=== PATIENT | female | born 1945 | race Caucasian/White ===

== ENCOUNTER 2022-07-06 08:57 | Outpatient (CLI) | payer OTHER, SELFPAY | END 2022-07-06 08:58 | disposition home or self-care (01) | PROVIDERS: Visit Provider Surgery | DX: R10.2 Pelvic and perineal pain (principal); B37.31 Acute candidiasis of vulva and vagina; C51.9 Malignant neoplasm of vulva, unspecified | CPT/HCPCS: 99204 ==

== ENCOUNTER 2022-07-13 09:21 | Outpatient (CLI) | payer OTHER, SELFPAY | END 2022-07-13 09:22 | disposition home or self-care (01) | LOC: WOUND 09:22 | PROVIDERS: Visit Provider Surgery | DX: R10.2 Pelvic and perineal pain (principal); C51.9 Malignant neoplasm of vulva, unspecified; B37.31 Acute candidiasis of vulva and vagina | CPT/HCPCS: 99213 ==

== ENCOUNTER 2022-07-20 09:01 | Outpatient (CLI) | payer OTHER, SELFPAY | END 2022-07-20 09:02 | disposition home or self-care (01) | LOC: WOUND 09:01 | PROVIDERS: Visit Provider Surgery | DX: R10.2 Pelvic and perineal pain (principal); B37.31 Acute candidiasis of vulva and vagina; C51.9 Malignant neoplasm of vulva, unspecified | CPT/HCPCS: 99213 ==

== ENCOUNTER 2022-07-27 08:55 | Outpatient (CLI) | payer OTHER, SELFPAY | END 2022-07-27 08:56 | disposition home or self-care (01) | LOC: WOUND 08:55 | PROVIDERS: Visit Provider Surgery | DX: C51.9 Malignant neoplasm of vulva, unspecified (principal); B37.32 Chronic candidiasis of vulva and vagina; R10.2 Pelvic and perineal pain; Z92.3 Personal history of irradiation | CPT/HCPCS: 99213 ==

== ENCOUNTER 2022-08-03 08:57 | Outpatient (CLI) | payer OTHER, SELFPAY | END 2022-08-03 08:58 | disposition home or self-care (01) | LOC: WOUND 08:57 | PROVIDERS: Visit Provider Surgery | DX: C51.9 Malignant neoplasm of vulva, unspecified (principal); R10.2 Pelvic and perineal pain; B37.32 Chronic candidiasis of vulva and vagina | CPT/HCPCS: 99213 ==

== ENCOUNTER 2022-08-10 09:10 | Outpatient (CLI) | payer OTHER, SELFPAY | END 2022-08-10 09:11 | disposition home or self-care (01) | LOC: WOUND 09:10 | PROVIDERS: Visit Provider Physician Assistant Surgical | DX: C51.9 Malignant neoplasm of vulva, unspecified (principal); R10.2 Pelvic and perineal pain; B37.31 Acute candidiasis of vulva and vagina; Z92.3 Personal history of irradiation | CPT/HCPCS: 99212 ==

== ENCOUNTER 2022-08-17 09:02 | Outpatient (CLI) | payer OTHER, SELFPAY | END 2022-08-17 09:03 | disposition home or self-care (01) | LOC: WOUND 09:02 | PROVIDERS: Visit Provider Surgery | DX: L59.8 Other specified disorders of the skin and subcutaneous tissue related to radiation (principal); R10.2 Pelvic and perineal pain | CPT/HCPCS: 99213 ==

== ENCOUNTER 2022-08-24 09:21 | Outpatient (CLI) | payer OTHER, SELFPAY | END 2022-08-24 09:22 | disposition home or self-care (01) | LOC: WOUND 09:22 | PROVIDERS: Visit Provider Surgery | DX: L59.8 Other specified disorders of the skin and subcutaneous tissue related to radiation (principal); B37.32 Chronic candidiasis of vulva and vagina; R10.2 Pelvic and perineal pain | CPT/HCPCS: 99213 ==

== ENCOUNTER 2022-08-24 10:14 | Outpatient (CLI) | payer OTHER, SELFPAY ==
--- NOTE | 2022-08-24 10:15 | CRLHL7_ITS ---
For Patients: As a result of the Century Cures Act, medical imaging exams and procedure reports are released immediately into your electronic medical record. You may view this report before your referring provider. If you have questions, please contact your health care provider. INDICATION: Vulvar cancer. TECHNIQUE: Multiplanar imaging of the pelvis was performed without and with 15 cc of Dotarem contrast material IV. COMPARISON: None FINDINGS: On images 51-63 of series 17, the post-contrast axial T1-weighted VIBE images, an irregularly marginated roughly 2.5 x 2 x 2 cm masslike abnormality is demonstrated deep to the mucosa of the posterior vagina, displacing the canal leftward. The lymphadenopathy is apparent. An intramural 3 cm right uterine fundal fibroid is noted. Nabothian cysts are noted in the cervix. The endometrial stripe is thickened to 7 mm. The junctional zone thickness is within normal limits at 4 mm. Structures consistent with normal postmenopausal ovaries are noted. No free fluid is demonstrated. Sigmoid diverticulosis is noted. IMPRESSION: 1. Irregularly marginated roughly 2.5 x 2 x 2 cm masslike abnormality deep to mucosa in the in the posterior superior vagina. 2. 3 cm intramural right uterine fundal fibroid. Dictated by Rajinder Bar MD @ 08/25/2022 2:26:35 PM (Electronically Signed)
== END 2022-08-24 10:15 | disposition home or self-care (01) ==
LOC: MRI 10:14
PROVIDERS: Visit Provider Obstetrics & Gynecology Gynecology
DX: C51.9 Malignant neoplasm of vulva, unspecified (principal); D25.1 Intramural leiomyoma of uterus
CPT/HCPCS: 72197; 99213; A9575

== ENCOUNTER 2022-08-31 08:51 | Outpatient (CLI) | payer OTHER, SELFPAY | END 2022-08-31 08:52 | disposition home or self-care (01) | LOC: WOUND 08:51 | PROVIDERS: Visit Provider Surgery | DX: L59.8 Other specified disorders of the skin and subcutaneous tissue related to radiation (principal); B37.32 Chronic candidiasis of vulva and vagina; R10.2 Pelvic and perineal pain | CPT/HCPCS: 80076; 99213 ==

== ENCOUNTER 2022-09-21 09:06 | Outpatient (CLI) | payer OTHER, SELFPAY ==
[2022-09-21 10:15] LABS: Hemoglobin A1C* 7.83 % (0-5.6)
== END 2022-09-21 09:07 | disposition home or self-care (01) ==
LOC: WOUND 09:06
PROVIDERS: Visit Provider Surgery
DX: L59.8 Other specified disorders of the skin and subcutaneous tissue related to radiation (principal); R10.2 Pelvic and perineal pain; B37.32 Chronic candidiasis of vulva and vagina; E11.9 Type 2 diabetes mellitus without complications
CPT/HCPCS: 36415; 83036; 99213

== ENCOUNTER 2022-09-28 09:04 | Outpatient (CLI) | payer OTHER, SELFPAY | END 2022-09-28 09:05 | disposition home or self-care (01) | LOC: WOUND 09:04 | PROVIDERS: Visit Provider Surgery | DX: L59.8 Other specified disorders of the skin and subcutaneous tissue related to radiation (principal); R10.2 Pelvic and perineal pain; B37.32 Chronic candidiasis of vulva and vagina; E11.9 Type 2 diabetes mellitus without complications | CPT/HCPCS: 99213 ==

== ENCOUNTER 2022-10-05 09:09 | Outpatient (CLI) | payer OTHER, SELFPAY | END 2022-10-05 09:10 | disposition home or self-care (01) | LOC: WOUND 09:09 | PROVIDERS: Visit Provider Physician Assistant Surgical | DX: L59.8 Other specified disorders of the skin and subcutaneous tissue related to radiation (principal); R10.2 Pelvic and perineal pain; B37.32 Chronic candidiasis of vulva and vagina | CPT/HCPCS: 99213 ==

== ENCOUNTER 2022-10-12 09:04 | Outpatient (CLI) | payer OTHER, SELFPAY ==
[2022-10-12 10:07] LABS: Alkaline Phosphatase* 137 U/L (40-150); Aspartate Amino Transferase* 18 U/L (12-35); Bilirubin Direct* 0.2 mg/dL (0.0-0.5); Bilirubin Total* 0.3 mg/dL (0.1-1.5); Total Protein* 7.8 g/dL (6.0-8.3)
[2022-10-12 10:08] LABS: Alanine Aminotransferase* 16 U/L (4-35)
== END 2022-10-12 09:05 | disposition home or self-care (01) ==
LOC: WOUND 09:04
PROVIDERS: Visit Provider Surgery
DX: L59.8 Other specified disorders of the skin and subcutaneous tissue related to radiation (principal); B37.32 Chronic candidiasis of vulva and vagina; R10.2 Pelvic and perineal pain; Z79.899 Other long term (current) drug therapy
CPT/HCPCS: 36415; 80076; 99213

== ENCOUNTER 2022-10-19 09:00 | Outpatient (CLI) | payer OTHER, SELFPAY | END 2022-10-19 09:01 | disposition home or self-care (01) | LOC: WOUND 09:00 | PROVIDERS: Visit Provider Surgery | DX: L59.8 Other specified disorders of the skin and subcutaneous tissue related to radiation (principal); B37.32 Chronic candidiasis of vulva and vagina; R10.2 Pelvic and perineal pain | CPT/HCPCS: 97597; 97598 ==

== ENCOUNTER 2022-10-26 09:05 | Outpatient (CLI) | payer OTHER, SELFPAY | END 2022-10-26 09:06 | disposition home or self-care (01) | LOC: WOUND 09:05 | PROVIDERS: Visit Provider Surgery | DX: L59.8 Other specified disorders of the skin and subcutaneous tissue related to radiation (principal); B37.32 Chronic candidiasis of vulva and vagina; R10.2 Pelvic and perineal pain | CPT/HCPCS: 97597; 97598; 99212 ==

== ENCOUNTER 2022-12-07 09:02 | Outpatient (CLI) | payer OTHER, SELFPAY | END 2022-12-07 09:03 | disposition home or self-care (01) | LOC: WOUND 09:02 | PROVIDERS: Visit Provider Surgery | DX: L59.8 Other specified disorders of the skin and subcutaneous tissue related to radiation (principal); B37.32 Chronic candidiasis of vulva and vagina; R10.2 Pelvic and perineal pain | CPT/HCPCS: 99213 ==

== ENCOUNTER 2022-12-21 09:35 | Outpatient (CLI) | payer OTHER, SELFPAY | END 2022-12-21 09:36 | disposition home or self-care (01) | LOC: WOUND 09:35 | PROVIDERS: Visit Provider Surgery | DX: L59.8 Other specified disorders of the skin and subcutaneous tissue related to radiation (principal); B37.32 Chronic candidiasis of vulva and vagina; R10.2 Pelvic and perineal pain | CPT/HCPCS: 87070; 87186; 99212 ==

== ENCOUNTER 2023-01-18 09:34 | Outpatient (CLI) | payer OTHER, SELFPAY | END 2023-01-18 09:35 | disposition home or self-care (01) | LOC: WOUND 09:34 | PROVIDERS: Visit Provider Physician Assistant Surgical | DX: R10.2 Pelvic and perineal pain (principal); L59.8 Other specified disorders of the skin and subcutaneous tissue related to radiation; B37.32 Chronic candidiasis of vulva and vagina | CPT/HCPCS: 99213 ==

== ENCOUNTER 2023-01-25 09:38 | Outpatient (CLI) | payer OTHER, SELFPAY ==
--- NOTE | 2023-01-25 10:20 | CRLHL7_ITS ---
For Patients: As a result of the Cures Act, medical imaging exams and procedure reports are released immediately into your electronic medical record. You may view this report before your referring provider. If you have questions, please contact your health care provider. INDICATION: Hyperbaric oxygen workup TECHNIQUE: Chest 2 views COMPARISON: None FINDINGS: Right-sided central venous catheter is present. No infiltrate is present. There is no fracture. The cardiac silhouette is mildly prominent. Rightward curvature of the thoracic spine. No pleural effusion or pneumothorax. IMPRESSION: Clear lungs. Dictated by Griffin Joe MD @ 01/25/2023 12:07:51 PM (Electronically Signed)
== END 2023-01-25 09:39 | disposition home or self-care (01) ==
LOC: WOUND 09:38
PROVIDERS: Visit Provider Surgery
DX: L59.8 Other specified disorders of the skin and subcutaneous tissue related to radiation (principal); B37.32 Chronic candidiasis of vulva and vagina; R10.2 Pelvic and perineal pain
CPT/HCPCS: 71046; 97597; 99212

== ENCOUNTER 2023-01-25 11:37 | Outpatient (CLI) | payer OTHER, SELFPAY | END 2023-01-25 11:38 | disposition home or self-care (01) | PROVIDERS: Visit Provider Surgery | DX: Z13.6 Encounter for screening for cardiovascular disorders (principal) | CPT/HCPCS: 71046 ==

== ENCOUNTER 2023-01-30 08:42 | Outpatient (RCR) | payer OTHER, SELFPAY | END 2023-01-30 23:59 | disposition home or self-care (01) | LOC: WOUND 08:42 | PROVIDERS: Visit Provider Nurse Practitioner Family | DX: L59.8 Other specified disorders of the skin and subcutaneous tissue related to radiation (principal); B37.32 Chronic candidiasis of vulva and vagina; R10.2 Pelvic and perineal pain; E11.9 Type 2 diabetes mellitus without complications | CPT/HCPCS: 82962; G0277 ==

== ENCOUNTER 2023-02-01 08:01 | Outpatient (CLI) | payer OTHER, SELFPAY | END 2023-02-01 08:02 | disposition home or self-care (01) | LOC: WOUND 08:01 | PROVIDERS: Visit Provider Surgery | DX: L59.8 Other specified disorders of the skin and subcutaneous tissue related to radiation (principal); B37.32 Chronic candidiasis of vulva and vagina; R10.2 Pelvic and perineal pain | CPT/HCPCS: 82962; 99213; G0277 ==

== ENCOUNTER 2023-02-08 08:03 | Outpatient (CLI) | payer OTHER, SELFPAY ==
[2023-02-08 12:13] LABS: Alanine Aminotransferase* 16 U/L (4-35); Alkaline Phosphatase* 129 U/L (40-150); Aspartate Amino Transferase* 20 U/L (12-35); Bilirubin Total* 0.3 mg/dL (0.1-1.5); Total Protein* 7.7 g/dL (6.0-8.3)
== END 2023-02-08 08:04 | disposition home or self-care (01) ==
LOC: WOUND 08:04
PROVIDERS: Visit Provider Surgery
DX: L59.8 Other specified disorders of the skin and subcutaneous tissue related to radiation (principal); E08.628 Diabetes mellitus due to underlying condition with other skin complications; B37.32 Chronic candidiasis of vulva and vagina; R10.2 Pelvic and perineal pain; Z79.84 Long term (current) use of oral hypoglycemic drugs
CPT/HCPCS: 36415; 80076; 82962; 97597; G0277

== ENCOUNTER 2023-02-15 08:06 | Outpatient (CLI) | payer OTHER, SELFPAY | END 2023-02-15 08:07 | disposition home or self-care (01) | LOC: WOUND 08:06 | PROVIDERS: Visit Provider Surgery | DX: L59.8 Other specified disorders of the skin and subcutaneous tissue related to radiation (principal); E08.628 Diabetes mellitus due to underlying condition with other skin complications; B37.32 Chronic candidiasis of vulva and vagina; R10.2 Pelvic and perineal pain; Z79.84 Long term (current) use of oral hypoglycemic drugs; Z53.8 Procedure and treatment not carried out for other reasons | CPT/HCPCS: 82962; 97597; 97598; 99212 ==

== ENCOUNTER 2023-02-22 08:02 | Outpatient (CLI) | payer OTHER, SELFPAY | END 2023-02-22 08:03 | disposition home or self-care (01) | LOC: WOUND 08:02 | PROVIDERS: Visit Provider Surgery | DX: L59.8 Other specified disorders of the skin and subcutaneous tissue related to radiation (principal); B37.32 Chronic candidiasis of vulva and vagina; E08.628 Diabetes mellitus due to underlying condition with other skin complications; R10.2 Pelvic and perineal pain; Z79.84 Long term (current) use of oral hypoglycemic drugs | CPT/HCPCS: 82962; 97597; 97598; G0277 ==

== ENCOUNTER 2023-03-01 08:05 | Outpatient (CLI) | payer OTHER, SELFPAY | END 2023-03-01 08:06 | disposition home or self-care (01) | PROVIDERS: Visit Provider Surgery | DX: L59.8 Other specified disorders of the skin and subcutaneous tissue related to radiation (principal); E08.628 Diabetes mellitus due to underlying condition with other skin complications; B37.32 Chronic candidiasis of vulva and vagina; R10.2 Pelvic and perineal pain; N39.498 Other specified urinary incontinence; Z79.84 Long term (current) use of oral hypoglycemic drugs | CPT/HCPCS: 82962; 97597; 97598; 99212; G0277 ==

== ENCOUNTER 2023-03-02 09:00 | Outpatient (RCR) | payer OTHER, SELFPAY | END 2023-03-02 23:59 | disposition home or self-care (01) | LOC: WOUND 09:00 | PROVIDERS: Visit Provider Nurse Practitioner Family | DX: L59.8 Other specified disorders of the skin and subcutaneous tissue related to radiation (principal); B37.32 Chronic candidiasis of vulva and vagina; R10.2 Pelvic and perineal pain; E08.628 Diabetes mellitus due to underlying condition with other skin complications; Z79.84 Long term (current) use of oral hypoglycemic drugs | CPT/HCPCS: 36415; 71046; 74177; 80048; 80076; 81001; 81003; 81015; 82330; 82803; 82962; 82977; 83036; 83605; 83690; 83735; 84145; 84443; 84484; 84550; 85025; 85610; 86140; 87040; 87086; 87631; 93005; 94761; 99213; 99283; G0277; A9270; J1650; J2405; J2543; J3010; J3370; J7030; J7050; J7120; Q9967 ==

== ENCOUNTER 2023-03-02 09:24 | Inpatient (IN) | payer OTHER, SELFPAY ==
[2023-03-02] VITALS (40 sets, daily range): BP systolic 132–173; BP diastolic 67–100; PULSE 79–125; RESP 20–24; TEMP 36.6–38.3; O2SAT 86–100; BMI 27.5; BMI 26.6
--- NOTE | 2023-03-02 09:54 | ED.WEAKNESS ---
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 Patient had a routine visit scheduled for today but upon arrival was found to be tremulous and weak. Patient states she normally walks with help of walker. Patient is unable to clearly describe her symptoms any further other than she does not feel well. Upon further questioning she does not have any headache change in vision or hearing chest pain shortness a breath abdominal pain. Review of records indicate that the treatment of her vulvar ulceration is going well. Patient has a complex past medical history as well. No further information is available patient apparently has otherwise been in her usual state of health. No focal neurologic complaints upon arrival. Related Data Home Medications Medication Instructions Recorded Confirmed albuterol sulfate 90 mcg/actuation 1 - 2 puff inhalation Q4H PRN 03/02/23 03/02/23 aerosol inhaler dyspnea allopurinol 100 mg tablet 100 mg PO DAILY 03/02/23 03/02/23 fluconazole 200 mg tablet 200 mg PO DAILY 03/02/23 03/02/23 metoprolol succinate 50 mg 50 mg PO BID 03/02/23 03/02/23 tablet,extended release 24 hr nystatin 100,000 unit/gram topical 1 applic topical QID PRN 03/02/23 03/02/23 ointment omeprazole 20 mg capsule,delayed 20 mg PO DAILY 03/02/23 03/02/23 release oxycodone 5 mg tablet 2.5 mg PO HS pain 03/02/23 03/02/23 rosuvastatin 5 mg tablet 5 mg PO DAILY 03/02/23 03/02/23 Previous Rx's Medication Instructions Recorded lidocaine HCl 2 % mucosal jelly 1 applic topical BID-QID PRN pain 07/27/22 #50 mL Allergies Allergy/AdvReac Type Severity Reaction Status Date / Time No Known Drug Allergies Allergy Verified 03/02/23 09:39 Review of Systems Status of ROS: Reports: 10 or more systems reviewed and unremarkable except as noted in History and below [facility] Medical History Vulvar cancer ?C51.9 - Malignant neoplasm of vulva, unspecified (ICD-10) Chronic renal insufficiency ?N18.9 - Chronic kidney disease, unspecified (ICD-10) GERD (gastroesophageal reflux disease) ?K21.9 - Gastro-esophageal reflux disease without esophagitis (ICD-10) Type 2 diabetes mellitus ?E11.9 - Type 2 diabetes mellitus without complications (ICD-10) Obstructive sleep apnea ?G47.33 - Obstructive sleep apnea (adult) (pediatric) (ICD-10) Asthma ?J45.909 - Unspecified asthma, uncomplicated (ICD-10) Hypertension ?I10 - Essential (primary) hypertension (ICD-10) Atrial fibrillation ?I48.91 - Unspecified atrial fibrillation (ICD-10) Cardiomyopathy ?I42.9 - Cardiomyopathy, unspecified (ICD-10) Congestive heart failure ?I50.9 - Heart failure, unspecified (ICD-10) Social History Smoking Status: Never smoker Do you use any of these nicotine containing products: None Second hand tobacco smoke exposure: No How often do you have a drink containing alcohol: monthly or less How often do you have six or more drinks on one occasion: Never AUDIT-C Alcohol total score: 1 Non-prescribed substance use: denies use service: No Exam Narrative: Exam Narrative: EXAM GENERAL: Patient appears comfortable and well. Mildly tremulous. EYES: No scleral icterus. LYMPH: No supraclavicular or cervical lymphadenopathy. SKIN: Visible skin seen during exam normal or with benign process only. EXT: No dependent lower extremity pedal edema. HEART: Regular rate and rhythm with no murmurs, rubs, or gallops. LUNGS: Clear to auscultation bilaterally with no crackles or wheezes. ABD: Soft, non tender, non distended. PSYCH: Good eye contact, speech is not pressured. Skin exam of the vagina and perineum done with nursing present shows a very indurated red swollen external vagina with mild exudative drainage versus cream exuding from the labia area. There is a purple with previous antifungal cream in both femoral creases. Difficult to tell whether a ulceration is present. Const: Vital Signs, click to edit/add: Vital Signs - 24 hr 03/02/23 09:29 03/02/23 10:05 03/02/23 10:05 Temperature 97.9 F 100.2 F H Pulse Rate 106 H Pulse Rate [Pulse Oximeter] 102 H 105 H Respiratory Rate 24 24 Blood Pressure 160/100 H Blood Pressure [Ri ght Upper Arm] 173/91 H 160/100 H Pulse Oximetry 98 99 98 Oxygen Delivery Me thod Room Air Room Air 03/02/23 10:06 03/02/23 10:15 03/02/23 10:30 Temperature Pulse Rate 108 H 102 H 101 H Pulse Rate [Pulse Oximeter] Respiratory Rate Blood Pressure Blood Pressure [Ri ght Upper Arm] Pulse Oximetry 98 100 98 Oxygen Delivery Me thod 03/02/23 10:32 03/02/23 10:45 03/02/23 11:09 Temperature Pulse Rate 111 H 102 H 107 H Pulse Rate [Pulse Oximeter] Respiratory Rate Blood Pressure 164/76 H Blood Pressure [Ri ght Upper Arm] Pulse Oximetry 99 98 100 Oxygen Delivery Me thod 03/02/23 11:13 03/02/23 11:15 03/02/23 11:57 Temperature 101 F H Pulse Rate 106 H Pulse Rate [Pulse Oximeter] 105 H 115 H Respiratory Rate 24 24 Blood Pressure Blood Pressure [Ri ght Upper Arm] 173/76 H Pulse Oximetry 100 99 98 Oxygen Delivery Me thod Room Air Room Air 03/02/23 11:58 03/02/23 12:32 03/02/23 12:33 Temperature Pulse Rate 118 H 109 H 112 H Pulse Rate [Pulse Oximeter] Respiratory Rate Blood Pressure 173/76 H 165/88 H Blood Pressure [Ri ght Upper Arm] Pulse Oximetry 98 96 98 Oxygen Delivery Me thod 03/02/23 12:34 03/02/23 12:35 03/02/23 12:48 Temperature 100.4 F H Pulse Rate 114 H 121 H Pulse Rate [Pulse Oximeter] 112 H Respiratory Rate 24 Blood Pressure Blood Pressure [Ri ght Upper Arm] 165/88 H Pulse Oximetry 97 98 94 Oxygen Delivery Me thod Room Air 03/02/23 13:00 03/02/23 13:02 03/02/23 13:32 Temperature 99.1 F Pulse Rate 125 H Pulse Rate [Pulse Oximeter] 110 H Respiratory Rate 24 Blood Pressure 145/76 H Blood Pressure [Ri ght Upper Arm] 137/81 Pulse Oximetry 96 96 Oxygen Delivery Me thod Room Air Course Course Hospital Course: Will begin evaluation with CBC basic metabolic panel troponin EKG urinalysis. Patient will be given 500 mL of normal saline. Noted to be afebrile at this time. Reevaluation(s) Time of Reevaluation #1: 11:34 Reevaluation #1: Patient is afebrile upon arrival nausea fever 101. Blood cultures x2 lactic acid ordered. I did speak with the wound clinic and they are going to come up in help examine the wound. CT of the abdomen pelvis as well as a chest x-ray ordered to further evaluate fever. Reevaluation #2: Patient's lactate is noted to be elevated at 4.0. I have started IV Zosyn. I have repeated a normal saline bolus of 500 mL been and being very cautious due to her history of cardiomyopathy and congestive heart failure. Time of Reevaluation #3: 14:51 Reevaluation #3: Spoke with hospitalist and surgeon. I am very concerned about the patient. Patient has been cultured lactate is elevated. We are trying to be aggressive with fluids noting that she does have a history of cardiomyopathy. Will continue our aggressive hydration vancomycin Zosyn. I did discuss case with patient's son and daughter. Upon my review patient has not had any chemotherapy or radiation for over a year. Barrett catheter will be placed. Vital Signs Vital signs: Initial Vital Signs Temperature 97.9 F 03/02/23 09:29 Temperature Source Temporal Artery Scan 03/02/23 09:29 Pulse Rate 102 H 03/02/23 09:29 Respiratory Rate 24 03/02/23 09:29 Blood Pressure 173/91 H 03/02/23 09:29 Blood Pressure Mean 118 H 03/02/23 09:29 Blood Pressure Position Sitting 03/02/23 09:29 Pulse Oximetry 98 03/02/23 09:29 Oxygen Delivery Method Room Air 03/02/23 09:29 Vital Signs Temperature 97.9 F 03/02/23 09:29 Pulse Rate 102 H 03/02/23 09:29 Respiratory Rate 24 03/02/23 09:29 Blood Pressure 173/91 H 03/02/23 09:29 Pulse Oximetry 98 03/02/23 09:29 Oxygen Delivery Method Room Air 03/02/23 09:29 Temperature 99.1 F 03/02/23 13:32 Pulse Rate 110 H 03/02/23 13:32 Respiratory Rate 24 03/02/23 13:32 Blood Pressure 137/81 03/02/23 13:32 Pulse Oximetry 96 03/02/23 13:32 Oxygen Delivery Method Room Air 03/02/23 13:32 MDM - Weakness MDM Narrative Medical decision making narrative: Patient is a 77-year-old complex woman who presents to the emergency room with rigors. Initially she did not appear to have a significant fever but she did develop a fever of 101. Also appeared to be somewhat confused at times. Limited information was taken from chart review as patient was confused. We did find her to have an elevated white blood cell count in which he had a fever we did run lactate which was found to be 4.0. Blood cultures were also collected patient was started on IV vancomycin and Zosyn. Patient will be admitted for further evaluation general surgery contacted Barrett catheter ordered. Patient is likely septic. I did further evaluate the fever with chest x-ray no signs of pneumonia CT of the abdomen pelvis shows no acute cause for her fever. UA shows contamination. Does appear to be sepsis secondary to cellulitis at this point. Other items I consider my differential include COVID-19 viral syndrome pneumonia abdominal pathology abscess. Lab Data Labs: Lab Results 03/02/23 03/02/23 03/02/23 Range/Units 10:15 10:50 11:47 WBC 14.92 H (4.50-11.00) K/uL RBC 4.69 (4.00-5.20) m/uL Hgb 13.0 (12.0-16.0) gm/dL Hct 42.0 (33.0-51.0) % MCV 90 (80-100) fL MCH 28 (26-34) pg MCHC 31 L (32-36) gm/dL RDW Coeff of Robert 15.3 (11.5-15.5) % Plt Count 313 (140-440) K/uL Neut % (Auto) 92.1 H (42.0-72.0) % Lymph % (Auto) 2.3 L (20-44) % [place] % (Auto) 4.4 (0.0-11.0) % Eos % (Auto) 0.9 (0.0-7.0) % Baso % (Auto) 0.2 (0.0-3.0) % Neut # (Auto) 13.70 H (1.7-7.0) K/uL Lymph # (Auto) 0.30 L (0.90-2.90) K/uL [place] # (Auto) 0.70 (0.00-0.90) K/UL Eos # (Auto) 0.10 (0.00-0.50) K/uL Baso # (Auto) 0.00 (0.00-0.30) K/uL Abs Immat Gran (auto) 0.00 (0.00-0.30) K/uL Imm/Tot Granulo (auto) 0.1 % INR 0.93 (0.91-1.10) Sodium 141 (135-149) mmol/L Potassium 4.8 (3.6-5.1) mmol/L Chloride 105 (96-114) mmol/L Carbon Dioxide 25 (20-32) mmol/L Anion Gap 11 (7-15) mEq/L BUN 40 H (7-30) mg/dL Creatinine 1.3 (0.5-1.5) mg/dL Estimated Creat Clear 33.13 Estimated GFR 43 ml/min Glucose 162 H (60-115) mg/dL Lactate 4.0 H (0.5-1.9) mmol/L Calcium 9.8 (8.4-10.6) mg/dL Troponin I < 0.01 L (0.01-0.04) ng/mL Urine Color Light yellow (Yellow) Urine Appearance Clear (Clear) Urine pH 6.0 (5.0-8.5) Ur Specific [place] 1.020 (1.000-1.030) Urine Protein 3+ A (Negative) Urine Glucose (UA) Negative (Negative) Urine Ketones Negative (Negative) Urine Blood 2+ A (Negative) Urine Nitrite Negative (Negative) Urine Bilirubin Negative (Negative) Urine Urobilinogen 0.2 (0.2-1.0) Ur Leukocyte Esterase 1+ A (Negative) Urine RBC 5-10 A (0-2) Urine WBC 10-25 A (0-5) Ur Squamous Epith Cells Few (None-Few) Amorphous Sediment Few A (None) Urine Bacteria Moderate A (None) SARS-CoV-2 (PCR) (Negative) Influenza Type A (PCR) (Negative) Influenza Type B (PCR) (Negative) RSV (PCR) (Negative) 03/02/23 Range/Units 11:48 WBC (4.50-11.00) K/uL RBC (4.00-5.20) m/uL Hgb (12.0-16.0) gm/dL Hct (33.0-51.0) % MCV (80-100) fL MCH (26-34) pg MCHC (32-36) gm/dL RDW Coeff of Robert (11.5-15.5) % Plt Count (140-440) K/uL Neut % (Auto) (42.0-72.0) % Lymph % (Auto) (20-44) % [place] % (Auto) (0.0-11.0) % Eos % (Auto) (0.0-7.0) % Baso % (Auto) (0.0-3.0) % Neut # (Auto) (1.7-7.0) K/uL Lymph # (Auto) (0.90-2.90) K/uL [place] # (Auto) (0.00-0.90) K/UL Eos # (Auto) (0.00-0.50) K/uL Baso # (Auto) (0.00-0.30) K/uL Abs Immat Gran (auto) (0.00-0.30) K/uL Imm/Tot Granulo (auto) % INR (0.91-1.10) Sodium (135-149) mmol/L Potassium (3.6-5.1) mmol/L Chloride (96-114) mmol/L Carbon Dioxide (20-32) mmol/L Anion Gap (7-15) mEq/L BUN (7-30) mg/dL Creatinine (0.5-1.5) mg/dL Estimated Creat Clear Estimated GFR ml/min Glucose (60-115) mg/dL Lactate (0.5-1.9) mmol/L Calcium (8.4-10.6) mg/dL Troponin I (0.01-0.04) ng/mL Urine Color (Yellow) Urine Appearance (Clear) Urine pH (5.0-8.5) Ur Specific [place] (1.000-1.030) Urine Protein (Negative) Urine Glucose (UA) (Negative) Urine Ketones (Negative) Urine Blood (Negative) Urine Nitrite (Negative) Urine Bilirubin (Negative) Urine Urobilinogen (0.2-1.0) Ur Leukocyte Esterase (Negative) Urine RBC (0-2) Urine WBC (0-5) Ur Squamous Epith Cells (None-Few) Amorphous Sediment (None) Urine Bacteria (None) SARS-CoV-2 (PCR) Negative SARS-CoV-2 (Negative) Influenza Type A (PCR) Negative PCR FLU A (Negative) Influenza Type B (PCR) Negative PCR FLU B (Negative) RSV (PCR) Negative PCR RSV (Negative) Discharge Plan Discharge Clinical Impression: Fever Patient Disposition: Admitted As Inpatient Condition: Improved Activity Level: Other Discharge Diet: Other Prescriptions: No Action allopurinol 100 mg tablet 100 mg PO DAILY omeprazole 20 mg capsule,delayed release(DR/EC) 20 mg PO DAILY albuterol sulfate 90 mcg/actuation HFA aerosol inhaler 1 - 2 puff INHALATION Q4H PRN (Reason: dyspnea) oxycodone 5 mg tablet 2.5 mg PO Q4H PRN (Reason: pain) rosuvastatin 5 mg tablet 5 mg PO DAILY fluconazole 200 mg tablet 200 mg PO DAILY metoprolol succinate 50 mg tablet extended release 24 hr 50 mg PO BID nystatin 100,000 unit/gram ointment 1 applic topical QID Qty: 30 5RF lidocaine HCl 2 % jelly 1 applic topical BID-QID PRN (Reason: pain) Qty: 50 0RF Follow Up/Referrals: Provider,Not a Local [Primary Care Provider] -
[2023-03-02 10:32] LABS: Basophils Percent Auto 0.2 % (0.0-3.0); Eosinophils Percent Auto 0.9 % (0.0-7.0); Immature Granulocytes Pct Auto 0.1 %; Lymphocytes Percent Auto 2.3 % (20-44); Mean Corpuscular HGB Conc 31 gm/dL (32-36); Mean Corpuscular Hemoglobin 28 pg (26-34); Mean Corpuscular Volume 90 fL (80-100); Monocytes Percent Auto 4.4 % (0.0-11.0); Neutrophils Percent Auto 92.1 % (42.0-72.0); Platelet Count* 313 K/uL (140-440); RDW Coefficient of Variation % 15.3 % (11.5-15.5); Red Blood Count 4.69 m/uL (4.00-5.20); Slide Review Reflex No; White Blood Count* 14.92 K/uL (4.50-11.00)
[2023-03-02] MEDS: 0.9 % SODIUM CHLORIDE 500 ML 500 ML IV ×3 (10:45→15:07)
[2023-03-02 10:46] LABS: Chloride* 105 mmol/L (96-114); Potassium* 4.8 mmol/L (3.6-5.1); Sodium* 141 mmol/L (135-149)
[2023-03-02 10:49] LABS: Anion Gap 11 mEq/L (7-15); Blood Urea Nitrogen* 40 mg/dL (7-30); Calcium* 9.8 mg/dL (8.4-10.6); Carbon Dioxide* 25 mmol/L (20-32); Creatinine* 1.3 mg/dL (0.5-1.5); Est. Creatinine Clearance* 33.13; Estimated Glomerular Filt Rate 43 ml/min; Glucose* 162 mg/dL (60-115)
[2023-03-02 11:07] LABS: Appearance Urine Clear (Clear); Bilirubin Urine Negative (Negative); Blood Urine 2+ (Negative); Color Urine Light yellow (Yellow); Glucose Urine Negative (Negative); Ketones Urine Negative (Negative); Leukocyte Esterase Urine 1+ (Negative); Nitrite Urine Negative (Negative); Protein Urine 3+ (Negative); Urobilinogen Urine 0.2 (0.2-1.0)
--- NOTE | 2023-03-02 11:08 | ED.NURSE ---
dr paula was informed of temp 101 per note on chart. did get 1 set of blood cultures with initial blood draw.
[2023-03-02 11:17] LABS: Amorphous Sediment Urine Few; Bacteria Urine Moderate; Squamous Epithelial Cell Urine Few (None-Few)
[2023-03-02 11:18] LABS: Troponin I* < 0.01 ng/mL (0.01-0.04)
--- NOTE | 2023-03-02 11:32 | CRLHL7_ITS ---
For Patients: As a result of the Century Cures Act, medical imaging exams and procedure reports are released immediately into your electronic medical record. You may view this report before your referring provider. If you have questions, please contact your health care provider. INDICATION: History of vulvar carcinoma. Patient presents to emergency room with fever. COMPARISON: Portions of an MRI limited to the pelvis dated August 24, 2022 TECHNIQUE: CT examination of the abdomen and pelvis was performed following the uneventful intravenous administration of 81 cc of Isovue 370. Thin section axial images were obtained from the lung bases through the pubic symphysis. Oral contrast was not administered. Please note that all CT scans at this facility use dose modulation, iterative reconstruction, and/or weight-based dosing when appropriate to reduce radiation dose to as low as reasonably achievable. FINDINGS: LUNG BASES: The lung bases as visualized appear normal.The heart is enlarged. The lung bases LIVER/BILIARY SYSTEM:The liver is normal in size and configuration. There is no focal solid mass and there is no intra- or extra hepatic biliary ductal dilatation.Hepatic steatosis. Cyst in the right lobe. Gallbladder appears normal ADRENALS: Small bilateral adrenal nodules indeterminate but statistically most likely benign. These are more prominent on the left than on the right. These could be formally evaluated by MRI. KIDNEYS, URETERS and BLADDER:Normal size kidneys. Renal cortical scarring. No significant appearing renal lesion. No hydronephrosis or hydroureter. The bladder appears normal. SPLEEN:Normal appearance. PANCREAS: Appears normal. RETROPERITONEUM and MESENTERY: There are atherosclerotic vascular calcifications. There are no enlarged lymph nodes in the retroperitoneum or within the pelvis GASTROINTESTINAL SYSTEM: There is no evidence of diverticulitis, colitis, mechanical obstruction, or appendicitis. The small bowel as visualized appears normal.Diverticulosis PELVIS: There appears to be a myomatous uterus. The myomas on the right and appears to deviate endometrial canal to the left which is fluid filled. This could also represent endometrial thickening. This could be further evaluated by ultrasound. I see no definite adnexal mass. What is believed to be the left ovary is seen in the left pelvic sidewall and is of normal size. There is masslike prominence to the soft tissue of the perineum, the vulva and the lower vagina.Due to technical differences, this is very difficult to compare to the MRI. For restaging purposes, repeat MRI may be indicated. OSSEOUS STRUCTURES and ABDOMINAL WALL: There is an age-appropriate appearance of the osseous structures.No significant abdominal wall defect. OTHER: No free fluid or free air. IMPRESSION: 1. There is no specific visible cause for fever on this study. 2. There are multiple small bilateral adrenal nodules, left more prominent than right. Multiple small nodules are usually benign. Given the clinical history, these could be further studied by MRI. 3. No visible lymphadenopathy in the abdomen or pelvis. A nodule in the left pelvic sidewall is felt to be the normal ovary. 4. There appears to be a myomatous uterus. The myoma deviates the endometrial canal to the left which is either thickened or fluid filled. This could be further evaluated by sonography or MRI. 5. Masslike prominence of the soft tissues of the perineum in the region of the vulva and the lower 3rd of the vagina. This probably is related to the patient`s known malignancy and the treatment thereof. Difficult to compare to the MRI but fairly similar. Repeat MRI may be indicated for restaging purposes. 6. There are incidental nonacute appearing findings as discussed in the body of the report Please note that all CT scans at this facility use dose modulation, iterative reconstruction, and/or weight-based dosing when appropriate to reduce radiation dose to as low as reasonably achievable. Dictated by John Desai MD @ 03/02/2023 1:48:17 PM (Electronically Signed)
--- NOTE | 2023-03-02 11:33 | CRLHL7_ITS ---
For Patients: As a result of the Century Cures Act, medical imaging exams and procedure reports are released immediately into your electronic medical record. You may view this report before your referring provider. If you have questions, please contact your health care provider. INDICATION: Fever COMPARISON: January 25, 2023 TECHNIQUE: Two views of the chest were acquired on March 02, 2023 at 12:25 p.m. FINDINGS: TUBES AND LINES: Right IJ port ending in the distal SVC HEART AND MEDIASTINUM: Enlarged heart unchanged in appearance.. LUNGS AND PLEURAL SPACES: Moderate diffuse multifocal abnormality bilaterally without focal consolidation. Imaging features could be related to edema/CHF or a diffuse inflammatory process.The pleural spaces are unremarkable. OSSEOUS STRUCTURES: Age-appropriate appearance. No acute focal finding. IMPRESSION: Moderate diffuse multifocal lung abnormality bilaterally. This is new since the prior study and could be related to edema/CHF for a diffuse inflammatory process. No pleural effusion. Dictated by John Desai MD @ 03/02/2023 1:32:05 PM (Electronically Signed)
[2023-03-02 12:30] LABS: PCR FLU A Negative PCR FLU A (Negative); PCR FLU B Negative PCR FLU B (Negative); PCR RSV Negative PCR RSV (Negative)
[2023-03-02 12:32] LABS: SARS PCR* Negative SARS-CoV-2 (Negative)
[2023-03-02 12:38] LABS: INR 0.93 (0.91-1.10); Prothrombin Time 13.1 Seconds
--- NOTE | 2023-03-02 12:48 | PC.NURSE ---
Medium emesis. patient cleaned up.
[2023-03-02] MEDS: ONDANSETRON 2 MG/ML inj 4 MG IVP (12:51)
[2023-03-02] MEDS: PIPERACILLIN/TAZOBACTAM 3.375 GM in 0.9 % SODIUM CHLORIDE Mini-bag 100 ML IVPB (12:53)
[2023-03-02] MEDS: fentaNYL 100 MCG/2 ML inj 50 MCG IVP (14:55)
--- NOTE | 2023-03-02 15:00 | ED.NURSE ---
#12 fr Barrett inserted after premedication with fentanyl 50 mcg. has severe excoriation and loss of elasticity in the perineum area. ua was sent. Dr Lorenzo in room speaking to Cony. prior to placement of catheter. was incontinent of large amt of urine
[2023-03-02 15:17] LABS: Albumin* 4.2 g/dL (3.3-5.0)
--- NOTE | 2023-03-02 15:17 | PM.IMHP1 ---
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 Her vulvar cancer was diagnosed in August 2021 and she has undergone targeted radiation treatment and chemotherapy. She suffers chronic pain and disability after radiation. 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 Earlier in 2022 she had another round of biopsies pelvic MRI that demonstrated remission from the squamous cell but tissue necrosis related to radiation treatment. She has been seeing Dr. Askew in the wound care clinic. She also suffers from chronic general urinary yeast infections. She has been on a regimen of daily fluconazole for many weeks as well as current HBO treatments. She was just seen yesterday in the wound care clinic. Her wounds are the best they have seen in 2 years. This deterioration related to rigors and a fever seems to have come out of the blue. She is acute on chronically weak. There has been no significant prodrome prior to today's arrival at [facility]. Yesterday seemed like a normal day, no chest pain shortness of breath or cough. No new rash. She has been in a pleasant mood. Pain has subsided fairly significantly with the hyperbaric treatments. Currently she is only taking 2.5 of oxycodone at night. ER COURSE: Labs, imaging, fluids, broad-spectrum antibiotics, Barrett placed. Hospital medicine team asked to continue inpatient cares and workup. CODE STATUS: DNR DNI EMERGENCY CONTACT PLAN: Primary Contact? Jose Espana? Son?Rel to Pat? [phone]?Cell Phone? I've updated the PFSH, medications and allergies in the Expanse tabs. INVESTIGATIONS: LABS/MICRO/ECG/IMAGING Initial vital signs revealed a temp 97.9? but this quickly pop to 101 within an hour of arrival. She was hypertensive upon arrival 160s 170s over 90s. She has been tachycardic since arrival ranging 102-120 Mildly tachypneic with a respiratory rate greater than 20 No O2 requirement presently needed 74.8 kilos White blood cell count 14.9, hemoglobin 13, platelet count 313 92.1% neutrophils INR 0.9 Electrolytes are normal, however BUN is 40 with a creatinine of 1.3 Glucose is 162 Hemoglobin A1c 6.0 Lactate 4.0 AST 49, this is a bumped from 2 weeks ago when it was normal Troponin is undetectable C reactive protein 1.1 TSH and procalcitonin are reassuring CT abdomen pelvis with contrast 1. There is no specific visible cause for fever on this study. 2. There are multiple small bilateral adrenal nodules, left more prominent than right. Multiple small nodules are usually benign. Given the clinical history, these could be further studied by MRI. 3. No visible lymphadenopathy in the abdomen or pelvis. A nodule in the left pelvic sidewall is felt to be the normal ovary. 4. There appears to be a myomatous uterus. The myoma deviates the endometrial canal to the left which is either thickened or fluid filled. This could be further evaluated by sonography or MRI. 5. Masslike prominence of the soft tissues of the perineum in the region of the vulva and the lower 3rd of the vagina. This probably is related to the patient`s known malignancy and the treatment thereof. Difficult to compare to the MRI but fairly similar. Repeat MRI may be indicated for restaging purposes. 6. There are incidental nonacute appearing findings as discussed in the body of the report Two view chest x-ray Moderate diffuse multifocal lung abnormality bilaterally. This is new since the prior study and could be related to edema/CHF for a diffuse inflammatory process. No pleural effusion. REVIEW OF SYSTEMS: 12-point ROS completed with patient and negative unless otherwise stated in HPI or below. PHYSICAL EXAM: CONSTITUTIONAL: Conversive, good historian. A/O. Knows setting and context. VITAL SIGNS: see record. HEENT: Normocephalic, atraumatic. PERRL, EOMI, conjunctivae pink, no scleral icterus. Ears and nose externally normal. Pharynx normal. NECK: No JVD. No carotid bruit, no thyromegaly, no adenopathy. CHEST: Clear to auscultation bilaterally HEART: S1 and S2 normal. No harsh murmurs. Edema MUSCULOSKELETAL: No gross joint deformity or swelling. NEURO: Cranial nerves intact. Grossly intact. No asymmetric findings. SKIN: No rashes, petechiae, concerning changes PSYCHIATRIC: Euthymic. ADMIT TO MEDSURG: FLOOR CARE DVT: Lovenox GI: PO intake Time spent: Today I spent 75 minutes seeing the patient, discussing the patient with ER staff, reviewing Expanse and EPIC notes/diagnostics, discussing the care plan with our care time that includes social work, PT/OT, pharmacy, RT, mcfp and documenting my impressions and plan in the medical record. [facility] Medical History (Updated 03/02/23 @ 17:07 by Nisha Lorenzo MD) 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 - Other specified disorders of the skin and subcutaneous tissue related to radiation (ICD-10) ?Y84.2 - Radiological procedure and radiotherapy as the cause of abnormal reaction of the patient, or of later complication, without mention of misadventure at the time of the procedure (ICD-10) Vulvar cancer ?C51.9 - Malignant neoplasm of vulva, unspecified (ICD-10) Chronic renal insufficiency ?N18.9 - Chronic kidney disease, unspecified (ICD-10) GERD (gastroesophageal reflux disease) ?K21.9 - Gastro-esophageal reflux disease without esophagitis (ICD-10) Type 2 diabetes mellitus ?E11.9 - Type 2 diabetes mellitus without complications (ICD-10) Obstructive sleep apnea ?G47.33 - Obstructive sleep apnea (adult) (pediatric) (ICD-10) Asthma ?J45.909 - Unspecified asthma, uncomplicated (ICD-10) Hypertension ?I10 - Essential (primary) hypertension (ICD-10) Atrial fibrillation ?I48.91 - Unspecified atrial fibrillation (ICD-10) Cardiomyopathy ?I42.9 - Cardiomyopathy, unspecified (ICD-10) Congestive heart failure ?I50.9 - Heart failure, unspecified (ICD-10) Surgical History (Updated 03/02/23 @ 15:37 by Nisha Lorenzo MD) [place] teeth removed ?K08.409 - Partial loss of teeth, unspecified cause, unspecified class (ICD-10) History of tubal ligation ?Z98.51 - Tubal ligation status (ICD-10) Hx of total knee arthroplasty ?Z96.659 - Presence of unspecified artificial knee joint (ICD-10) History of bunionectomy ?Z98.890 - Other specified postprocedural states (ICD-10) Status post breast reduction ?Z98.890 - Other specified postprocedural states (ICD-10) Status post biopsy of uterine cervix ?Z98.890 - Other specified postprocedural states (ICD-10) Social History Smoking Status: Never smoker Do you use any of these nicotine containing products: None Second hand tobacco smoke exposure: No How often do you have a drink containing alcohol: monthly or less How often do you have six or more drinks on one occasion: Never AUDIT-C Alcohol total score: 1 Non-prescribed substance use: denies use service: No Meds Home Medications and Allergies Home Medications Medication Instructions Recorded Confirmed Type albuterol sulfate 90 mcg/actuation 1 - 2 puff inhalation Q4H PRN 03/02/23 03/02/23 History aerosol inhaler dyspnea allopurinol 100 mg tablet 100 mg PO DAILY 03/02/23 03/02/23 History fluconazole 200 mg tablet 200 mg PO DAILY 03/02/23 03/02/23 History metoprolol succinate 50 mg 50 mg PO BID 03/02/23 03/02/23 History tablet,extended release 24 hr nystatin 100,000 unit/gram topical 1 applic topical QID PRN 03/02/23 03/02/23 History ointment omeprazole 20 mg capsule,delayed 20 mg PO DAILY 03/02/23 03/02/23 History release oxycodone 5 mg tablet 2.5 mg PO HS pain 03/02/23 03/02/23 History rosuvastatin 5 mg tablet 5 mg PO DAILY 03/02/23 03/02/23 History Allergies Allergy/AdvReac Type Severity Reaction Status Date / Time No Known Drug Allergies Allergy Verified 03/02/23 09:39 Exam Const: Vital Signs, click to edit/add: Vital Signs - 24 hr 03/02/23 09:29 03/02/23 10:05 03/02/23 10:05 Temperature 97.9 F 100.2 F H Pulse Rate 106 H Pulse Rate [Pulse Oximeter] 102 H 105 H Respiratory Rate 24 24 Blood Pressure 160/100 H Blood Pressure [Ri ght Upper Arm] 173/91 H 160/100 H Pulse Oximetry 98 99 98 Oxygen Delivery Me od Room Air Room Air 03/02/23 10:06 03/02/23 10:15 03/02/23 10:30 Temperature Pulse Rate 108 H 102 H 101 H Pulse Rate [Pulse Oximeter] Respiratory Rate Blood Pressure Blood Pressure [Ri ght Upper Arm] Pulse Oximetry 98 100 98 Oxygen Delivery Me thod 03/02/23 10:32 03/02/23 10:45 03/02/23 11:09 Temperature Pulse Rate 111 H 102 H 107 H Pulse Rate [Pulse Oximeter] Respiratory Rate Blood Pressure 164/76 H Blood Pressure [Ri ght Upper Arm] Pulse Oximetry 99 98 100 Oxygen Delivery Me thod 03/02/23 11:13 03/02/23 11:15 03/02/23 11:57 Temperature 101 F H Pulse Rate 106 H Pulse Rate [Pulse Oximeter] 105 H 115 H Respiratory Rate 24 24 Blood Pressure Blood Pressure [Ri ght Upper Arm] 173/76 H Pulse Oximetry 100 99 98 Oxygen Delivery Me od Room Air Room Air 03/02/23 11:58 03/02/23 12:32 03/02/23 12:33 Temperature Pulse Rate 118 H 109 H 112 H Pulse Rate [Pulse Oximeter] Respiratory Rate Blood Pressure 173/76 H 165/88 H Blood Pressure [Ri ght Upper Arm] Pulse Oximetry 98 96 98 Oxygen Delivery Me od 03/02/23 12:34 03/02/23 12:35 03/02/23 12:48 Temperature 100.4 F H Pulse Rate 114 H 121 H Pulse Rate [Pulse Oximeter] 112 H Respiratory Rate 24 Blood Pressure Blood Pressure [Ri ght Upper Arm] 165/88 H Pulse Oximetry 97 98 94 Oxygen Delivery Me od Room Air 03/02/23 13:00 03/02/23 13:02 03/02/23 13:32 Temperature 99.1 F Pulse Rate 125 H Pulse Rate [Pulse Oximeter] 110 H Respiratory Rate 24 Blood Pressure 145/76 H Blood Pressure [Ri ght Upper Arm] 137/81 Pulse Oximetry 96 96 Oxygen Delivery Me od Room Air Hospitalist - H&P: Result Labs Labs: Short CBC 03/02/23 Range/Units 10:15 WBC 14.92 H (4.50-11.00) K/uL Hgb 13.0 (12.0-16.0) gm/dL Hct 42.0 (33.0-51.0) % Plt Count 313 (140-440) K/uL BMP 03/02/23 10:15 Sodium 141 Potassium 4.8 Chloride 105 Carbon Dioxide 25 BUN 40 H Creatinine 1.3 Glucose 162 H Calcium 9.8 Cardiac Enzymes 03/02/23 Range/Units 10:15 Troponin I < 0.01 L (0.01-0.04) ng/mL Urine 03/02/23 Range/Units 10:50 Urine Color Light yellow (Yellow) Urine Appearance Clear (Clear) Urine pH 6.0 (5.0-8.5) Ur Specific [place] 1.020 (1.000-1.030) Urine Protein 3+ A (Negative) Urine Glucose (UA) Negative (Negative) Assessment and Plan Assessment and plan (1) Sepsis: Problem comment: -source unclear - CXR is concerning for infilitrates vs malignancy. less likely to be edema. CONSIDER CHEST CT IN AM OF 03/03. CONTRAST HAD ALREADY BEEN GIVEN ON 03/02. CONSIDER ADDING AZITHRO IF SO NEEDED -based on history of cardiomyopathy - fluid resuscitation was initially limited but pt has a normal EF (as of 2017 and just saw cards this summer) - asked ED to fluid resuscitate. 74.8 kilos times 30 mL/kilos equals 2250 mL. We will complete this bolus and then run maintenance fluids. -temp greater than 100.9, heart rate greater than 90, white blood cell count greater than 12, lactate greater than 2 all point to criteria for sepsis. -broad-spectrum antibiotics were ordered in the emergency room-blood cultures pending. Zosyn, vancomycin ordered, continue oral diflucan. Status: Acute (2) Radiation necrosis of skin and subcutaneous: Problem comment: -Entire external genitalia from rectum to mons pubis. Has been receiving HBO treatments starting in January 2023 (evidence of healing noted) -I spoke with Dr. Askew about previous treatments and the daily diflucan and that HBO seems to be working. 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 left labia. 09/21 - 11/21 rec'd XRT. 09/21 -11/21 rec'd carboplatin/5FU. disease remained and surgical resection not possible due to damage likely to rectum and need for diverting colostomy. offered immunotherapy and observation. 2022 events all seem related to radiation necrosis and pain management and chronic yeast infections. last pelvic MR and biopsy 10/23. Status: Acute (4) Chronic renal insufficiency: Problem comment: Patient is actually at 1.3 which is the best she has been in the last 2 years. 2021 her creatinine was around 2-2-1/2. Status: Acute (5) Type 2 diabetes mellitus: Problem comment: A1C 6.0. no meds. Accuchecks and SSI prn. Status: Acute (6) Atrial fibrillation: Problem comment: -pt has not been able to tolerate warfarin - bleeds from her perineum and has been hospitalized in the past for this. -last seen by cardiology in December 2022 (digoxin, toprol xl, crestor) -CHADS VASC 4-5. Status: Acute (7) Yeast infection involving the vagina and surrounding area: Problem comment: Hazel Aksew has managed - daily chronic diflucan history Status: Acute (8) Hypertension: Problem comment: metoprolol on hold now. Status: Acute (9) Obstructive sleep apnea: Problem comment: -does not tolerate CPAP Status: Acute (10) Congestive heart failure: Problem comment: 07/2017 echo Final Impressions: 1. Normal LV size, mildly increased wall thickness, normal global systolic function with an estimated EF of 55 - 60%. 2. Moderately enlarged left atrium. 3. Right ventricular cavity size is normal, global systolic RV function is normal. 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 EF back in 2010 was 40% with anterior distal wall hypokinesis. Nuclear stress test was neg. felt likely to be related to rate. Status: Acute
[2023-03-02 15:20] LABS: Alkaline Phosphatase* 154 U/L (40-150); Aspartate Amino Transferase* 49 U/L (12-35); Bilirubin Direct* 0.3 mg/dL (0.0-0.5); Bilirubin Total* 0.6 mg/dL (0.1-1.5); Total Protein* 8.4 g/dL (6.0-8.3)
[2023-03-02 15:21] LABS: Alanine Aminotransferase* 28 U/L (4-35)
[2023-03-02 15:23] LABS: C Reactive Protein* 1.1 mg/dL (0.5-1.0)
[2023-03-02 15:27] LABS: Appearance Urine Clear (Clear); Bilirubin Urine Negative (Negative); Blood Urine Trace-intact (Negative); Color Urine Yellow (Yellow); Glucose Urine Negative (Negative); Ketones Urine Negative (Negative); Leukocyte Esterase Urine Trace (Negative); Nitrite Urine Negative (Negative); Protein Urine 3+ (Negative); Urobilinogen Urine 0.2 (0.2-1.0); pH Urine 7.5 (5.0-8.5)
[2023-03-02 15:37] LABS: Procalcitonin* 0.22 ng/mL (<0.50)
--- NOTE | 2023-03-02 15:42 | ED.NURSE ---
Given report to Carolyn GOMEZ on the patient admitted to [facility] via cart to M/S. Daughter is present and will be at the bedside.
[2023-03-02 15:51] LABS: Thyroid Stimulating Hormone* 0.713 uIU/mL (0.270-4.20)
[2023-03-02 16:00] LABS: RBC Urine 0-2 (0-2); Squamous Epithelial Cell Urine Few (None-Few)
[2023-03-02 16:57] LABS: HCO3 VBG 25 mmol/L (21-28); Lactate* 1.7 mmol/L (0.5-1.9); PCO2 VBG 41 mmHG (40-50); PO2 VBG 24.6 mmHG (25-47)
[2023-03-02 17:16] LABS: Gamma Glutamyl Transpeptidase* 111 U/L (8-55)
[2023-03-02 17:17] LABS: Magnesium* 1.9 mg/dL (1.5-2.6); Uric Acid* 4.8 mg/dL (2.2-8.4)
[2023-03-02] MEDS: 0.9 % SODIUM CHLORIDE 1000 ml 1,000 ML 150 ML IV (17:46)
[2023-03-02] MEDS: IBUPROFEN 400 MG TABLET PO (17:47)
--- NOTE | 2023-03-02 19:33 | PC.NURSE ---
Pt lethargic and sleepy. Awakes to name but falls asleep easily. Room air, cont pulse ox. Barrett patent and draining clear light yellow urine.
[2023-03-02] MEDS: ENOXAPARIN 40 MG/0.4 ML INJ SUBCUT (21:36)
[2023-03-03] VITALS (9 sets, daily range): BP systolic 122–173; BP diastolic 63–86; PULSE 69–85; RESP 18–20; TEMP 36.6–36.9; O2SAT 94–100; BMI 27.2
[2023-03-03] MEDS: 0.9 % SODIUM CHLORIDE 1000 ml 1,000 ML 150 ML IV ×4 (01:11→23:46)
[2023-03-03] MEDS: PIPERACILLIN/TAZOBACTAM 3.375 GM in 0.9 % SODIUM CHLORIDE Mini-bag 100 ML IVPB ×4 (04:16→21:11)
[2023-03-03] MEDS: OMEPRAZOLE 20 MG CAPSULE DR PO (06:24)
--- NOTE | 2023-03-03 06:44 | PC.NURSE ---
Pt did well overnight. Has been without an elevated temp. VSS Barrett draining rosalva colored urine. labial sores with moderate amt of drainage. Pt much clearer over night. Minimal pain reported.
[2023-03-03] MEDS: IBUPROFEN 400 MG TABLET PO ×3 (08:47→21:10)
[2023-03-03] MEDS: FLUCONAZOLE 100 MG TABLET 200 MG PO (10:26)
[2023-03-03] MEDS: allopurinoL 100 MG TABLET PO (10:26)
--- NOTE | 2023-03-03 11:10 | P.GSCN_ITS ---
History of Present Illness Consult details Date Seen: 03/03/23 Consult date: 03/03/23 Narrative: Patient is well known to this provider through the wound center. 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 This area does chronically have a fungal infection, for which she is on nystatin creams and daily Diflucan. She was admitted yesterday from [facility] secondary to fevers. Workup in the emergency department was done with CT scan demonstrating no evidence of abscess. She is reporting increased pain to the perineal area. They were able to place a Barrett catheter yesterday, which remains in place today. Review of Systems Status of ROS: Reports: 6 or more systems reviewed and unremarkable except as noted in History and below [facility] Medical History (Updated 03/02/23 @ 17:07 by Nisha Lorenzo MD) 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 - Other specified disorders of the skin and subcutaneous tissue related to radiation (ICD-10) ?Y84.2 - Radiological procedure and radiotherapy as the cause of abnormal reaction of the patient, or of later complication, without mention of misadventure at the time of the procedure (ICD-10) Vulvar cancer ?C51.9 - Malignant neoplasm of vulva, unspecified (ICD-10) Chronic renal insufficiency ?N18.9 - Chronic kidney disease, unspecified (ICD-10) GERD (gastroesophageal reflux disease) ?K21.9 - Gastro-esophageal reflux disease without esophagitis (ICD-10) Type 2 diabetes mellitus ?E11.9 - Type 2 diabetes mellitus without complications (ICD-10) Obstructive sleep apnea ?G47.33 - Obstructive sleep apnea (adult) (pediatric) (ICD-10) Asthma ?J45.909 - Unspecified asthma, uncomplicated (ICD-10) Hypertension ?I10 - Essential (primary) hypertension (ICD-10) Atrial fibrillation ?I48.91 - Unspecified atrial fibrillation (ICD-10) Cardiomyopathy ?I42.9 - Cardiomyopathy, unspecified (ICD-10) Congestive heart failure ?I50.9 - Heart failure, unspecified (ICD-10) Surgical History (Updated 03/02/23 @ 15:37 by Nisha Lorenzo MD) Kindred teeth removed ?K08.409 - Partial loss of teeth, unspecified cause, unspecified class (ICD- 10) History of tubal ligation ?Z98.51 - Tubal ligation status (ICD-10) Hx of total knee arthroplasty ?Z96.659 - Presence of unspecified artificial knee joint (ICD-10) History of bunionectomy ?Z98.890 - Other specified postprocedural states (ICD-10) Status post breast reduction ?Z98.890 - Other specified postprocedural states (ICD-10) Status post biopsy of uterine cervix ?Z98.890 - Other specified postprocedural states (ICD-10) Social History What is your current living situation?: I presently have a place to live Problems where you live: declined to answer Problems where you live details: unable to assess In the past 12 months, utilities in danger of being shut off: no In the past 12 mos, have been you worried that your food would run out before you had money to buy more?: declined to answer In the past 12 mos, the food you bought just didn't last and you didn't have money to buy more?: declined to answer Highest level of school completed/degree received: high school graduate Smoking Status: Never smoker Do you use any of these nicotine containing products: None Second hand tobacco smoke exposure: No How often do you have a drink containing alcohol: never How often do you have six or more drinks on one occasion: Never AUDIT-C Alcohol total score: 0 Non-prescribed substance use: denies use Caffeine: No How often does anyone, including family, friends and others, physically hurt you : never How often does anyone, including family, friends and others, insult or talk down to you: never How often does anyone, including family, friends and others, threaten you with harm: never How often does anyone, including family, friends and others, scream or curse at you: never service: No Meds Home Medications and Allergies Home Medications Medication Instructions Recorded Confirmed Type albuterol sulfate 90 mcg/actuation 1 - 2 puff inhalation Q4H PRN 03/02/23 03/02/23 History aerosol inhaler dyspnea allopurinol 100 mg tablet 100 mg PO DAILY 03/02/23 03/02/23 History fluconazole 200 mg tablet 200 mg PO DAILY 03/02/23 03/02/23 History metoprolol succinate 50 mg 50 mg PO BID 03/02/23 03/02/23 History tablet,extended release 24 hr nystatin 100,000 unit/gram topical 1 applic topical QID PRN 03/02/23 03/02/23 History ointment omeprazole 20 mg capsule,delayed 20 mg PO DAILY 03/02/23 03/02/23 History release oxycodone 5 mg tablet 2.5 mg PO HS pain 03/02/23 03/02/23 History rosuvastatin 5 mg tablet 5 mg PO DAILY 03/02/23 03/02/23 History Allergies Allergy/AdvReac Type Severity Reaction Status Date / Time No Known Drug Allergies Allergy Verified 03/02/23 09:39 Exam Narrative: Exam Narrative: General: Alert and oriented, no acute distress and nontoxic Respiratory: Equal breath rise, maintained on room air CV: Regular rhythm rate, well perfused : Ulceration of the vaginal opening, fungal plaques within the vaginal introitus. Ulcerations and fungal plaques within bilateral groin creases. Periwound does have evidence of increasing erythema and induration. There is new erythema and induration of the pubis mom's. New erythema and induration of the perianal area. Const: Vital Signs, click to edit/add: Vital Signs - 24 hr 03/02/23 11:13 03/02/23 11:15 03/02/23 11:57 Temperature 101 F H Pulse Rate 106 H Pulse Rate [Left P ulse Oximeter] Pulse Rate [Pulse Oximeter] 105 H 115 H Respiratory Rate 24 24 Blood Pressure Blood Pressure [Ri ght Arm] Blood Pressure [Ri ght Upper Arm] 173/76 H Pulse Oximetry 100 99 [facility] 03/02/23 11:58 03/02/23 12:32 03/02/23 12:33 Temperature Pulse Rate 118 H 109 H 112 H Pulse Rate [Left P ulse Oximeter] Pulse Rate [Pulse Oximeter] Respiratory Rate Blood Pressure 173/76 H 165/88 H Blood Pressure [Ri ght Arm] Blood Pressure [Ri ght Upper Arm] Pulse Oximetry 98 96 98 Oxygen Delivery Me thod 03/02/23 12:34 03/02/23 12:35 03/02/23 12:48 Temperature 100.4 F H Pulse Rate 114 H 121 H Pulse Rate [Left P ulse Oximeter] Pulse Rate [Pulse Oximeter] 112 H Respiratory Rate 24 Blood Pressure Blood Pressure [Ri ght Arm] Blood Pressure [Ri ght Upper Arm] 165/88 H Pulse Oximetry 97 98 94 [facility] 03/02/23 13:00 03/02/23 13:02 03/02/23 13:32 Temperature 99.1 F Pulse Rate 125 H Pulse Rate [Left P ulse Oximeter] Pulse Rate [Pulse Oximeter] 110 H Respiratory Rate 24 Blood Pressure 145/76 H Blood Pressure [Ri ght Arm] Blood Pressure [Ri ght Upper Arm] 137/81 Pulse Oximetry 96 96 Oxygen Delivery Me od Room Air 03/02/23 13:32 03/02/23 13:34 03/02/23 13:45 Temperature Pulse Rate 110 H 113 H Pulse Rate [Left P ulse Oximeter] Pulse Rate [Pulse Oximeter] Respiratory Rate Blood Pressure 137/81 Blood Pressure [Ri ght Arm] Blood Pressure [Ri ght Upper Arm] Pulse Oximetry 95 94 [facility] 03/02/23 14:02 03/02/23 14:03 03/02/23 14:15 Temperature Pulse Rate 108 H 122 H 109 H Pulse Rate [Left P ulse Oximeter] Pulse Rate [Pulse Oximeter] Respiratory Rate Blood Pressure 136/81 Blood Pressure [Ri ght Arm] Blood Pressure [Ri ght Upper Arm] Pulse Oximetry 92 93 96 [facility] 03/02/23 14:30 03/02/23 14:31 03/02/23 14:58 Temperature Pulse Rate 110 H 109 H 107 H Pulse Rate [Left P ulse Oximeter] Pulse Rate [Pulse Oximeter] Respiratory Rate Blood Pressure 155/88 H Blood Pressure [Ri ght Arm] Blood Pressure [Ri ght Upper Arm] Pulse Oximetry 98 98 [facility] 03/02/23 15:00 03/02/23 15:01 03/02/23 15:02 Temperature Pulse Rate 113 H 113 H 105 H Pulse Rate [Left P ulse Oximeter] Pulse Rate [Pulse Oximeter] Respiratory Rate Blood Pressure 160/84 H 155/77 H Blood Pressure [Ri ght Arm] Blood Pressure [Ri ght Upper Arm] Pulse Oximetry 95 96 94 [facility] 03/02/23 15:15 03/02/23 15:30 03/02/23 15:32 Temperature Pulse Rate 107 H 98 102 H Pulse Rate [Left P ulse Oximeter] Pulse Rate [Pulse Oximeter] Respiratory Rate Blood Pressure 132/67 Blood Pressure [Ri ght Arm] Blood Pressure [Ri ght Upper Arm] Pulse Oximetry 86 L 96 98 Oxygen Delivery Me thod 03/02/23 15:37 03/02/23 16:14 03/02/23 16:19 Temperature 98.2 F Pulse Rate Pulse Rate [Left P ulse Oximeter] Pulse Rate [Pulse Oximeter] Respiratory Rate Blood Pressure Blood Pressure [Ri ght Arm] Blood Pressure [Ri ght Upper Arm] Pulse Oximetry 97 98 [facility] 03/02/23 17:00 03/02/23 18:56 03/02/23 18:56 Temperature 99.2 F Pulse Rate Pulse Rate [Left P ulse Oximeter] Pulse Rate [Pulse Oximeter] Respiratory Rate 22 24 Blood Pressure Blood Pressure [Ri ght Arm] Blood Pressure [Ri ght Upper Arm] Pulse Oximetry 98 98 98 Oxygen Delivery [facility] Room Air Room Air Room Air 03/02/23 23:00 03/02/23 23:00 03/02/23 23:00 Temperature 98 F Pulse Rate Pulse Rate [Left P ulse Oximeter] 79 Pulse Rate [Pulse Oximeter] Respiratory Rate 20 Blood Pressure Blood Pressure [Ri ght Arm] Blood Pressure [Ri ght Upper Arm] Pulse Oximetry 98 98 96 Oxygen Delivery [facility] Room Air Room Air 03/03/23 03:00 Temperature 98 F Pulse Rate Pulse Rate [Left P ulse Oximeter] 69 Pulse Rate [Pulse Oximeter] Respiratory Rate 20 Blood Pressure Blood Pressure [Ri ght Arm] 122/63 Blood Pressure [Ri ght Upper Arm] Pulse Oximetry 97 Oxygen Delivery Me thod Room Air Results Labs Labs: Abnormal lab results 03/02/23 03/02/23 03/02/23 Range/Units 10:15 10:50 11:47 VBG pO2 (25-47) mmHG BUN 40 H (7-30) mg/dL Glucose 162 H (60-115) mg/dL Hemoglobin A1c 6.00 H (0-5.6) % Lactate 4.0 H (0.5-1.9) mmol/L Ionized Calcium Ynes (1.11-1.30) mmol/L GGT (8-55) U/L AST 49 H (12-35) U/L Alkaline Phosphatase 154 H (40-150) U/L Troponin I < 0.01 L (0.01-0.04) ng/mL C-Reactive Protein 1.1 H (0.5-1.0) mg/dL Total Protein 8.4 H (6.0-8.3) g/dL Urine Protein 3+ A (Negative) Urine Blood 2+ A (Negative) Ur Leukocyte Esterase 1+ A (Negative) Urine RBC 5-10 A (0-2) Urine WBC 10-25 A (0-5) Amorphous Sediment Few A (None) Urine Bacteria Moderate A (None) 03/02/23 03/02/23 Range/Units 15:13 16:48 VBG pO2 24.6 L (25-47) mmHG BUN (7-30) mg/dL Glucose (60-115) mg/dL Hemoglobin A1c (0-5.6) % Lactate (0.5-1.9) mmol/L Ionized Calcium Ynes 1.10 L (1.11-1.30) mmol/L GGT 111 H (8-55) U/L AST (12-35) U/L Alkaline Phosphatase (40-150) U/L Troponin I (0.01-0.04) ng/mL C-Reactive Protein (0.5-1.0) mg/dL Total Protein (6.0-8.3) g/dL Urine Protein 3+ A (Negative) Urine Blood Trace-intact A (Negative) Ur Leukocyte Esterase Trace A (Negative) Urine RBC (0-2) Urine WBC 5-10 A (0-5) Amorphous Sediment (None) Urine Bacteria (None) Diabetes panel 03/02/23 Range/Units 10:15 Carbon Dioxide 25 (20-32) mmol/L BUN 40 H (7-30) mg/dL Creatinine 1.3 (0.5-1.5) mg/dL Glucose 162 H (60-115) mg/dL Hemoglobin A1c 6.00 H (0-5.6) % Calcium 9.8 (8.4-10.6) mg/dL AST 49 H (12-35) U/L ALT 28 (4-35) U/L Alkaline Phosphatase 154 H (40-150) U/L Total Protein 8.4 H (6.0-8.3) g/dL Albumin 4.2 (3.3-5.0) g/dL Thyroid panel 03/02/23 Range/Units 10:15 TSH 0.713 (0.270-4.20) uIU/mL Calcium panel 03/02/23 03/02/23 Range/Units 10:15 16:48 Calcium 9.8 (8.4-10.6) mg/dL Ionized Calcium Ynes 1.10 L (1.11-1.30) mmol/L Albumin 4.2 (3.3-5.0) g/dL Pituitary panel 03/02/23 Range/Units 10:15 Carbon Dioxide 25 (20-32) mmol/L BUN 40 H (7-30) mg/dL Creatinine 1.3 (0.5-1.5) mg/dL Glucose 162 H (60-115) mg/dL Calcium 9.8 (8.4-10.6) mg/dL TSH 0.713 (0.270-4.20) uIU/mL Adrenal panel 03/02/23 Range/Units 10:15 Carbon Dioxide 25 (20-32) mmol/L BUN 40 H (7-30) mg/dL Creatinine 1.3 (0.5-1.5) mg/dL Glucose 162 H (60-115) mg/dL Calcium 9.8 (8.4-10.6) mg/dL Total Bilirubin 0.6 (0.1-1.5) mg/dL AST 49 H (12-35) U/L ALT 28 (4-35) U/L Alkaline Phosphatase 154 H (40-150) U/L Total Protein 8.4 H (6.0-8.3) g/dL Albumin 4.2 (3.3-5.0) g/dL All other labs normal. Imaging Abdomen CT scan report/results: report reviewed and image reviewed Assessment and Plan Assessment and plan (1) Radiation necrosis of skin and subcutaneous: Problem comment: -Entire external genitalia from rectum to mons pubis. Has been receiving HBO treatments starting in January 2023 (evidence of healing noted) -I spoke with Dr. Askew about previous treatments and the daily diflucan and that HBO seems to be working. Status: Acute Plan Patient is hospital day 2 for sepsis and fevers of unknown origin. On examination this morning there is evidence of new surrounding periwound erythema and induration concerning for secondary infection and associated cellulitis. Patient is appropriately on broad-spectrum antibiotics, vancomycin and Zosyn. She continues on a once daily Diflucan. Her son is at the bedside and continues to be very supportive. He will be bringing in his dressings from home and orders will be placed for wound care. -patient to have 2-3 times daily 20 minutes of ?dry time? to try to keep the groin creases free of moisture. Patient should relax her legs open during these times. -b.i.d. dressing changes -a.m. dressing change, cleanse the area thoroughly with Sani wipes and allowed to dry completely. [place] the vaginal opening and groin creases with Gentine Lulu. Apply nystatin cream to affected areas. -p.m. Dressing change, cleanse area the thoroughly with Sani wipes and allowed to dry completely. Apply nystatin powder to affected area -recommend that she continue with the Barrett in place. Ideally this would stay in place and she would go home with it to help assist with wound healing.
[2023-03-03] MEDS: OXYCODONE 5 MG TABLET 2.5 MG PO (11:17)
--- NOTE | 2023-03-03 13:30 | PM.IMPN1 ---
Progress Note: A&P Assessment and plan (1) Sepsis: Problem details: Source of sepsis appears to be cellulitis of the perineum. Infiltrates on chest x-ray less likely to be a source. Patient has normal vitals, normal oxygenation and no symptoms referable to the respiratory tract. She is however having increasing pain on her perineum. Ulcerations are at baseline. The plan will be to continue good wound care and treat with broad-spectrum antibiotics for her cellulitis of the perineum. Status: Acute (2) Cellulitis of perineum: Problem details: Continue vancomycin and Zosyn. Continue Diflucan for chronic and recurrent yeast infections Status: Acute (3) Congestive heart failure: Problem details: 07/2017 echo Final Impressions: 1. Normal LV size, mildly increased wall thickness, normal global systolic function with an estimated EF of 55 - 60%. 2. Moderately enlarged left atrium. 3. Right ventricular cavity size is normal, global systolic RV function is normal. 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 EF back in 2010 was 40% with anterior distal wall hypokinesis. Nuclear stress test was neg. felt likely to be related to rate. Status: Acute (4) Chronic renal insufficiency: Problem details: Patient is actually at 1.3 which is the best she has been in the last 2 years. 2021 her creatinine was around 2-2-1/2. Status: Acute (5) Type 2 diabetes mellitus: Problem details: A1C 6.0. no meds. Accuchecks and SSI prn. Status: Acute (6) Obstructive sleep apnea: Problem details: -does not tolerate CPAP Status: Acute (7) Hypertension: Problem details: Gradually restart metoprolol. Status: Acute (8) Atrial fibrillation: Problem details: -pt has not been able to tolerate warfarin - bleeds from her perineum and has been hospitalized in the past for this. -last seen by cardiology in December 2022 (digoxin, toprol xl, crestor) -CHADS VASC 4-5. 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 09/21 - 11/21 rec'd XRT. 09/21 -11/21 rec'd carboplatin/5FU. disease remained and surgical resection not possible due to damage likely to rectum and need for diverting colostomy. offered immunotherapy and observation. 2022 events all seem related to radiation necrosis and pain management and chronic yeast infections. last pelvic MR and biopsy 10/23. Status: Acute (10) Yeast infection involving the vagina and surrounding area: Problem details: Hazel Askew has managed - daily chronic Diflucan. Status: Acute (11) Radiation necrosis of skin and subcutaneous: Problem details: -Entire external genitalia from rectum to mons pubis. Has been receiving HBO treatments starting in January 2023 (evidence of healing noted) -I spoke with Dr. Askew about previous treatments and the daily diflucan and that HBO seems to be working. Status: Acute Plan Continue in hospital for IV antibiotics and wound care. Anticipate a few days of treatment in the hospital. Monitor for complications of sepsis or complications of perineal cellulitis. Time Spent With Patient Total time spent: Total time spent today is 65 minutes, 45 minutes in coordination of care discussing with patient son and other providers management of radiation necrosis, wound care, cellulitis, antibiotics. 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 Patient reports she was doing well until yesterday morning when she went [facility] for chronic wound care related to her ulceration on her labia from prior radiation treatment. She developed shaking chills and fever and weakness. She was referred to the emergency department. In the emergency department she was felt to have sepsis. Uncertain focus but she was noted to have a slight diffuse infiltrate in her lungs. Ulceration of her vulva was thought to be at baseline but better than it had been previously. She was started on vancomycin and piperacillin tazobactam. Barrett catheter was placed to help protect the wounds from moisture and keep them clean. CT scan did not show any drainable fluid collection. She reports feeling a little bit better today but still having quite a bit of pain on her perineum. She has no shortness of breath, cough, chest pain, abdominal pain, nausea, vomiting, diarrhea. Doctor Azar, who is providing wound care, examine her wounds today and felt that the ulcerations were largely unchanged but there was significant erythema extending over the entire perineum suggestive of cellulitis. Exam Narrative: Exam Narrative: She is alert and appears in no distress. She is seen with her son who is her caregiver as well. Oropharynx is normal. Neck is supple without mass or adenopathy. Respirations are clear to auscultation. Cardiovascular: S1, S2, irregular rhythm. No gallop or rub. Abdomen is soft without tenderness or mass. She reports some discomfort in her left chest wall. Inspection and auscultation there are entirely normal. Palpation shows no significant tenderness. She does not have increased pain with deep breathing or coughing. Perineum is notable for diffuse erythema extending over the area of the radiation necrosis and ulceration of her vulva but also extending into the perianal area and anteriorly over the entire pre pubic area. This area is tender to touch, warm and red. No obvious focus of pain or fluctuance. Const: Vital Signs, click to edit/add: Vital Signs - 24 hr 03/02/23 13:32 03/02/23 13:32 03/02/23 13:34 Temperature 99.1 F Pulse Rate 110 H Pulse Rate [Left P ulse Oximeter] Pulse Rate [Pulse Oximeter] 110 H Respiratory Rate 24 Blood Pressure 137/81 Blood Pressure [Ri ght Arm] Blood Pressure [Ri ght Upper Arm] 137/81 Pulse Oximetry 96 95 Oxygen Delivery Me thod Room Air 03/02/23 13:45 03/02/23 14:02 03/02/23 14:03 Temperature Pulse Rate 113 H 108 H 122 H Pulse Rate [Left P ulse Oximeter] Pulse Rate [Pulse Oximeter] Respiratory Rate Blood Pressure 136/81 Blood Pressure [Ri ght Arm] Blood Pressure [Ri ght Upper Arm] Pulse Oximetry 94 92 93 Oxygen Delivery Me thod 03/02/23 14:15 03/02/23 14:30 03/02/23 14:31 Temperature Pulse Rate 109 H 110 H 109 H Pulse Rate [Left P ulse Oximeter] Pulse Rate [Pulse Oximeter] Respiratory Rate Blood Pressure 155/88 H Blood Pressure [Ri ght Arm] Blood Pressure [Ri ght Upper Arm] Pulse Oximetry 96 98 98 Oxygen Delivery Me thod 03/02/23 14:58 03/02/23 15:00 03/02/23 15:01 Temperature Pulse Rate 107 H 113 H 113 H Pulse Rate [Left P ulse Oximeter] Pulse Rate [Pulse Oximeter] Respiratory Rate Blood Pressure 160/84 H 155/77 H Blood Pressure [Ri ght Arm] Blood Pressure [Ri ght Upper Arm] Pulse Oximetry 95 96 Oxygen Delivery Me thod 03/02/23 15:02 03/02/23 15:15 03/02/23 15:30 Temperature Pulse Rate 105 H 107 H 98 Pulse Rate [Left P ulse Oximeter] Pulse Rate [Pulse Oximeter] Respiratory Rate Blood Pressure Blood Pressure [Ri ght Arm] Blood Pressure [Ri ght Upper Arm] Pulse Oximetry 94 86 L 96 Oxygen Delivery Me thod 03/02/23 15:32 03/02/23 15:37 03/02/23 16:14 Temperature 98.2 F Pulse Rate 102 H Pulse Rate [Left P ulse Oximeter] Pulse Rate [Pulse Oximeter] Respiratory Rate Blood Pressure 132/67 Blood Pressure [Ri ght Arm] Blood Pressure [Ri ght Upper Arm] Pulse Oximetry 98 97 Oxygen Delivery Me od Room Air 03/02/23 16:19 03/02/23 17:00 03/02/23 18:56 Temperature 99.2 F Pulse Rate Pulse Rate [Left P ulse Oximeter] Pulse Rate [Pulse Oximeter] Respiratory Rate 22 Blood Pressure Blood Pressure [Ri ght Arm] Blood Pressure [Ri ght Upper Arm] Pulse Oximetry 98 98 98 Oxygen Delivery [facility] Room Air Room Air 03/02/23 18:56 03/02/23 23:00 03/02/23 23:00 Temperature 98 F Pulse Rate Pulse Rate [Left P ulse Oximeter] 79 Pulse Rate [Pulse Oximeter] Respiratory Rate 24 20 Blood Pressure Blood Pressure [Ri ght Arm] Blood Pressure [Ri ght Upper Arm] Pulse Oximetry 98 98 98 Oxygen Delivery Me od Room Air Room Air 03/02/23 23:00 03/03/23 03:00 Temperature 98 F Pulse Rate Pulse Rate [Left P ulse Oximeter] 69 Pulse Rate [Pulse Oximeter] Respiratory Rate 20 Blood Pressure Blood Pressure [Ri ght Arm] 122/63 Blood Pressure [Ri ght Upper Arm] Pulse Oximetry 96 97 Oxygen Delivery Me od Room Air Room Air Labs Labs: Laboratory Results - last 24 hr 03/02/23 03/02/23 03/02/23 10:15 14:48 15:13 VBG pH VBG pCO2 VBG pO2 VBG HCO3 Hemoglobin A1c 6.00 H Lactate Uric Acid Ionized Calcium Ynes Magnesium Total Bilirubin 0.6 Direct Bilirubin 0.3 GGT AST 49 H ALT 28 Alkaline Phosphatase 154 H C-Reactive Protein 1.1 H Total Protein 8.4 H Albumin 4.2 Procalcitonin 0.22 TSH 0.713 Urine Color Yellow Urine Appearance Clear Urine pH 7.5 Ur Specific [place] 1.020 Urine Protein 3+ A Urine Glucose (UA) Negative Urine Ketones Negative Urine Blood Trace-intact A Urine Nitrite Negative Urine Bilirubin Negative Urine Urobilinogen 0.2 Ur Leukocyte Esterase Trace A Urine RBC 0-2 Urine WBC 5-10 A Ur Squamous Epith Cells Few Urine Bacteria None Lab Acknowledgement Test Added 03/02/23 16:48 VBG pH 7.390 VBG pCO2 41 VBG pO2 24.6 L VBG HCO3 25 Hemoglobin A1c Lactate 1.7 Uric Acid 4.8 Ionized Calcium Ynes 1.10 L Magnesium 1.9 Total Bilirubin Direct Bilirubin GGT 111 H AST ALT Alkaline Phosphatase C-Reactive Protein Total Protein Albumin Procalcitonin TSH Urine Color Urine Appearance Urine pH Ur Specific [place] Urine Protein Urine Glucose (UA) Urine Ketones Urine Blood Urine Nitrite Urine Bilirubin Urine Urobilinogen Ur Leukocyte Esterase Urine RBC Urine WBC Ur Squamous Epith Cells Urine Bacteria Lab Acknowledgement
[2023-03-03] MEDS: METOPROLOL SUCCINATE (XL) 25 MG TAB PO ×2 (14:24→21:10)
[2023-03-03 14:25] LABS: Lipase* 95 U/L (23-300)
[2023-03-03] MEDS: OXYCODONE 5 MG TABLET PO ×2 (16:17→20:17)
--- NOTE | 2023-03-03 19:39 | PC.NURSE ---
Patient transfers with assist of one, walker and gait belt. Rated vaginal pain between 4-6/10. Large partially incontinent stool. Catheter patent. Tolerating regular diet well. Reported improvement of pain with PRN Oxycodone. Family brought wound care supplies. Wound care treatment completed by nursing staff per MD orders.
[2023-03-03] MEDS: ACETAMINOPHEN 325 MG TABLET PO (20:17)
[2023-03-03] MEDS: ENOXAPARIN 40 MG/0.4 ML INJ SUBCUT (21:10)
[2023-03-03] MEDS: SODIUM CHLORIDE 0.9 % (FLUSH) 10 ML SYRINGE 5 ML IVF (21:11)
[2023-03-04] VITALS (8 sets, daily range): BP systolic 138–191; BP diastolic 72–103; PULSE 72–101; RESP 16–22; TEMP 36.5–36.8; O2SAT 94–99
[2023-03-04] MEDS: PIPERACILLIN/TAZOBACTAM 3.375 GM in 0.9 % SODIUM CHLORIDE Mini-bag 100 ML IVPB ×4 (02:55→20:57)
--- NOTE | 2023-03-04 05:49 | PC.NURSE ---
[id number] Pt slept well during night between cares, moctezuma in place patent and draining. approx 0200 pt called nurse, pt thought moctezuma was leaking due to bed being wet, inspected moctezuma and no concerns found, moctezuma patent and draining. bed change completed and pt freshened up. at this time pt stated she needed to have a BM, helped pt to BSC and pt passed significant amount (approx 50of bright red blood with clots from rectum. She states this has happened before in the past a while ago. vitals taken, pt denies lightheaded/dizziness or any abdominal pain, no other episode of passing bloody stool during remainder of shift so far.
[2023-03-04] MEDS: OMEPRAZOLE 20 MG CAPSULE DR PO (06:11)
[2023-03-04] MEDS: 0.9 % SODIUM CHLORIDE 1000 ml 1,000 ML 150 ML IV (06:15)
[2023-03-04 07:29] LABS: Basophils Absolute Auto 0.02 K/uL (0.00-0.30); Basophils Percent Auto 0.3 % (0.0-3.0); Eosinophils Absolute Auto 0.19 K/uL (0.00-0.50); Eosinophils Percent Auto 3.2 % (0.0-7.0); Hematocrit 35.4 % (33.0-51.0); Hemoglobin* 10.9 gm/dL (12.0-16.0); Immature Granulocytes Abs Auto 0.01 K/uL (0.00-0.30); Immature Granulocytes Pct Auto 0.2 %; Lymphocytes Percent Auto 6.5 % (20-44); Mean Corpuscular HGB Conc 31 gm/dL (32-36); Mean Corpuscular Hemoglobin 28 pg (26-34); Mean Corpuscular Volume 91 fL (80-100); Monocytes Percent Auto 5.1 % (0.0-11.0); Neutrophils Percent Auto 84.7 % (42.0-72.0); Platelet Count* 213 K/uL (140-440); RDW Coefficient of Variation % 15.9 % (11.5-15.5); White Blood Count* 5.88 K/uL (4.50-11.00)
[2023-03-04 07:29] LABS: Chloride* 111 mmol/L (96-114); Sodium* 139 mmol/L (135-149)
[2023-03-04 07:31] LABS: Slide Review Reflex No
[2023-03-04 07:32] LABS: Anion Gap 7 mEq/L (7-15); Blood Urea Nitrogen* 20 mg/dL (7-30); Carbon Dioxide* 21 mmol/L (20-32); Creatinine* 1.1 mg/dL (0.5-1.5); Est. Creatinine Clearance* 42.31; Estimated Glomerular Filt Rate 52 ml/min
[2023-03-04 07:33] LABS: Calcium* 8.7 mg/dL (8.4-10.6); Glucose* 109 mg/dL (60-115)
[2023-03-04] MEDS: FUROSEMIDE 10 MG/ML inj 20 MG IVP (09:02)
[2023-03-04] MEDS: POTASSIUM BICARB 25 MEQ EFFERVESCENT TAB PO (09:04)
[2023-03-04] MEDS: IBUPROFEN 400 MG TABLET PO ×3 (09:05→20:56)
[2023-03-04] MEDS: FLUCONAZOLE 100 MG TABLET 200 MG PO (09:05)
[2023-03-04] MEDS: allopurinoL 100 MG TABLET PO (09:05)
[2023-03-04] MEDS: SENNOSIDES 1 TAB TABLET PO (09:06)
[2023-03-04] MEDS: METOPROLOL SUCCINATE (XL) 25 MG TAB 50 MG PO ×2 (09:06→20:57)
[2023-03-04] MEDS: OXYCODONE 5 MG TABLET PO ×3 (09:10→19:43)
--- NOTE | 2023-03-04 12:02 | PM.GSPN ---
Subjective Subjective Date Seen: 03/04/23 Interval history: Patient is doing better this morning. Has been tolerating dressing changes without difficulty. No fevers overnight and no new concerns. Exam Narrative: Exam Narrative: General: Alert and oriented, no acute distress : Gentine inga over wound area with nystatin cream. Pubis mon erythema and induration improved compared to yesterday and less tender to palpation. Barrett remains in place. Const: Vital Signs, click to edit/add: Vital Signs - 24 hr 03/03/23 15:00 03/03/23 15:00 03/03/23 15:00 Temperature 98.2 F Pulse Rate Pulse Rate [Left P ulse Oximeter] 73 72 Respiratory Rate 20 20 20 Blood Pressure [Ri ght Arm] 148/83 H Pulse Oximetry 100 100 Oxygen Delivery Me thod Room Air Room Air 03/03/23 15:00 03/03/23 15:35 03/03/23 19:00 Temperature 98.1 F Pulse Rate 73 Pulse Rate [Left P ulse Oximeter] 83 Respiratory Rate 18 Blood Pressure [Ri ght Arm] 163/79 H Pulse Oximetry 100 99 Oxygen Delivery Me thod Room Air 03/03/23 22:46 03/03/23 22:46 03/03/23 22:46 Temperature Pulse Rate Pulse Rate [Left P ulse Oximeter] 85 Respiratory Rate 18 18 Blood Pressure [Ri ght Arm] 173/86 H Pulse Oximetry 94 94 94 Oxygen Delivery Me thod Room Air Room Air 03/03/23 23:00 03/04/23 02:51 03/04/23 08:00 Temperature 97.7 F Pulse Rate 79 Pulse Rate [Left P ulse Oximeter] 86 Respiratory Rate 18 Blood Pressure [Ri ght Arm] 176/98 H Pulse Oximetry 98 98 Oxygen Delivery Me thod Room Air 03/04/23 08:00 03/04/23 08:00 03/04/23 08:00 Temperature 97.7 F Pulse Rate Pulse Rate [Left P ulse Oximeter] 99 99 Respiratory Rate 20 20 20 Blood Pressure [Ri ght Arm] 191/103 H Pulse Oximetry 98 98 Oxygen Delivery Me thod Room Air Room Air Progress Note: A&P Assessment and plan (1) Cellulitis of perineum: Problem details: Continue vancomycin and Zosyn. Continue Diflucan for chronic and recurrent yeast infections Status: Acute Plan Patient is currently in the hospital for cellulitis of the perineum. This is a secondary infection from known perineal soft tissue radiation necrosis. She is currently getting b.i.d. dressing changes while in the hospital. Barrett catheter remains in place to help assist with wound healing. Perineum this morning does look improved compared to yesterday. No new concerns from a surgical or wound perspective.
--- NOTE | 2023-03-04 12:41 | PM.IMPN1 ---
Progress Note: A&P Assessment and plan (1) Cellulitis of perineum: Problem details: Continue vancomycin and Zosyn. Cultures pending. Culture of vulva and urine cultures are growing multiple bacteria. Continue Diflucan for chronic and recurrent yeast infections Status: Acute (2) Sepsis: Problem details: Clinically resolving. Source of sepsis appears to be cellulitis of the perineum. Infiltrates on chest x-ray less likely to be a source. Patient has normal vitals, normal oxygenation and no symptoms referable to the respiratory tract. She is however having increasing pain on her perineum. Ulcerations are at baseline. The plan will be to continue good wound care and treat with broad-spectrum antibiotics for her cellulitis of the perineum. 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 Has been receiving HBO treatments starting in January 2023 (evidence of healing noted) -I spoke with Dr. Askew about previous treatments and the daily diflucan and that HBO seems to be working. Status: Acute (4) Congestive heart failure: Problem details: 07/2017 echo Final Impressions: 1. Normal LV size, mildly increased wall thickness, normal global systolic function with an estimated EF of 55 - 60%. 2. Moderately enlarged left atrium. 3. Right ventricular cavity size is normal, global systolic RV function is normal. 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 EF back in 2010 was 40% with anterior distal wall hypokinesis. Nuclear stress test was neg. felt likely to be related to rate. Today appears to be mild volume overloaded. Probably due to IV fluids. Saline lock and furosemide. Status: Acute (5) Chronic renal insufficiency: Problem details: Patient is actually at 1.3 which is the best she has been in the last 2 years. 2021 her creatinine was around 2-2-1/2. Status: Acute Assessment and Plan: Continue to monitor (6) Type 2 diabetes mellitus: Problem details: A1C 6.0. no meds. Accuchecks and SSI prn. Status: Acute (7) Hypertension: Problem details: Restart metoprolol Status: Acute (8) Atrial fibrillation: Problem details: -pt has not been able to tolerate warfarin - bleeds from her perineum and has been hospitalized in the past for this. -last seen by cardiology in December 2022 (digoxin, toprol xl, crestor) -CHADS VASC 4-5. 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 09/21 - 11/21 rec'd XRT. 09/21 -11/21 rec'd carboplatin/5FU. disease remained and surgical resection not possible due to damage likely to rectum and need for diverting colostomy. offered immunotherapy and observation. 2022 events all seem related to radiation necrosis and pain management and chronic yeast infections. last pelvic MR and biopsy 10/23. Status: Acute (10) Yeast infection involving the vagina and surrounding area: Problem details: Continue chronic Diflucan Status: Acute (11) Obstructive sleep apnea: Problem details: -does not tolerate CPAP Status: Acute (12) Bacteremia: Problem details: Culture still pending. Status: Acute (13) Bright red blood per rectum: Problem details: Small amount of red blood clot today. Remote history of colonoscopy. Could be related to current infection. Could be radiation proctitis? Consider outpatient colonoscopy after recovery from current infection. Monitor hemoglobin. Status: Acute Plan Continue in hospital for IV antibiotics and wound care pending cultures, and clinical improvement. Total time spent today is 50 minutes, 30 minutes in coordination of care and discussing with patient and other providers management of cellulitis, Subjective Date Seen: 03/04/23 Interval history: 77-year-old female with squamous cell carcinoma of the vulva status post radiation treatment and radiation necrosis, paroxysmal AFib, diabetes mellitus, SHAJI, CKD, polyneuropathy admitted to the hospital with shaking chills and fever and weakness. Patient reports she was doing well until yesterday morning when [facility] care related to her ulceration on her labia from prior radiation treatment. She developed shaking chills and fever and weakness. She was referred to the emergency department. In the emergency department she was felt to have sepsis. Uncertain focus but she was noted to have a slight diffuse infiltrate in her lungs. Ulceration of her vulva was thought to be at baseline but better than it had been previously. She was started on vancomycin and piperacillin tazobactam. Barrett catheter was placed to help protect the wounds from moisture and keep them clean. CT scan did not show any drainable fluid collection. She continues to report feeling a little better. She is not aware of any fevers. The pain in her perineum is better. She reports she has been eating and drinking. She has had some loose stools. No abdominal pain. Nursing staff note that she had a small amount of bright red blood clotted come from her rectum today. She tells me she has had this in the past. She has not had any previous medical evaluation of this. Exam Narrative: Exam Narrative: She is alert and appears in no distress. Respirations are clear to auscultation. Cardiovascular: S1, S2, regular rate and rhythm. Abdomen is soft without tenderness or mass. Perineum is examined. The ulcerations appear about the same. The cellulitis is less intense in color and the induration and tenderness is also less. Perianal area is unremarkable. Lower extremities without edema. Const: Vital Signs, click to edit/add: Vital Signs - 24 hr 03/03/23 15:00 03/03/23 15:00 03/03/23 15:00 Temperature 98.2 F Pulse Rate Pulse Rate [Left P ulse Oximeter] 73 72 Respiratory Rate 20 20 20 Blood Pressure [Ri ght Arm] 148/83 H Pulse Oximetry 100 100 [facility] 03/03/23 15:00 03/03/23 15:35 03/03/23 19:00 Temperature 98.1 F Pulse Rate 73 Pulse Rate [Left P ulse Oximeter] 83 Respiratory Rate 18 Blood Pressure [Ri ght Arm] 163/79 H Pulse Oximetry 100 99 [facility] 03/03/23 22:46 03/03/23 22:46 03/03/23 22:46 Temperature Pulse Rate Pulse Rate [Left P ulse Oximeter] 85 Respiratory Rate 18 18 Blood Pressure [Ri ght Arm] 173/86 H Pulse Oximetry 94 94 94 [facility] Room Air 03/03/23 23:00 03/04/23 02:51 03/04/23 08:00 Temperature 97.7 F Pulse Rate 79 Pulse Rate [Left P ulse Oximeter] 86 Respiratory Rate 18 Blood Pressure [Ri ght Arm] 176/98 H Pulse Oximetry 98 98 [facility] 03/04/23 08:00 03/04/23 08:00 03/04/23 08:00 Temperature 97.7 F Pulse Rate Pulse Rate [Left P ulse Oximeter] 99 99 Respiratory Rate 20 20 20 Blood Pressure [Ri ght Arm] 191/103 H Pulse Oximetry 98 98 Oxygen Delivery Me thod Room Air Room Air 03/04/23 11:45 Temperature 98.2 F Pulse Rate Pulse Rate [Left P ulse Oximeter] 81 Respiratory Rate 22 Blood Pressure [Ri ght Arm] 161/88 H Pulse Oximetry 97 Oxygen Delivery Me thod Room Air Documenting provider has reviewed patient's vital signs: yes Labs Labs: Laboratory Results - last 24 hr 03/02/23 03/04/23 03/04/23 16:48 07:07 07:15 WBC 5.88 RBC 3.90 L Hgb 10.9 L Hct 35.4 MCV 91 MCH 28 MCHC 31 L RDW Coeff of Robert 15.9 H Plt Count 213 Neut % (Auto) 84.7 H Lymph % (Auto) 6.5 L Dick[place] % (Auto) 5.1 Eos % (Auto) 3.2 Baso % (Auto) 0.3 Neut # (Auto) 5.00 Lymph # (Auto) 0.40 L Dick[place] # (Auto) 0.30 Eos # (Auto) 0.19 Baso # (Auto) 0.02 Abs Immat Gran (auto) 0.01 Imm/Tot Granulo (auto) 0.2 Sodium 139 Potassium 4.0 Chloride 111 Carbon Dioxide 21 Anion Gap 7 BUN 20 Creatinine 1.1 Estimated Creat Clear 42.31 Estimated GFR 52 Glucose 109 Calcium 8.7 Lipase 95
--- NOTE | 2023-03-04 18:20 | PC.NURSE ---
Patient tolerating regular diet. Eats independently. Bedding noted to be wet and beginning of shift and needed to be changed. Unsure of source. Catheter has been patent since that time and no further wetness noted. Good output of light yellow urine. Patient reports having less discomfort when lying down. Rates pain in vaginal area between 4-7/10. Scheduled and PRN pain medications effective in addition to rest and changing position. [place] area appears less moist compared to yesterday and has no noted drainage. Treatments to vaginal wounds completed per MD orders. Patient premedicated with oxycodone approximately 45 minutes prior to treatment. She reported pain with wound care but able to tolerate.
--- NOTE | 2023-03-04 18:47 | PC.NURSE ---
Patient reported increased SOB this AM. updated and new orders given for Lasix and potassium. IV saline locked. Urine output 2750mL for day shift and patient reports SOB has resolved.
[2023-03-04] MEDS: ENOXAPARIN 40 MG/0.4 ML INJ SUBCUT (20:57)
[2023-03-04] MEDS: SODIUM CHLORIDE 0.9 % (FLUSH) 10 ML SYRINGE 5 ML IVF (20:59)
[2023-03-05] VITALS (7 sets, daily range): BP systolic 145–161; BP diastolic 81–95; PULSE 73–94; RESP 14–20; TEMP 36.4–36.8; O2SAT 95–98
[2023-03-05] MEDS: PIPERACILLIN/TAZOBACTAM 3.375 GM in 0.9 % SODIUM CHLORIDE Mini-bag 100 ML IVPB ×4 (02:45→20:50)
[2023-03-05] MEDS: OXYCODONE 5 MG TABLET PO ×4 (02:45→19:36)
[2023-03-05] MEDS: OMEPRAZOLE 20 MG CAPSULE DR PO (05:50)
--- NOTE | 2023-03-05 06:26 | PC.NURSE ---
Alert and oriented x 4. Pain reported to perineal area, pain is well managed with current orders. Wound care completed, patient tolerated well. Left labia has 3 ulcerations that are currently draining a small amount of bloody drainage, redness remains to vaginal area, bilateral groin fold and nicol rectal. Barrett catheter patent, draining clear pale yellow urine. Slept well during this shift.
[2023-03-05 06:37] LABS: Basophils Absolute Auto 0.02 K/uL (0.00-0.30); Basophils Percent Auto 0.4 % (0.0-3.0); Eosinophils Absolute Auto 0.25 K/uL (0.00-0.50); Eosinophils Percent Auto 5.1 % (0.0-7.0); Hematocrit 32.5 % (33.0-51.0); Hemoglobin* 10.2 gm/dL (12.0-16.0); Immature Granulocytes Abs Auto 0.01 K/uL (0.00-0.30); Immature Granulocytes Pct Auto 0.2 %; Lymphocytes Percent Auto 11.3 % (20-44); Mean Corpuscular HGB Conc 31 gm/dL (32-36); Mean Corpuscular Hemoglobin 28 pg (26-34); Mean Corpuscular Volume 90 fL (80-100); Monocytes Percent Auto 10.1 % (0.0-11.0); Neutrophils Percent Auto 72.9 % (42.0-72.0); Platelet Count* 209 K/uL (140-440); RDW Coefficient of Variation % 15.7 % (11.5-15.5); Red Blood Count 3.62 m/uL (4.00-5.20); Slide Review Reflex No; White Blood Count* 4.86 K/uL (4.50-11.00)
[2023-03-05] MEDS: allopurinoL 100 MG TABLET PO (09:18)
[2023-03-05] MEDS: FLUCONAZOLE 100 MG TABLET 200 MG PO (09:18)
[2023-03-05] MEDS: METOPROLOL SUCCINATE (XL) 25 MG TAB 50 MG PO ×2 (09:19→20:49)
[2023-03-05] MEDS: IBUPROFEN 400 MG TABLET PO ×3 (09:19→20:49)
[2023-03-05] MEDS: SODIUM CHLORIDE 0.9 % (FLUSH) 10 ML SYRINGE 5 ML IVF ×2 (09:31→20:51)
[2023-03-05] MEDS: 0.9 % SODIUM CHLORIDE 250 ml IV (09:32)
--- NOTE | 2023-03-05 11:26 | PM.GSPN ---
Subjective Subjective Date Seen: 03/05/23 Interval history: Doing okay. No acute concerns. Pain is the same. Exam Narrative: Exam Narrative: General: Alert and oriented, no acute distress : Gentine inga over wound area with nystatin cream. Pubis mon erythema and induration improved compared to yesterday and less tender to palpation. Barrett remains in place. Const: Vital Signs, click to edit/add: Vital Signs - 24 hr 03/04/23 11:45 03/04/23 15:00 03/04/23 15:00 Temperature 98.2 F Pulse Rate Pulse Rate [Left P ulse Oximeter] 81 Respiratory Rate 22 Blood Pressure [Ri ght Arm] 161/88 H Pulse Oximetry 97 99 99 Oxygen Delivery Me thod Room Air Room Air 03/04/23 15:00 03/04/23 15:00 03/04/23 16:00 Temperature 97.9 F Pulse Rate 77 Pulse Rate [Left P ulse Oximeter] 85 85 Respiratory Rate 20 20 Blood Pressure [Ri ght Arm] 150/78 H Pulse Oximetry 99 Oxygen Delivery Me thod Room Air 03/04/23 19:00 03/04/23 23:00 03/04/23 23:00 Temperature 98.1 F 98.2 F Pulse Rate Pulse Rate [Left P ulse Oximeter] 86 82 Respiratory Rate 18 16 Blood Pressure [Ri ght Arm] 160/90 H 138/72 Pulse Oximetry 94 94 94 Oxygen Delivery Me thod Room Air Room Air Room Air 03/04/23 23:00 03/05/23 03:00 03/05/23 11:00 Temperature 97.8 F 98.2 F Pulse Rate 72 Pulse Rate [Left P ulse Oximeter] 75 74 Respiratory Rate 14 18 Blood Pressure [Ri ght Arm] 145/87 H 161/95 H Pulse Oximetry 95 97 Oxygen Delivery Me thod Room Air Room Air Labs/Imaging Labs Labs: No WBC Progress Note: A&P Assessment and plan (1) Cellulitis of perineum: Problem details: Continue vancomycin and Zosyn. Cultures pending. Culture of vulva and urine cultures are growing multiple bacteria. Continue Diflucan for chronic and recurrent yeast infections Status: Acute Plan Patient is currently in the hospital for cellulitis of the perineum. Continue with current wound cares. Cellulitis continues to improve. No new recommendations at this time.
--- NOTE | 2023-03-05 12:37 | P.IMPN_ITS ---
Progress Note: A&P Assessment and plan (1) Cellulitis of perineum: Problem details: Continue vancomycin and Zosyn. Cultures pending. Culture of vulva and urine cultures are growing multiple bacteria. Continue Diflucan for chronic and recurrent yeast infections Status: Acute (2) Bacteremia: Problem details: Appears to be group C strep. Plan 14 days of IV antibiotics, probably ceftriaxone 2 g daily if other cultures and sensitivities and clinical course is favorable. PICC line. Status: Acute (3) Bright red blood per rectum: Problem details: Small amount of red blood clot again today. Remote history of colonoscopy. Could be related to current infection. Could be radiation proctitis? Consider outpatient colonoscopy after recovery from current infection. Monitor hemoglobin. 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 Has been receiving HBO treatments starting in January 2023 (evidence of healing noted) -I spoke with Dr. Askew about previous treatments and the daily diflucan and that HBO seems to be working. Status: Acute (5) Sepsis: Problem details: Clinically resolving. Blood culture still pending. Source of sepsis appears to be cellulitis of the perineum. Patient has normal vitals, normal oxygenation and no symptoms referable to the respiratory tract. She is however having increasing pain on her perineum. Ulcerations are at baseline. The plan will be to continue good wound care and treat with broad-spectrum antibiotics for her cellulitis of the perineum. Status: Acute (6) Congestive heart failure: Problem details: Appeared mildly volume overloaded yesterday, probably due to IV fluids. Received furosemide 20 mg and now appears to be euvolemic. 07/2017 echo Final Impressions: 1. Normal LV size, mildly increased wall thickness, normal global systolic function with an estimated EF of 55 - 60%. 2. Moderately enlarged left atrium. 3. Right ventricular cavity size is normal, global systolic RV function is normal. 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 EF back in 2010 was 40% with anterior distal wall hypokinesis. Nuclear stress test was neg. felt likely to be related to rate. Status: Acute (7) Chronic renal insufficiency: Problem details: Patient is actually at 1.3 which is the best she has been in the last 2 years. 2021 her creatinine was around 2-2-1/2. Status: Acute (8) Type 2 diabetes mellitus: Problem details: A1C 6.0. no meds. Accuchecks and SSI prn. Status: Acute (9) Atrial fibrillation: Problem details: -pt has not been able to tolerate warfarin - bleeds from her perineum and has been hospitalized in the past for this. -last seen by cardiology in December 2022 (digoxin, toprol xl, crestor) -CHADS VASC 4-5. 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 09/21 - 11/21 rec'd XRT. 09/21 -11/21 rec'd carboplatin/5FU. disease remained and surgical resection not possible due to damage likely to rectum and need for diverting colostomy. offered immunotherapy and observation. 2022 events all seem related to radiation necrosis and pain management and chronic yeast infections. last pelvic MR and biopsy 10/23. Status: Acute (11) Yeast infection involving the vagina and surrounding area: Problem details: Continue chronic Diflucan Status: Acute (12) Hypertension: Problem details: Adequate control on home meds Status: Acute (13) Obstructive sleep apnea: Problem details: -does not tolerate CPAP Status: Acute Plan Continue in-hospital for IV antibiotics pending cultures sensitivities and clinical course. Anticipate discharge to home for outpatient antibiotics if this can be arranged. Possibly ceftriaxone 2 g IV daily for total of a 14 days of treatment for presumed group C strep infection. Time Spent With Patient Total time spent: Total time spent today is 50 minutes, 35 minutes in coordination of care and discussing with patient other providers management of cellulitis, bacteremia, disposition plan. Subjective Date Seen: 03/05/23 Interval history: 77-year-old female with squamous cell carcinoma of the vulva status post radiation treatment and radiation necrosis, paroxysmal AFib, diabetes mellitus, SHAJI, CKD, polyneuropathy admitted to the hospital with shaking chills and fever and weakness. Patient reports she was doing well until yesterday morning when she [facility] care related to her ulceration on her labia from prior radiation treatment. She developed shaking chills and fever and weakness. She was referred to the emergency department. In the emergency department she was felt to have sepsis. Uncertain focus but she was noted to have a slight diffuse infiltrate in her lungs. Ulceration of her vulva was thought to be at baseline but better than it had been previously. She was started on vancomycin and piperacillin tazobactam. Barrett catheter was placed to help protect the wounds from moisture and keep them clean. CT scan did not show any drainable fluid collection. She continues to report feeling a little better. She is not aware of any fevers. The pain in her perineum is better. She reports she has been eating and drinking. She has had some loose stools. No abdominal pain. Nursing staff note that she had a small amount of bright red blood clotted come from her rectum today for the 2nd day in a row. No other ongoing bleeding. Not having pain associated with this but continued to have her perineal pain. Exam Narrative: Exam Narrative: She is alert appears in no distress. Breathing is unlabored. Abdomen is soft without tenderness. Perineum continues to improve with less erythema induration and tenderness. Labial ulcerations are stable to improved as well. No extremity edema. Const: Vital Signs, click to edit/add: Vital Signs - 24 hr 03/04/23 15:00 03/04/23 15:00 03/04/23 15:00 Temperature 97.9 F Pulse Rate Pulse Rate [Left P ulse Oximeter] 85 Respiratory Rate 20 Blood Pressure [Ri ght Arm] 150/78 H Pulse Oximetry 99 99 99 Oxygen Delivery Me thod Room Air Room Air 03/04/23 15:00 03/04/23 16:00 03/04/23 19:00 Temperature 98.1 F Pulse Rate 77 Pulse Rate [Left P ulse Oximeter] 85 86 Respiratory Rate 20 18 Blood Pressure [Ri ght Arm] 160/90 H Pulse Oximetry 94 Oxygen Delivery Ne thod Room Air 03/04/23 23:00 03/04/23 23:00 03/04/23 23:00 Temperature 98.2 F Pulse Rate 72 Pulse Rate [Left P ulse Oximeter] 82 Respiratory Rate 16 Blood Pressure [Ri ght Arm] 138/72 Pulse Oximetry 94 94 [facility] Room Air 03/05/23 03:00 03/05/23 08:15 03/05/23 08:15 Temperature 97.8 F Pulse Rate 94 Pulse Rate [Left P ulse Oximeter] 75 87 Respiratory Rate 14 20 Blood Pressure [Ri ght Arm] 145/87 H Pulse Oximetry 95 Oxygen Delivery Me thod Room Air 03/05/23 08:15 03/05/23 08:45 03/05/23 11:00 Temperature 98 F 98.2 F Pulse Rate Pulse Rate [Left P ulse Oximeter] 87 74 Respiratory Rate 20 20 18 Blood Pressure [Ri ght Arm] 161/87 H 161/95 H Pulse Oximetry 98 98 97 Oxygen Delivery Me thod Room Air Room Air Room Air Labs Labs: Laboratory Results - last 24 hr 03/05/23 06:25 WBC 4.86 RBC 3.62 L Hgb 10.2 L Hct 32.5 L MCV 90 MCH 28 MCHC 31 L RDW Coeff of Robert 15.7 H Plt Count 209 Neut % (Auto) 72.9 H Lymph % (Auto) 11.3 L [place] % (Auto) 10.1 Eos % (Auto) 5.1 Baso % (Auto) 0.4 Neut # (Auto) 3.50 Lymph # (Auto) 0.50 L [place] # (Auto) 0.50 Eos # (Auto) 0.25 Baso # (Auto) 0.02 Abs Immat Gran (auto) 0.01 Imm/Tot Granulo (auto) 0.2
--- NOTE | 2023-03-05 18:52 | PC.NURSE ---
Patient rated her pain 5-6/10. Patient was given PRN Oxycodone prior to wound treatment and at 1600 for c/o wound pain. Patient reported pain had decreased after administration. Tolerating regular diet. Up with walker, gait belt and assist of one. Catheter patent and draining clear yellow urine.
[2023-03-05] MEDS: ENOXAPARIN 40 MG/0.4 ML INJ SUBCUT (20:50)
[2023-03-06] VITALS (10 sets, daily range): BP systolic 156–181; BP diastolic 86–106; PULSE 64–81; RESP 18; TEMP 36.6–36.9; O2SAT 95–100
[2023-03-06] MEDS: OXYCODONE 5 MG TABLET PO ×4 (01:37→20:28)
[2023-03-06] MEDS: PIPERACILLIN/TAZOBACTAM 3.375 GM in 0.9 % SODIUM CHLORIDE Mini-bag 100 ML IVPB (02:57)
[2023-03-06] MEDS: OMEPRAZOLE 20 MG CAPSULE DR PO (05:57)
--- NOTE | 2023-03-06 06:24 | PC.NURSE ---
Alert and oriented x 4. Pain reported to perineal area, pain is well managed with PRN oxycodone. Wound care completed, ulcerations to labia continue to drain a small amount of bloody discharge. Transfers with SBA, ambulates with walker. Barrett catheter patent, draining clear, pale yellow urine. Edema to right foot continues, patient elevates leg throughout the shift.
[2023-03-06 06:33] LABS: Basophils Absolute Auto 0.02 K/uL (0.00-0.30); Basophils Percent Auto 0.4 % (0.0-3.0); Eosinophils Percent Auto 7.4 % (0.0-7.0); Hematocrit 34.1 % (33.0-51.0); Hemoglobin* 10.4 gm/dL (12.0-16.0); Immature Granulocytes Abs Auto 0.01 K/uL (0.00-0.30); Immature Granulocytes Pct Auto 0.2 %; Lymphocytes Percent Auto 10.8 % (20-44); Mean Corpuscular HGB Conc 31 gm/dL (32-36); Mean Corpuscular Hemoglobin 28 pg (26-34); Mean Corpuscular Volume 90 fL (80-100); Monocytes Percent Auto 9.3 % (0.0-11.0); Neutrophils Absolute Auto 3.38 K/uL (1.7-7.0); Neutrophils Percent Auto 71.9 % (42.0-72.0); Platelet Count* 253 K/uL (140-440); RDW Coefficient of Variation % 15.6 % (11.5-15.5); Red Blood Count 3.78 m/uL (4.00-5.20); White Blood Count* 4.71 K/uL (4.50-11.00)
[2023-03-06 06:34] LABS: Slide Review Reflex No
[2023-03-06 06:46] LABS: Chloride* 104 mmol/L (96-114); Potassium* 4.1 mmol/L (3.6-5.1); Sodium* 141 mmol/L (135-149)
[2023-03-06 06:49] LABS: Anion Gap 7 mEq/L (7-15); Blood Urea Nitrogen* 19 mg/dL (7-30); Carbon Dioxide* 30 mmol/L (20-32); Creatinine* 1.1 mg/dL (0.5-1.5); Est. Creatinine Clearance* 42.31; Estimated Glomerular Filt Rate 52 ml/min
[2023-03-06 06:50] LABS: Calcium* 9.3 mg/dL (8.4-10.6); Glucose* 99 mg/dL (60-115)
[2023-03-06] MEDS: SODIUM CHLORIDE 0.9 % (FLUSH) 10 ML SYRINGE 5 ML IVF ×2 (09:06→20:29)
[2023-03-06] MEDS: FLUCONAZOLE 100 MG TABLET 200 MG PO (09:06)
[2023-03-06] MEDS: SENNOSIDES 1 TAB TABLET PO ×2 (09:07→20:27)
[2023-03-06] MEDS: IBUPROFEN 400 MG TABLET PO ×3 (09:08→20:27)
[2023-03-06] MEDS: levoFLOXacin 500 MG TABLET PO (09:08)
[2023-03-06] MEDS: allopurinoL 100 MG TABLET PO (09:08)
[2023-03-06] MEDS: METOPROLOL SUCCINATE (XL) 25 MG TAB 50 MG PO ×2 (09:08→20:27)
[2023-03-06] MEDS: cefTRIAXone 2 GM in 0.9 % SODIUM CHLORIDE Mini-bag 100 ML IVPB (09:10)
[2023-03-06] MEDS: 0.9 % SODIUM CHLORIDE 250 ml IV (09:10)
[2023-03-06] MEDS: NYSTATIN 1 EACH TOPICAL (10:55)
--- NOTE | 2023-03-06 11:17 | PC.NURSE ---
Tele indicates atrial fibrillation with normal ventricular rate. Pt denies CP or SOB at initial assessment. BG 117 prior to bkfst, no SS insulin required. No dysphagia with meds. Tolerated 75% of bkfst. Barrett to DD. New order for IV Rocephin and oral Levaquin initiated. Tubing changed per protocol. Primary RN premedicated patient prior to cleanse of her genital area with dabbing of wet wipes. Pt's private area allowed to airdry for 20 minutes with her knees open and resting on pillows. Lulu gentin applied gently to bilateral groin creases with q-tips. Nystatin cream to the rest of genital area per dressing order in EMR. Pt remains tender to touch, however she was able to tolerate the procedure w/o increased sx of pain expressed. 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 BP elevated, RN will continue to monitor pt for increased pain, elevated bps or c/o dyspnea.
--- NOTE | 2023-03-06 12:21 | P.IMPN_ITS ---
Progress Note: A&P Assessment and plan (1) Cellulitis of perineum: Problem details: Continue vancomycin and Zosyn. Cultures pending. Culture of vulva and urine cultures are growing multiple bacteria. Continue Diflucan for chronic and recurrent yeast infections. Ceftriaxone for strep and Levaquin for Pseudomonas cultured from urine and perineum. Discontinue Levaquin if continued to clinically improve. Finish 14 day course of ceftriaxone. Status: Acute (2) Bacteremia: Problem details: Appears to be group C strep. Id and sensitivity pending. Plan 14 days of IV antibiotics, through March 16, probably ceftriaxone 2 g daily if other cultures and sensitivities and clinical course is favorable. PICC line. Status: Acute (3) Bright red blood per rectum: Problem details: Small amount of red blood clot again today. Remote history of colonoscopy. Could be related to current infection. Could be radiation proctitis? Consider outpatient colonoscopy after recovery from current infection. Monitor hemoglobin. 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 Has been receiving HBO treatments starting in January 2023 (evidence of healing noted) -I spoke with Dr. Askew about previous treatments and the daily diflucan and that HBO seems to be working. Status: Acute (5) Sepsis: Problem details: On admission had sepsis. This is due to the cellulitis of her perineum. This is much improved and her signs and symptoms of sepsis have resolved. Status: Acute (6) Congestive heart failure: Problem details: Appeared mildly volume overloaded yesterday, probably due to IV fluids. Received furosemide 20 mg and now appears to be euvolemic. 07/2017 echo Final Impressions: 1. Normal LV size, mildly increased wall thickness, normal global systolic function with an estimated EF of 55 - 60%. 2. Moderately enlarged left atrium. 3. Right ventricular cavity size is normal, global systolic RV function is normal. 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 EF back in 2010 was 40% with anterior distal wall hypokinesis. Nuclear stress test was neg. felt likely to be related to rate. Status: Acute (7) Chronic renal insufficiency: Problem details: Patient is actually at 1.3 which is the best she has been in the last 2 years. 2021 her creatinine was around 2-2-1/2. Status: Acute (8) Type 2 diabetes mellitus: Problem details: A1C 6.0. no meds. Accuchecks and SSI prn. Status: Acute (9) Atrial fibrillation: Problem details: -pt has not been able to tolerate warfarin - bleeds from her perineum and has been hospitalized in the past for this. -last seen by cardiology in December 2022 (digoxin, toprol xl, crestor) -CHADS VASC 4-5. 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 left labia. 09/21 - 11/21 rec'd XRT. 09/21 -11/21 rec'd carboplatin/5FU. disease remained and surgical resection not possible due to damage likely to rectum and need for diverting colostomy. offered immunotherapy and observation. 2022 events all seem related to radiation necrosis and pain management and chronic yeast infections. last pelvic MR and biopsy 10/23. Status: Acute (11) Yeast infection involving the vagina and surrounding area: Problem details: Continue chronic Diflucan Status: Acute (12) Hypertension: Problem details: Adequate control on home meds Status: Acute (13) Obstructive sleep apnea: Problem details: -does not tolerate CPAP Status: Acute Plan Continue in hospital for IV antibiotics. Will look to arrange outpatient IV antibiotics to finish a 14 day course of ceftriaxone, through March 16. Time Spent With Patient Total time spent: Total time spent today is 50 minutes, 35 minutes in coordination of care and discussing with patient and other providers ongoing plan of care for bacteremia and cellulitis. Subjective Date Seen: 03/06/23 Interval history: 77-year-old female with squamous cell carcinoma of the vulva status post radiation treatment and radiation necrosis, paroxysmal AFib, diabetes mellitus, SHAJI, CKD, polyneuropathy admitted to the hospital with shaking chills and fever and weakness. Patient reports she was doing well until the day of admission when [facility] care related to her ulceration on her labia from prior radiation treatment. She developed shaking chills and fever and weakness. She was referred to the emergency department. In the emergency department she was felt to have sepsis. Uncertain focus but she was noted to have a slight diffuse infiltrate in her lungs. Ulceration of her vulva was thought to be at baseline but better than it had been previously. She was started on vancomycin and piperacillin tazobactam. Barrett catheter was placed to help protect the wounds from moisture and keep them clean. CT scan did not show any drainable fluid collection. She continues to report feeling a little better. She is not aware of any fevers. The pain in her perineum is better. She reports she has been eating and drinking. She has had some loose stools. No abdominal pain. Nursing staff note that she had a small amount of bright red blood clotted come from her rectum today for the 2nd day in a row. No other ongoing bleeding. Not having pain associated with this but continued to have her perineal pain. Exam Narrative: Exam Narrative: She is alert and appears in no distress. She appears more comfortable in is moving better in the room. Perineum is examined. Erythema is much improved. Ulcerations also appear better. Const: Vital Signs, click to edit/add: Vital Signs - 24 hr 03/05/23 15:00 03/05/23 15:00 03/05/23 15:00 Temperature 98.1 F Pulse Rate Pulse Rate [Left A pical] Pulse Rate [Left P ulse Oximeter] 84 84 Respiratory Rate 20 20 Blood Pressure [Le ft Arm] Blood Pressure [Ri ght Arm] 155/81 H Pulse Oximetry 98 98 [facility] 03/05/23 15:00 03/05/23 19:00 03/05/23 23:00 Temperature 97.6 F Pulse Rate 79 Pulse Rate [Left A pical] Pulse Rate [Left P ulse Oximeter] 75 Respiratory Rate 18 Blood Pressure [Le ft Arm] Blood Pressure [Ri ght Arm] 159/87 H Pulse Oximetry 96 96 [facility] Room Air 03/05/23 23:00 03/06/23 03:00 03/06/23 07:14 Temperature Pulse Rate 73 73 Pulse Rate [Left A pical] Pulse Rate [Left P ulse Oximeter] 76 Respiratory Rate 18 Blood Pressure [Le ft Arm] Blood Pressure [Ri ght Arm] 156/106 H Pulse Oximetry 96 [facility] 03/06/23 07:45 03/06/23 07:45 03/06/23 11:00 Temperature 98.4 F 98.4 F Pulse Rate Pulse Rate [Left A pical] 78 81 Pulse Rate [Left P ulse Oximeter] 78 81 Respiratory Rate 18 18 18 Blood Pressure [Le ft Arm] 181/101 H 176/89 H Blood Pressure [Ri ght Arm] 175/99 H Pulse Oximetry 97 97 100 Oxygen Delivery Me thod Room Air Room Air Room Air Documenting provider has reviewed patient's vital signs: yes Labs Labs: Laboratory Results - last 24 hr 03/06/23 05:49 WBC 4.71 RBC 3.78 L Hgb 10.4 L Hct 34.1 MCV 90 MCH 28 MCHC 31 L RDW Coeff of Robert 15.6 H Plt Count 253 Neut % (Auto) 71.9 Lymph % (Auto) 10.8 L [place] % (Auto) 9.3 Eos % (Auto) 7.4 H Baso % (Auto) 0.4 Neut # (Auto) 3.38 Lymph # (Auto) 0.50 L [place] # (Auto) 0.40 Eos # (Auto) 0.30 Baso # (Auto) 0.02 Abs Immat Gran (auto) 0.01 Imm/Tot Granulo (auto) 0.2 Sodium 141 Potassium 4.1 Chloride 104 Carbon Dioxide 30 Anion Gap 7 BUN 19 Creatinine 1.1 Estimated Creat Clear 42.31 Estimated GFR 52 Glucose 99 Calcium 9.3
--- NOTE | 2023-03-06 14:00 | PC.NURSE ---
Pt's noon BG was 196 which indicated 2 units of Novolog insulin from SS. Primary RN spoke with Dr. Valencia and osiel Garcia updated via telephone at pt's request. Plan PICC placement around 3:30 pm. Tentative d/c tomorrow with outpatient Rocephin one time Q day and pt to continue with hyperbaric treatment at the wound care center.
[2023-03-06] MEDS: SODIUM CHLORIDE 0.9 % (FLUSH) 10 ML SYRINGE IVF (14:45)
[2023-03-06] MEDS: HEPARIN 500 UNIT/5 ML SYRINGE IVF (14:47)
--- NOTE | 2023-03-06 14:52 | PC.NURSE ---
Addendum entered by Amira Hammer RN 03/06/23 15:08: Phone # incorrect in previous note for son Jose, it is [phone]. Original Note: Port on right chest accessed w/ dozier needly. No resistance to saline flush, blood returned briskly and locked with Heparin per protocol. Sterile drsg applied to site per protocol. PICC line cancelled and Dr. Valencia aware. is the number to contact Jose son regarding his mother's cares. She has been confused, forgetful about her medical history for approximately 1 to 1 1/2 years per son's report to primary RN.
[2023-03-06] MEDS: ENOXAPARIN 40 MG/0.4 ML INJ SUBCUT (20:27)
--- NOTE | 2023-03-06 22:34 | PC.NURSE ---
End of shift: Pt A&O, pleasant and cooperative. Pt reported perineal pain, oxycodone given w/ stated relief. Wound care done on perineal area per orders. Barrett in place and draining. A1/ walker and gait belt. Call light within reach.
[2023-03-07] VITALS (9 sets, daily range): BP systolic 159–182; BP diastolic 77–98; PULSE 70–92; RESP 16–76; TEMP 36.4–37.1; O2SAT 95–99
[2023-03-07] MEDS: OXYCODONE 5 MG TABLET PO ×4 (01:57→20:30)
--- NOTE | 2023-03-07 05:34 | PC.NURSE ---
END OF SHIFT NOTE: PT PLEASANT AND COOPERATIVE. A&Ox3. DENIES CP, SOB, N/V. PT DID NOT GET OUT OF BED THIS SHIFT. VSS ON RA; AFEBRILE. MEDINA IN PLACE PATENT DRAINING CLEAR, YELLOW URINE. PT C/O PERINIUM BURNING PAIN 4/10 WITH RELIEF FROM PRN PAIN MEDICATION. BED ALARM ON AND CALL LIGHT WITHIN PT?S REACH.
[2023-03-07] MEDS: OMEPRAZOLE 20 MG CAPSULE DR PO (05:51)
[2023-03-07] MEDS: SODIUM CHLORIDE 0.9 % (FLUSH) 10 ML SYRINGE IVF (05:52)
[2023-03-07] MEDS: HEPARIN 500 UNIT/5 ML SYRINGE IVF (05:52)
[2023-03-07 06:43] LABS: Basophils Absolute Auto 0.03 K/uL (0.00-0.30); Basophils Percent Auto 0.6 % (0.0-3.0); Eosinophils Absolute Auto 0.37 K/uL (0.00-0.50); Eosinophils Percent Auto 6.9 % (0.0-7.0); Hemoglobin* 10.7 gm/dL (12.0-16.0); Immature Granulocytes Abs Auto 0.02 K/uL (0.00-0.30); Immature Granulocytes Pct Auto 0.4 %; Lymphocytes Percent Auto 11.1 % (20-44); Mean Corpuscular HGB Conc 31 gm/dL (32-36); Mean Corpuscular Hemoglobin 27 pg (26-34); Mean Corpuscular Volume 89 fL (80-100); Monocytes Percent Auto 8.3 % (0.0-11.0); Neutrophils Percent Auto 72.7 % (42.0-72.0); Platelet Count* 291 K/uL (140-440); RDW Coefficient of Variation % 15.5 % (11.5-15.5); Red Blood Count 3.93 m/uL (4.00-5.20)
[2023-03-07 07:05] LABS: Slide Review Reflex No
[2023-03-07] MEDS: METOPROLOL SUCCINATE (XL) 25 MG TAB 50 MG PO ×2 (08:54→20:33)
[2023-03-07] MEDS: FLUCONAZOLE 100 MG TABLET 200 MG PO (08:54)
[2023-03-07] MEDS: IBUPROFEN 400 MG TABLET PO ×3 (08:55→20:32)
[2023-03-07] MEDS: levoFLOXacin 250 MG TABLET PO (08:55)
[2023-03-07] MEDS: SENNOSIDES 1 TAB TABLET PO (08:55)
[2023-03-07] MEDS: SODIUM CHLORIDE 0.9 % (FLUSH) 10 ML SYRINGE 5 ML IVF ×3 (08:56→20:33)
[2023-03-07] MEDS: cefTRIAXone 2 GM in 0.9 % SODIUM CHLORIDE Mini-bag 100 ML IVPB (09:02)
[2023-03-07] MEDS: 0.9 % SODIUM CHLORIDE 250 ml IV (09:02)
[2023-03-07] MEDS: allopurinoL 100 MG TABLET PO (09:05)
--- NOTE | 2023-03-07 10:26 | NUTR.NU ---
RDN with nutrition follow-up. Patient reports a good appetite. Per pill machine operator, patient has been eating 75-100% of most meals recorded since admission. Occasionally around 50%. Patient is receiving Mighty Shake once daily. Protein needs for wound healing addressed 03/03/23 by RDN. Weight has been fairly stable since admission. Current weight is at 171lbs 03/07/23 and admission weight at 170lbs 03/02/23. RDN will continue to follow and monitor.
[2023-03-07] MEDS: VALSARTAN 80 MG TABLET 40 MG PO (13:02)
[2023-03-07] MEDS: TORSEMIDE 5 MG TABLET PO (13:02)
--- NOTE | 2023-03-07 13:26 | P.IMPN_ITS ---
Progress Note: A&P Assessment and plan (1) Cellulitis of perineum: Problem details: Continue vancomycin and Zosyn. Cultures pending. Culture of vulva and urine cultures are growing multiple bacteria. Continue Diflucan for chronic and recurrent yeast infections. Ceftriaxone for strep and Levaquin for Pseudomonas cultured from urine and perineum. Discontinue Levaquin if continued to clinically improve. Finish 14 day course of ceftriaxone. Status: Acute (2) Bacteremia: Problem details: Appears to be group C strep. Id and sensitivity pending. Plan 14 days of IV antibiotics, through March 16, probably ceftriaxone 2 g daily if other cultures and sensitivities and clinical course is favorable. PICC line. Status: Acute (3) Bright red blood per rectum: Problem details: Small amount of red blood clot again today. Remote history of colonoscopy. Could be related to current infection. Could be radiation proctitis? Consider outpatient colonoscopy after recovery from current infection. Monitor hemoglobin. 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 Has been receiving HBO treatments starting in January 2023 (evidence of healing noted) -I spoke with Dr. Askew about previous treatments and the daily diflucan and that HBO seems to be working. Status: Acute (5) Sepsis: Problem details: On admission had sepsis. This is due to the cellulitis of her perineum. This is much improved and her signs and symptoms of sepsis have resolved. Status: Acute (6) Congestive heart failure: Problem details: Appeared mildly volume overloaded yesterday, probably due to IV fluids. Received furosemide 20 mg and now appears to be euvolemic. 07/2017 echo Final Impressions: 1. Normal LV size, mildly increased wall thickness, normal global systolic function with an estimated EF of 55 - 60%. 2. Moderately enlarged left atrium. 3. Right ventricular cavity size is normal, global systolic RV function is normal. 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 EF back in 2010 was 40% with anterior distal wall hypokinesis. Nuclear stress test was neg. felt likely to be related to rate. Status: Acute (7) Chronic renal insufficiency: Problem details: Patient is actually at 1.3 which is the best she has been in the last 2 years. 2021 her creatinine was around 2-2-1/2. Status: Acute (8) Type 2 diabetes mellitus: Problem details: A1C 6.0. no meds. Accuchecks and SSI prn. Status: Acute (9) Atrial fibrillation: Problem details: -pt has not been able to tolerate warfarin - bleeds from her perineum and has been hospitalized in the past for this. -last seen by cardiology in December 2022 (digoxin, toprol xl, crestor) -CHADS VASC 4-5. 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 left labia. 09/21 - 11/21 rec'd XRT. 09/21 -11/21 rec'd carboplatin/5FU. disease remained and surgical resection not possible due to damage likely to rectum and need for diverting colostomy. offered immunotherapy and observation. 2022 events all seem related to radiation necrosis and pain management and chronic yeast infections. last pelvic MR and biopsy 10/23. Status: Acute (11) Yeast infection involving the vagina and surrounding area: Problem details: Continue chronic Diflucan Status: Acute (12) Hypertension: Problem details: Blood pressures have increased over last few days. I am going to initiate treatment for this in light of her history of heart failure with preserved ejection fraction and chronic kidney disease. Will initiate torsemide 5 mg and valsartan 40 mg daily. Status: Acute (13) Obstructive sleep apnea: Problem details: -does not tolerate CPAP Status: Acute Plan Continue in-hospital for 1 more day. Probable discharge to home tomorrow for ongoing outpatient IV antibiotics and hyperbaric oxygen and outpatient follow-up of her chronic medical problems in clinic Time Spent With Patient Total time spent: Total time spent today is 50 minutes, 40 minutes in coordination of care and discussing with patient, son, other providers ongoing management of bacteremia, disabilities, lower GI bleeding, cellulitis, labial ulcers. 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 Patient reports she was doing well until the day of admission when she went [facility] for chronic wound care related to her ulceration on her labia from prior radiation treatment. She developed shaking chills and fever and weakness. She was referred to the emergency department. In the emergency department she was felt to have sepsis. Uncertain focus but she was noted to have a slight diffuse infiltrate in her lungs. Ulceration of her vulva was thought to be at baseline but better than it had been previously. She was started on vancomycin and piperacillin tazobactam. Barrett catheter was placed to help protect the wounds from moisture and keep them clean. CT scan did not show any drainable fluid collection. She continues to report feeling a little better. She is not aware of any fevers. The pain in her perineum is better. She reports she has been eating and drinking. She has had some loose stools. No abdominal pain. Nursing staff note that she had a small amount of bright red blood clotted come from her rectum. The patient and her son reports this has been happening at home as well. I discussed the recommendation that she have evaluation with colonoscopy. I think this can be done as an outpatient once she has recovered from this current illness. No other ongoing bleeding. Not having pain associated with this but continued to have her perineal pain. Exam Narrative: Exam Narrative: She is alert and appears in no distress. Perineum is examined. Erythema continues to be much better. Cell ulcerations of her labia. These appear to be unchanged. Lower extremities without edema. Const: Vital Signs, click to edit/add: Vital Signs - 24 hr 03/06/23 15:00 03/06/23 15:56 03/06/23 16:00 Temperature 98.0 F Pulse Rate 79 Pulse Rate [Left A pical] Pulse Rate [Left P ulse Oximeter] 76 Respiratory Rate 18 18 Blood Pressure [Le ft Arm] 168/86 H Blood Pressure [Ri ght Arm] Pulse Oximetry 100 100 Oxygen Delivery Me thod Room Air 03/06/23 19:10 03/06/23 23:00 03/06/23 23:00 Temperature 97.8 F Pulse Rate Pulse Rate [Left A pical] 74 Pulse Rate [Left P ulse Oximeter] 81 69 Respiratory Rate 18 18 18 Blood Pressure [Le ft Arm] 180/102 H Blood Pressure [Ri ght Arm] Pulse Oximetry 97 95 Oxygen Delivery Me thod Room Air 03/06/23 23:00 03/06/23 23:41 03/07/23 04:00 Temperature 97.6 F Pulse Rate 64 Pulse Rate [Left A pical] 74 Pulse Rate [Left P ulse Oximeter] 69 72 Respiratory Rate 18 16 Blood Pressure [Le ft Arm] Blood Pressure [Ri ght Arm] 170/88 H 172/83 H Pulse Oximetry 95 95 Oxygen Delivery Me thod Room Air Room Air 03/07/23 07:13 03/07/23 08:00 03/07/23 08:00 Temperature 98.4 F Pulse Rate 81 Pulse Rate [Left A pical] 76 Pulse Rate [Left P ulse Oximeter] 76 Respiratory Rate 76 H 18 Blood Pressure [Le ft Arm] Blood Pressure [Ri ght Arm] 173/86 H Pulse Oximetry 98 98 Oxygen Delivery Me thod Room Air Room Air 03/07/23 11:00 Temperature 98.7 F Pulse Rate Pulse Rate [Left A pical] 81 Pulse Rate [Left P ulse Oximeter] 81 Respiratory Rate 18 Blood Pressure [Le ft Arm] Blood Pressure [Ri ght Arm] 179/98 H Pulse Oximetry 97 Oxygen Delivery Me thod Room Air Documenting provider has reviewed patient's vital signs: yes Labs Labs: Laboratory Results - last 24 hr 03/07/23 06:00 WBC 5.40 RBC 3.93 L Hgb 10.7 L Hct 35.0 MCV 89 MCH 27 MCHC 31 L RDW Coeff of Robert 15.5 Plt Count 291 Neut % (Auto) 72.7 H Lymph % (Auto) 11.1 L [place] % (Auto) 8.3 Eos % (Auto) 6.9 Baso % (Auto) 0.6 Neut # (Auto) 3.90 Lymph # (Auto) 0.60 L [place] # (Auto) 0.40 Eos # (Auto) 0.37 Baso # (Auto) 0.03 Abs Immat Gran (auto) 0.02 Imm/Tot Granulo (auto) 0.4
--- NOTE | 2023-03-07 15:33 | PC.NURSE ---
Tele afib with normal ventricular rate. BG 149 in am and 179 at noon. 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 Please see eMar for scheduled medications and prn medications for pain. Pericare provided per drsg protocol. Eval by Dr. Valencia. BP readings remain elevated, new orders for Valsartan 40 mg and Torsemide 5 mg initiated. Nena malone DD. Report to Keyonna GOMEZ for evening shift.
[2023-03-07] MEDS: ENOXAPARIN 40 MG/0.4 ML INJ SUBCUT (20:32)
--- NOTE | 2023-03-07 22:25 | PC.NURSE ---
Shift [id number]- Patient requests pain medication this afternoon (before ambulating to bathroom) with rating 10/10 pain, holding conversation calmly. Pain scale explained and she said it wasn't a 10/10, but it's bad. Pain medication given and she has reported pain well-controlled since and has not requested pain medication since. Upon her first time up and to the bathroom, patient ambulated well with walker, assist and gait belt and voided well. Upon rising from toilet and beginning to walk back, her knee buckled and she was lowered to floor. Fall precautions in place- walker, gait belt, assist of 2, grippy socks in place. Jaquelin was used to return her to bed. She complained of some increased ankle pain to left ankle. Provider updated- see orders. No fracture or displacement. Left ankle is more swollen compared to right. It is wrapped with KATT per order. No noticeable injury to knee. She is eating and drinking without issue.
--- NOTE | 2023-03-07 22:53 | PC.NURSE ---
Shift [id number]- Patient does not complain of pain throughout shift. She has one stool this evening with bright red blood. Wound care provided to periarea per order and she tolerates fairly well. Barrett in place and patent.
[2023-03-07] MEDS: ACETAMINOPHEN 325 MG TABLET PO (23:34)
[2023-03-08] VITALS: PULSE 68
[2023-03-08] MEDS: OXYCODONE 5 MG TABLET PO ×3 (03:24→14:20)
[2023-03-08 03:29] VITALS: BP 170/97; PULSE 81; RESP 18; TEMP 36.6; O2SAT 99
[2023-03-08] MEDS: OMEPRAZOLE 20 MG CAPSULE DR PO (05:51)
[2023-03-08 06:11] LABS: Basophils Absolute Auto 0.02 K/uL (0.00-0.30); Basophils Percent Auto 0.4 % (0.0-3.0); Eosinophils Absolute Auto 0.35 K/uL (0.00-0.50); Hematocrit 39.4 % (33.0-51.0); Hemoglobin* 12.3 gm/dL (12.0-16.0); Immature Granulocytes Abs Auto 0.06 K/uL (0.00-0.30); Immature Granulocytes Pct Auto 1.2 %; Lymphocytes Percent Auto 10.7 % (20-44); Mean Corpuscular HGB Conc 31 gm/dL (32-36); Mean Corpuscular Hemoglobin 27 pg (26-34); Mean Corpuscular Volume 88 fL (80-100); Monocytes Percent Auto 10.3 % (0.0-11.0); Neutrophils Absolute Auto 3.54 K/uL (1.7-7.0); Neutrophils Percent Auto 70.4 % (42.0-72.0); Platelet Count* 315 K/uL (140-440); RDW Coefficient of Variation % 15.2 % (11.5-15.5); Red Blood Count 4.49 m/uL (4.00-5.20); White Blood Count* 5.03 K/uL (4.50-11.00)
[2023-03-08 06:16] LABS: Slide Review Reflex No
[2023-03-08 06:27] LABS: Chloride* 100 mmol/L (96-114); Sodium* 138 mmol/L (135-149)
[2023-03-08 06:29] LABS: Creatinine* 1.1 mg/dL (0.5-1.5); Est. Creatinine Clearance* 42.31; Estimated Glomerular Filt Rate 52 ml/min
[2023-03-08 06:30] LABS: Anion Gap 9 mEq/L (7-15); Blood Urea Nitrogen* 26 mg/dL (7-30); Calcium* 9.7 mg/dL (8.4-10.6); Carbon Dioxide* 29 mmol/L (20-32); Glucose* 113 mg/dL (60-115)
--- NOTE | 2023-03-08 06:42 | PC.NURSE ---
End of shift: A&O pleasant and cooperative. Complains of 5/10 pain in perineal area. PRN Tylenol and oxycodone given w/ stated relief. Pt had 1 episode of small inc stool with bright red blood. Barrett in place and draining. A1 w/ walker and gait belt. Call light within reach.
[2023-03-08 07:18] VITALS: PULSE 76
[2023-03-08 07:30] VITALS: BP 180/102; PULSE 88; RESP 16; TEMP 36.6; O2SAT 94
[2023-03-08] MEDS: 0.9 % SODIUM CHLORIDE 250 ml IV (09:40)
[2023-03-08] MEDS: VALSARTAN 80 MG TABLET 40 MG PO (10:03)
[2023-03-08] MEDS: METOPROLOL SUCCINATE (XL) 25 MG TAB 50 MG PO (10:04)
[2023-03-08] MEDS: FLUCONAZOLE 100 MG TABLET 200 MG PO (10:05)
[2023-03-08] MEDS: TORSEMIDE 5 MG TABLET 10 MG PO (10:05)
[2023-03-08] MEDS: ACETAMINOPHEN 325 MG TABLET PO (10:05)
[2023-03-08] MEDS: SENNOSIDES 1 TAB TABLET PO (10:06)
[2023-03-08] MEDS: allopurinoL 100 MG TABLET PO (10:06)
[2023-03-08] MEDS: SODIUM CHLORIDE 0.9 % (FLUSH) 10 ML SYRINGE 5 ML IVF (10:07)
[2023-03-08] MEDS: cefTRIAXone 2 GM in 0.9 % SODIUM CHLORIDE Mini-bag 100 ML IVPB (10:08)
[2023-03-08] MEDS: levoFLOXacin 250 MG TABLET PO (10:24)
[2023-03-08 11:00] VITALS: BP 170/89; PULSE 81; RESP 18; TEMP 36.9; O2SAT 97
--- NOTE | 2023-03-08 13:45 | PM.DS1 ---
DS: Providers Provider Date Seen: 03/08/23 Date of admission: 03/02/23 16:00 Primary care physician: Not a Local Provider Admitting Clinician: Brooks Prescott MD Attending Physician on discharge: Jan Valencia MD Date of Discharge: 03/08/23 DS: Diagnosis Discharge Diagnosis (1) Sepsis: Status: Acute Problem details: On admission had sepsis. This is due to the cellulitis of her perineum. This is much improved and her signs and symptoms of sepsis have resolved. (2) Cellulitis of perineum: Status: Acute Problem details: Initially treated with vancomycin and Zosyn. After cultures obtained switched to ceftriaxone and Levaquin. Now discharged on ceftriaxone for group C/G bacteremia (3) Bacteremia: Status: Acute Problem details: Appears to be group C strep. Id and sensitivity pending. Plan 14 days of IV antibiotics, through March 17, ceftriaxone 2 g daily. Has functional port for access (4) Bright red blood per rectum: Status: Acute Problem details: Small amount of red blood clot occasionally over weeks. Remote history of colonoscopy. Could be related to current infection. Could be radiation proctitis? Consider outpatient colonoscopy after recovery from current infection. Hemoglobin stable. 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 Has been receiving HBO treatments starting in January 2023 (evidence of healing noted) -I spoke with Dr. Askew about previous treatments and the daily diflucan and that HBO seems to be working. (6) Congestive heart failure: Status: Acute Problem details: Heart failure is been relatively stable. She did have an episode early in the hospital stay where she is getting fluid resuscitation and did develop some volume overload managed with diuretics. Otherwise doing well. Started on valsartan and low-dose torsemide for chronic management of blood pressure and heart and kidney disease. 07/2017 echo Final Impressions: 1. Normal LV size, mildly increased wall thickness, normal global systolic function with an estimated EF of 55 - 60%. 2. Moderately enlarged left atrium. 3. Right ventricular cavity size is normal, global systolic RV function is normal. 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 EF back in 2010 was 40% with anterior distal wall hypokinesis. Nuclear stress test was neg. felt likely to be related to rate. (7) Chronic renal insufficiency: Status: Acute Problem details: Patient is actually at 1.3 which is the best she has been in the last 2 years. 2021 her creatinine was around 2-2-1/2. (8) Type 2 diabetes mellitus: Status: Acute Problem details: A1C 6.0. (9) Obstructive sleep apnea: Status: Acute Problem details: -does not tolerate CPAP (10) Hypertension: Status: Acute Problem details: Blood pressures have increased over last few days. I am going to initiate treatment for this in light of her history of heart failure with preserved ejection fraction and chronic kidney disease. Will initiate torsemide 10 mg daily and valsartan 40 mg b.i.d. with close outpatient follow-up to check electrolytes, renal function, volume status and blood pressure. Her son has ability to check her blood pressure daily as well and will monitor closely (11) Atrial fibrillation: Status: Acute Problem details: -pt has not been able to tolerate warfarin - bleeds from her perineum and has been hospitalized in the past for this. -last seen by cardiology in December 2022 (digoxin, toprol xl, crestor) -CHADS VASC 4-5. 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 09/21 - 11/21 rec'd XRT. 09/21 -11/21 rec'd carboplatin/5FU. disease remained and surgical resection not possible due to damage likely to rectum and need for diverting colostomy. offered immunotherapy and observation. 2022 events all seem related to radiation necrosis and pain management and chronic yeast infections. last pelvic MR and biopsy 10/23. 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 Patient reports she was doing well until the day of admission when [facility] care related to her ulceration on her labia from prior radiation treatment. She developed shaking chills and fever and weakness. She was referred to the emergency department. In the emergency department she was felt to have sepsis. Uncertain focus but she was noted to have a slight diffuse infiltrate in her lungs. Ulceration of her vulva was thought to be at baseline but better than it had been previously. She was started on vancomycin and piperacillin tazobactam. Barrett catheter was placed to help protect the wounds from moisture and keep them clean. CT scan did not show any drainable fluid collection. She continues to report feeling a little better. She is not aware of any fevers. The pain in her perineum is better. She reports she has been eating and drinking. She has had some loose stools. No abdominal pain. Nursing staff note that she had a small amount of bright red blood clotted come from her rectum. The patient and her son reports this has been happening at home as well. I discussed the recommendation that she have evaluation with colonoscopy. I think this can be done as an outpatient once she has recovered from this current illness. No other ongoing bleeding. Not having pain associated with this but continued to have her perineal pain. Having generally high blood pressure during her hospital stay. She remains on her chronic metoprolol. Low-dose torsemide and valsartan were initiated with her history of diabetes, CKD, CHF. Her son has the ability to monitor blood pressures at home and is agreeable to careful titration with follow up next week to recheck. Status at Discharge Functional status at discharge: uses cane/walker Overall status at discharge: patient is progressing back to baseline Time Spent with Patient Time attestation: Total time spent providing and/or coordinating discharge services:40 mins Time spent: Greater than 30 minutes Exam Narrative: Exam Narrative: She is alert and appears in no distress. Breathing is unlabored. Examination of her perineum shows the erythema has essentially resolved. She still has ulcerations of her labia which are modestly improved. Const: Vital Signs, click to edit/add: Vital Signs - 24 hr 03/07/23 15:55 03/07/23 15:55 03/07/23 16:30 Temperature 98 F Pulse Rate 70 Pulse Rate [Left A pical] 78 Pulse Rate [Left P ulse Oximeter] Respiratory Rate 18 Blood Pressure [Le ft Arm] 182/95 H Blood Pressure [Ri ght Arm] Pulse Oximetry 97 97 Oxygen Delivery Me thod Room Air Room Air 03/07/23 19:04 03/07/23 23:00 03/07/23 23:28 Temperature 97.6 F 97.7 F Pulse Rate Pulse Rate [Left A pical] 92 Pulse Rate [Left P ulse Oximeter] 76 Respiratory Rate 16 18 18 Blood Pressure [Le ft Arm] 170/96 H Blood Pressure [Ri ght Arm] 159/77 H Pulse Oximetry 99 97 97 Oxygen Delivery Me thod Room Air Room Air Room Air 03/08/23 00:00 03/08/23 03:29 03/08/23 07:18 Temperature 97.9 F Pulse Rate 68 76 Pulse Rate [Left A pical] Pulse Rate [Left P ulse Oximeter] 81 Respiratory Rate 18 Blood Pressure [Le ft Arm] 170/97 H Blood Pressure [Ri ght Arm] Pulse Oximetry 99 Oxygen Delivery Me thod Room Air 03/08/23 07:30 03/08/23 07:30 03/08/23 11:00 Temperature 98 F 98.4 F Pulse Rate Pulse Rate [Left A pical] 88 81 Pulse Rate [Left P ulse Oximeter] 88 Respiratory Rate 16 18 Blood Pressure [Le ft Arm] Blood Pressure [Ri ght Arm] 180/102 H 170/89 H Pulse Oximetry 94 94 97 Oxygen Delivery Me thod Room Air Room Air Room Air Documenting provider has reviewed patient's vital signs: yes DS: Data Data Completed and Pending Labs on day of discharge: Labs from last 24 hours 03/08/23 05:47 WBC 5.03 RBC 4.49 Hgb 12.3 Hct 39.4 MCV 88 MCH 27 MCHC 31 L RDW Coeff of Robert 15.2 Plt Count 315 Neut % (Auto) 70.4 Lymph % (Auto) 10.7 L [place] % (Auto) 10.3 Eos % (Auto) 7.0 Baso % (Auto) 0.4 Neut # (Auto) 3.54 Lymph # (Auto) 0.50 L [place] # (Auto) 0.50 Eos # (Auto) 0.35 Baso # (Auto) 0.02 Abs Immat Gran (auto) 0.06 Imm/Tot Granulo (auto) 1.2 Sodium 138 Potassium 4.0 Chloride 100 Carbon Dioxide 29 Anion Gap 9 BUN 26 Creatinine 1.1 Estimated Creat Clear 42.31 Estimated GFR 52 Glucose 113 Calcium 9.7 Preliminary micro results at discharge 03/02/23 11:47 Blood Culture - Preliminary Blood Discharge Plan Discharge Disposition: Home w/ Parent or Adult Date of Admission: 03/02/23 16:00 Attending Provider on Discharge: Rajinder Valencia Primary Care Provider: Provider,Not a Local Condition: Improved Anticipated Discharge Date/Time: 03/08/23 11:00 Discharge Medications: New valsartan 40 mg tablet 40 mg PO BID Qty: 60 2RF torsemide 10 mg tablet 10 mg PO DAILY Qty: 30 0RF Continued allopurinol 100 mg tablet 100 mg PO DAILY omeprazole 20 mg capsule,delayed release(DR/EC) 20 mg PO DAILY albuterol sulfate 90 mcg/actuation HFA aerosol inhaler 1 - 2 puff INHALATION Q4H PRN (Reason: dyspnea) rosuvastatin 5 mg tablet 5 mg PO DAILY fluconazole 200 mg tablet 200 mg PO DAILY metoprolol succinate 50 mg tablet extended release 24 hr 50 mg PO BID nystatin 100,000 unit/gram ointment 1 applic topical QID PRN nystatin [Nystop] 100,000 unit/gram powder 1 applic topical 3XD PRN lidocaine HCl 2 % jelly 1 applic topical BID-QID PRN (Reason: pain) Qty: 50 0RF Changed oxycodone 5 mg tablet 2.5 mg PO TID PRN (Reason: pain) Qty: 20 0RF Rx Instructions: PLUS PRN Discharge Orders: Discharge Order (Routine); Ordered 03/08/23 Ordered By: Rajinder Valencia Patient Education: Valsartan (By mouth), Torsemide (By mouth), Cellulitis (GEN), Bacteremia (DC) Additional Instructions: You need outpatient antibiotic treatment for [address] Return to [facility] every day to receive IV antibiotics through MondayMarch 17. Discuss restarting hyperbaric oxygen with the wound care clinic. I have started you on new blood pressure medicines. See your doctor next week to recheck your blood pressure and your blood tests to make sure the medicines are working and not causing serious problems. Activity Level: Activity as Tolerated and Use Walker Discharge Diet: Regular Follow Up Appointments: Provider,Not a Local [Primary Care Provider] - 03/09/23 10:00 am ([facility]) Forms: [facility] Info Instructions
[2023-03-08] MEDS: IBUPROFEN 400 MG TABLET PO (14:20)
--- NOTE | 2023-03-08 15:12 | PC.NURSE ---
Please see eMar for meds provided on day shift. Eval by Dr. Valencia and Dr. Askew. D/C paperwork completed, awaiting arrival of son Jose at 4PM for teaching. BG 114 at bkfst. BG 214 at lunch with 4 units SS coverage. Tele indicates irregular rhythm, atrial fibrillation with normal ventricular rate. MRSA precautions continue. Report to Keyonna GOMEZ for evening shift.
[2023-03-08 17:15] VITALS: BP 130/102; PULSE 90; RESP 18; TEMP 36.6; O2SAT 99
--- NOTE | 2023-03-08 17:55 | PC.NURSE ---
Discharge 1745- Patient and son given discharge instructions verbally and in-print. Son's questions about titrating torsemide answered per MD. Toward end of discharge instructions, patient states she does not feel well. She could not describe exactly why, but then said she was dizzy and sweaty. She also responds like I'm not ready to go home. Blood glucose is 167 and vitals are reassuring- see charting. MD updated and comes to room to see patient, answers further questions to patient and family. Patient is discharged with all belongings, and is wheeled out in her own wheelchair.
== END 2023-03-08 17:45 | disposition home or self-care (01) | DRG 603 ==
LOC: ED 14:54 → MEDSURG 15:47
PROVIDERS: Family Medicine; Admitting Provider Family Medicine; Emergency Provider Internal Medicine; Visit Provider Internal Medicine
DX: L03.315 Cellulitis of perineum (principal); I43 Cardiomyopathy in diseases classified elsewhere; K62.5 Hemorrhage of anus and rectum; L59.8 Other specified disorders of the skin and subcutaneous tissue related to radiation; N76.6 Ulceration of vulva; Y84.2 Radiological procedure and radiotherapy as the cause of abnormal reaction of the patient, or of later complication, without mention of misadventure at the time of the procedure; B37.31 Acute candidiasis of vulva and vagina; E11.42 Type 2 diabetes mellitus with diabetic polyneuropathy; Z85.44 Personal history of malignant neoplasm of other female genital organs; E11.22 Type 2 diabetes mellitus with diabetic chronic kidney disease; N18.9 Chronic kidney disease, unspecified; I50.9 Heart failure, unspecified; K21.9 Gastro-esophageal reflux disease without esophagitis; I48.0 Paroxysmal atrial fibrillation; G47.33 Obstructive sleep apnea (adult) (pediatric); J45.909 Unspecified asthma, uncomplicated
CPT/HCPCS: 36415; 71046; 74177; 80048; 80076; 81001; 81003; 81015; 82330; 82803; 82962; 82977; 83036; 83605; 83690; 83735; 84145; 84443; 84484; 84550; 85025; 85610; 86140; 87040; 87070; 87077; 87081; 87086; 87186; 87493; 87631; 93005; 94761; 97110; 97116; 97162; 97165; 97530; 97535; 99283; 99285; G0277; A9270; J0696; J1642; J1650; J1940; J2405; J2543; J3010; J3370; J7030; J7050; J7120; Q9967

== ENCOUNTER 2023-03-15 08:10 | Outpatient (CLI) | payer OTHER, SELFPAY | END 2023-03-15 08:11 | disposition home or self-care (01) | LOC: WOUND 08:10 | PROVIDERS: PCP Family Medicine; Visit Provider Surgery | DX: L59.8 Other specified disorders of the skin and subcutaneous tissue related to radiation (principal); B37.32 Chronic candidiasis of vulva and vagina; E08.628 Diabetes mellitus due to underlying condition with other skin complications; R10.2 Pelvic and perineal pain; Z79.84 Long term (current) use of oral hypoglycemic drugs | CPT/HCPCS: 82962; 99213; G0277 ==

== ENCOUNTER 2023-03-17 11:45 | Outpatient (RCR) | payer OTHER, SELFPAY ==
--- NOTE | 2023-03-09 10:30 | ONC.NURNOTE ---
Addendum entered and electronically signed by Sara Alcaraz RN 03/09/23 12:31: Gave verbal consent for JASON Zaldivar in [facility] to look up verification card for port in the [employer] system. Original Note: Patient here for IV antibiotics. Patient's son, Jose, accompanied patient to this appointment. Jose had left a message for social worker health services with concerns about discharge from the hospital yesterday. color drum worker, Ilene met with patient and her son. One concern was that patient was sent home with just a night catheter bag. Requested a leg bag. M/S was contacted with this information and patient was brought over by JASON Burton to do leg bag teaching and get equipment for patient and her and her son. Another concern was that he wanted a home safety evaluation by PT/OT to see if she is safe at home and to get HHC in the home. Ilene was going to facilitate this for patient. Patient scheduled to come in tomorrow at 9am for antibiotic. Patients son wanted 10am next week. These appointments were set up. Patient and son are aware that patient will go to med surg over the weekend and this time will be set up tomorrow. Patient did not have verification card for port with her. Patient and her son gave verbal consent for us to access [facility] to get that information so we can have it on file here.
[2023-03-09] MEDS: 0.9 % SODIUM CHLORIDE 250 ml IV (10:38)
[2023-03-09] MEDS: SODIUM CHLORIDE 0.9 % (FLUSH) 10 ML SYRINGE IVF (10:38)
[2023-03-09] MEDS: HEPARIN 500 UNIT/5 ML SYRINGE IVF (10:38)
[2023-03-09] MEDS: cefTRIAXone 2 GM in 0.9 % SODIUM CHLORIDE Mini-bag 100 ML IVPB (10:44)
[2023-03-09 11:45] VITALS: BP 106/62; PULSE 90; RESP 16; TEMP 36.4; O2SAT 98
[2023-03-10 09:07] VITALS: BP 119/79; PULSE 87; RESP 16; TEMP 35.9; O2SAT 96
[2023-03-10] MEDS: cefTRIAXone 2 GM in 0.9 % SODIUM CHLORIDE Mini-bag 100 ML IVPB (09:12)
[2023-03-11] MEDS: cefTRIAXone 2 GM in 0.9 % SODIUM CHLORIDE Mini-bag 100 ML IVPB (11:34)
[2023-03-11] MEDS: 0.9 % SODIUM CHLORIDE 250 ml IV (11:35)
[2023-03-11] MEDS: HEPARIN 500 UNIT/5 ML SYRINGE IVF (12:21)
[2023-03-12] MEDS: 0.9 % SODIUM CHLORIDE 250 ml IV (11:24)
[2023-03-12] MEDS: cefTRIAXone 2 GM in 0.9 % SODIUM CHLORIDE Mini-bag 100 ML IVPB (11:24)
[2023-03-12] MEDS: HEPARIN 500 UNIT/5 ML SYRINGE IVF (12:16)
[2023-03-13] MEDS: SODIUM CHLORIDE 0.9 % (FLUSH) 10 ML SYRINGE IVF ×2 (12:00→13:00)
[2023-03-13] MEDS: 0.9 % SODIUM CHLORIDE 250 ml IV (12:00)
[2023-03-13] MEDS: cefTRIAXone 2 GM in 0.9 % SODIUM CHLORIDE Mini-bag 100 ML IVPB (12:15)
[2023-03-13 12:16] VITALS: BP 136/73; PULSE 89; RESP 16; TEMP 36.6; O2SAT 100
[2023-03-13] MEDS: HEPARIN 500 UNIT/5 ML SYRINGE IVF (13:00)
[2023-03-14 11:54] VITALS: BP 151/81; PULSE 91; RESP 16; TEMP 36.5; O2SAT 98
[2023-03-14] MEDS: HEPARIN 500 UNIT/5 ML SYRINGE IVF (12:08)
[2023-03-14] MEDS: SODIUM CHLORIDE 0.9 % (FLUSH) 10 ML SYRINGE IVF (12:08)
[2023-03-14] MEDS: cefTRIAXone 2 GM in 0.9 % SODIUM CHLORIDE Mini-bag 100 ML IVPB (12:08)
[2023-03-14] MEDS: 0.9 % SODIUM CHLORIDE 250 ml IV (12:08)
[2023-03-15] MEDS: cefTRIAXone 2 GM in 0.9 % SODIUM CHLORIDE Mini-bag 100 ML IVPB (12:02)
[2023-03-15 12:09] VITALS: BP 158/85; PULSE 96; RESP 16; TEMP 36.6; O2SAT 97
[2023-03-15] MEDS: HEPARIN 500 UNIT/5 ML SYRINGE IVF (12:35)
[2023-03-15] MEDS: SODIUM CHLORIDE 0.9 % (FLUSH) 10 ML SYRINGE IVF (12:35)
[2023-03-16 11:45] VITALS: BP 146/73; PULSE 80; RESP 16; TEMP 36.1; O2SAT 100
[2023-03-16] MEDS: HEPARIN 500 UNIT/5 ML SYRINGE IVF (12:10)
[2023-03-16] MEDS: SODIUM CHLORIDE 0.9 % (FLUSH) 10 ML SYRINGE IVF (12:10)
[2023-03-16] MEDS: 0.9 % SODIUM CHLORIDE 250 ml IV (12:10)
[2023-03-16] MEDS: cefTRIAXone 2 GM in 0.9 % SODIUM CHLORIDE Mini-bag 100 ML IVPB (12:10)
[2023-03-17 12:00] VITALS: BP 154/85; PULSE 86; RESP 18; TEMP 36.7; O2SAT 100
[2023-03-17] MEDS: cefTRIAXone 2 GM in 0.9 % SODIUM CHLORIDE Mini-bag 100 ML IVPB (12:07)
== END 2023-09-05 23:59 | disposition home or self-care (01) ==
LOC: CCIC 11:45
PROVIDERS: PCP Family Medicine; Visit Provider Family Medicine
DX: R78.81 Bacteremia (principal); L03.315 Cellulitis of perineum
CPT/HCPCS: 82962; 96365; 99211; G0277; J0696; J1642; J7050

== ENCOUNTER 2023-03-22 08:05 | Outpatient (CLI) | payer OTHER, SELFPAY ==
[2023-03-22 09:10] LABS: Basophils Absolute Auto 0.01 K/uL (0.00-0.30); Basophils Percent Auto 0.2 % (0.0-3.0); Eosinophils Absolute Auto 0.32 K/uL (0.00-0.50); Eosinophils Percent Auto 5.6 % (0.0-7.0); Hemoglobin* 11.6 gm/dL (12.0-16.0); Immature Granulocytes Abs Auto 0.01 K/uL (0.00-0.30); Immature Granulocytes Pct Auto 0.2 %; Lymphocytes Percent Auto 10.9 % (20-44); Mean Corpuscular HGB Conc 31 gm/dL (32-36); Mean Corpuscular Hemoglobin 28 pg (26-34); Mean Corpuscular Volume 88 fL (80-100); Monocytes Percent Auto 9.7 % (0.0-11.0); Neutrophils Percent Auto 73.4 % (42.0-72.0); Platelet Count* 348 K/uL (140-440); RDW Coefficient of Variation % 15.6 % (11.5-15.5); Red Blood Count 4.21 m/uL (4.00-5.20); Slide Review Reflex No; White Blood Count* 5.68 K/uL (4.50-11.00)
[2023-03-22 09:31] LABS: C Reactive Protein* 1.1 mg/dL (0.5-1.0)
[2023-03-22 09:42] LABS: Erythrocyte SedimentationRate* 64 mm/hr (2-20)
== END 2023-03-22 08:06 | disposition home or self-care (01) ==
LOC: WOUND 08:05
PROVIDERS: PCP Family Medicine; Visit Provider Surgery
DX: L59.8 Other specified disorders of the skin and subcutaneous tissue related to radiation (principal); E08.628 Diabetes mellitus due to underlying condition with other skin complications; B37.32 Chronic candidiasis of vulva and vagina; R10.2 Pelvic and perineal pain; Z79.84 Long term (current) use of oral hypoglycemic drugs; Z53.8 Procedure and treatment not carried out for other reasons
CPT/HCPCS: 36415; 82962; 85025; 85651; 86140; 97602; 99212

== ENCOUNTER 2023-03-23 08:56 | Outpatient (CLI) | payer OTHER, SELFPAY | END 2023-03-23 08:57 | disposition home or self-care (01) | LOC: WOUND 08:56 | PROVIDERS: PCP Family Medicine; Visit Provider Surgery | DX: L59.8 Other specified disorders of the skin and subcutaneous tissue related to radiation (principal); B37.32 Chronic candidiasis of vulva and vagina; E08.628 Diabetes mellitus due to underlying condition with other skin complications; R10.2 Pelvic and perineal pain; Z79.84 Long term (current) use of oral hypoglycemic drugs | CPT/HCPCS: 82962; 99212; G0277 ==

== ENCOUNTER 2023-03-29 08:04 | Outpatient (CLI) | payer OTHER, SELFPAY | END 2023-03-29 08:05 | disposition home or self-care (01) | LOC: WOUND 08:04 | PROVIDERS: PCP Family Medicine; Visit Provider Surgery | DX: L59.8 Other specified disorders of the skin and subcutaneous tissue related to radiation (principal); B37.32 Chronic candidiasis of vulva and vagina; E08.628 Diabetes mellitus due to underlying condition with other skin complications; R10.2 Pelvic and perineal pain; Z79.84 Long term (current) use of oral hypoglycemic drugs | CPT/HCPCS: 82962; 97597; 97598; G0277 ==

== ENCOUNTER 2023-03-31 09:00 | Outpatient (RCR) | payer OTHER, SELFPAY | END 2023-04-01 23:59 | disposition home or self-care (01) | LOC: WOUND 09:00 | PROVIDERS: PCP Family Medicine; Visit Provider Nurse Practitioner Family | DX: L59.8 Other specified disorders of the skin and subcutaneous tissue related to radiation (principal); B37.32 Chronic candidiasis of vulva and vagina; E08.628 Diabetes mellitus due to underlying condition with other skin complications; R10.2 Pelvic and perineal pain; Z79.84 Long term (current) use of oral hypoglycemic drugs | CPT/HCPCS: 82962; G0277 ==

== ENCOUNTER 2023-04-05 08:10 | Outpatient (CLI) | payer OTHER, SELFPAY ==
[2023-04-05 11:07] LABS: Aspartate Amino Transferase* 22 U/L (12-35); Bilirubin Total* 0.3 mg/dL (0.1-1.5); Total Protein* 7.7 g/dL (6.0-8.3)
[2023-04-05 11:08] LABS: Alanine Aminotransferase* 15 U/L (4-35); Alkaline Phosphatase* 150 U/L (40-150)
== END 2023-04-05 08:11 | disposition home or self-care (01) ==
PROVIDERS: PCP Family Medicine; Visit Provider Surgery
DX: L59.8 Other specified disorders of the skin and subcutaneous tissue related to radiation (principal); E08.628 Diabetes mellitus due to underlying condition with other skin complications; B37.32 Chronic candidiasis of vulva and vagina; R10.2 Pelvic and perineal pain; Z79.84 Long term (current) use of oral hypoglycemic drugs; Z79.899 Other long term (current) drug therapy
CPT/HCPCS: 36415; 80076; 82962; 97597; 97598; 99212

== ENCOUNTER 2023-04-12 08:43 | Outpatient (CLI) | payer OTHER, SELFPAY | END 2023-04-12 08:44 | disposition home or self-care (01) | LOC: WOUND 08:43 | PROVIDERS: PCP Family Medicine; Visit Provider Surgery | DX: L59.8 Other specified disorders of the skin and subcutaneous tissue related to radiation (principal); B37.32 Chronic candidiasis of vulva and vagina; E08.628 Diabetes mellitus due to underlying condition with other skin complications; R10.2 Pelvic and perineal pain; Z79.84 Long term (current) use of oral hypoglycemic drugs | CPT/HCPCS: 82962; 97597; 97598; G0277 ==

== ENCOUNTER 2023-04-19 08:04 | Outpatient (CLI) | payer OTHER, SELFPAY | END 2023-04-19 08:05 | disposition home or self-care (01) | PROVIDERS: PCP Family Medicine; Visit Provider Family Medicine | DX: L59.8 Other specified disorders of the skin and subcutaneous tissue related to radiation (principal); B37.32 Chronic candidiasis of vulva and vagina; E08.628 Diabetes mellitus due to underlying condition with other skin complications; R10.2 Pelvic and perineal pain; Z79.84 Long term (current) use of oral hypoglycemic drugs | CPT/HCPCS: 82962; 99213; G0277 ==

== ENCOUNTER 2023-04-25 13:34 | Outpatient (CLI) | payer OTHER, SELFPAY | END 2023-04-25 13:35 | disposition home or self-care (01) | LOC: WOUND 04-26 14:43 | PROVIDERS: PCP Family Medicine; Visit Provider Nurse Practitioner Family | DX: L59.8 Other specified disorders of the skin and subcutaneous tissue related to radiation (principal); B37.32 Chronic candidiasis of vulva and vagina; E08.628 Diabetes mellitus due to underlying condition with other skin complications; R10.2 Pelvic and perineal pain | CPT/HCPCS: 82962; 99212; G0277 ==

== ENCOUNTER 2023-05-02 09:00 | Outpatient (RCR) | payer OTHER, SELFPAY | END 2023-05-02 23:59 | disposition home or self-care (01) | LOC: WOUND 09:00 | PROVIDERS: PCP Family Medicine; Visit Provider Nurse Practitioner Family | DX: L59.8 Other specified disorders of the skin and subcutaneous tissue related to radiation (principal); E08.628 Diabetes mellitus due to underlying condition with other skin complications; B37.32 Chronic candidiasis of vulva and vagina; R10.2 Pelvic and perineal pain; Z79.84 Long term (current) use of oral hypoglycemic drugs | CPT/HCPCS: 82962; 99212; G0277 ==

== ENCOUNTER 2023-05-03 08:02 | Outpatient (CLI) | payer OTHER, SELFPAY ==
[2023-05-03 11:53] LABS: Albumin* 4.2 g/dL (3.3-5.0)
[2023-05-03 11:55] LABS: Bilirubin Total* 0.3 mg/dL (0.1-1.5)
[2023-05-03 11:56] LABS: Alanine Aminotransferase* 17 U/L (4-35); Alkaline Phosphatase* 137 U/L (40-150); Aspartate Amino Transferase* 32 U/L (12-35); Total Protein* 8.2 g/dL (6.0-8.3)
== END 2023-05-03 08:03 | disposition home or self-care (01) ==
PROVIDERS: PCP Family Medicine; Visit Provider Surgery
DX: L59.8 Other specified disorders of the skin and subcutaneous tissue related to radiation (principal); E08.628 Diabetes mellitus due to underlying condition with other skin complications; B37.32 Chronic candidiasis of vulva and vagina; R10.2 Pelvic and perineal pain; Z79.84 Long term (current) use of oral hypoglycemic drugs; Z79.2 Long term (current) use of antibiotics
CPT/HCPCS: 36415; 80076; 82962; 99213; G0277

== ENCOUNTER 2023-05-10 08:05 | Outpatient (CLI) | payer OTHER, SELFPAY | END 2023-05-10 08:06 | disposition home or self-care (01) | LOC: WOUND 08:05 | PROVIDERS: PCP Family Medicine; Visit Provider Surgery | DX: L59.8 Other specified disorders of the skin and subcutaneous tissue related to radiation (principal); B37.32 Chronic candidiasis of vulva and vagina; E08.628 Diabetes mellitus due to underlying condition with other skin complications; R10.2 Pelvic and perineal pain; Z79.84 Long term (current) use of oral hypoglycemic drugs | CPT/HCPCS: 82962; 99213; G0277 ==

== ENCOUNTER 2023-05-11 09:00 | Outpatient (RCR) | payer OTHER, SELFPAY | END 2023-06-01 23:59 | disposition home or self-care (01) | LOC: WOUND 09:00 | PROVIDERS: PCP Family Medicine; Visit Provider Nurse Practitioner Family | DX: L59.8 Other specified disorders of the skin and subcutaneous tissue related to radiation (principal); B37.32 Chronic candidiasis of vulva and vagina; E08.628 Diabetes mellitus due to underlying condition with other skin complications; R10.2 Pelvic and perineal pain | CPT/HCPCS: 82962; G0277 ==

== ENCOUNTER 2023-05-17 08:09 | Outpatient (CLI) | payer OTHER, SELFPAY | END 2023-05-17 08:10 | disposition home or self-care (01) | LOC: WOUND 08:09 | PROVIDERS: PCP Family Medicine; Visit Provider Surgery | DX: L59.8 Other specified disorders of the skin and subcutaneous tissue related to radiation (principal); E08.628 Diabetes mellitus due to underlying condition with other skin complications; B37.32 Chronic candidiasis of vulva and vagina; R10.2 Pelvic and perineal pain; Z79.84 Long term (current) use of oral hypoglycemic drugs | CPT/HCPCS: 99213 ==

== ENCOUNTER 2023-05-31 08:03 | Outpatient (CLI) | payer OTHER, SELFPAY | END 2023-05-31 08:04 | disposition home or self-care (01) | LOC: WOUND 08:03 | PROVIDERS: PCP Family Medicine; Visit Provider Surgery | DX: L59.8 Other specified disorders of the skin and subcutaneous tissue related to radiation (principal); E08.628 Diabetes mellitus due to underlying condition with other skin complications; B37.32 Chronic candidiasis of vulva and vagina; R10.2 Pelvic and perineal pain | CPT/HCPCS: 99213 ==

== ENCOUNTER 2023-06-28 07:51 | Outpatient (CLI) | payer OTHER, SELFPAY | END 2023-06-28 07:52 | disposition home or self-care (01) | LOC: WOUND 07:51 | PROVIDERS: PCP Family Medicine; Visit Provider Physician Assistant Surgical | DX: L59.8 Other specified disorders of the skin and subcutaneous tissue related to radiation (principal); E08.628 Diabetes mellitus due to underlying condition with other skin complications; B37.32 Chronic candidiasis of vulva and vagina; R10.2 Pelvic and perineal pain | CPT/HCPCS: G0463 ==

== ENCOUNTER 2023-07-02 18:30 | Inpatient (IN) | payer OTHER, SELFPAY ==
[2023-07-02 18:48] VITALS: BP 153/104; PULSE 88; RESP 16; TEMP 36.2; O2SAT 99; BMI 29.1
--- NOTE | 2023-07-02 19:20 | ED.NURSE ---
Aviation Technical Systems Specialist in room to assist MD Block by positioning pt during rectal exam.
--- NOTE | 2023-07-02 19:31 | ED_ITS ---
HPI - General Adult General Date Seen: 07/02/23 Chief complaint: GI Bleed Stated complaint: rectal bleeding, cough, body aches Time Seen by Provider: 07/02/23 18:32 Source: patient and family Mode of arrival: ambulatory Limitations: no limitations History of Present Illness HPI narrative: Patient is a 78-year-old woman who presents with her son for evaluation of a couple of things. 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 [facility], her son says they finally have the chronic wounds in her groin area healed. For the past year she has occasionally had about a tbsp or so of what sounds like 2 lattice bloody material in her chux, he is not sure exactly where that has been coming from. Apparently there had been discussion about getting a colonoscopy scheduled but that has not happened yet. For the past few days she has had problems with fatigue, cough, body aches, there a couple family members who recently had influenza. Associated with that he says that she has been having more trouble with urinary incontinence and her skin has been more irritated and red. Yesterday and today she has had more bright red blood per rectum, he reports multiple tbsp of clotted blood on the chux, and an episode of atrial a blood from the bed to the bathroom. She does note constipation but denies pain with bowel movements. She is not anticoagulated. Related Data Home Medications Medication Instructions Recorded Confirmed albuterol sulfate 90 mcg/actuation 1 - 2 puff inhalation Q4H PRN 03/02/23 07/03/23 aerosol inhaler dyspnea allopurinol 100 mg tablet 100 mg PO DAILY 03/02/23 07/03/23 fluconazole 200 mg tablet 200 mg PO DAILY 03/02/23 07/03/23 metoprolol succinate 50 mg 50 mg PO BID 03/02/23 07/03/23 tablet,extended release 24 hr omeprazole 20 mg capsule,delayed 20 mg PO DAILY 03/02/23 07/03/23 release rosuvastatin 5 mg tablet 5 mg PO DAILY 03/02/23 07/03/23 apixaban 5 mg tablet (Eliquis) 5 mg PO BID 07/03/23 07/03/23 lidocaine HCl 2 % mucosal jelly in 1 applic topical .2-4 TIMES DAILY 07/03/23 07/03/23 applicator PRN pain Previous Rx's Medication Instructions Recorded torsemide 10 mg tablet 10 mg PO DAILY #30 tabs 03/08/23 valsartan 40 mg tablet 40 mg PO BID #60 tabs 03/08/23 Allergies Allergy/AdvReac Type Severity Reaction Status Date / Time No Known Drug Allergies Allergy Verified 07/03/23 15:26 Review of Systems Status of ROS: Reports: 10 or more systems reviewed and unremarkable except as noted in History and below [facility] Medical History (Updated 07/03/23 @ 16:40 by Siena Bell MD) Atrial fibrillation ?I48.91 - Unspecified atrial fibrillation (ICD-10) Bright red blood per rectum ?K62.5 - Hemorrhage of anus and rectum (ICD-10) Bacteremia ?R78.81 - Bacteremia (ICD-10) Cellulitis of perineum ?L03.315 - Cellulitis of perineum (ICD-10) 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 - Other specified disorders of the skin and subcutaneous tissue related to radiation (ICD-10) ?Y84.2 - Radiological procedure and radiotherapy as the cause of abnormal reaction of the patient, or of later complication, without mention of misadventure at the time of the procedure (ICD-10) Vulvar cancer ?C51.9 - Malignant neoplasm of vulva, unspecified (ICD-10) Chronic renal insufficiency ?N18.9 - Chronic kidney disease, unspecified (ICD-10) GERD (gastroesophageal reflux disease) ?K21.9 - Gastro-esophageal reflux disease without esophagitis (ICD-10) Type 2 diabetes mellitus ?E11.9 - Type 2 diabetes mellitus without complications (ICD-10) Obstructive sleep apnea ?G47.33 - Obstructive sleep apnea (adult) (pediatric) (ICD-10) Asthma ?J45.909 - Unspecified asthma, uncomplicated (ICD-10) Hypertension ?I10 - Essential (primary) hypertension (ICD-10) Cardiomyopathy ?I42.9 - Cardiomyopathy, unspecified (ICD-10) Congestive heart failure ?I50.9 - Heart failure, unspecified (ICD-10) Surgical History [place] teeth removed ?K08.409 - Partial loss of teeth, unspecified cause, unspecified class (ICD- 10) History of tubal ligation ?Z98.51 - Tubal ligation status (ICD-10) Hx of total knee arthroplasty ?Z96.659 - Presence of unspecified artificial knee joint (ICD-10) History of bunionectomy ?Z98.890 - Other specified postprocedural states (ICD-10) Status post breast reduction ?Z98.890 - Other specified postprocedural states (ICD-10) Status post biopsy of uterine cervix ?Z98.890 - Other specified postprocedural states (ICD-10) Social History What is your current living situation?: I presently have a place to live Problems where you live: no known problems Problems where you live details: N/A In the past 12 months, utilities in danger of being shut off: no In past 12 months, lack of transportation kept you from medical appts, meetings, work, or getting things needed for daily living: no In the past 12 mos, have been you worried that your food would run out before you had money to buy more?: never true In the past 12 mos, the food you bought just didn't last and you didn't have money to buy more?: never true Highest level of school completed/degree received: high school graduate Smoking Status: Former smoker Do you use any of these nicotine containing products: None Second hand tobacco smoke exposure: No How often do you have a drink containing alcohol: never How often do you have six or more drinks on one occasion: Never AUDIT-C Alcohol total score: 0 Non-prescribed substance use: denies use Caffeine: Yes How often does anyone, including family, friends and others, physically hurt you : never How often does anyone, including family, friends and others, insult or talk down to you: never How often does anyone, including family, friends and others, threaten you with harm: never How often does anyone, including family, friends and others, scream or curse at you: never service: No Exam Narrative: Exam Narrative: Vital signs as noted above. In general, an alert, nontoxic elderly woman. Appears somewhat fatigued. Head: Normocephalic, atraumatic. Eyes: Pupils are equal reactive. Extraocular movements are full. Conjunctivae are normal. ENT: Mucous membranes are moist. Throat is normal. Neck: Supple without lymphadenopathy. Heart: Regular rate and rhythm. No murmur or rub. Lungs: Clear bilaterally. No increased work of breathing, crackles or wheezes. Abdomen: Soft and nontender. No organomegaly. Rectal: The skin in the gluteal cleft area as well as the vulvar area is erythematous and somewhat macerated. There is clotted blood noted in the perianal region. No obvious hemorrhoids. Extremities: Well perfused. No edema. No calf tenderness. Pulses intact. Neurologic: Patient is alert and oriented to person and place. Speech is fluent. Face is symmetric. Moves all extremities equally. Affect: Normal. Skin: Warm and dry. Well perfused. Const: Vital Signs, click to edit/add: Vital Signs - 24 hr 07/02/23 22:46 07/02/23 23:00 07/02/23 23:54 Temperature 96.9 F L 96.8 F L Pulse Rate [Right Pulse Oximeter] 84 85 Respiratory Rate 16 20 20 Blood Pressure [Le ft Arm] 162/84 H 173/94 H Pulse Oximetry 98 99 99 Oxygen Delivery Me thod Room Air Room Air Room Air 07/03/23 03:56 07/03/23 08:08 07/03/23 08:08 Temperature 97.3 F L 98.9 F Pulse Rate [Right Pulse Oximeter] 83 94 94 Respiratory Rate 20 14 14 Blood Pressure [Le ft Arm] 166/97 H 176/96 H Pulse Oximetry 93 98 Oxygen Delivery Me thod Room Air Room Air 07/03/23 08:08 Temperature Pulse Rate [Right Pulse Oximeter] Respiratory Rate 14 Blood Pressure [Le ft Arm] Pulse Oximetry 98 Oxygen Delivery Me thod Room Air Documenting provider has reviewed patient's vital signs: yes Course Course ED Course: Her son wondered if symptoms might be related to anal fissure, discussed that in the absence of anal pain and with this amount of reported bleeding I think that is unlikely, but I did do anoscopy. There is quite a bit of clotted blood further up in the rectum, I do not think symptoms are related to anal fissure. I recommended that we check some labs, see what her hemoglobin looks like, overall discussed that I would likely recommend admission but as his hope was that they would be able to go home will see how labs look and go from there. Viral testing pending as well. COVID test is positive. Hemoglobin is 10.2, looking back through her records her hemoglobin was running in the 10s back in March when she was hospitalized. Most recently it was 11.6. White blood count is slightly depressed at 3.77, consistent with COVID diagnosis. Normal platelets. INR and PTT are both minimally elevated. Metabolic panel is unremarkable, BUN is 29 and creatinine is 1.4. Blood sugar 119. LFTs are normal. CRP essentially normal at 1.1. Between her COVID diagnosis, increased weakness and difficulty with mobility, increased incontinence and skin breakdown as well as her GI bleed, her son agrees that hospitalization would probably be a better route. Have discussed with him I do not know whether colonoscopy will be an option while in the hospital, but we can do serial hemoglobins and make sure that bleeding is stable and that she does not need transfusion. Recommended Barrett catheter placement as well to trying keep her skin dry as he says that she is urinating every hour so and it has been very hard to keep her skin clean and dry. Vital Signs Vital signs: Initial Vital Signs Temperature 97.2 F L 07/02/23 18:48 Temperature Source Temporal Artery Scan 07/02/23 18:48 Pulse Rate 88 07/02/23 18:48 Pulse Rhythm Regular 07/02/23 18:48 Respiratory Rate 16 07/02/23 18:48 Blood Pressure 153/104 H 07/02/23 18:48 Blood Pressure Mean 120 H 07/02/23 18:48 Blood Pressure Position Sitting 07/02/23 18:48 Pulse Oximetry 99 07/02/23 18:48 Oxygen Delivery Method Room Air 07/02/23 18:48 Vital Signs Temperature 97.2 F L 07/02/23 18:48 Pulse Rate 88 07/02/23 18:48 Respiratory Rate 16 07/02/23 18:48 Blood Pressure 153/104 H 07/02/23 18:48 Pulse Oximetry 99 07/02/23 18:48 Oxygen Delivery Method Room Air 07/02/23 18:48 Temperature 99.1 F 07/03/23 15:00 Pulse Rate 98 07/03/23 15:00 Respiratory Rate 16 07/03/23 15:00 Blood Pressure 177/97 H 07/03/23 15:00 Pulse Oximetry 97 07/03/23 15:00 Oxygen Delivery Method Room Air 07/03/23 15:00 Medications Administered Medications: Generic Name Dose Route Start Last Admin Trade Name James PRN Reason Stop Dose Admin Acetaminophen 650 mg 07/02/23 22:22 07/03/23 14:38 Acetaminophen 325 Mg Tablet PO 650 mg Q6H PRN Administration Allopurinol 100 mg 07/03/23 09:00 07/03/23 09:08 Allopurinol 100 Mg Tablet PO 100 mg DAILY CLARENCE Administration Fluconazole 200 mg 07/03/23 09:00 07/03/23 09:08 Fluconazole 100 Mg Tablet PO 200 mg DAILY CLARENCE Administration Sodium Chloride 1,000 mls @ 125 mls/hr 07/02/23 22:22 07/03/23 09:41 0.9 % Sodium Chloride 1000 Ml IV 07/03/23 22:21 125 mls/hr .Q8H CLARENCE Administration Insulin Aspart 0 unit 07/03/23 07:30 07/03/23 18:24 Insulin Aspart 100 Unit/Ml SUBCUT Not Given ACHS [facility] Protocol Metformin HCl 500 mg 07/03/23 08:00 07/03/23 08:14 Metformin 500 Mg Tablet PO 500 mg BIDWM CLARENCE Administration Metoprolol Succinate 50 mg 07/03/23 09:00 07/03/23 09:11 Metoprolol Succinate (Xl) 50 Mg Tab PO 50 mg BID CLARENCE Administration Omeprazole 20 mg 07/03/23 09:00 07/03/23 09:08 Omeprazole [address] PO 20 mg DAILY CLARENCE Administration Oxycodone HCl 2.5 - 5 mg 07/03/23 09:15 07/03/23 16:20 Oxycodone 5 Mg Tablet PO 5 mg Q6H PRN Administration pain Sodium Chloride 5 ml 07/03/23 09:00 07/03/23 09:09 Sodium Chloride 0.9 % (Flush) 10 Ml Syringe IVF Not Given BID CLARENCE Discontinued Medications Generic Name Dose Route Start Last Admin Trade Name James PRN Reason Stop Dose Admin Remdesivir 200 mg/ Sodium 290 mls @ 290 mls/hr 07/02/23 22:22 07/03/23 07:18 Chloride IVPB 07/02/23 23:21 Infused ONCE ONE Infusion Oxycodone HCl 2.5 mg 07/02/23 22:22 07/03/23 06:31 Oxycodone 5 Mg Tablet PO 2.5 mg TID PRN Administration pain Medical Decision Making Lab Data Labs: Lab Results 07/02/23 07/02/23 07/02/23 Range/Units 18:50 19:25 22:35 WBC 3.77 L (4.50-11.00) K/uL RBC 3.76 L (4.00-5.20) m/uL Hgb 10.2 L 10.2 L (12.0-16.0) gm/dL Hct 33.0 (33.0-51.0) % MCV 88 (80-100) fL MCH 27 (26-34) pg MCHC 31 L (32-36) gm/dL RDW Coeff of Robert 15.7 H (11.5-15.5) % Plt Count 322 (140-440) K/uL Neut % (Auto) 75.5 H (42.0-72.0) % Lymph % (Auto) 10.3 L (20-44) % [place] % (Auto) 13.3 H (0.0-11.0) % Eos % (Auto) 0.3 (0.0-7.0) % Baso % (Auto) 0.3 (0.0-3.0) % Neut # (Auto) 2.80 (1.7-7.0) K/uL Lymph # (Auto) 0.40 L (0.90-2.90) K/uL [place] # (Auto) 0.50 (0.00-0.90) K/UL Eos # (Auto) 0.00 (0.00-0.50) K/uL Baso # (Auto) 0.00 (0.00-0.30) K/uL Abs Immat Gran (auto) 0.00 (0.00-0.30) K/uL Imm/Tot Granulo (auto) 0.3 % INR 1.13 H (0.91-1.10) APTT 41 H (23-33) Seconds VBG pH (7.32-7.43) VBG pCO2 (40-50) mmHG VBG pO2 (25-47) mmHG VBG HCO3 (21-28) mmol/L Sodium 137 (135-149) mmol/L Potassium 3.8 (3.6-5.1) mmol/L Chloride 102 (96-114) mmol/L Carbon Dioxide 24 (20-32) mmol/L Anion Gap 11 (7-15) mEq/L BUN 29 (7-30) mg/dL Creatinine 1.4 (0.5-1.5) mg/dL Estimated Creat Clear 30.28 Estimated GFR 39 ml/min Glucose 119 H (60-115) mg/dL Lactate 0.8 (0.5-1.9) mmol/L Calcium 8.6 (8.4-10.6) mg/dL Phosphorus (2.5-4.5) mg/dL Magnesium (1.5-2.6) mg/dL Total Bilirubin 0.1 (0.1-1.5) mg/dL Direct Bilirubin 0.0 (0.0-0.5) mg/dL AST 25 (12-35) U/L ALT 17 (4-35) U/L Alkaline Phosphatase 140 (40-150) U/L C-Reactive Protein 1.1 H (0.5-1.0) mg/dL Total Protein 7.4 (6.0-8.3) g/dL Albumin 4.0 (3.3-5.0) g/dL SARS-CoV-2 (PCR) POSITIVE SARS-CoV-2 A (Negative) Influenza Type A (PCR) Negative PCR FLU A (Negative) Influenza Type B (PCR) Negative PCR FLU B (Negative) RSV (PCR) Negative PCR RSV (Negative) Lab Acknowledgement Blood Type A Negative Antibody Screen NEGATIVE 07/02/23 07/03/23 Range/Units 22:57 06:17 WBC 2.96 L (4.50-11.00) K/uL RBC 3.82 L (4.00-5.20) m/uL Hgb 10.3 L (12.0-16.0) gm/dL Hct 33.6 (33.0-51.0) % MCV 88 (80-100) fL MCH 27 (26-34) pg MCHC 31 L (32-36) gm/dL RDW Coeff of Robert (11.5-15.5) % Plt Count 313 (140-440) K/uL Neut % (Auto) (42.0-72.0) % Lymph % (Auto) (20-44) % [place] % (Auto) (0.0-11.0) % Eos % (Auto) (0.0-7.0) % Baso % (Auto) (0.0-3.0) % Neut # (Auto) (1.7-7.0) K/uL Lymph # (Auto) (0.90-2.90) K/uL [place] # (Auto) (0.00-0.90) K/UL Eos # (Auto) (0.00-0.50) K/uL Baso # (Auto) (0.00-0.30) K/uL Abs Immat Gran (auto) (0.00-0.30) K/uL Imm/Tot Granulo (auto) % INR (0.91-1.10) APTT (23-33) Seconds VBG pH 7.393 (7.32-7.43) VBG pCO2 47 (40-50) mmHG VBG pO2 25.2 (25-47) mmHG VBG HCO3 29 H (21-28) mmol/L Sodium 139 (135-149) mmol/L Potassium 3.9 (3.6-5.1) mmol/L Chloride 103 (96-114) mmol/L Carbon Dioxide 27 (20-32) mmol/L Anion Gap 9 (7-15) mEq/L BUN 21 (7-30) mg/dL Creatinine 1.1 (0.5-1.5) mg/dL Estimated Creat Clear 38.54 Estimated GFR 52 ml/min Glucose 103 (60-115) mg/dL Lactate 0.7 (0.5-1.9) mmol/L Calcium 8.5 (8.4-10.6) mg/dL Phosphorus 3.9 (2.5-4.5) mg/dL Magnesium 1.7 (1.5-2.6) mg/dL Total Bilirubin (0.1-1.5) mg/dL Direct Bilirubin (0.0-0.5) mg/dL AST (12-35) U/L ALT (4-35) U/L Alkaline Phosphatase (40-150) U/L C-Reactive Protein 1.1 H (0.5-1.0) mg/dL Total Protein (6.0-8.3) g/dL Albumin (3.3-5.0) g/dL SARS-CoV-2 (PCR) (Negative) Influenza Type A (PCR) (Negative) Influenza Type B (PCR) (Negative) RSV (PCR) (Negative) Lab Acknowledgement Test Added Blood Type Antibody Screen Discharge Plan Discharge Patient Disposition: Admitted As Observation Discharge Location: [facility]
[2023-07-02 19:35] LABS: PCR FLU A Negative PCR FLU A (Negative); PCR FLU B Negative PCR FLU B (Negative); PCR RSV Negative PCR RSV (Negative)
[2023-07-02 19:35] LABS: Basophils Percent Auto 0.3 % (0.0-3.0); Eosinophils Percent Auto 0.3 % (0.0-7.0); Hemoglobin* 10.2 gm/dL (12.0-16.0); Immature Granulocytes Pct Auto 0.3 %; Lymphocytes Percent Auto 10.3 % (20-44); Mean Corpuscular HGB Conc 31 gm/dL (32-36); Mean Corpuscular Hemoglobin 27 pg (26-34); Mean Corpuscular Volume 88 fL (80-100); Monocytes Percent Auto 13.3 % (0.0-11.0); Neutrophils Percent Auto 75.5 % (42.0-72.0); Platelet Count* 322 K/uL (140-440); RDW Coefficient of Variation % 15.7 % (11.5-15.5); Red Blood Count 3.76 m/uL (4.00-5.20); White Blood Count* 3.77 K/uL (4.50-11.00)
[2023-07-02 19:36] LABS: Slide Review Reflex No
[2023-07-02 19:47] LABS: Chloride* 102 mmol/L (96-114)
[2023-07-02 19:48] LABS: Potassium* 3.8 mmol/L (3.6-5.1); Sodium* 137 mmol/L (135-149)
[2023-07-02 19:49] LABS: INR 1.13 (0.91-1.10); Prothrombin Time 15.2 Seconds
[2023-07-02 19:50] LABS: Creatinine* 1.4 mg/dL (0.5-1.5); Est. Creatinine Clearance* 30.28; Estimated Glomerular Filt Rate 39 ml/min; Partial Thromboplastin Time* 41 Seconds (23-33)
[2023-07-02 19:51] LABS: Alanine Aminotransferase* 17 U/L (4-35); Alkaline Phosphatase* 140 U/L (40-150); Anion Gap 11 mEq/L (7-15); Aspartate Amino Transferase* 25 U/L (12-35); Bilirubin Total* 0.1 mg/dL (0.1-1.5); Blood Urea Nitrogen* 29 mg/dL (7-30); Calcium* 8.6 mg/dL (8.4-10.6); Carbon Dioxide* 24 mmol/L (20-32); Glucose* 119 mg/dL (60-115); Total Protein* 7.4 g/dL (6.0-8.3)
[2023-07-02 19:54] LABS: C Reactive Protein* 1.1 mg/dL (0.5-1.0)
[2023-07-02 19:56] LABS: SARS PCR* POSITIVE SARS-CoV-2 (Negative)
--- NOTE | 2023-07-02 20:43 | ED.NURSE ---
16 Fr Barrett catheter placed under sterile fashion. Pt's vaginal area is red, inflammed, and has multiple macerated wounds r/t vaginal radiation. 10cc sterile water in catheter balloon. Very clear urine draining into catheter bag. Pt tolerated procedure.
--- NOTE | 2023-07-02 22:14 | P.IMHP_ITS ---
Hospitalist- H&P: HPI History of Present Illness Date Seen: 07/02/23 Chief complaint: rectal bleeding, cough, body aches Narrative: Chelly Wood is a 78 year old woman who lives in a private residence with her son and her son's . 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 Not a surgical candidate due to proximity to rectum. About 6 months after completing radiation therapy she started to have intermittent episodes of bright red blood per rectum. Developed radiation necrosis of the skin and subcutaneous tissue fo r which she received 60 hyperbaric oxygen therapy treatments for with eventual closure of perineal wounds. Has had cellulitis of the perineum and vulvar vaginal candidiasis as additional complications as well. Continues to employ a daily barrier cream and anti-inflammatory cream to affected areas of the perineum to attempt to maintain skin integrity as much as possible. Has chronic difficulties controlling urination. Historically has employed Barrett catheter in the past successfully to help achieve healing and skin integrity. Currently does not have a Barrett catheter in place. Once again has had periodic, episodic episodes of bright red blood per rectum now for nearly a year. Has been advised in the past to seek out a colonoscopy for diagnostic purposes, most recently in March of 2023, but still has not made arrangements for this. Hence the etiology of these episodes of bright red blood per rectum have not been determined here to 4. Differential diagnosis includes radiation proctitis, diverticular bleed, angiodysplasia, neoplasm, infection such as yeast, and so forth. When patient has been assessed for possible hemorrhoids and fissures these have not been observed in the past. In the last couple of days patient has had increasing episodes of small blood clots per rectum. Patient not always able to make it to the bathroom in time and sometimes the blood is on the bed or on the floor. She is not anticoagulated. Does not receive any antithrombotic agents either. Has not had any recent trauma or injury. Does have intermittent episodes of constipation. Denies diarrhea. Additionally over the past 2-3 days patient has had increasing body aches and dry hacky cough and increasing fatigue. Her [id number] has had a similar illness. Patient denies dyspnea, URI symptoms. Review of Systems Status of ROS: Reports: 10 or more systems reviewed and unremarkable except as noted in History and below Narrative: She designates her son, Jose, as her power of assistant prosecuting attorney for health should that be required. She makes it very clear that she does not want to be resuscitated, intubated, ventilated should she have cardiopulmonary demise. She states very clearly that she would want to be treated for comfort focus measures only should cardiopulmonary demise occur. Short of this she remains interested in trying to address her underlying conditions if at all possible and it is not too involved. [facility] Medical History Bright red blood per rectum ?K62.5 - Hemorrhage of anus and rectum (ICD-10) Bacteremia ?R78.81 - Bacteremia (ICD-10) Cellulitis of perineum ?L03.315 - Cellulitis of perineum (ICD-10) 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 - Other specified disorders of the skin and subcutaneous tissue related to radiation (ICD-10) ?Y84.2 - Radiological procedure and radiotherapy as the cause of abnormal reaction of the patient, or of later complication, without mention of misadventure at the time of the procedure (ICD-10) Vulvar cancer ?C51.9 - Malignant neoplasm of vulva, unspecified (ICD-10) Chronic renal insufficiency ?N18.9 - Chronic kidney disease, unspecified (ICD-10) GERD (gastroesophageal reflux disease) ?K21.9 - Gastro-esophageal reflux disease without esophagitis (ICD-10) Type 2 diabetes mellitus ?E11.9 - Type 2 diabetes mellitus without complications (ICD-10) Obstructive sleep apnea ?G47.33 - Obstructive sleep apnea (adult) (pediatric) (ICD-10) Asthma ?J45.909 - Unspecified asthma, uncomplicated (ICD-10) Hypertension ?I10 - Essential (primary) hypertension (ICD-10) Atrial fibrillation ?I48.91 - Unspecified atrial fibrillation (ICD-10) Cardiomyopathy ?I42.9 - Cardiomyopathy, unspecified (ICD-10) Congestive heart failure ?I50.9 - Heart failure, unspecified (ICD-10) Surgical History Volin teeth removed ?K08.409 - Partial loss of teeth, unspecified cause, unspecified class (ICD- 10) History of tubal ligation ?Z98.51 - Tubal ligation status (ICD-10) Hx of total knee arthroplasty ?Z96.659 - Presence of unspecified artificial knee joint (ICD-10) History of bunionectomy ?Z98.890 - Other specified postprocedural states (ICD-10) Status post breast reduction ?Z98.890 - Other specified postprocedural states (ICD-10) Status post biopsy of uterine cervix ?Z98.890 - Other specified postprocedural states (ICD-10) Social History What is your current living situation?: I presently have a place to live Problems where you live: declined to answer Problems where you live details: unable to assess In the past 12 months, utilities in danger of being shut off: no In past 12 months, lack of transportation kept you from medical appts, meetings, work, or getting things needed for daily living: no In the past 12 mos, have been you worried that your food would run out before you had money to buy more?: never true In the past 12 mos, the food you bought just didn't last and you didn't have money to buy more?: never true Highest level of school completed/degree received: high school graduate Smoking Status: Never smoker Do you use any of these nicotine containing products: None Second hand tobacco smoke exposure: No How often do you have a drink containing alcohol: never How often do you have six or more drinks on one occasion: Never AUDIT-C Alcohol total score: 0 Non-prescribed substance use: denies use Caffeine: No How often does anyone, including family, friends and others, physically hurt you : never How often does anyone, including family, friends and others, insult or talk down to you: never How often does anyone, including family, friends and others, threaten you with harm: never How often does anyone, including family, friends and others, scream or curse at you: never service: No Meds Home Medications and Allergies Home Medications Medication Instructions Recorded Confirmed Type albuterol sulfate 90 mcg/actuation 1 - 2 puff inhalation Q4H PRN 03/02/23 03/09/23 History aerosol inhaler dyspnea allopurinol 100 mg tablet 100 mg PO DAILY 03/02/23 03/09/23 History fluconazole 200 mg tablet 200 mg PO DAILY 03/02/23 03/09/23 History metoprolol succinate 50 mg 50 mg PO BID 03/02/23 03/09/23 History tablet,extended release 24 hr nystatin 100,000 unit/gram topical 1 applic topical QID PRN 03/02/23 03/09/23 History ointment omeprazole 20 mg capsule,delayed 20 mg PO DAILY 03/02/23 03/09/23 History release rosuvastatin 5 mg tablet 5 mg PO DAILY 03/02/23 03/09/23 History nystatin 100,000 unit/gram topical 1 applic topical 3XD PRN 03/03/23 03/09/23 History powder (Nystop) Allergies Allergy/AdvReac Type Severity Reaction Status Date / Time No Known Drug Allergies Allergy Verified 03/13/23 12:06 Exam Narrative: Exam Narrative: Examined patient in the emergency department with her son Jose by her side. Appears comfortable and in no acute distress. Vision and hearing are grossly normal, although hearing is moderately decreased. Alert and oriented to self, place, time, situation. Friendly, articulate, cooperative. Normal tympanic membranes. Midline nasal septum. Moist buccal mucosa. Dentition in fair repair. No icterus or conjunctival injection. Conjugate gaze. Neck is supple. Midline trachea. No head neck lymphadenopathy. Lungs are clear to auscultation. Chest wall excursions are full. No CVA tenderness. Heart tones distant with regular rhythm normal S1-S2 without murmur, gallop, or rub. PMI not laterally displaced. Abdomen with active bowel sounds, soft, nontender. Moves all 4 extremities. Trace edema pretibially bilaterally. I do not re-examine the perineum, emergency department physician has already done so noticing erythema and maceration. I do not repeat an anoscopy assessment which demonstrates clots in the rectum. No obvious active rectal bleeding. COVID antibody PCR testing is positive. Const: Vital Signs, click to edit/add: Vital Signs - 24 hr 07/02/23 18:48 Temperature 97.2 F L Pulse Rate [Pulse Oximeter] 88 Respiratory Rate 16 Blood Pressure [Ri ght Upper Arm] 153/104 H Pulse Oximetry 99 Oxygen Delivery Me thod Room Air Documenting provider has reviewed patient's vital signs: yes Hospitalist - H&P: Result Labs Labs: Short CBC 07/02/23 Range/Units 19:25 WBC 3.77 L (4.50-11.00) K/uL Hgb 10.2 L (12.0-16.0) gm/dL Hct 33.0 (33.0-51.0) % Plt Count 322 (140-440) K/uL BMP 07/02/23 19:25 Sodium 137 Potassium 3.8 Chloride 102 Carbon Dioxide 24 BUN 29 Creatinine 1.4 Glucose 119 H Calcium 8.6 Liver Function 07/02/23 Range/Units 19:25 Total Bilirubin 0.1 (0.1-1.5) mg/dL Direct Bilirubin 0.0 (0.0-0.5) mg/dL AST 25 (12-35) U/L ALT 17 (4-35) U/L Alkaline Phosphatase 140 (40-150) U/L Albumin 4.0 (3.3-5.0) g/dL Assessment and Plan Assessment and plan (1) Bright red blood per rectum: Problem comment: -intermittent bright red blood per rectum for at least a year, increase frequenc y and volume since 06/30/2023. Hemodynamically stable. -no recent colonoscopy. Etiology of bright red blood per rectum not yet determined. Would benefit from a colonoscopy in the near future. Family tentatively planning to do so in the outpatient setting in the near future although they would prefer to do in the inpatient setting if at all possible. -serial hemoglobins, hemodynamic monitoring, transfusion if warranted, clear liquids orally, IV fluids, consider discussion with General surgery if condition not improving. Status: Acute (2) Radiation necrosis of skin and subcutaneous: Problem comment: -Entire external genitalia from rectum to mons pubis. Completed 60 HBO treatments starting in January 2023 with eventual closure of wounds. -with COVID-19, increased weakness, increased urinary incontinence, skin at very high risk for breaking down again. -place Barrett catheter for skin care. Continue with skin cares. Status: Acute (3) Yeast infection involving the vagina and surrounding area: Problem comment: Continue chronic Diflucan Status: Acute (4) COVID-19: Problem comment: -given her high risk for complications, will treat with 3 day course of IV remdesivir. Status: Acute Plan 1. Reviewed impression, plans, and recommendations with patient and son. Answered their questions. 2. They agreeable with above stated plans and recommendations.
[2023-07-02 22:40] LABS: Lactate* 0.8 mmol/L (0.5-1.9)
[2023-07-02 22:42] LABS: Hemoglobin* 10.2 gm/dL (12.0-16.0)
[2023-07-02 22:46] VITALS: BP 162/84; PULSE 84; RESP 16; TEMP 36.1; O2SAT 98; BMI 27.2
[2023-07-02 23:00] VITALS: RESP 20; O2SAT 99
--- NOTE | 2023-07-02 23:40 | PC.NURSE ---
End of shift [id number] - Pt arrived from ED at approximately 2200. Pt alert, oriented, resistive to care upon arrival. Pt reported pain in groin as 8/10, that increased with movement and the area being touched. RN noted redness, edema, and compromised skin in and around groin. RN provided nicol care and applied pt barrier cream mixed with medicated cream to groin. Barrier cream added to buttocks and coccyx area. Medication in MAR not verified at this time. VSS, afebrile. Pt arrived with family at bedside. Appears to be resting comfortably at end of shift.
[2023-07-02 23:54] VITALS: BP 173/94; PULSE 85; RESP 20; TEMP 36; O2SAT 99
[2023-07-02] MEDS: OXYCODONE 5 MG TABLET 2.5 MG PO (23:59)
[2023-07-03] MEDS: 0.9 % SODIUM CHLORIDE 1000 ml 1,000 ML 125 ML IV ×2 (00:07→09:41)
[2023-07-03 03:56] VITALS: BP 166/97; PULSE 83; RESP 20; TEMP 36.3; O2SAT 93
[2023-07-03] MEDS: OXYCODONE 5 MG TABLET 2.5 MG PO (06:31)
[2023-07-03 06:41] LABS: Hematocrit 33.6 % (33.0-51.0); Hemoglobin* 10.3 gm/dL (12.0-16.0); Mean Corpuscular HGB Conc 31 gm/dL (32-36); Mean Corpuscular Hemoglobin 27 pg (26-34); Mean Corpuscular Volume 88 fL (80-100); Platelet Count* 313 K/uL (140-440); Red Blood Count 3.82 m/uL (4.00-5.20); White Blood Count* 2.96 K/uL (4.50-11.00)
[2023-07-03 06:42] LABS: HCO3 VBG 29 mmol/L (21-28); Lactate* 0.7 mmol/L (0.5-1.9); PCO2 VBG 47 mmHG (40-50); PO2 VBG 25.2 mmHG (25-47); pH VBG 7.393 (7.32-7.43)
--- NOTE | 2023-07-03 06:56 | PC.NURSE ---
[id number]: Patient rating pain 8-10/10 all over. PRN Oxycodone x2 for minimal relief. Marked erythema to the perineal area. Barrett patent. Afebrile. No BM during shift. Denies N/V. Refused Orthostatics this morning I can't stand
[2023-07-03 07:00] LABS: Slide Review Reflex No
[2023-07-03 07:23] LABS: Chloride* 103 mmol/L (96-114); Potassium* 3.9 mmol/L (3.6-5.1); Sodium* 139 mmol/L (135-149)
[2023-07-03 07:26] LABS: Anion Gap 9 mEq/L (7-15); Carbon Dioxide* 27 mmol/L (20-32); Creatinine* 1.1 mg/dL (0.5-1.5); Est. Creatinine Clearance* 38.54; Estimated Glomerular Filt Rate 52 ml/min
[2023-07-03 07:27] LABS: Blood Urea Nitrogen* 21 mg/dL (7-30); Calcium* 8.5 mg/dL (8.4-10.6); Glucose* 103 mg/dL (60-115); Magnesium* 1.7 mg/dL (1.5-2.6); Phosphorus* 3.9 mg/dL (2.5-4.5)
[2023-07-03 07:29] LABS: C Reactive Protein* 1.1 mg/dL (0.5-1.0)
[2023-07-03 08:08] VITALS: BP 176/96; PULSE 94; RESP 14; TEMP 37.2; O2SAT 98
[2023-07-03] MEDS: METFORMIN 500 MG TABLET PO (08:14)
[2023-07-03] MEDS: ACETAMINOPHEN 325 MG TABLET 650 MG PO ×3 (08:21→20:36)
[2023-07-03] MEDS: OMEPRAZOLE 20 MG CAPSULE DR PO (09:08)
[2023-07-03] MEDS: allopurinoL 100 MG TABLET PO (09:08)
[2023-07-03] MEDS: FLUCONAZOLE 100 MG TABLET 200 MG PO (09:08)
[2023-07-03] MEDS: METOPROLOL SUCCINATE (XL) 50 MG TAB PO ×2 (09:11→20:37)
--- NOTE | 2023-07-03 09:15 | CRLHL7_ITS ---
For Patients: As a result of the Century Cures Act, medical imaging exams and procedure reports are released immediately into your electronic medical record. You may view this report before your referring provider. If you have questions, please contact your health care provider. INDICATION: Abdominal pain and bright red blood per rectum TECHNIQUE: Volumetric helical scanning of the abdomen and pelvis was performed with 80 cc of Isovue 370 contrast material IV. Coronal and sagittal reconstructions were obtained. COMPARISON: Abdomen/pelvis CT of 03/02/2023 FINDINGS: There is no evidence of bowel obstruction or inflammation. Extensive colonic diverticulosis is again demonstrated but there is no convincing evidence of acute diverticulitis. The bowel is otherwise unremarkable. The liver is unremarkable except for a 2 cm cyst. The bile ducts are within normal limits. The spleen and pancreas are negative. There is unchanged adrenal gland prominence. Mild renal parenchymal scarring is again demonstrated. A subcentimeter left renal parenchymal cyst is again noted as well. No lymphadenopathy is evident. No free fluid is demonstrated. A 2.5 cm uterine fibroid appears to be present. The uterus is otherwise negative. The ovaries are grossly negative. A Barrett catheter is present in the bladder and the bladder is empty. The lung bases are centrally clear. The heart size is at the upper limit of normal. IMPRESSION: 1. Etiology of abdominal pain and rectal bleeding not clearly evident. 2. Extensive colonic diverticulosis but no convincing evidence of acute diverticulitis. Please note that all CT scans at this facility use dose modulation, iterative reconstruction, and/or weight-based dosing when appropriate to reduce radiation dose to as low as reasonably achievable. Dictated by Rajinder Bar MD @ 07/03/2023 12:12:06 PM (Electronically Signed)
--- NOTE | 2023-07-03 09:17 | P.IMPN_ITS ---
Progress Note: A&P Assessment and plan (1) Bright red blood per rectum: Problem details: -intermittent bright red blood per rectum for at least a year, increase frequency and volume since 06/30/2023. Hemodynamically stable. -ddx includes diverticular bleed vs fissure vs colonic mass -CT obtained 07/03, exhibited diverticulosis without diverticulitis, no acute abnormalities -colonoscopy recommended; given acute COVID infection and weakness, in addition to hemodynamic stability, plan to defer until outpatient appt -would like to advance to bland diet on 07/03; will do so with close monitoring. Continue serial Hgb -holding Metformin given diarrhea Status: Acute (2) COVID-19: Problem details: -given her high risk for complications, will treat with 3 day course of IV remdesivir -therapies ordered given comorbidities/deconditioning risk and associated fatigue Status: Acute (3) Radiation necrosis of skin and subcutaneous: Problem details: -Entire external genitalia from rectum to mons pubis. Completed 60 HBO treatments starting in January 2023 with eventual closure of wounds. -with COVID-19, increased weakness, increased urinary incontinence, skin at very high risk for breaking down again. -place Barrett catheter for skin care on 07/02. Continue with skin cares. Status: Acute (4) Yeast infection involving the vagina and surrounding area: Problem details: Continue chronic Diflucan Status: Acute (5) Atrial fibrillation: Problem details: -rate controlled on Metoprolol -pt has not been able to tolerate warfarin in the past 2/2 bleeding, on Apixaban prior to admission 07/02/23 -holding anticoagulation during stay given GI bleed Status: Acute Plan - per above - home with son when medically appropriate Subjective Date Seen: 07/03/23 Interval history: Chelly was admitted to the hospital on 07/02 for acute on chronic rectal bleeding. For a few months, son has noted intermittent red jelly like stools, typically happening for 1 or 2 days and self-resolving. Over the past week or so, she has had an increase in hematochezia, in addition to generalized malaise. She was incidentally diagnosed with COVID in the emergency room. She is on Remdesivir as COVID-specific therapy, not requiring supplemental oxygen. Today, she feels diffusely achy with generalized weakness, and had a large diarrheal stool in the morning. Son notes that she has had intermittent diarrhea in the past when titrating up her Metformin dose. Exam Narrative: Exam Narrative: GEN: Alert and oriented appears uncomfortable but nontoxic, answering questions appropriately CV: RRR, No concerning murmurs, rubs, or gallops R: LCTA bilaterally without concerning wheezing, rales, or rhonchi Ab: soft, nondistended, mild discomfort with palpation without rebound or guarding : Vaginal exam deferred, clear urine in Barrett bag Ext: wwp, no concerning edema Neuro: No focal deficits, no resting tremor Psych: Appropriate Const: Vital Signs, click to edit/add: Vital Signs - 24 hr 07/02/23 18:48 07/02/23 22:46 07/02/23 23:00 Temperature 97.2 F L 96.9 F L Pulse Rate [Pulse Oximeter] 88 Pulse Rate [Right Pulse Oximeter] 84 Respiratory Rate 16 16 20 Blood Pressure [Le ft Arm] 162/84 H Blood Pressure [Ri ght Upper Arm] 153/104 H Pulse Oximetry 99 98 99 Oxygen Delivery Me thod Room Air Room Air Room Air 07/02/23 23:54 07/03/23 03:56 07/03/23 08:08 Temperature 96.8 F L 97.3 F L 98.9 F Pulse Rate [Pulse Oximeter] Pulse Rate [Right Pulse Oximeter] 85 83 94 Respiratory Rate 20 20 14 Blood Pressure [Le ft Arm] 173/94 H 166/97 H 176/96 H Blood Pressure [Ri ght Upper Arm] Pulse Oximetry 99 93 98 Oxygen Delivery Me thod Room Air Room Air Room Air Labs Labs: Laboratory Results - last 24 hr 07/02/23 07/02/23 07/02/23 18:50 19:25 22:35 WBC 3.77 L RBC 3.76 L Hgb 10.2 L 10.2 L Hct 33.0 MCV 88 MCH 27 MCHC 31 L RDW Coeff of Robert 15.7 H Plt Count 322 Neut % (Auto) 75.5 H Lymph % (Auto) 10.3 L Glasscock % (Auto) 13.3 H Eos % (Auto) 0.3 Baso % (Auto) 0.3 Neut # (Auto) 2.80 Lymph # (Auto) 0.40 L Glasscock # (Auto) 0.50 Eos # (Auto) 0.00 Baso # (Auto) 0.00 Abs Immat Gran (auto) 0.00 Imm/Tot Granulo (auto) 0.3 INR 1.13 H APTT 41 H VBG pH VBG pCO2 VBG pO2 VBG HCO3 Sodium 137 Potassium 3.8 Chloride 102 Carbon Dioxide 24 Anion Gap 11 BUN 29 Creatinine 1.4 Estimated Creat Clear 30.28 Estimated GFR 39 Glucose 119 H Lactate 0.8 Calcium 8.6 Phosphorus Magnesium Total Bilirubin 0.1 Direct Bilirubin 0.0 AST 25 ALT 17 Alkaline Phosphatase 140 C-Reactive Protein 1.1 H Total Protein 7.4 Albumin 4.0 SARS-CoV-2 (PCR) POSITIVE SARS-CoV-2 A Influenza Type A (PCR) Negative PCR FLU A Influenza Type B (PCR) Negative PCR FLU B RSV (PCR) Negative PCR RSV Lab Acknowledgement Blood Type A Negative Antibody Screen NEGATIVE 07/02/23 07/03/23 22:57 06:17 WBC 2.96 L RBC 3.82 L Hgb 10.3 L Hct 33.6 MCV 88 MCH 27 MCHC 31 L RDW Coeff of Robert Plt Count 313 Neut % (Auto) Lymph % (Auto) Glasscock % (Auto) Eos % (Auto) Baso % (Auto) Neut # (Auto) Lymph # (Auto) Glasscock # (Auto) Eos # (Auto) Baso # (Auto) Abs Immat Gran (auto) Imm/Tot Granulo (auto) INR APTT VBG pH 7.393 VBG pCO2 47 VBG pO2 25.2 VBG HCO3 29 H Sodium 139 Potassium 3.9 Chloride 103 Carbon Dioxide 27 Anion Gap 9 BUN 21 Creatinine 1.1 Estimated Creat Clear 38.54 Estimated GFR 52 Glucose 103 Lactate 0.7 Calcium 8.5 Phosphorus 3.9 Magnesium 1.7 Total Bilirubin Direct Bilirubin AST ALT Alkaline Phosphatase C-Reactive Protein 1.1 H Total Protein Albumin SARS-CoV-2 (PCR) Influenza Type A (PCR) Influenza Type B (PCR) RSV (PCR) Lab Acknowledgement Test Added Blood Type Antibody Screen
[2023-07-03] MEDS: OXYCODONE 5 MG TABLET PO ×3 (09:35→22:23)
[2023-07-03 11:25] VITALS: BP 173/89; PULSE 87; RESP 12; TEMP 37.1; O2SAT 95
--- NOTE | 2023-07-03 14:30 | PC.NURSE ---
End of Shift: Patient pleasant and cooperative. Patient vitally stable, lungs clear, BS WNL, IV running NS at 125. Patient 1 assist, walker. Patient rates pain 8-10/10. Tylenol given x2 and 5 mg of oxy given once. Patient had BM incontinence with slot technician, stool with bright red with clots. Patient was cleaned up then CT was attempted again with success. Patient is always moaning, especially with activity, patient will yell with pericares. Nicol area is very reddened, zinc and petroleum applied to nicol-area. Barrett intact and draining, clear yellow. Patient with small appetite but tolerating regular diet.
[2023-07-03 15:00] VITALS: BP 177/97; PULSE 98; RESP 16; TEMP 37.3; O2SAT 97
[2023-07-03 17:06] LABS: Hemoglobin* 10.9 gm/dL (12.0-16.0)
[2023-07-03 17:51] LABS: C.Difficile Negative (Negative); CDIFFEPI 027 PRESUMPTIVE NEGATIVE (Negative)
[2023-07-03 19:00] VITALS: BP 168/84; PULSE 82; RESP 20; TEMP 37.6; O2SAT 95
[2023-07-03 22:16] VITALS: TEMP 37.2
--- NOTE | 2023-07-03 23:48 | PC.NURSE ---
End of shift [id number] - Pt sedate, oriented, and cooperative to care. Catheter patent, incontinent of bowels. BM dark with blood clots present per current baseline complaint. Tolerating regular diet, fluids. Denies SOB, nausea, dizziness. RN recorded fever of 99.6F, Tylenol given with improvement noted on reassessment. Other vital signs stable, tolerating RA. Pt reported pain in perineum and general aches and pains as 8/10. Medication given per AUG, pt behavior indicated relief as she was observed to sleep. Chikis care performed, pt tolerated. Not up from bed during shift, able to reposition independently. Pt appears to be resting comfortably at the end of shift.
[2023-07-04] VITALS (8 sets, daily range): BP systolic 105–171; BP diastolic 74–100; PULSE 64–98; RESP 14–20; TEMP 36.2–37.4; O2SAT 96–98
[2023-07-04] MEDS: OXYCODONE 5 MG TABLET PO ×4 (04:37→21:50)
[2023-07-04 06:56] LABS: Hematocrit 33.3 % (33.0-51.0); Hemoglobin* 10.3 gm/dL (12.0-16.0); Mean Corpuscular HGB Conc 31 gm/dL (32-36); Mean Corpuscular Hemoglobin 27 pg (26-34); Mean Corpuscular Volume 88 fL (80-100); Platelet Count* 308 K/uL (140-440); Red Blood Count 3.78 m/uL (4.00-5.20)
[2023-07-04 07:08] LABS: Chloride* 104 mmol/L (96-114); Potassium* 4.2 mmol/L (3.6-5.1); Sodium* 138 mmol/L (135-149)
[2023-07-04 07:11] LABS: Creatinine* 1.2 mg/dL (0.5-1.5); Est. Creatinine Clearance* 35.33; Estimated Glomerular Filt Rate 47 ml/min
[2023-07-04 07:12] LABS: Anion Gap 8 mEq/L (7-15); Blood Urea Nitrogen* 21 mg/dL (7-30); Calcium* 8.2 mg/dL (8.4-10.6); Carbon Dioxide* 26 mmol/L (20-32); Glucose* 101 mg/dL (60-115)
[2023-07-04 07:26] LABS: Slide Review Reflex No
[2023-07-04] MEDS: ACETAMINOPHEN 325 MG TABLET 650 MG PO ×3 (08:12→21:51)
[2023-07-04] MEDS: METOPROLOL SUCCINATE (XL) 50 MG TAB PO ×2 (08:35→21:32)
[2023-07-04] MEDS: FLUCONAZOLE 100 MG TABLET 200 MG PO (08:35)
[2023-07-04] MEDS: LOSARTAN POTASSIUM 50 MG TABLET PO (08:35)
[2023-07-04] MEDS: OMEPRAZOLE 20 MG CAPSULE DR PO (08:35)
[2023-07-04] MEDS: allopurinoL 100 MG TABLET PO (08:35)
[2023-07-04] MEDS: SODIUM CHLORIDE 0.9 % (FLUSH) 10 ML SYRINGE 5 ML IVF ×2 (08:35→21:36)
[2023-07-04] MEDS: ONDANSETRON ODT 4 MG TAB PO (12:12)
--- NOTE | 2023-07-04 15:03 | PM.IMPN1 ---
Progress Note: A&P Assessment and plan (1) Bright red blood per rectum: Problem details: -intermittent bright red blood per rectum for at least a year, increase frequency and volume since 06/30/2023. Hemodynamically stable. -ddx includes diverticular bleed vs fissure vs colonic mass -CT obtained 07/03, exhibited diverticulosis without diverticulitis, no acute abnormalities -colonoscopy recommended; given acute COVID infection and weakness, in addition to hemodynamic stability, plan to defer until outpatient appt -would like to advance to bland diet on 07/03; will do so with close monitoring. Continue serial Hgb -holding Metformin given diarrhea -07/04: Hemoglobin stable, 10.3. Status: Acute (2) COVID-19: Problem details: -given her high risk for complications, will treat with 3 day course of IV remdesivir -therapies ordered given comorbidities/deconditioning risk and associated fatigue -PT/OT consult. protective services social worker for discharge planning needs Status: Acute (3) Radiation necrosis of skin and subcutaneous: Problem details: -Entire external genitalia from rectum to mons pubis. Completed 60 HBO treatments starting in January 2023 with eventual closure of wounds. -with COVID-19, increased weakness, increased urinary incontinence, skin at very high risk for breaking down again. -place Barrett catheter for skin care on 07/02. Continue with skin cares. Status: Acute (4) Yeast infection involving the vagina and surrounding area: Problem details: Continue chronic Diflucan Status: Acute (5) Atrial fibrillation: Problem details: -rate controlled on Metoprolol - remains stable -pt has not been able to tolerate warfarin in the past 2/2 bleeding, on Apixaban prior to admission 07/02/23 -holding anticoagulation during stay given GI bleed Status: Acute Time Spent With Patient Total time spent: Total time spent caring for the patient today was 45 minutes. This includes time spent for the visit reviewing the chart, time spent during the visit, time spent after the visit and documentation and planning in coordination of care. Subjective Date Seen: 07/04/23 Interval history: Patient reports feeling weak and tired this morning. Denies headache. Denies chest pain. Tolerating orals though limited appetite. Nursing staff reported 1 emesis this afternoon after morning rounds. Patient was quite anxious at the time. Has told staff and myself she does not want to leave here. Exam Narrative: Exam Narrative: PHYSICAL EXAM General: Sitting up in chair, looking through phone but appears tired Cardiovascular: RRR Pulmonary: No dyspnea Neurological: Alert, mildly anxious, answering questions appropriately, cranial nerves intact, no focal findings Extremities: No gross joint deformity or swelling. AROMI. Neurovascularly intact Skin: Warm, dry. Const: Vital Signs, click to edit/add: Vital Signs - 24 hr 07/03/23 19:00 07/03/23 22:16 07/04/23 01:05 Temperature 99.6 F 98.9 F Pulse Rate [Right Pulse Oximeter] 82 82 Pulse Rate [orthos tatic lying Left] Pulse Rate [orthos tatic sitting] Pulse Rate [orthos tatic standing] Respiratory Rate 20 20 Blood Pressure [Le ft Arm] 168/84 H Blood Pressure [or thostatic lying Le ft Arm] Blood Pressure [or thostatic sitting] Blood Pressure [or thostatic standing ] Pulse Oximetry 95 Oxygen Delivery Md thod Room Air 07/04/23 01:05 07/04/23 01:05 07/04/23 04:30 Temperature 98.6 F 98.3 F Pulse Rate [Right Pulse Oximeter] 82 80 Pulse Rate [orthos tatic lying Left] Pulse Rate [orthos tatic sitting] Pulse Rate [orthos tatic standing] Respiratory Rate 20 20 20 Blood Pressure [Le ft Arm] 161/89 H 171/100 H Blood Pressure [or thostatic lying Le ft Arm] Blood Pressure [or thostatic sitting] Blood Pressure [or thostatic standing ] Pulse Oximetry 98 98 98 [facility] Room Air 07/04/23 08:14 07/04/23 08:14 07/04/23 08:14 Temperature 98.7 F Pulse Rate [Right Pulse Oximeter] 84 84 Pulse Rate [orthos tatic lying Left] Pulse Rate [orthos tatic sitting] Pulse Rate [orthos tatic standing] Respiratory Rate 14 14 14 Blood Pressure [Le ft Arm] 171/88 H Blood Pressure [or thostatic lying Le ft Arm] Blood Pressure [or thostatic sitting] Blood Pressure [or thostatic standing ] Pulse Oximetry 98 98 Oxygen Delivery Md thod Room Air Room Air 07/04/23 10:04 07/04/23 11:15 Temperature 97.2 F L Pulse Rate [Right Pulse Oximeter] 76 Pulse Rate [orthos tatic lying Left] 64 Pulse Rate [orthos tatic sitting] 98 Pulse Rate [orthos tatic standing] 91 Respiratory Rate 16 Blood Pressure [Le ft Arm] 135/74 Blood Pressure [or thostatic lying Le ft Arm] 165/88 H Blood Pressure [or thostatic sitting] 105/84 Blood Pressure [or thostatic standing ] 142/80 H Pulse Oximetry 98 Oxygen Delivery Me thod Room Air Labs Labs: Laboratory Results - last 24 hr 07/03/23 07/03/23 07/04/23 16:40 16:46 06:31 WBC 4.60 RBC 3.78 L Hgb 10.9 L 10.3 L Hct 33.3 MCV 88 MCH 27 MCHC 31 L Plt Count 308 Sodium 138 Potassium 4.2 Chloride 104 Carbon Dioxide 26 Anion Gap 8 BUN 21 Creatinine 1.2 Estimated Creat Clear 35.33 Estimated GFR 47 Glucose 101 Calcium 8.2 L Stl C. diff Tox B Gene Negative Stl C. diff [id number] PRESUMPTIVE NEGATIVE
--- NOTE | 2023-07-04 15:49 | NUTR.NU ---
RDN with MD consult for diverticulosis. Unable to meet with patient due to COVID-19 precautions. RDN contacted patient's designated caregiver Jose and provided diet education on a high fiber diet via phone. Patient to follow high fiber as appropriate per MD. Discussed foods to include and foods to avoid. Education also provided on gradually increasing fiber, adequate hydration, and following a high fiber diet (25-35 grams/day) long-term. Verbal and written information as well as a sample menu provided from [facility]. Patient's designated caregiver verbalized understanding. Printed materials were left with the RN to give to patient. RDN's contact information was provided and patient and designated caregiver encouraged to contact RDN with questions. RDN will continue to follow PRN.
--- NOTE | 2023-07-04 17:56 | PC.NURSE ---
End of Shift: Patient pleasant and cooperative. Patient hypertensive, but vitally stable, lungs diminished with rales at times, BS WNL, IV SL and intact. Patient rates pain 7-10, tylenol and 5mg of oxy each given twice. Patient moctezuma intact and draining clear yellow. Patient was cooperative with completing orthostatic BP's. Patient did ambulate to chair with OT and only got to side of bed with PT. Patient did vomit with activity with PT. Patient constantly moans. Chikis-care performed, creams applied. No BM this shift. Patient with little appetite, but still attempts to eat and eats about half of meals. Patient Blood sugars 92, 110, 83.
[2023-07-05] VITALS (7 sets, daily range): BP systolic 140–176; BP diastolic 83–100; PULSE 67–83; RESP 16–22; TEMP 36.3–36.8; O2SAT 96–100
[2023-07-05] MEDS: OXYCODONE 5 MG TABLET PO ×4 (02:52→22:13)
[2023-07-05 07:17] LABS: Hematocrit 33.3 % (33.0-51.0); Hemoglobin* 10.2 gm/dL (12.0-16.0); Mean Corpuscular HGB Conc 31 gm/dL (32-36); Mean Corpuscular Hemoglobin 27 pg (26-34); Mean Corpuscular Volume 87 fL (80-100); Platelet Count* 288 K/uL (140-440); Red Blood Count 3.81 m/uL (4.00-5.20); White Blood Count* 4.18 K/uL (4.50-11.00)
[2023-07-05 07:18] LABS: Slide Review Reflex No
[2023-07-05 07:43] LABS: Chloride* 106 mmol/L (96-114); Potassium* 4.3 mmol/L (3.6-5.1); Sodium* 136 mmol/L (135-149)
[2023-07-05 07:46] LABS: Anion Gap 7 mEq/L (7-15); Blood Urea Nitrogen* 22 mg/dL (7-30); Carbon Dioxide* 23 mmol/L (20-32); Est. Creatinine Clearance* 42.39; Estimated Glomerular Filt Rate 58 ml/min
[2023-07-05 07:47] LABS: Calcium* 8.3 mg/dL (8.4-10.6); Glucose* 88 mg/dL (60-115)
[2023-07-05] MEDS: ACETAMINOPHEN 325 MG TABLET 650 MG PO (09:46)
[2023-07-05] MEDS: OMEPRAZOLE 20 MG CAPSULE DR PO (09:46)
[2023-07-05] MEDS: allopurinoL 100 MG TABLET PO (09:48)
[2023-07-05] MEDS: METOPROLOL SUCCINATE (XL) 50 MG TAB PO ×2 (09:49→20:59)
[2023-07-05] MEDS: FLUCONAZOLE 100 MG TABLET 200 MG PO (09:49)
[2023-07-05] MEDS: SODIUM CHLORIDE 0.9 % (FLUSH) 10 ML SYRINGE 5 ML IVF ×2 (11:58→21:00)
[2023-07-05] MEDS: LOSARTAN POTASSIUM 50 MG TABLET PO (11:59)
[2023-07-05] MEDS: ACETAMINOPHEN 500 MG TABLET 1000 MG PO ×2 (16:44→20:59)
[2023-07-05] MEDS: LIDOCAINE 5% PATCH 1 PATCH TRANSDERMA (16:45)
--- NOTE | 2023-07-05 16:47 | PC.SOCIAL ---
Discharge planning: food and drink factory workers spoke with pt's son, Jose, in regard to pt's discharge from the hospital. Jose had interest in speaking to the physician on staff in regard to pt's medical care needed if she does return home and also her current medical state in the hospital. food and drink factory workers relayed the message to the physician on staff that the son would like to talk about pt's medical condition. Social work to follow-up as needed.
--- NOTE | 2023-07-05 17:10 | PM.IMPN1 ---
Progress Note: A&P Assessment and plan (1) Bright red blood per rectum: Problem details: -intermittent bright red blood per rectum for at least a year, increase frequency and volume since 06/30/2023. Hemodynamically stable. -ddx includes diverticular bleed vs fissure vs colonic mass -CT obtained 07/03, exhibited diverticulosis without diverticulitis, no acute abnormalities -colonoscopy recommended; given acute COVID infection and weakness, in addition to hemodynamic stability, plan to defer until outpatient appt -would like to advance to bland diet on 07/03; will do so with close monitoring. Continue serial Hgb -holding Metformin given diarrhea -07/04: Hemoglobin stable, 10.3. Status: Acute (2) COVID-19: Problem details: -given her high risk for complications, will treat with 3 day course of IV remdesivir - completed -therapies ordered given comorbidities/deconditioning risk and associated fatigue -PT/OT consult. security services specialist for discharge planning needs. Son is interested in SNF Status: Acute (3) Radiation necrosis of skin and subcutaneous: Problem details: -Entire external genitalia from rectum to mons pubis. Completed 60 HBO treatments starting in January 2023 with eventual closure of wounds. -with COVID-19, increased weakness, increased urinary incontinence, skin at very high risk for breaking down again. -place Barrett catheter for skin care on 07/02. Outpatient follow-up with Urology on 07/14/2023. Continue with skin cares, nystatin cream. -pain management to include scheduled Tylenol, lidocaine patch low back, oxycodone p.r.n. for now -outpatient follow-up with Oncology for ongoing pain management Status: Acute (4) Yeast infection involving the vagina and surrounding area: Problem details: Continue chronic Diflucan, skin cares Status: Acute (5) Atrial fibrillation: Problem details: -rate controlled on Metoprolol - remains stable -pt has not been able to tolerate warfarin in the past 2/2 bleeding, on Apixaban prior to admission 07/02/23 -holding anticoagulation during stay given GI bleed Status: Acute Time Spent With Patient Total time spent: Total time spent caring for the patient today was 45 minutes. This includes time spent for the visit reviewing the chart, time spent during the visit, time spent after the visit and documentation and planning in coordination of care. Subjective Date Seen: 07/05/23 Interval history: Again this morning patient tells me she just does not feel good. She isn't able to tell me if she would have felt any better a few weeks ago either. Remains afebrile, vitals stable. No oxygen requirement. Hemoglobin remains stable. Spoke with son on the phone this afternoon. He is interested in looking for short-term rehab for his mother. He has an appointment for her in urology on July 14. He has also scheduled a colonoscopy for her this month, unsure of date. He would like a scheduled pain management regimen for her prior to discharge. He will then follow-up with her oncology team after discharge. Exam Narrative: Exam Narrative: PHYSICAL EXAM General: Sitting up in bed, tired, NAD Cardiovascular: RRR Pulmonary: No dyspnea, mildly diminished Neurological: Alert, remains mildly anxious, answering questions appropriately, cranial nerves intact, no focal findings Extremities: No gross joint deformity or swelling. AROMI. Neurovascularly intact Skin: Warm, dry. Const: Vital Signs, click to edit/add: Vital Signs - 24 hr 07/04/23 21:25 07/04/23 21:25 07/04/23 21:25 Temperature 98.0 F Pulse Rate [Right Pulse Oximeter] 76 73 Respiratory Rate 18 18 18 Blood Pressure [Le ft Arm] 153/81 H Pulse Oximetry 96 96 Oxygen Delivery Me thod Room Air Room Air 07/04/23 23:55 07/05/23 02:12 07/05/23 07:00 Temperature 97.9 F 97.6 F 98.2 F Pulse Rate [Right Pulse Oximeter] 81 73 83 Respiratory Rate 16 16 22 Blood Pressure [Le ft Arm] 158/92 H 176/97 H 140/83 H Pulse Oximetry 97 100 98 Oxygen Delivery Me thod Room Air Room Air Room Air 07/05/23 07:00 07/05/23 11:00 07/05/23 15:00 Temperature 97.8 F Pulse Rate [Right Pulse Oximeter] 76 Respiratory Rate 20 16 Blood Pressure [Le ft Arm] 164/92 H Pulse Oximetry 98 96 99 Oxygen Delivery Me thod Room Air Room Air Room Air 07/05/23 15:00 Temperature 97.8 F Pulse Rate [Right Pulse Oximeter] 67 Respiratory Rate 16 Blood Pressure [Le ft Arm] 149/87 H Pulse Oximetry 99 Oxygen Delivery Me thod Room Air Labs Labs: Laboratory Results - last 24 hr 07/05/23 06:33 WBC 4.18 L RBC 3.81 L Hgb 10.2 L Hct 33.3 MCV 87 MCH 27 MCHC 31 L Plt Count 288 Sodium 136 Potassium 4.3 Chloride 106 Carbon Dioxide 23 Anion Gap 7 BUN 22 Creatinine 1.0 Estimated Creat Clear 42.39 Estimated GFR 58 Glucose 88 Calcium 8.3 L
--- NOTE | 2023-07-05 21:54 | PC.NURSE ---
Patient pleasant, alert, oriented and cooperative. PRN oxycodone and Tylenol given for reports of nicol discomfort rated 8-9/10 scale. VSS. No complaints of SOB.
[2023-07-06] VITALS (7 sets, daily range): BP systolic 93–160; BP diastolic 66–87; PULSE 70–77; RESP 16–18; TEMP 35.8–36.4; O2SAT 95–100
[2023-07-06] MEDS: OXYCODONE 5 MG TABLET PO ×3 (03:42→20:14)
--- NOTE | 2023-07-06 07:32 | PC.NURSE ---
pleasant and cooperative. Calls appropriately. Encouraging pt to shift weight. Barrett patent and draining. c/o pain 02/09 in nicol area, prn oxy given. ?
[2023-07-06] MEDS: ACETAMINOPHEN 500 MG TABLET 1000 MG PO ×3 (10:28→20:14)
[2023-07-06] MEDS: OMEPRAZOLE 20 MG CAPSULE DR PO (10:29)
[2023-07-06] MEDS: METOPROLOL SUCCINATE (XL) 50 MG TAB PO ×2 (10:30→20:14)
[2023-07-06] MEDS: LOSARTAN POTASSIUM 50 MG TABLET PO (10:30)
[2023-07-06] MEDS: allopurinoL 100 MG TABLET PO (10:30)
--- NOTE | 2023-07-06 11:20 | PC.SOCIAL ---
Discharge planning: Spoke to pt's son about SNF placement. Explained to son that most facilities like their pt's to be ten days post COVID diagnosis before they will accept them to their facility. Son explained that the family is interested in [facility] in [place]. general warehouse worker reached out to [facility] about a possible opening for the pt next week. [facility] said they should have an opening next week. Social work to follow-up as needed.
--- NOTE | 2023-07-06 11:55 | PC.SOCIAL ---
Discharge planning- Pt has [employer] insurance and it is not accepted at [facility]. Phone call to pt's son, Jose Wood, and provided update on looking for a SNF that is contracted with [employer] insurance. Jose provided his 's e-mail which is [email or web address] and requested that this worker send a list of SNF's so family can discuss options. Jose will be in contact with social work after discussing with his family. Informed Jose that pt will not be able to go to SNF until 07/12/23 due to [facility] rules surrounding Covid positive patients. Jose understands this and will be in contact with social work. E-mailed list as requested. Social work will follow up as needed.
[2023-07-06] MEDS: FLUCONAZOLE 100 MG TABLET 200 MG PO (12:46)
[2023-07-06] MEDS: SODIUM CHLORIDE 0.9 % (FLUSH) 10 ML SYRINGE 5 ML IVF ×2 (12:47→20:15)
[2023-07-06] MEDS: LIDOCAINE 5% PATCH 1 PATCH TRANSDERMA (15:41)
--- NOTE | 2023-07-06 15:52 | PM.IMPN1 ---
Progress Note: A&P Assessment and plan (1) Bright red blood per rectum: Problem details: -intermittent bright red blood per rectum for at least a year, increase frequency and volume since 06/30/2023. Hemodynamically stable. -ddx includes diverticular bleed vs fissure vs colonic mass -CT obtained 07/03, exhibited diverticulosis without diverticulitis, no acute abnormalities -colonoscopy recommended; given acute COVID infection and weakness, in addition to hemodynamic stability, plan to defer until outpatient appt -would like to advance to bland diet on 07/03; will do so with close monitoring. Continue serial Hgb -holding Metformin given diarrhea -07/04: Hemoglobin stable, 10.3. -07/06: No blood on pads when changing them per nursing staff Status: Acute (2) COVID-19: Problem details: -given her high risk for complications, will treat with 3 day course of IV remdesivir - completed -therapies ordered given comorbidities/deconditioning risk and associated fatigue -PT/OT consult. manager financial services for discharge planning needs. Son is interested in SNF, would like [facility] as the 1st option. 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 Completed 60 HBO treatments starting in January 2023 with eventual closure of wounds. -with COVID-19, increased weakness, increased urinary incontinence, skin at very high risk for breaking down again. -place Barrett catheter for skin care on 07/02. Outpatient follow-up with Urology on 07/14/2023. Continue with skin cares, nystatin cream. -pain management to include scheduled Tylenol, lidocaine patch low back, oxycodone p.r.n. for now which seems to be helping. -outpatient follow-up with Oncology for ongoing pain management Status: Acute (4) Yeast infection involving the vagina and surrounding area: Problem details: Continue chronic Diflucan, skin cares Status: Acute (5) Atrial fibrillation: Problem details: -rate controlled on Metoprolol - remains stable -pt has not been able to tolerate warfarin in the past 2/2 bleeding, on Apixaban prior to admission 07/02/23 -holding anticoagulation during stay given GI bleed Status: Acute Plan Spent 30 minutes discussing plan of care with son last evening. Updated on current status. Would like to seek SNF placemen for his mother, [facility] as his 1st choice. Time Spent With Patient Total time spent: Total time spent caring for the patient today was 45 minutes. This includes time spent for the visit reviewing the chart, time spent during the visit, time spent after the visit and documentation and planning in coordination of care. Subjective Date Seen: 07/06/23 Interval history: Patient is seen this morning and appears much more comfortable and brighter this morning. Begins our conversation without complaint this morning and has a small smile. Admits to feeling somewhat better this morning. Oxycodone has helped her chronic pain. Still minimal appetite. No nausea vomiting. Nursing staff reports no blood when changing pads this morning. Exam Narrative: Exam Narrative: PHYSICAL EXAM General: Sitting up in bed, appears brighter, smiles, NAD Cardiovascular: RRR Pulmonary: No dyspnea, mildly diminished Neurological: Alert, remains mildly anxious, answering questions appropriately, cranial nerves intact, no focal findings Extremities: No gross joint deformity or swelling. AROMI. Neurovascularly intact Skin: Warm, dry. Perineal area is erythematous, nystatin cream in place. Const: Vital Signs, click to edit/add: Vital Signs - 24 hr 07/05/23 20:00 07/05/23 22:15 07/05/23 23:00 Temperature 97.4 F L 97.4 F L Pulse Rate [Right Pulse Oximeter] 70 75 Respiratory Rate 16 16 16 Blood Pressure [Le ft Arm] 164/92 H 166/100 H Pulse Oximetry 97 98 98 Oxygen Delivery Me thod Room Air Room Air Room Air 07/05/23 23:00 07/06/23 03:45 07/06/23 11:00 Temperature 96.9 F L 97.5 F L Pulse Rate [Right Pulse Oximeter] 72 77 Respiratory Rate 18 18 18 Blood Pressure [Le ft Arm] 147/83 H 93/77 Pulse Oximetry 97 100 Oxygen Delivery Ok thod Room Air Room Air 07/06/23 15:00 Temperature 96.5 F L Pulse Rate [Right Pulse Oximeter] 71 Respiratory Rate 18 Blood Pressure [Le ft Arm] 128/66 Pulse Oximetry 95 [facility]
--- NOTE | 2023-07-06 19:35 | PC.NURSE ---
shift note: vss stable. pt afeb. LS dim. pt on RA sats >92%. Labia red/swollen and tender to touch. nicol care and cream done. pt medicated x1 with prn oxycodone for groin pain. pt up in chair this a.m for 2 hours. IV patent
[2023-07-06] MEDS: BENZOCAINE/MENTHOL 1 EACH LOZENGE MUCOUS MEM (21:40)
[2023-07-07] VITALS (7 sets, daily range): BP systolic 153–165; BP diastolic 76–87; PULSE 71–93; RESP 16–18; TEMP 36.1–36.6; O2SAT 93–98; BMI 27.2
[2023-07-07] MEDS: OXYCODONE 5 MG TABLET PO ×3 (01:42→10:37)
[2023-07-07] MEDS: ACETAMINOPHEN 500 MG TABLET 1000 MG PO ×3 (01:42→16:12)
[2023-07-07 07:10] LABS: Basophils Percent Auto 0.3 % (0.0-3.0); Eosinophils Percent Auto 5.1 % (0.0-7.0); Hematocrit 35.5 % (33.0-51.0); Hemoglobin* 10.8 gm/dL (12.0-16.0); Immature Granulocytes Pct Auto 0.3 %; Lymphocytes Percent Auto 17.1 % (20-44); Mean Corpuscular HGB Conc 30 gm/dL (32-36); Mean Corpuscular Hemoglobin 27 pg (26-34); Mean Corpuscular Volume 88 fL (80-100); Neutrophils Percent Auto 70.2 % (42.0-72.0); Platelet Count* 335 K/uL (140-440); RDW Coefficient of Variation % 15.5 % (11.5-15.5); Red Blood Count 4.04 m/uL (4.00-5.20); White Blood Count* 3.69 K/uL (4.50-11.00)
[2023-07-07 07:14] LABS: Chloride* 103 mmol/L (96-114); Potassium* 3.9 mmol/L (3.6-5.1); Sodium* 138 mmol/L (135-149)
[2023-07-07 07:17] LABS: Anion Gap 7 mEq/L (7-15); Blood Urea Nitrogen* 25 mg/dL (7-30); Calcium* 8.4 mg/dL (8.4-10.6); Carbon Dioxide* 28 mmol/L (20-32); Creatinine* 1.2 mg/dL (0.5-1.5); Est. Creatinine Clearance* 35.33; Estimated Glomerular Filt Rate 47 ml/min; Glucose* 95 mg/dL (60-115)
[2023-07-07 07:32] LABS: Slide Review Reflex No
--- NOTE | 2023-07-07 07:37 | PC.NURSE ---
. A x 1 pivot to BSC. pleasant and cooperative. Pt seemed more awake and alert this shift, pt was much more talkative with staff. c/o pain in groin region, prn Oxy given ? offered some relief, pt occasionally with moan in pain. c/o sore throat, placed order for prn throat lozenge ? pt did not like and spit it out. Waterproofing Supervisor offered warm tea to which pt declined. Encouraging fluid intake. ? Pt had 1x small hard BM, blood present on stool. ? Barrett patent and draining cloudy urine. ?
[2023-07-07] MEDS: FLUCONAZOLE 100 MG TABLET 200 MG PO (09:00)
[2023-07-07] MEDS: OMEPRAZOLE 20 MG CAPSULE DR PO (09:01)
[2023-07-07] MEDS: LOSARTAN POTASSIUM 50 MG TABLET PO (09:01)
[2023-07-07] MEDS: METOPROLOL SUCCINATE (XL) 50 MG TAB PO ×2 (09:01→20:48)
[2023-07-07] MEDS: allopurinoL 100 MG TABLET PO (09:02)
--- NOTE | 2023-07-07 12:51 | PM.IMPN1 ---
Progress Note: A&P Assessment and plan (1) Bright red blood per rectum: Problem details: -intermittent bright red blood per rectum for at least a year, increase frequency and volume since 06/30/2023. Hemodynamically stable. -ddx includes diverticular bleed vs fissure vs colonic mass -CT obtained 07/03, exhibited diverticulosis without diverticulitis, no acute abnormalities -colonoscopy recommended; given acute COVID infection and weakness, in addition to hemodynamic stability, plan to defer until outpatient appt -would like to advance to bland diet on 07/03; will do so with close monitoring. Continue serial Hgb -holding Metformin given diarrhea -07/04: Hemoglobin stable, 10.3. -07/06: No blood on pads when changing them per nursing staff -07/07: RN reports patient passed dark red blood with clots from rectum this morning, single episode. Hemoglobin has been stable 10.8 this morning up from 10.2 this morning. Continue to monitor for further blood output. Patient has otherwise remained vitally stable. Status: Acute (2) COVID-19: Problem details: -given her high risk for complications, will treat with 3 day course of IV remdesivir - completed -therapies ordered given comorbidities/deconditioning risk and associated fatigue -PT/OT consult. student financial services counselor for discharge planning needs. Son is interested in SNF, would like [facility] as the 1st option. 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 Completed 60 HBO treatments starting in January 2023 with eventual closure of wounds. -with COVID-19, increased weakness, increased urinary incontinence, skin at very high risk for breaking down again. -place Barrett catheter for skin care on 07/02. Outpatient follow-up with Urology on 07/14/2023. Continue with skin cares, nystatin cream. -pain management to include scheduled Tylenol, lidocaine patch low back, oxycodone p.r.n. for now which seems to be helping. -outpatient follow-up with Oncology for ongoing pain management 07/07: Wound care clinic consulted, evaluated by Jen. Per discussion, as patient does not have her betamethasone with her, will order triamcinolone cream to be mixed with lidocaine gel and applied to the area twice daily. Zinc barrier cream to be applied in between these doses. Has an outpatient wound care clinic appointment on 07/12 Status: Acute (4) Yeast infection involving the vagina and surrounding area: Problem details: Continue chronic Diflucan, skin cares Status: Acute (5) Atrial fibrillation: Problem details: -rate controlled on Metoprolol - remains stable -pt has not been able to tolerate warfarin in the past 2/2 bleeding, on Apixaban prior to admission 07/02/23 -holding anticoagulation during stay given GI bleed -SCDs for VTE PPX Status: Acute Plan student financial services counselor assisting with SNF placement ([facility]). Per protocol, remains in quarantine through 07/11/2023. If facility is found, could plan for wound care clinic appointment on 07/12 then transfer to facility. Time Spent With Patient Total time spent: Total time spent caring for the patient today was 30 minutes. This includes time spent for the visit reviewing the chart, time spent during the visit, time spent after the visit and documentation and planning in coordination of care. Subjective Date Seen: 07/07/23 Interval history: When patient is seen again this morning this time she reports not feeling well. I wonder if it is the time of morning that is emotionally taxing for her. Yesterday when I saw her later in the morning she was feeling better. Remains fatigued. Has chronic pain. RN reports patient passed dark red blood with clots from rectum this morning, single episode. Hemoglobin has been stable 10.8 this morning up from 10.2 this morning. Continue to monitor for further blood output. Patient has otherwise remained vitally stable. Exam Narrative: Exam Narrative: PHYSICAL EXAM General: Lying in bed, appears tired as previously, otherwise NAD Cardiovascular: RRR Pulmonary: No dyspnea on room air, mildly diminished Neurological: Alert, answering questions appropriately, cranial nerves intact, no focal findings Extremities: No gross joint deformity or swelling. AROMI. Neurovascularly intact Skin: Warm, dry. Const: Vital Signs, click to edit/add: Vital Signs - 24 hr 07/06/23 15:00 07/06/23 15:00 07/06/23 15:00 Temperature 96.5 F L Pulse Rate [Right Pulse Oximeter] 71 71 Respiratory Rate 18 18 18 Blood Pressure [Le ft Arm] 128/66 Pulse Oximetry 95 95 Oxygen Delivery Me thod Room Air Room Air 07/06/23 20:00 07/06/23 22:22 07/06/23 23:00 Temperature 97.1 F L Pulse Rate [Right Pulse Oximeter] 70 Respiratory Rate 16 16 16 Blood Pressure [Le ft Arm] 160/87 H Pulse Oximetry 100 100 Oxygen Delivery Me thod Room Air Room Air 07/07/23 01:48 07/07/23 09:07 Temperature 97.4 F L 96.9 F L Pulse Rate [Right Pulse Oximeter] 74 93 Respiratory Rate 16 18 Blood Pressure [Le ft Arm] 153/81 H 165/87 H Pulse Oximetry 97 93 Oxygen Delivery Me thod Room Air Room Air Labs Labs: Laboratory Results - last 24 hr 07/07/23 06:12 WBC 3.69 L RBC 4.04 Hgb 10.8 L Hct 35.5 MCV 88 MCH 27 MCHC 30 L RDW Coeff of Robert 15.5 Plt Count 335 Neut % (Auto) 70.2 Lymph % (Auto) 17.1 L [place] % (Auto) 7.0 Eos % (Auto) 5.1 Baso % (Auto) 0.3 Neut # (Auto) 2.60 Lymph # (Auto) 0.60 L [place] # (Auto) 0.30 Eos # (Auto) 0.20 Baso # (Auto) 0.00 Abs Immat Gran (auto) 0.00 Imm/Tot Granulo (auto) 0.3 Sodium 138 Potassium 3.9 Chloride 103 Carbon Dioxide 28 Anion Gap 7 BUN 25 Creatinine 1.2 Estimated Creat Clear 35.33 Estimated GFR 47 Glucose 95 Calcium 8.4
--- NOTE | 2023-07-07 12:56 | PC.SOCIAL ---
Discharge planning: Called pt's son who confirmed he received the information sent on the [facility] contracted SNF's and requested placement in facilities on that list in this order: [facility], [facility], [facility]. Son mentioned there are other family members in the [facility] so going North would be preferable to going south if needed. Son states that [facility] and [facility] are not options they would consider. Emailed son the list of facilities from the [employer] website with the included information that this list is not up to date. Also provided son with the Senior Living rating website from the Department of Health as a resource for researching placement options. Called [facility] and faxed information for evaluation for admit. Called [facility]. They currently do not have a bed available but were willing to review information in case they have an opening by Monday. Faxed information and awaiting decision on admit from both of these facilities. retail salesworker to follow up as needed.
--- NOTE | 2023-07-07 14:25 | P.IMCN_ITS ---
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 Had completed entire course of HBO. Currently inpatient due to COVID infection. Skin irritation is quite painful to even slight touch. This is not a change for patient. Areas are currently being treated with zinc barrier cream. Son had been contacted to determine if he would be able to bring in patient's current supply betamethasone cream. Wound center has directed her to mix betamethasone ending barrier cream for use at home 2 times per day. Patient is incontinent of both bowel and bladder. Has been past thing both bright red blood and what appears to be old blood from rectum, for hospital team. Review of Systems Status of ROS: Reports: 6 or more systems reviewed and unremarkable except as noted in History and below Const: Reports: fatigue GI: Reports: blood in stool : Reports: urinary incontinence Integ/Breast: Reports: skin tenderness and skin swelling (Vaginal area) Endo: Reports: fatigue [facility] Medical History (Updated 07/07/23 @ 13:03 by Randi Sheets PA-C) Atrial fibrillation ?I48.91 - Unspecified atrial fibrillation (ICD-10) Bright red blood per rectum ?K62.5 - Hemorrhage of anus and rectum (ICD-10) Bacteremia ?R78.81 - Bacteremia (ICD-10) Cellulitis of perineum ?L03.315 - Cellulitis of perineum (ICD-10) 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 - Other specified disorders of the skin and subcutaneous tissue related to radiation (ICD-10) ?Y84.2 - Radiological procedure and radiotherapy as the cause of abnormal reaction of the patient, or of later complication, without mention of misadventure at the time of the procedure (ICD-10) Vulvar cancer ?C51.9 - Malignant neoplasm of vulva, unspecified (ICD-10) Chronic renal insufficiency ?N18.9 - Chronic kidney disease, unspecified (ICD-10) GERD (gastroesophageal reflux disease) ?K21.9 - Gastro-esophageal reflux disease without esophagitis (ICD-10) Type 2 diabetes mellitus ?E11.9 - Type 2 diabetes mellitus without complications (ICD-10) Obstructive sleep apnea ?G47.33 - Obstructive sleep apnea (adult) (pediatric) (ICD-10) Asthma ?J45.909 - Unspecified asthma, uncomplicated (ICD-10) Hypertension ?I10 - Essential (primary) hypertension (ICD-10) Cardiomyopathy ?I42.9 - Cardiomyopathy, unspecified (ICD-10) Congestive heart failure ?I50.9 - Heart failure, unspecified (ICD-10) Surgical History [place] teeth removed ?K08.409 - Partial loss of teeth, unspecified cause, unspecified class (ICD- 10) History of tubal ligation ?Z98.51 - Tubal ligation status (ICD-10) Hx of total knee arthroplasty ?Z96.659 - Presence of unspecified artificial knee joint (ICD-10) History of bunionectomy ?Z98.890 - Other specified postprocedural states (ICD-10) Status post breast reduction ?Z98.890 - Other specified postprocedural states (ICD-10) Status post biopsy of uterine cervix ?Z98.890 - Other specified postprocedural states (ICD-10) Social History What is your current living situation?: I presently have a place to live Problems where you live: no known problems Problems where you live details: N/A In the past 12 months, utilities in danger of being shut off: no In past 12 months, lack of transportation kept you from medical appts, meetings, work, or getting things needed for daily living: no In the past 12 mos, have been you worried that your food would run out before you had money to buy more?: never true In the past 12 mos, the food you bought just didn't last and you didn't have money to buy more?: never true Highest level of school completed/degree received: high school graduate Smoking Status: Former smoker Do you use any of these nicotine containing products: None Second hand tobacco smoke exposure: No How often do you have a drink containing alcohol: never How often do you have six or more drinks on one occasion: Never AUDIT-C Alcohol total score: 0 Non-prescribed substance use: denies use Caffeine: Yes How often does anyone, including family, friends and others, physically hurt you : never How often does anyone, including family, friends and others, insult or talk down to you: never How often does anyone, including family, friends and others, threaten you with harm: never How often does anyone, including family, friends and others, scream or curse at you: never service: No Meds Home Medications and Allergies Home Medications Medication Instructions Recorded Confirmed Type albuterol sulfate 90 mcg/actuation 1 - 2 puff inhalation Q4H PRN 03/02/23 07/03/23 History aerosol inhaler dyspnea allopurinol 100 mg tablet 100 mg PO DAILY 03/02/23 07/03/23 History fluconazole 200 mg tablet 200 mg PO DAILY 03/02/23 07/03/23 History metoprolol succinate 50 mg 50 mg PO BID 03/02/23 07/03/23 History tablet,extended release 24 hr omeprazole 20 mg capsule,delayed 20 mg PO DAILY 03/02/23 07/03/23 History release rosuvastatin 5 mg tablet 5 mg PO DAILY 03/02/23 07/03/23 History apixaban 5 mg tablet (Eliquis) 5 mg PO BID 07/03/23 07/03/23 History lidocaine HCl 2 % mucosal jelly in 1 applic topical .2-4 TIMES DAILY 07/03/23 07/03/23 History applicator PRN pain Allergies Allergy/AdvReac Type Severity Reaction Status Date / Time No Known Drug Allergies Allergy Verified 07/03/23 15:26 Exam Const: Vital Signs, click to edit/add: Vital Signs - 24 hr 07/06/23 15:00 07/06/23 15:00 07/06/23 15:00 Temperature 96.5 F L Pulse Rate [Right Pulse Oximeter] 71 71 Respiratory Rate 18 18 18 Blood Pressure [Le ft Arm] 128/66 Pulse Oximetry 95 95 Oxygen Delivery Me thod Room Air Room Air 07/06/23 20:00 07/06/23 22:22 07/06/23 23:00 Temperature 97.1 F L Pulse Rate [Right Pulse Oximeter] 70 Respiratory Rate 16 16 16 Blood Pressure [Le ft Arm] 160/87 H Pulse Oximetry 100 100 Oxygen Delivery Me thod Room Air Room Air 07/07/23 01:48 07/07/23 07:00 07/07/23 07:00 Temperature 97.4 F L Pulse Rate [Right Pulse Oximeter] 74 93 Respiratory Rate 16 18 18 Blood Pressure [Le ft Arm] 153/81 H Pulse Oximetry 97 93 Oxygen Delivery Me thod Room Air Room Air 07/07/23 09:07 Temperature 96.9 F L Pulse Rate [Right Pulse Oximeter] 93 Respiratory Rate 18 Blood Pressure [Le ft Arm] 165/87 H Pulse Oximetry 93 Oxygen Delivery Me thod Room Air Exam limitations: physical limitations General appearance: cooperative Orientation/consciousness: Yes awake, Yes oriented to person and Yes oriented to place : Bladder/kidney exam: catheter in place External Female Exam: erythema and external swelling Neuro: Sensorium/orientation: awake, oriented to person and oriented to place Skin: Narrative: Quite mild erythema present to bilateral inguinal areas, vaginal area and extending to posterior region. Continues with noticeable grimacing and pain with mild palpation for assessment. Swelling present. Labs Labs: Short CBC 07/07/23 Range/Units 06:12 WBC 3.69 L (4.50-11.00) K/uL Hgb 10.8 L (12.0-16.0) gm/dL Hct 35.5 (33.0-51.0) % Plt Count 335 (140-440) K/uL BMP 07/07/23 06:12 Sodium 138 Potassium 3.9 Chloride 103 Carbon Dioxide 28 BUN 25 Creatinine 1.2 Glucose 95 Calcium 8.4 Assessment and Plan Assessment and plan (1) Radiation necrosis of skin and subcutaneous: Problem comment: -Entire external genitalia from rectum to mons pubis. Completed 60 HBO treatments starting in January 2023 with eventual closure of wounds. -with COVID-19, increased weakness, increased urinary incontinence, skin at very high risk for breaking down again. -place Barrett catheter for skin care on 07/02. Outpatient follow-up with Urology on 07/14/2023. Continue with skin cares, nystatin cream. -pain management to include scheduled Tylenol, lidocaine patch low back, oxycodone p.r.n. for now which seems to be helping. -outpatient follow-up with Oncology for ongoing pain management 07/07: Wound care clinic consulted, evaluated by Jen. Per discussion, as patient does not have her betamethasone with her, will order triamcinolone cream to be mixed with lidocaine gel and applied to the area twice daily. Zinc barrier cream to be applied in between these doses. Has an outpatient wound care clinic appointment on 07/12 Status: Acute Assessment and Plan: Wound care provider asked to consult to assist in management. Able to work with SALBADOR Bryan on hospital team to provide patient wound care and hopefully some comfort. -Will transition from betamethasone cream to triamcinolone. Hospital team is able to order this from pharmacy. -Hospital team to order lidocaine gel 2% -triamcinolone cream to be mixed with 5 meals of lidocaine gel and applied to affected area 2 times per day -Zinc barrier cream to be utilized in between. -Good incontinent care. (2) Yeast infection involving the vagina and surrounding area: Problem comment: Continue chronic Diflucan, skin cares Status: Acute Assessment and Plan: Does not appear to have significant yeast production Plan See above for Wound Care Plan, Randi Barfield if patient discharges to SNF will first be able to discharge next Monday. Wound Center will coordinate next visit with Hospital depending on Discharge from Hospital. It may be possible that could discharge from inpatient, proceed with Wound Center appointment and then transfer to SNF. [employer] spoke with osiel Garcia at [phone] regarding updated wound care plan.
[2023-07-07] MEDS: lidocaine HCL 2 % JELLY (TOP) STERILE 1 ML TOPICAL ×2 (14:41→20:50)
[2023-07-07] MEDS: TRIAMCINOLONE ACETONIDE CREAM 0.1 % 1 APPLIC TOPICAL ×2 (14:42→20:50)
--- NOTE | 2023-07-07 15:39 | PC.NURSE ---
shift note: pt up this a.m and stated she felt dizzy upon sitting on side of bed. BP 160's/80's HR 90's. Dizziness resolved after a few minutes. pt had dk and bright red mixed bloody discharge with clots from vag/rectal area. Pt sat in recliner and stated within a few minutes she felt like she was going to pass out. Fancy Sewer called for assistance. Pt assisted with 2/walker to bed. Legs slightly elevated in bed with teds/scd's on. BP 160's/80's when pt in bed. Dr. Sheets notified and no further orders. [place]ik[place] care performed per d.o. moctezuma care performed; VN=203 cloudy urine with a couple of small clots . Pt's son updated via phone.
[2023-07-07] MEDS: OXYCODONE 5 MG TABLET 2.5 MG PO (16:17)
[2023-07-07] MEDS: ONDANSETRON ODT 4 MG TAB PO (17:25)
[2023-07-07] MEDS: SODIUM CHLORIDE 0.9 % (FLUSH) 10 ML SYRINGE 5 ML IVF (20:49)
--- NOTE | 2023-07-07 22:46 | PC.NURSE ---
Shift [id number]- Patient notes pain to nicol area- tylenol and oxycodone given as eligible and scheduled. Pericares provided. Touch to area appears sensitive. Superficial opening noted to right labia majora- skin deep. Skin is slightly reddened throughout entire nicol area. Small amount (dollar coin sized) of malordorous, dark blood to pad under patient this evening. Patient is nauseous this evening- zofran given with eventual relief. Declines to eat- sliding scale insulin therefore withheld. She complains of some nausea tonight- plan with patient to administered zofran when eligible. She declines offers to get out of bed.
[2023-07-08] VITALS (9 sets, daily range): BP systolic 136–173; BP diastolic 78–98; PULSE 65–85; RESP 14–18; TEMP 36.1–36.6; O2SAT 95–99
[2023-07-08] MEDS: ONDANSETRON ODT 4 MG TAB PO (00:05)
[2023-07-08] MEDS: OXYCODONE 5 MG TABLET 2.5 MG PO ×5 (00:09→20:54)
[2023-07-08] MEDS: ACETAMINOPHEN 500 MG TABLET 1000 MG PO ×4 (00:09→17:48)
--- NOTE | 2023-07-08 05:44 | PC.NURSE ---
[id number]: Patient appeared to rest well during noc. PRN Oxycodone for generalized pain. Barrett patent. Zofran x1 for nausea.
[2023-07-08 07:22] LABS: Chloride* 106 mmol/L (96-114)
[2023-07-08 07:23] LABS: Potassium* 4.3 mmol/L (3.6-5.1); Sodium* 138 mmol/L (135-149)
[2023-07-08 07:25] LABS: Creatinine* 1.1 mg/dL (0.5-1.5); Est. Creatinine Clearance* 38.54; Estimated Glomerular Filt Rate 52 ml/min
[2023-07-08 07:26] LABS: Anion Gap 6 mEq/L (7-15); Blood Urea Nitrogen* 18 mg/dL (7-30); Calcium* 8.7 mg/dL (8.4-10.6); Carbon Dioxide* 26 mmol/L (20-32); Glucose* 110 mg/dL (60-115)
[2023-07-08] MEDS: OMEPRAZOLE 20 MG CAPSULE DR PO (08:53)
[2023-07-08] MEDS: METOPROLOL SUCCINATE (XL) 50 MG TAB PO ×2 (08:53→20:54)
[2023-07-08] MEDS: FLUCONAZOLE 100 MG TABLET 200 MG PO (08:53)
[2023-07-08] MEDS: SODIUM CHLORIDE 0.9 % (FLUSH) 10 ML SYRINGE 5 ML IVF ×2 (08:54→20:55)
[2023-07-08] MEDS: LOSARTAN POTASSIUM 50 MG TABLET PO (08:54)
[2023-07-08] MEDS: lidocaine HCL 2 % JELLY (TOP) STERILE 1 ML TOPICAL ×2 (08:54→20:56)
[2023-07-08] MEDS: allopurinoL 100 MG TABLET PO (08:54)
[2023-07-08] MEDS: TRIAMCINOLONE ACETONIDE CREAM 0.1 % 1 APPLIC TOPICAL ×2 (08:56→20:55)
[2023-07-08 14:16] LABS: Hematocrit 37.5 % (33.0-51.0); Hemoglobin* 11.5 gm/dL (12.0-16.0); Mean Corpuscular HGB Conc 31 gm/dL (32-36); Mean Corpuscular Hemoglobin 27 pg (26-34); Mean Corpuscular Volume 87 fL (80-100); Platelet Count* 329 K/uL (140-440); Red Blood Count 4.33 m/uL (4.00-5.20)
[2023-07-08 14:20] LABS: Slide Review Reflex No
--- NOTE | 2023-07-08 17:21 | PM.IMPN1 ---
Progress Note: A&P Assessment and plan (1) Bright red blood per rectum: Problem details: -intermittent bright red blood per rectum for at least a year, increase frequency and volume since 06/30/2023. Hemodynamically stable. -ddx includes diverticular bleed vs fissure vs colonic mass -CT obtained 07/03, exhibited diverticulosis without diverticulitis, no acute abnormalities -colonoscopy recommended; given acute COVID infection and weakness, in addition to hemodynamic stability, plan to defer until outpatient appt -would like to advance to bland diet on 07/03; will do so with close monitoring. Continue serial Hgb -holding Metformin given diarrhea -07/04: Hemoglobin stable, 10.3. -07/06: No blood on pads when changing them per nursing staff -07/07: RN reports patient passed dark red blood with clots from rectum this morning, single episode. Hemoglobin has been stable 10.8 this morning up from 10.2 this morning. Continue to monitor for further blood output. Patient has otherwise remained vitally stable. - 07/08: RN reported minimal amounts of BRBPR. Hgb stable and improving at 11.5 this morning. Status: Acute (2) COVID-19: Problem details: -given her high risk for complications, will treat with 3 day course of IV remdesivir - completed -therapies ordered given comorbidities/deconditioning risk and associated fatigue -PT/OT consult. business services vice president for discharge planning needs. Son is interested in SNF, would like [facility] as the 1st option. - 07/08: no hypoxia. 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 Completed 60 HBO treatments starting in January 2023 with eventual closure of wounds. -with COVID-19, increased weakness, increased urinary incontinence, skin at very high risk for breaking down again. -place Barrett catheter for skin care on 07/02. Outpatient follow-up with Urology on 07/14/2023. Continue with skin cares, nystatin cream. -pain management to include scheduled Tylenol, lidocaine patch low back, oxycodone p.r.n. for now which seems to be helping. -outpatient follow-up with Oncology for ongoing pain management 07/07: Wound care clinic consulted, evaluated by Jen. Per discussion, as patient does not have her betamethasone with her, will order triamcinolone cream to be mixed with lidocaine gel and applied to the area twice daily. Zinc barrier cream to be applied in between these doses. Has an outpatient wound care clinic appointment on 07/12 Status: Acute (4) Yeast infection involving the vagina and surrounding area: Problem details: Continue chronic Diflucan, skin cares Status: Acute (5) Atrial fibrillation: Problem details: -rate controlled on Metoprolol - remains stable -pt has not been able to tolerate warfarin in the past 2/2 bleeding, on Apixaban prior to admission 07/02/23 -holding anticoagulation during stay given GI bleed Status: Acute Plan business services vice president assisting with SNF placement ([facility]). Per protocol, remains in quarantine through 07/11/2023. If facility is found, could plan for wound care clinic appointment on 07/12 then transfer to facility. -SCDs for VTE PPX, no anticoag due to GI bleeding. Subjective Time Seen by Provider: 12:15 Date Seen: 07/08/23 Interval history: Galilea complains of abdominal pain and pain in her perineum. I have reviewed H&P and progress notes and it appears this is consistent with her ongoing chronic pain. No new complaints. Nurse reports ongoing intermittent BRBPR is less and minimal with each BM now, these remain loose. Exam Narrative: Exam Narrative: General: No acute distress. Sitting in chair near window. Awake, alert, oriented. No pallor. No jaundice. Oropharynx: Clear. Mucous membranes moist. Cardiovascular: Irregularly irregular. Respiratory: Clear to auscultation bilaterally. No wheezes or crackles. Abdomen: Bowel sounds present. Soft, nondistended, nontender. Extremities: No pedal edema. Const: Vital Signs, click to edit/add: Vital Signs - 24 hr 07/07/23 19:14 07/07/23 23:00 07/08/23 00:03 Temperature 98 F 97.5 F L Pulse Rate [Right Pulse Oximeter] 71 71 Respiratory Rate 16 18 18 Blood Pressure [Le ft Arm] 156/76 H 159/89 H Pulse Oximetry 98 97 97 Oxygen Delivery Me thod Room Air Room Air Room Air 07/08/23 03:00 07/08/23 07:00 07/08/23 07:00 Temperature 97 F L Pulse Rate [Right Pulse Oximeter] 65 Respiratory Rate 14 18 16 Blood Pressure [Le ft Arm] 173/80 H Pulse Oximetry 99 99 Oxygen Delivery Ak thod Room Air Room Air 07/08/23 10:48 07/08/23 14:52 07/08/23 15:00 Temperature 97.8 F 97.5 F L Pulse Rate [Right Pulse Oximeter] 77 85 Respiratory Rate 18 16 Blood Pressure [Le ft Arm] 159/96 H 152/98 H Pulse Oximetry 95 99 98 Oxygen Delivery Ak thod Room Air Room Air Room Air Labs Labs: Laboratory Results - last 24 hr 07/08/23 06:57 WBC 6.40 RBC 4.33 Hgb 11.5 L Hct 37.5 MCV 87 MCH 27 MCHC 31 L Plt Count 329 Sodium 138 Potassium 4.3 Chloride 106 Carbon Dioxide 26 Anion Gap 6 L BUN 18 Creatinine 1.1 Estimated Creat Clear 38.54 Estimated GFR 52 Glucose 110 Calcium 8.7
--- NOTE | 2023-07-08 18:14 | PC.NURSE ---
End of Care Hours 4418-2446:The patient is alert to self, and time upon assessment. The patient reported consistent 8/10 pain in lower abdomen, nicol area, and rectum throughout the day. I administered scheduled Tylenol as well as PRN oxy around the clock. The patient reported no relief after administration throughout the day. Multiple brown loose incontinent stools this shift, minimal bright red blood. Nicol area/ rectum is very sore when wiping the patient moans in pain although our efforts to be very gentle. WOC recommended cream mixture was applied this morning. Throughout the day barrier cream was applied. Barrett catheter patent and draining adequate output. Patient refused getting up to the chair multiple times throughout the morning. OT convinced her to get up to the chair for lunch.. the patient moaned while she was up. Q2 repo and check and change throughout the day. Minimal appetite.. ate 25% of all meals. The patient reports nothing tastes good. I let her know if may be COVID that has affected her taste. Alarms in place. I called the son this afternoon and gave an update. Currently her son and other family are visiting in the room. Call light within reach. Ashtyn GOMEZ BSN
[2023-07-09] MEDS: ACETAMINOPHEN 500 MG TABLET 1000 MG PO ×4 (00:26→17:59)
[2023-07-09 02:41] VITALS: BP 171/80; PULSE 86; RESP 18; TEMP 36.6; O2SAT 96
[2023-07-09] MEDS: OXYCODONE 5 MG TABLET 2.5 MG PO ×3 (02:41→20:36)
[2023-07-09 06:24] LABS: Hematocrit 36.5 % (33.0-51.0); Hemoglobin* 11.1 gm/dL (12.0-16.0); Mean Corpuscular HGB Conc 30 gm/dL (32-36); Mean Corpuscular Hemoglobin 27 pg (26-34); Mean Corpuscular Volume 87 fL (80-100); Platelet Count* 362 K/uL (140-440); Red Blood Count 4.19 m/uL (4.00-5.20); White Blood Count* 7.09 K/uL (4.50-11.00)
[2023-07-09 06:30] LABS: Slide Review Reflex No
--- NOTE | 2023-07-09 06:33 | PC.NURSE ---
[id number]: Patient appeared to rest well during noc. Incontinent of BM. No blood noted in stool. Frequent T&R. Moaning because of pain/discomfort. PRN Oxycodone administered per AUG. Barrett patent.
[2023-07-09 06:39] LABS: Chloride* 103 mmol/L (96-114); Potassium* 4.2 mmol/L (3.6-5.1); Sodium* 137 mmol/L (135-149)
[2023-07-09 06:42] LABS: Anion Gap 7 mEq/L (7-15); Blood Urea Nitrogen* 16 mg/dL (7-30); Calcium* 8.7 mg/dL (8.4-10.6); Carbon Dioxide* 27 mmol/L (20-32); Creatinine* 1.3 mg/dL (0.5-1.5); Est. Creatinine Clearance* 32.61; Estimated Glomerular Filt Rate 42 ml/min; Glucose* 115 mg/dL (60-115)
[2023-07-09 07:00] VITALS: BP 155/96; PULSE 85; RESP 16; RESP 18; TEMP 36.7; O2SAT 98
[2023-07-09] MEDS: lidocaine HCL 2 % JELLY (TOP) STERILE 1 ML TOPICAL ×2 (09:30→20:34)
[2023-07-09] MEDS: TRIAMCINOLONE ACETONIDE CREAM 0.1 % 1 APPLIC TOPICAL ×2 (09:30→20:35)
[2023-07-09] MEDS: FLUCONAZOLE 100 MG TABLET 200 MG PO (09:30)
[2023-07-09] MEDS: OMEPRAZOLE 20 MG CAPSULE DR PO (09:31)
[2023-07-09] MEDS: METOPROLOL SUCCINATE (XL) 50 MG TAB PO ×2 (09:31→20:35)
[2023-07-09] MEDS: LOSARTAN POTASSIUM 50 MG TABLET PO (09:31)
[2023-07-09] MEDS: SODIUM CHLORIDE 0.9 % (FLUSH) 10 ML SYRINGE 5 ML IVF ×2 (09:37→20:35)
[2023-07-09] MEDS: allopurinoL 100 MG TABLET PO (09:37)
[2023-07-09 11:00] VITALS: BP 158/88; PULSE 88; RESP 16; TEMP 36.7; O2SAT 98
--- NOTE | 2023-07-09 12:13 | PM.IMPN1 ---
Progress Note: A&P Assessment and plan (1) Bright red blood per rectum: Problem details: -intermittent bright red blood per rectum for at least a year, increase frequency and volume since 06/30/2023. Hemodynamically stable. Considerations include radiation proctitis, infection, malignancy, benign perianal and colonic bleeding -CT obtained 07/03, exhibited diverticulosis without diverticulitis, no acute abnormalities -colonoscopy recommended; given acute COVID infection and weakness, in addition to hemodynamic stability, plan to defer until outpatient appt -would like to advance to bland diet on 07/03; will do so with close monitoring. Continue serial Hgb -holding Metformin given diarrhea -07/04: Hemoglobin stable -07/06: No blood on pads when changing them per nursing staff. -07/07: RN reports patient passed dark red blood with clots from rectum this morning, single episode. Hemoglobin has been stable 10.8 this morning up from 10.2 this morning. Continue to monitor for further blood output. Patient has otherwise remained vitally stable. - 07/08: RN reported minimal amounts of BRBPR. Hgb stable and improving at 11.5 this morning. 07/09: Incontinent stool last night. No bleeding. Status: Acute (2) COVID-19: Problem details: -given her high risk for complications, will treat with 3 day course of IV remdesivir - completed -therapies ordered given comorbidities/deconditioning risk and associated fatigue -PT/OT consult. construction services technician for discharge planning needs. Son is interested in SNF, would like [facility] as the 1st option. - 07/08: no hypoxia. 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 Completed 60 HBO treatments starting in January 2023 with eventual closure of wounds. -with COVID-19, increased weakness, increased urinary incontinence, skin at very high risk for breaking down again. -place Barrett catheter for skin care on 07/02. Outpatient follow-up with Urology on 07/14/2023. Continue with skin cares, nystatin cream. -pain management to include scheduled Tylenol, lidocaine patch low back, oxycodone p.r.n. for now which seems to be helping. -outpatient follow-up with Oncology for ongoing pain management. 07/07: Wound care clinic consulted, evaluated by Jen. Per discussion, as patient does not have her betamethasone with her, will order triamcinolone cream to be mixed with lidocaine gel and applied to the area twice daily. Zinc barrier cream to be applied in between these doses. Has an outpatient wound care clinic appointment on 07/12 Patient having a lot of pain with wound cares. Also having pain in anticipation of exam and cares Status: Acute (4) Yeast infection involving the vagina and surrounding area: Status: Acute (5) Atrial fibrillation: Problem details: -rate controlled on Metoprolol - remains stable -pt has not been able to tolerate warfarin in the past 2/2 bleeding, on Apixaban prior to admission 07/02/23 -holding anticoagulation during stay given GI bleed. Reassess risks and benefits of anticoagulation on ongoing basis Status: Acute (6) Cognitive impairment: Problem details: [place] 15. Uncertain if this is baseline. COVID and/or depression could affect this score Status: Acute (7) Incontinence of bowel: Problem details: New problem in the past week. Has had incontinence related to diarrhea from metformin. Metformin is stopped Status: Acute (8) Type 2 diabetes mellitus: Problem details: A1C 6.0. Blood sugars here have been fairly well controlled Status: Acute (9) Incontinence of urine: Problem details: Barrett catheter currently in place. 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 Appears to have some anticipatory pain. Discussed with her son concerns about risks and benefits of opioid pain medication. Status: Acute Plan Continue in hospital for management of her physical disability, radiation necrosis, COVID infection. Pending safe discharge plan. Time Spent With Patient Total time spent: Total time spent today is 1 hour and 20 minutes, 30 minutes discussing with her son ongoing plan of care Subjective Date Seen: 07/09/23 Interval history: Chelly Wood is a 78 year old woman who lives in a private residence with her son and her son's . 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 Not a surgical candidate due to proximity to rectum. About 6 months after completing radiation therapy she started to have intermittent episodes of bright red blood per rectum. Developed radiation necrosis of the skin and subcutaneous tissue for which she received 60 hyperbaric oxygen therapy treatments for with eventual closure of perineal wounds. Has had cellulitis of the perineum and vulvar vaginal candidiasis as additional complications as well. Continues to employ a daily barrier cream and anti-inflammatory cream to affected areas of the perineum to attempt to maintain skin integrity as much as possible. Has chronic difficulties controlling urination. Historically has employed Barrett catheter in the past successfully to help achieve healing and skin integrity. Currently does not have a Barrett catheter in place. Once again has had periodic, episodic episodes of bright red blood per rectum now for nearly a year. Has been advised in the past to seek out a colonoscopy for diagnostic purposes, most recently in March of 2023, but still has not made arrangements for this. Hence the etiology of these episodes of bright red blood per rectum have not been determined. Differential diagnosis includes radiation proctitis, diverticular bleed, angiodysplasia, neoplasm, infection such as yeast, and so forth. When patient has been assessed for possible hemorrhoids and fissures these have not been observed in the past. In the last couple of days patient has had increasing episodes of small blood clots per rectum. Patient not always able to make it to the bathroom in time and sometimes the blood is on the bed or on the floor. Patient was on apixaban prior to admission. This was held during her hospital stay. Today patient is unable to give me much information about why she is in the hospital. She reports she is too weak to walk. She has generalized weakness. She has a poor appetite. She reports that her she thinks her bleeding is better. She is unsure if she had a bowel movement today or its consistency. Nursing notes indicate incontinence of stool. She is having a lot of pain in her perineum. She has been taking oxycodone 2.5 mg every 6 hours for this. She tells me her goals are to go home. Records indicate that there was a plan for her to go to detention facility for some rehab. She recently had a [place] score 15/30. Exam Narrative: Exam Narrative: She is alert and lying in bed. She appears comfortable. She is oriented to being in the hospital but able to give any details about her current health status and medications. Head is without trauma. Oropharynx normal. Respirations are clear to auscultation. Breathing is unlabored. Cardiovascular: S1, S2, somewhat irregular. Abdomen is soft. She has diffuse mild abdominal tenderness but reports no abdominal pain without palpation. Perineum has minimal erythema but diffuse moderate tenderness even to light touch. Barrett catheter in place. Perianal area has marked erythema and multiple ulcers with exudate at the base in the perianal skin. Extremities without edema. She struggles to move in bed. Unable to sit up in bed even with assist of 1. Const: Vital Signs, click to edit/add: Vital Signs - 24 hr 07/08/23 14:52 07/08/23 15:00 07/08/23 20:51 Temperature 97.5 F L 97.4 F L Pulse Rate [Right Pulse Oximeter] 85 72 Respiratory Rate 16 18 Blood Pressure [Le ft Arm] 152/98 H 137/78 Pulse Oximetry 99 98 97 Oxygen Delivery Me thod Room Air Room Air Room Air 07/08/23 22:53 07/08/23 23:00 07/09/23 02:41 Temperature 97.6 F 97.8 F Pulse Rate [Right Pulse Oximeter] 74 86 Respiratory Rate 16 16 18 Blood Pressure [Le ft Arm] 136/88 171/80 H Pulse Oximetry 97 97 96 Oxygen Delivery Me thod Room Air Room Air Room Air 07/09/23 07:00 Temperature 98.0 F Pulse Rate [Right Pulse Oximeter] 85 Respiratory Rate 18 Blood Pressure [Le ft Arm] 155/96 H Pulse Oximetry 98 Oxygen Delivery Mn thod Room Air Documenting provider has reviewed patient's vital signs: yes Labs Labs: Laboratory Results - last 24 hr 07/08/23 07/09/23 06:57 06:10 WBC 6.40 7.09 RBC 4.33 4.19 Hgb 11.5 L 11.1 L Hct 37.5 36.5 MCV 87 87 MCH 27 27 MCHC 31 L 30 L Plt Count 329 362 Sodium 137 Potassium 4.2 Chloride 103 Carbon Dioxide 27 Anion Gap 7 BUN 16 Creatinine 1.3 Estimated Creat Clear 32.61 Estimated GFR 42 Glucose 115 Calcium 8.7
--- NOTE | 2023-07-09 15:32 | PC.NURSE ---
End of Shift: The patient appears more well rested today than yesterday. PO intake has been poor today... encouraged her to drink and eat even tho things do not taste the best. Barrett is patent and draining. WOC recommendations were applied to her nicol area. The patient is very painful and excoriated below. Continent of 1 BM this shift formed and large minimal blood per rectum. Barrier cream applied throughout the day as well. PRN oxy given for nicol/rectal pain as well as scheduled tylenol. VSS on RA. Son visited this afternoon, Dr Valencia gave him and update regarding her care. Call light within reach. Ashtyn GOMEZ BSN
[2023-07-09 16:00] VITALS: BP 115/71; PULSE 86; RESP 16; TEMP 36.4; O2SAT 96
--- NOTE | 2023-07-09 18:58 | PC.NURSE ---
Shift Summary 15-19: Patient pleasant and cooperative. T&R q2h with pillow behind back/bottom for support. Denies pain. Ate 50% of dinner per self after set up. Bed time cares performed, allowed staff to assist with brushing teeth.
[2023-07-09 19:00] VITALS: BP 125/70; PULSE 83; RESP 18; TEMP 36.2; O2SAT 97
[2023-07-09 23:00] VITALS: BP 137/58; PULSE 83; RESP 16; RESP 18; TEMP 36.6; O2SAT 93; O2SAT 97
[2023-07-10] VITALS (7 sets, daily range): BP systolic 134–148; BP diastolic 63–90; PULSE 72–92; RESP 16–120; TEMP 36.3–36.9; O2SAT 95–100
[2023-07-10] MEDS: ACETAMINOPHEN 500 MG TABLET 1000 MG PO ×4 (04:14→23:30)
--- NOTE | 2023-07-10 05:55 | PC.NURSE ---
End of shift [id number]: Pt A&O x3, VSS and afebrile overnight. Ambulates Ax1 with GB and 2ww to commode for BM?s. Barrett catheter patent, intact & draining dark rosalva urine. Total output: 400 mL. BID nicol wash & creams performed as ordered. Having her nicol area washed is very painful for pt so it helps to pre-medicate with PRN oxy. Gave pt x1 dose @ 2034. HS blood sugar: 152; pt refused SS insulin. Right FA PIV is SL and C/D/I. Pt shifts weight in bed independently overnight. Eliquis continues to be on hold. No BM?s or rectal bleeding noted in pad overnight. Plan for a SNF discharge after quarantine is up on 07/11/23. ?
[2023-07-10 06:33] LABS: Hematocrit 33.1 % (33.0-51.0); Hemoglobin* 10.3 gm/dL (12.0-16.0); Mean Corpuscular HGB Conc 31 gm/dL (32-36); Mean Corpuscular Hemoglobin 27 pg (26-34); Mean Corpuscular Volume 87 fL (80-100); Platelet Count* 362 K/uL (140-440); Red Blood Count 3.82 m/uL (4.00-5.20); White Blood Count* 5.78 K/uL (4.50-11.00)
[2023-07-10 06:35] LABS: Slide Review Reflex No
[2023-07-10 06:41] LABS: Chloride* 104 mmol/L (96-114); Sodium* 136 mmol/L (135-149)
[2023-07-10 06:43] LABS: Creatinine* 1.4 mg/dL (0.5-1.5); Est. Creatinine Clearance* 30.28; Estimated Glomerular Filt Rate 39 ml/min
[2023-07-10 06:44] LABS: Anion Gap 6 mEq/L (7-15); Blood Urea Nitrogen* 21 mg/dL (7-30); Calcium* 8.4 mg/dL (8.4-10.6); Carbon Dioxide* 26 mmol/L (20-32); Glucose* 120 mg/dL (60-115)
[2023-07-10] MEDS: OXYCODONE 5 MG TABLET 2.5 MG PO ×4 (09:19→23:31)
[2023-07-10] MEDS: LOSARTAN POTASSIUM 50 MG TABLET PO (09:19)
[2023-07-10] MEDS: OMEPRAZOLE 20 MG CAPSULE DR PO (09:20)
[2023-07-10] MEDS: allopurinoL 100 MG TABLET PO (09:20)
[2023-07-10] MEDS: FLUCONAZOLE 100 MG TABLET 200 MG PO (09:20)
[2023-07-10] MEDS: METOPROLOL SUCCINATE (XL) 50 MG TAB PO ×2 (09:20→21:53)
[2023-07-10] MEDS: SODIUM CHLORIDE 0.9 % (FLUSH) 10 ML SYRINGE 5 ML IVF ×2 (09:21→22:03)
[2023-07-10] MEDS: lidocaine HCL 2 % JELLY (TOP) STERILE 1 ML TOPICAL ×2 (12:14→21:53)
[2023-07-10] MEDS: TRIAMCINOLONE ACETONIDE CREAM 0.1 % 1 APPLIC TOPICAL ×2 (12:14→21:53)
--- NOTE | 2023-07-10 16:04 | PC.NURSE ---
Pt c/o of rectal/perineum pain 7-04/11. See MAR for medication administration with little relief. Warm water bottle flush used to cleanse perineum during brief changes and before medicated cream placed.
--- NOTE | 2023-07-10 16:19 | P.IMPN_ITS ---
Progress Note: A&P Assessment and plan (1) Bright red blood per rectum: Problem details: -intermittent bright red blood per rectum for at least a year, increase frequency and volume since 06/30/2023. Hemodynamically stable. Considerations include radiation proctitis, infection, malignancy, benign perianal and colonic bleeding -CT obtained 07/03, exhibited diverticulosis without diverticulitis, no acute abnormalities -colonoscopy recommended; given acute COVID infection and weakness, in addition to hemodynamic stability, plan to defer until outpatient appt -would like to advance to bland diet on 07/03; will do so with close monitoring. Continue serial Hgb -holding Metformin given diarrhea -07/04: Hemoglobin stable -07/06: No blood on pads when changing them per nursing staff. -07/07: RN reports patient passed dark red blood with clots from rectum this morning, single episode. Hemoglobin has been stable 10.8 this morning up from 10.2 this morning. Continue to monitor for further blood output. Patient has otherwise remained vitally stable. - 07/08: RN reported minimal amounts of BRBPR. Hgb stable and improving at 11.5 this morning. 07/09: Incontinent stool last night. No bleeding. - 07/10: One soft formed stool in toilet this morning, scant blood on TP. One slightly bloody loose incontinent stool in bed mid morning. Status: Acute (2) COVID-19: Problem details: -given her high risk for complications, will treat with 3 day course of IV remdesivir - completed -therapies ordered given comorbidities/deconditioning risk and associated fatigue -PT/OT consult. financial services director for discharge planning needs. Son is interested in SNF, would like [facility] as the 1st option. - 07/08: no hypoxia. 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 Completed 60 HBO treatments starting in January 2023 with eventual closure of wounds. -with COVID-19, increased weakness, increased urinary incontinence, skin at very high risk for breaking down again. -place Barrett catheter for skin care on 07/02. Outpatient follow-up with Urology on 07/14/2023. Continue with skin cares, nystatin cream. -pain management to include scheduled Tylenol, lidocaine patch low back, oxycodone p.r.n. for now which seems to be helping. -outpatient follow-up with Oncology for ongoing pain management. 07/07: Wound care clinic consulted, evaluated by Jen. Per discussion, as patient does not have her betamethasone with her, will order triamcinolone cream to be mixed with lidocaine gel and applied to the area twice daily. Zinc ba rrier cream to be applied in between these doses. Has an outpatient wound care clinic appointment on 07/12 Patient having a lot of pain with wound cares. Also having pain in anticipation of exam and cares. Discussions with son illustrate concern for somnolence and decreased motivation to participate in BR trips and ADLs with increase in narcotics. Continue current prn dosing. Status: Acute (4) Yeast infection involving the vagina and surrounding area: Problem details: Fluconazole restarted 07/09. Status: Acute (5) Atrial fibrillation: Problem details: -rate controlled on Metoprolol - remains stable -pt has not been able to tolerate warfarin in the past 2/2 bleeding, on Apixaban prior to admission 07/02/23 -holding anticoagulation during stay given GI bleed. Reassess risks and benefits of anticoagulation on ongoing basis Status: Acute (6) Cognitive impairment: Problem details: [place] . Uncertain if this is baseline. COVID and/or depression could affect this score Status: Acute (7) Incontinence of bowel: Problem details: New problem in the past week. Has had incontinence related to diarrhea from metformin. Metformin is stopped Status: Acute (8) Type 2 diabetes mellitus: Problem details: A1C 6.0. Blood sugars here have been fairly well controlled Status: Acute (9) Incontinence of urine: Problem details: Barrett catheter currently in place. 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 Appears to have some anticipatory pain. Discussed with her son concerns about risks and benefits of opioid pain medication. Status: Acute Plan Continue in hospital for management of her physical disability, radiation necrosis, COVID infection. Pending safe discharge plan. Subjective Time Seen by Provider: 12:30 Date Seen: 07/10/23 Interval history: Galilea continues to complain of pain. Nursing staff are wondering about possibly scheduling pain medication. Exam Narrative: Exam Narrative: General: No acute distress. Awake, alert, oriented. Cardiovascular: Regular rate and rhythm. No murmurs, gallops, or rubs. Respiratory: Clear to auscultation bilaterally. No wheezes or crackles. Abdomen: Bowel sounds present. Soft, nondistended, nontender. Skin: Perineum is edematous with mild erythema, perianal area is erythematous and has multiple ulcers, there is also a small ulcer the right labia the whole area is diffusely tender to light touch. Extremities: No pedal edema. Const: Vital Signs, click to edit/add: Vital Signs - 24 hr 07/09/23 19:00 07/09/23 23:00 07/09/23 23:00 Temperature 97.2 F L Pulse Rate [Right Pulse Oximeter] 83 83 Respiratory Rate 18 18 18 Blood Pressure [Le ft Arm] 125/70 Blood Pressure [Ri ght Arm] Pulse Oximetry 97 97 Oxygen Delivery Me thod Room Air Room Air 07/09/23 23:00 07/10/23 03:00 07/10/23 09:00 Temperature 97.8 F 97.6 F Pulse Rate [Right Pulse Oximeter] 83 92 Respiratory Rate 16 18 20 Blood Pressure [Le ft Arm] 148/82 H Blood Pressure [Ri ght Arm] 137/58 L Pulse Oximetry 93 100 100 Oxygen Delivery Me thod Room Air Room Air Room Air 07/10/23 09:00 07/10/23 12:15 07/10/23 15:35 Temperature 97.3 F L 98.4 F 97.5 F L Pulse Rate [Right Pulse Oximeter] 83 84 72 Respiratory Rate 120 H 20 16 Blood Pressure [Le ft Arm] 145/90 H 141/73 H 141/74 H Blood Pressure [Ri ght Arm] Pulse Oximetry 100 99 98 Oxygen Delivery Me thod Room Air Room Air Room Air 07/10/23 15:46 Temperature Pulse Rate [Right Pulse Oximeter] Respiratory Rate 16 Blood Pressure [Le ft Arm] Blood Pressure [Ri ght Arm] Pulse Oximetry 100 Oxygen Delivery Me thod Room Air Documenting provider has reviewed patient's vital signs: yes Labs Labs: Laboratory Results - last 24 hr 01/08/24 06:15 WBC 5.78 RBC 3.82 L Hgb 10.3 L Hct 33.1 MCV 87 MCH 27 MCHC 31 L Plt Count 362 Sodium 136 Potassium 4.0 Chloride 104 Carbon Dioxide 26 Anion Gap 6 L BUN 21 Creatinine 1.4 Estimated Creat Clear 30.28 Estimated GFR 39 Glucose 120 H Calcium 8.4
--- NOTE | 2023-07-10 16:32 | PC.SOCIAL ---
Discharge planning- Phone call to pt's son to provide update. Phone call to [facility] and [facility] to follow up on referral. Left a voicemail requesting an update. Social work will follow up as needed.
--- NOTE | 2023-07-10 18:51 | PC.NURSE ---
Shift Summary 15-19: Patient pleasant and cooperative. T&R in bed. C/o pain 03/12, when asked where stated it was her rectum. When checked patient was not incontinent of stool, used tucks pad on bottom with some relief, also given PRN medication see MAR. Able to feed self independently after set up, currently working on dinner.
[2023-07-11] VITALS (7 sets, daily range): BP systolic 131–163; BP diastolic 64–84; PULSE 67–84; RESP 16–18; TEMP 35.7–37.6; O2SAT 96–98
[2023-07-11] MEDS: ACETAMINOPHEN 500 MG TABLET 1000 MG PO ×4 (05:29→23:35)
[2023-07-11] MEDS: OXYCODONE 5 MG TABLET 2.5 MG PO ×3 (05:30→21:10)
--- NOTE | 2023-07-11 06:26 | PC.NURSE ---
Pt alert and oriented to self and place. Afebrile. Pt reports 8/10 pain in perineal, managed with PRN and scheduled medications. Pt was turn and reposition throughout night as pt allowed.? Pt?s [place] is patent and draining. Pt continues to have scant bright red blood with bowel movements.? Pt slept throughout most of night.??
[2023-07-11 06:36] LABS: Hematocrit 33.2 % (33.0-51.0); Hemoglobin* 10.2 gm/dL (12.0-16.0); Mean Corpuscular HGB Conc 31 gm/dL (32-36); Mean Corpuscular Hemoglobin 27 pg (26-34); Mean Corpuscular Volume 88 fL (80-100); Platelet Count* 363 K/uL (140-440); Red Blood Count 3.79 m/uL (4.00-5.20); White Blood Count* 5.31 K/uL (4.50-11.00)
[2023-07-11 06:40] LABS: Slide Review Reflex No
[2023-07-11 06:58] LABS: Chloride* 105 mmol/L (96-114); Potassium* 4.1 mmol/L (3.6-5.1); Sodium* 136 mmol/L (135-149)
[2023-07-11 07:01] LABS: Anion Gap 5 mEq/L (7-15); Blood Urea Nitrogen* 21 mg/dL (7-30); Carbon Dioxide* 26 mmol/L (20-32); Creatinine* 1.3 mg/dL (0.5-1.5); Est. Creatinine Clearance* 32.61; Estimated Glomerular Filt Rate 42 ml/min
[2023-07-11 07:02] LABS: Calcium* 8.6 mg/dL (8.4-10.6); Glucose* 110 mg/dL (60-115)
[2023-07-11] MEDS: lidocaine HCL 2 % JELLY (TOP) STERILE 1 ML TOPICAL ×2 (09:13→21:51)
[2023-07-11] MEDS: FLUCONAZOLE 100 MG TABLET 200 MG PO (09:13)
[2023-07-11] MEDS: allopurinoL 100 MG TABLET PO (09:13)
[2023-07-11] MEDS: LOSARTAN POTASSIUM 50 MG TABLET PO (09:14)
[2023-07-11] MEDS: OMEPRAZOLE 20 MG CAPSULE DR PO (09:14)
[2023-07-11] MEDS: TRIAMCINOLONE ACETONIDE CREAM 0.1 % 1 APPLIC TOPICAL ×2 (09:14→21:52)
[2023-07-11] MEDS: METOPROLOL SUCCINATE (XL) 50 MG TAB PO ×2 (09:14→21:11)
[2023-07-11] MEDS: SODIUM CHLORIDE 0.9 % (FLUSH) 10 ML SYRINGE 5 ML IVF (09:14)
--- NOTE | 2023-07-11 09:47 | P.IMPN_ITS ---
Progress Note: A&P Assessment and plan (1) Bright red blood per rectum: Problem details: - intermittent bright red blood per rectum for at least a year, increase frequency and volume since 06/30/2023. Hemodynamically stable with stable Hgb Considerations include radiation proctitis, infection, malignancy, benign perianal and colonic bleeding - CT obtained 07/03, exhibited diverticulosis without diverticulitis, no acute abnormalities - colonoscopy recommended; given acute COVID infection and weakness, in addition to hemodynamic stability, plan to defer until outpatient appt - holding Metformin given diarrhea and good outpatient control of DM2 - intermittent bleeding during stay, hemoglobin and VS have remained stable - holding Apixaban given bleeding (son aware and in agreement given risks/benefits of anticoagulation for atrial fibrillation) Status: Acute (2) Radiation necrosis of skin and subcutaneous: Problem details: -Entire external genitalia from rectum to mons pubis. Completed 60 HBO treatments starting in January 2023 with eventual closure of wounds. -with COVID-19, increased weakness, increased urinary incontinence, skin at very high risk for breaking down again. -place Moctezuma catheter for skin care on 07/02. Outpatient follow-up with Urology on 07/14/2023. Continue with skin cares, nystatin cream. -pain management to include scheduled Tylenol, lidocaine patch low back, oxycodone p.r.n. for now which seems to be helping. -outpatient follow-up with Oncology for ongoing pain management. 07/07: Wound care clinic consulted, evaluated by Jen. Per discussion, as patient does not have her betamethasone with her, will order triamcinolone cream to be mixed with lidocaine gel and applied to the area twice daily. Zinc barrier cream to be applied in between these doses. Has an outpatient wound care clinic appointment on 07/12 Patient having a lot of pain with wound cares. Also having pain in anticipation of exam and cares. Discussions with son illustrate concern for somnolence and decreased motivation to participate in BR trips and ADLs with increase in narcotics. Continue current prn dosing. Status: Acute (3) COVID-19: Problem details: - given her high risk for complications, treated with IV Remdesivir as COVID- specific therapy - therapies ordered given comorbidities/deconditioning risk and associated fatigue - PT/OT consult. director outpatient services for discharge planning needs. Son is interested in SNF, would like [facility] as the 1st option. - 07/08: no hypoxia. - 07/11 will be last day of quarantine, patient would be cleared to discharge on 07/12 per protocol Status: Acute (4) Yeast infection involving the vagina and surrounding area: Problem details: - Fluconazole restarted 07/09 Status: Acute (5) Atrial fibrillation: Problem details: - rate controlled on Metoprolol - remains stable - pt has not been able to tolerate warfarin in the past 2/2 bleeding, on Apixaban prior to admission 07/02/23 - holding anticoagulation during stay given GI bleed, will continue to hold upon discharge given risks/benefits (discussed with son who is in agreement) Status: Acute (6) Cognitive impairment: Problem details: [place] . Uncertain if this is baseline. COVID and/or depression could affect this score Status: Acute (7) Incontinence of bowel: Problem details: New problem in the past week. Has had incontinence related to diarrhea from metformin. Metformin is stopped Status: Acute (8) Type 2 diabetes mellitus: Problem details: - A1C 6.0. Blood sugars here have been fairly well controlled, holding Metformin given h/o diarrhea while on this Status: Acute (9) Incontinence of urine: Problem details: - Moctezuma catheter currently in place Status: Acute Plan - per above - medically appropriate to d/c to SNF on 07/12, appreciate input from SW regarding placement - son updated by phone, questions answered Subjective Date Seen: 07/11/23 Interval history: Galilea was admitted on 07/02 for hematochezia and weakness, incidentally diagnosed with COVID in the ER. CT on admission revealed diverticulosis without diverticulitis, hemoglobin remains stable. Her deconditioning has been followed by our therapy teams, who recommend SNF placement upon discharge. Comorbidities include noninsulin dependent DM2, rate controlled atrial fibrillation (as an outpatient, anticoagulated on Apixaban), Essential HTN, and vulvar cancer, s/p multiple radiation treatments. She has been followed by our wound care center for treatment of chronic vulvar dermatitis/cellulitis (including hyperbaric oxygen therapy). We are currently managing her pain/cellulitis with lidocaine gel + steroid ointment BID, moctezuma catheter, APAP + Oxycodone, Fluconazole. No evidence of bacterial infection at this time. Exam Narrative: Exam Narrative: GEN: Alert and sitting comfortably in bed HEENT: EOMIs bilaterally, no scleral icterus CV: Rate controlled atrial fibrillation, No concerning murmurs R: LCTA bilaterally without concerning wheezing, air movement adequate : Vulvar erythema with scattered ulcerations, none actively bleeding. Moctezuma catheter in place Ext: wwp, no concerning edema Neuro: No focal deficits on limited exam Psych: Appropriate Const: Vital Signs, click to edit/add: Vital Signs - 24 hr 07/10/23 12:15 07/10/23 15:35 07/10/23 15:46 Temperature 98.4 F 97.5 F L Pulse Rate [Right Pulse Oximeter] 84 72 Respiratory Rate 20 16 16 Blood Pressure [Le ft Arm] 141/73 H 141/74 H Blood Pressure [Ri ght Arm] Pulse Oximetry 99 98 100 Oxygen Delivery Me thod Room Air Room Air Room Air 07/10/23 19:00 07/10/23 23:00 07/10/23 23:00 Temperature 97.8 F Pulse Rate [Right Pulse Oximeter] 73 Respiratory Rate 16 16 16 Blood Pressure [Le ft Arm] Blood Pressure [Ri ght Arm] 143/63 H Pulse Oximetry 97 97 Oxygen Delivery Me thod Room Air Room Air 07/10/23 23:00 07/11/23 03:00 07/11/23 07:00 Temperature 98.4 F 98.3 F Pulse Rate [Right Pulse Oximeter] 74 68 68 Respiratory Rate 18 18 18 Blood Pressure [Le ft Arm] 134/78 133/65 Blood Pressure [Ri ght Arm] Pulse Oximetry 95 96 Oxygen Delivery Me thod Room Air Room Air 07/11/23 07:00 07/11/23 07:00 Temperature 97.9 F Pulse Rate [Right Pulse Oximeter] 67 Respiratory Rate 18 18 Blood Pressure [Le ft Arm] 149/74 H Blood Pressure [Ri ght Arm] Pulse Oximetry 96 96 Oxygen Delivery Me thod Room Air Room Air Labs Labs: Laboratory Results - last 24 hr 07/11/23 06:21 WBC 5.31 RBC 3.79 L Hgb 10.2 L Hct 33.2 MCV 88 MCH 27 MCHC 31 L Plt Count 363 Sodium 136 Potassium 4.1 Chloride 105 Carbon Dioxide 26 Anion Gap 5 L BUN 21 Creatinine 1.3 Estimated Creat Clear 32.61 Estimated GFR 42 Glucose 110 Calcium 8.6
--- NOTE | 2023-07-11 15:47 | PC.SOCIAL ---
Discharge planning- Contacted the following SNF's for possible placement. 1. [facility]- Phone call to Dalia in admissions at [phone] to follow up on referral. Dalia requested more information on pt's wounds, updated progress note, HGB lab, and information on if pt was getting Colonoscopy inpatient. Provided requested information to [facility]. Received phone call back informing that [facility] is declining pt for admission due to not being able to meet pt's needs. 2. [facility]- Phone call to Anahi in admissions at [phone]. Anahi will check on referral that was previously sent and call this worker back. Faxed updated referral packet. 3. [facility]- Phone call to Lien in admissions at [phone]. Left a voicemail checking on bed availability. Faxed referral to [phone]. 4. [facility] in [place]- Phone call to admissions at [phone] to inquire on availability. They have openings. Faxed referral to [phone]. Received a phone call back informing that they are declining pt for admission. 5. [facility]- Phone call to admissions at [phone] and spoke to Nic. They have openings, faxed referral to [phone]. 6. [facility] in [place]- Phone call to admissions at [phone] and left a voicemail on bed availability. Faxed referral to [phone]. Phone call to pt's son to provide update. Pt's son informs that this worker can send information to [facility] in [place]. Pt's son has not looked at the extended list of SNF's that was sent that are [employer] contracted. Pt's son will review list and call this worker back with other options within the cities. Provided update to charge nurse. Social work will continue to follow up as needed.
--- NOTE | 2023-07-11 18:16 | PC.NURSE ---
Per Dr. Bell, being no SNF was found, wound clinic appointment to be cancelled. Message left for wound clinic. Did update son that wound appointment will be cancelled and he does not need to be here before 0800 to take patient. Verbalizes understanding. States he also called wound care to cancel appointment.
--- NOTE | 2023-07-11 19:28 | PC.NURSE ---
Nursing Care Hours: [id number] Pt this shift alert and oriented, calm and cooperative. Assist x1 with walker and gait belt to chair for breakfast. Declined the chair for rest of meals d/t pain. Pain treated per eMAR. Scant bright red blood with smear stool, some mucus noted. Medium BM this afternoon, not witnessed by proposal manager writer. Appetite low, encouraged to order ensure with meals. Low u/o, also encouraged to drink more fluids, pt receptive. Refused SANDY's but using SCD. Required one unit insulin for dinner time. Pt asked what insulin was for. Community Health Planning Director educated pt on sliding scale and why we use it at the hospital. Pt refused the insulin.
[2023-07-12 03:50] VITALS: BP 166/83; PULSE 70; RESP 16; TEMP 35.9; O2SAT 98
[2023-07-12] MEDS: ACETAMINOPHEN 500 MG TABLET 1000 MG PO ×3 (05:30→17:45)
[2023-07-12 07:14] LABS: Basophils Absolute Auto 0.01 K/uL (0.00-0.30); Basophils Percent Auto 0.2 % (0.0-3.0); Eosinophils Absolute Auto 0.19 K/uL (0.00-0.50); Eosinophils Percent Auto 4.2 % (0.0-7.0); Hemoglobin* 10.2 gm/dL (12.0-16.0); Immature Granulocytes Abs Auto 0.02 K/uL (0.00-0.30); Immature Granulocytes Pct Auto 0.4 %; Lymphocytes Percent Auto 15.5 % (20-44); Mean Corpuscular HGB Conc 31 gm/dL (32-36); Mean Corpuscular Hemoglobin 27 pg (26-34); Mean Corpuscular Volume 88 fL (80-100); Monocytes Percent Auto 11.5 % (0.0-11.0); Neutrophils Absolute Auto 3.07 K/uL (1.7-7.0); Neutrophils Percent Auto 68.2 % (42.0-72.0); Platelet Count* 382 K/uL (140-440); RDW Coefficient of Variation % 15.5 % (11.5-15.5); Red Blood Count 3.77 m/uL (4.00-5.20); White Blood Count* 4.51 K/uL (4.50-11.00)
[2023-07-12 07:23] LABS: Slide Review Reflex No
[2023-07-12 07:26] LABS: Chloride* 104 mmol/L (96-114); Sodium* 137 mmol/L (135-149)
[2023-07-12 07:27] LABS: Potassium* 4.8 mmol/L (3.6-5.1)
[2023-07-12 07:29] LABS: Anion Gap 3 mEq/L (7-15); Carbon Dioxide* 30 mmol/L (20-32); Creatinine* 1.2 mg/dL (0.5-1.5); Est. Creatinine Clearance* 35.33; Estimated Glomerular Filt Rate 47 ml/min
[2023-07-12 07:30] LABS: Blood Urea Nitrogen* 23 mg/dL (7-30); Calcium* 8.9 mg/dL (8.4-10.6); Glucose* 114 mg/dL (60-115)
--- NOTE | 2023-07-12 07:30 | PC.NURSE ---
End of shift note [id number]: Pt noted to be alert & oriented x 4 though does have intermittent forgetfulness. PRN Oxycodone 2.5 mg administered to pre-medicate before performing nicol cares at HS. Pt noted to moan at times due to chronic pain. No IV in place currently as day nurse reported previous IV had infiltrated. Pt refusing TEDs and SCDs despite education and encouragement provided. Pt is able to reposition independently with staff assisting with pillow placement PRN. Barrett catheter currently in place. VSS and pt has been afebrile. Instrumentation And Controls Designer encouraged use of IS though pt refused. Pt noted to have ulcer forming to R viridiana per day shift RN?s report. Instrumentation And Controls Designer performed nicol cares gently to the best of ability per what pt would allow after being pre-medicated with PRN Oxycodone. Blood sugar was noted to be 125 at HS with magic cup given for snack.
[2023-07-12 08:40] VITALS: BP 164/115; PULSE 69; RESP 18; TEMP 36.4; O2SAT 100
[2023-07-12] MEDS: OXYCODONE 5 MG TABLET 2.5 MG PO ×4 (08:56→21:45)
[2023-07-12] MEDS: FLUCONAZOLE 100 MG TABLET 200 MG PO (08:57)
[2023-07-12] MEDS: METOPROLOL SUCCINATE (XL) 50 MG TAB PO ×2 (08:57→21:44)
[2023-07-12] MEDS: OMEPRAZOLE 20 MG CAPSULE DR PO (08:57)
[2023-07-12] MEDS: LOSARTAN POTASSIUM 50 MG TABLET PO (08:57)
[2023-07-12] MEDS: allopurinoL 100 MG TABLET PO (08:58)
[2023-07-12 11:00] VITALS: BP 164/106; PULSE 77; RESP 18; TEMP 36.9; O2SAT 100
--- NOTE | 2023-07-12 11:47 | PM.IMPN1 ---
Progress Note: A&P Assessment and plan (1) Bright red blood per rectum: Problem details: - intermittent bright red blood per rectum for at least a year, increase frequency and volume since 06/30/2023. Hemodynamically stable with stable Hgb Considerations include radiation proctitis, infection, malignancy, benign perianal and colonic bleeding - CT obtained 07/03, exhibited diverticulosis without diverticulitis, no acute abnormalities - colonoscopy recommended; given acute COVID infection and weakness, in addition to hemodynamic stability, plan to defer until outpatient appt - holding Metformin given diarrhea and good outpatient control of DM2 - intermittent bleeding during stay, hemoglobin and VS have remained stable - holding Apixaban given bleeding (son aware and in agreement given risks/benefits of anticoagulation for atrial fibrillation) Status: Acute (2) Radiation necrosis of skin and subcutaneous: Problem details: - Entire external genitalia from rectum to mons pubis. Completed 60 HBO treatments starting in January 2023 with eventual closure of wounds. - with COVID-19, increased weakness, increased urinary incontinence, skin at very high risk for breaking down again. - placed Moctezuma catheter for skin care on 07/02, will f/u with Urology as an outpatient. Continue with skin cares, nystatin cream. - pain management to include scheduled Tylenol, lidocaine patch low back, oxycodone prn for now which seems to be helping. - outpatient follow-up with Oncology for ongoing pain management. - 07/07: pt evaluated by Jen from [facility]: treat with triamcinolone cream + lidocaine gel, apply BID. Zinc barrier cream to be applied in between these dose - outpatient wound care f/u, continue pain management for wound cares Status: Acute (3) COVID-19: Problem details: - given her high risk for complications, treated with IV Remdesivir as COVID-specific therapy - therapies ordered given comorbidities/deconditioning risk and associated fatigue - PT/OT consult. account services representative for discharge planning needs. Son is interested in SNF, would like [facility] as the 1st option. - 07/08: no hypoxia. - 07/11 will be last day of quarantine, patient would be cleared to discharge on 07/12 per protocol Status: Acute (4) Yeast infection involving the vagina and surrounding area: Problem details: - Fluconazole restarted 07/09 Status: Acute (5) Atrial fibrillation: Problem details: - rate controlled on Metoprolol - remains stable - pt has not been able to tolerate warfarin in the past 2/2 bleeding, on Apixaban prior to admission 07/02/23 - holding anticoagulation during stay given GI bleed, will continue to hold upon discharge given risks/benefits (discussed with son who is in agreement) Status: Acute (6) Cognitive impairment: Problem details: [place] . Uncertain if this is baseline. COVID and/or depression could affect this score Status: Acute (7) Incontinence of bowel: Problem details: New problem in the past week. Has had incontinence related to diarrhea from metformin. Metformin is stopped Status: Acute (8) Type 2 diabetes mellitus: Problem details: - A1C 6.0. Blood sugars here have been fairly well controlled, holding Metformin given h/o diarrhea while on this Status: Acute (9) Incontinence of urine: Problem details: - Moctezuma catheter currently in place Status: Acute Plan - continue to await SNF placement - son Jose updated by phone, questions answered Subjective Date Seen: 07/12/23 Interval history: Galilea was admitted on 07/02 for hematochezia and weakness, incidentally diagnosed with COVID in the ER. CT on admission revealed diverticulosis without diverticulitis, hemoglobin and VS remains stable. Her deconditioning has been followed by our therapy teams, they recommend SNF placement upon discharge. Comorbidities include noninsulin dependent DM2, rate controlled atrial fibrillation (as an outpatient, anticoagulated on Apixaban), Essential HTN, and vulvar cancer, s/p multiple radiation treatments. She has been followed by our wound care center for treatment of chronic vulvar dermatitis/cellulitis (including hyperbaric oxygen therapy). We are currently managing her pain/fungal cellulitis with lidocaine gel + steroid ointment BID, moctezuma catheter, APAP + Oxycodone, Fluconazole. Exam Narrative: Exam Narrative: GEN: Alert and awake, laying comfortably in bed HEENT: EOMIs bilaterally, no scleral icterus CV: Rate controlled atrial fibrillation, no concerning murmurs R: LCTA bilaterally without concerning wheezing, air movement adequate : Normal exam deferred as area was evaluated yesterday and patient denies concerns Neuro: Nonfocal Psych: Appropriate Const: Vital Signs, click to edit/add: Vital Signs - 24 hr 07/11/23 15:00 07/11/23 15:00 07/11/23 15:00 Temperature 99.7 F H Pulse Rate [Right Pulse Oximeter] 84 79 Respiratory Rate 18 18 18 Blood Pressure [Le ft Arm] 131/84 Blood Pressure [Ri ght Arm] Pulse Oximetry 97 97 Oxygen Delivery Me thod Room Air Room Air 07/11/23 20:17 07/11/23 23:31 07/11/23 23:31 Temperature 96.4 F L 96.3 F L Pulse Rate [Right Pulse Oximeter] 72 77 Respiratory Rate 18 16 16 Blood Pressure [Le ft Arm] 133/64 132/69 Blood Pressure [Ri ght Arm] Pulse Oximetry 96 98 98 Oxygen Delivery Me thod Room Air Room Air Room Air 07/11/23 23:42 07/12/23 03:50 07/12/23 08:40 Temperature 96.6 F L Pulse Rate [Right Pulse Oximeter] 77 70 Respiratory Rate 16 16 18 Blood Pressure [Le ft Arm] Blood Pressure [Ri ght Arm] 166/83 H Pulse Oximetry 98 100 Oxygen Delivery In thod Room Air Room Air 07/12/23 08:40 Temperature 97.6 F Pulse Rate [Right Pulse Oximeter] 69 Respiratory Rate 18 Blood Pressure [Le ft Arm] Blood Pressure [Ri ght Arm] 164/115 H Pulse Oximetry 100 Oxygen Delivery Me thod Room Air Labs Labs: Laboratory Results - last 24 hr 07/12/23 06:56 WBC 4.51 RBC 3.77 L Hgb 10.2 L Hct 33.0 MCV 88 MCH 27 MCHC 31 L RDW Coeff of Robert 15.5 Plt Count 382 Neut % (Auto) 68.2 Lymph % (Auto) 15.5 L Candler % (Auto) 11.5 H Eos % (Auto) 4.2 Baso % (Auto) 0.2 Neut # (Auto) 3.07 Lymph # (Auto) 0.70 L Candler # (Auto) 0.50 Eos # (Auto) 0.19 Baso # (Auto) 0.01 Abs Immat Gran (auto) 0.02 Imm/Tot Granulo (auto) 0.4 Sodium 137 Potassium 4.8 Chloride 104 Carbon Dioxide 30 Anion Gap 3 L BUN 23 Creatinine 1.2 Estimated Creat Clear 35.33 Estimated GFR 47 Glucose 114 Calcium 8.9
--- NOTE | 2023-07-12 14:35 | PC.SOCIAL ---
Addendum entered by RACHEL Zhang 07/12/23 16:54: Received a phone call from Randi ([phone]) at [facility] in [place], [place]. Pt is accepted for admission. [facility] has started [employer] Prior Auth. Randi will contact this worker tomorrow regarding discharge plans. Phone call to pt's son, Jose, and provided update. Original Note: Discharge planning- Phone call with pt's son Jose and received more SNF's that family is interested in that are in the [place] area. SNF's contacted are listed below. 1. [facility]- Phone call to Anahi and left a voicemail following up on facility decision. 2. [facility]- Phone call to Lien in admissions and left a voicemail following up on facility decision. 3. [facility]- Phone call to IZAIAH Gibson at [phone] to follow up on facility decision. Referral was sent to team for decision, IZAIAH will follow up on decision and call SW back. 4. [facility]- Phone call to admissions to follow up on referral that was faxed, left voicemail requesting a phone call back. 5. [facility] ([place])- Phone call to admissions at [phone]. Left a voicemail with Ld requesting information on bed availability. 6. [facility]- Phone call to admissions at [phone]. Left a voicemail requesting information on bed availability. 7. [facility] ([place])- Phone call to admissions at [phone]. Left a voicemail with Gena in admissions on bed availability. received a phone call back informing that they are full and have a waitlist. 8. [facility]- Phone call to admissions at [phone]. Left a voicemail with Stella in admissions requesting information on bed availability. Provided udpate to pt's son. Social work will continue to follow up.
[2023-07-12 16:05] VITALS: BP 153/88; PULSE 74; RESP 18; TEMP 37; O2SAT 100
--- NOTE | 2023-07-12 19:09 | PC.NURSE ---
Pt pleasant. Rates pain 5-9/10, see MAR for medication administration with relief. Pt refuses nicol care throughout the day. Continent of bowel. Barrett cath patent and draining. Appetite increased with 3 meals eaten at 75-100%. Walked out to branch for 10 feet with typewriter tester and PT; SBA, gait belt, and walker used. Otherwise remained in bed refusing chair or additional ambulation.
[2023-07-12 20:25] VITALS: BP 158/75; PULSE 72; RESP 16; TEMP 36.2; O2SAT 99
[2023-07-12] MEDS: INSULIN ASPART 100 UNIT/ML SUBCUT (21:44)
[2023-07-12] MEDS: lidocaine HCL 2 % JELLY (TOP) STERILE 5 ML TOPICAL (22:28)
[2023-07-12] MEDS: TRIAMCINOLONE ACETONIDE CREAM 0.1 % 1 APPLIC TOPICAL (22:29)
[2023-07-12 23:00] VITALS: BP 152/88; PULSE 75; RESP 16; TEMP 36.3; O2SAT 97
[2023-07-13] VITALS (7 sets, daily range): BP systolic 144–174; BP diastolic 70–105; PULSE 73–93; RESP 16–24; TEMP 36.3–36.7; O2SAT 91–99
[2023-07-13] MEDS: ACETAMINOPHEN 500 MG TABLET 1000 MG PO ×4 (00:12→23:59)
[2023-07-13] MEDS: OXYCODONE 5 MG TABLET 2.5 MG PO ×5 (02:47→23:59)
[2023-07-13 06:33] LABS: Basophils Absolute Auto 0.01 K/uL (0.00-0.30); Basophils Percent Auto 0.2 % (0.0-3.0); Eosinophils Absolute Auto 0.17 K/uL (0.00-0.50); Eosinophils Percent Auto 3.4 % (0.0-7.0); Hemoglobin* 10.3 gm/dL (12.0-16.0); Immature Granulocytes Abs Auto 0.02 K/uL (0.00-0.30); Immature Granulocytes Pct Auto 0.4 %; Lymphocytes Percent Auto 13.3 % (20-44); Mean Corpuscular HGB Conc 30 gm/dL (32-36); Mean Corpuscular Hemoglobin 27 pg (26-34); Mean Corpuscular Volume 88 fL (80-100); Monocytes Percent Auto 8.9 % (0.0-11.0); Neutrophils Percent Auto 73.8 % (42.0-72.0); Platelet Count* 390 K/uL (140-440); RDW Coefficient of Variation % 15.6 % (11.5-15.5); Red Blood Count 3.88 m/uL (4.00-5.20); White Blood Count* 4.97 K/uL (4.50-11.00)
[2023-07-13 06:42] LABS: Chloride* 103 mmol/L (96-114); Sodium* 137 mmol/L (135-149)
[2023-07-13 06:43] LABS: Slide Review Reflex No
[2023-07-13 06:44] LABS: Creatinine* 1.2 mg/dL (0.5-1.5); Est. Creatinine Clearance* 35.33; Estimated Glomerular Filt Rate 47 ml/min
[2023-07-13 06:45] LABS: Anion Gap 5 mEq/L (7-15); Blood Urea Nitrogen* 22 mg/dL (7-30); Carbon Dioxide* 29 mmol/L (20-32); Glucose* 112 mg/dL (60-115)
--- NOTE | 2023-07-13 07:03 | PC.NURSE ---
End of shift note [id number]: Pt has had no specific episodes of confusion noted this shift. Blood glucose of 201 at HS. Pt?noted to be asking when she can have her next dose of PRN Oxycodone even after just waking from sleep- needs education and reminders for pain scale. Pt did allow RN to perform nicol cares per orders after education and encouragement provided along with pre-medicating with PRN Oxycodone before performing nicol cares. Zinc cream provided to nicol area in between admin times of medicated cream and Lidocaine. Barrett catheter remains in place. Pt noted to able to reposition independently in bed though does need staff assistance with boosting up in bed. Pt agreeable to wearing SCDs after education and encouragement provided though still refusing to wear SANDY stockings when educated and encouraged. Barrett catheter remains in place.
[2023-07-13] MEDS: METOPROLOL SUCCINATE (XL) 50 MG TAB PO ×2 (09:01→21:11)
[2023-07-13] MEDS: OMEPRAZOLE 20 MG CAPSULE DR PO (09:01)
[2023-07-13] MEDS: LOSARTAN POTASSIUM 50 MG TABLET PO (09:01)
[2023-07-13] MEDS: allopurinoL 100 MG TABLET PO (09:01)
[2023-07-13] MEDS: FLUCONAZOLE 100 MG TABLET 200 MG PO (09:01)
[2023-07-13] MEDS: TRIAMCINOLONE ACETONIDE CREAM 0.1 % 1 APPLIC TOPICAL ×2 (09:02→21:11)
[2023-07-13] MEDS: lidocaine HCL 2 % JELLY (TOP) STERILE 5 ML TOPICAL ×2 (09:12→21:11)
--- NOTE | 2023-07-13 11:11 | CRLHL7_ITS ---
For Patients: As a result of the Century Cures Act, medical imaging exams and procedure reports are released immediately into your electronic medical record. You may view this report before your referring provider. If you have questions, please contact your health care provider. Indication: Continued bloody diarrhea and abdominal pain Technique: Volumetric multidetector CT images of the abdomen and pelvis were without the administration of intravenous contrast. Comparison: CT abdomen and pelvis July 03, 2023 Findings: The lung bases are clear. The liver demonstrates minimal cystic change of the right liver lobe. Otherwise the right liver is grossly within normal limits. The gallbladder is unremarkable without evidence of radiopaque calculus. There is no significant common biliary ductal dilatation or abrupt cut off. The spleen is normal in attenuation and size. The stomach and duodenum are grossly unremarkable. The pancreas is normal in attenuation without significant atrophy. Again seen are somewhat bulky hypoattenuating adrenal glands similar to previous likely representing mild hypertrophic changes. There is no evidence of radiopaque calculus or hydronephrosis. Moderate stool is seen throughout the colon with extensive colonic diverticulosis. There is questionable mild focal thickening of the rectum with minimal perirectal inflammatory change. The appendix is unremarkable. There is no significant mesenteric, retroperitoneal, or pelvic sidewall lymph nodes. The aorta is not aneurysmal with moderate scattered atherosclerotic calcification. There is a small balloon catheter within the urinary bladder. There is no free fluid or free air. The anterior abdominal wall is intact without significant hernias. The lumbar vertebral body heights are grossly maintained with moderate multilevel degenerative disc disease. There is no significant spondylolisthesis or displaced fracture. Impression: Moderate focal thickening of the rectum with mild perirectal inflammatory changes likely representing proctitis changes. Extensive proximal colonic diverticulosis without definite evidence of diverticulitis. Please note that all CT scans at this facility use dose modulation, iterative reconstruction, and/or weight-based dosing when appropriate to reduce radiation dose to as low as reasonably achievable. Dictated by Bj Smith MD @ 07/13/2023 12:54:19 PM (Electronically Signed)
--- NOTE | 2023-07-13 13:24 | P.IMPN_ITS ---
Progress Note: A&P Assessment and plan (1) Bright red blood per rectum: Problem details: - intermittent bright red blood per rectum for at least a year, increase frequency and volume since 06/30/2023. Hemodynamically stable with stable Hgb Considerations include radiation proctitis, infection, malignancy, benign perianal and colonic bleeding - CT obtained 07/03, exhibited diverticulosis without diverticulitis, no acute abnormalities - colonoscopy recommended; given acute COVID infection and weakness, in addition to hemodynamic stability, plan to defer until outpatient appt - holding Metformin given diarrhea and good outpatient control of DM2 - intermittent bleeding during stay, hemoglobin and VS have remained stable - holding Apixaban given bleeding (son aware and in agreement given risks/benefits of anticoagulation for atrial fibrillation), continue to hold upon discharge Status: Acute (2) Radiation necrosis of skin and subcutaneous: Problem details: - Entire external genitalia from rectum to mons pubis. Completed 60 HBO treatments starting in January 2023 with eventual closure of wounds. - with COVID-19, increased weakness, increased urinary incontinence, skin at very high risk for breaking down again. - placed Moctezuma catheter for skin care on 07/02, will f/u with Urology as an outpatient. Continue with skin cares, nystatin cream. - pain management to include scheduled Tylenol, lidocaine patch low back, oxycodone prn for now which seems to be helping. - outpatient follow-up with Oncology for ongoing pain management. - 07/07: pt evaluated by Jen from [facility]: treat with triamcinolone cream + lidocaine gel, apply BID. Zinc barrier cream to be applied in between these doses - outpatient wound care f/u, continue pain management for wound cares Status: Acute (3) Proctitis: Problem details: - noted on 07/13/23 imaging - initiate steroid suppositories (07/13), continue Imodium Status: Acute (4) COVID-19: Problem details: - given her high risk for complications, completed 3 day course of IV Remdesivir as COVID-specific therapy - therapies ordered given comorbidities/deconditioning risk and associated fatigue, SNF recommended but will likely go home with son Status: Acute (5) Yeast infection involving the vagina and surrounding area: Problem details: - Fluconazole restarted during stay, completed course of treatment Status: Acute (6) Atrial fibrillation: Problem details: - rate controlled on Metoprolol - remains stable - pt has not been able to tolerate warfarin in the past 2/2 bleeding, on Apixaban prior to admission 07/02/23 - holding anticoagulation during stay given GI bleed, will continue to hold upon discharge given risks/benefits (discussed with son who is in agreement) Status: Acute (7) Cognitive impairment: Problem details: - MOCA 15. Uncertain if this is baseline. COVID and/or depression could affect this score Status: Acute (8) Incontinence of bowel: Problem details: - new problem since admission, proctitis noted on 07/13/23 imaging - Imodium added 07/13/23, steroid suppositories also initiated. Holding Metformin Status: Acute (9) Type 2 diabetes mellitus: Problem details: - A1C 6.0. Blood sugars here have been fairly well controlled, holding Metformin given diarrhea Status: Acute (10) Incontinence of urine: Problem details: - Moctezuma catheter currently in place, outpatient Urology f/u Status: Acute Plan - start suppositories for new diagnosis of proctitis, continue Imodium - given new dx, recommend one more day to confirm stability of symptoms and Hgb - likely home with son tomorrow (understands SNF recommendation); he was updated at bedside today Subjective Date Seen: 07/13/23 Interval history: Galilea was admitted on 07/02 for hematochezia and weakness, incidentally diagnosed with COVID in the ER. CT on admission revealed diverticulosis without diverticulitis, hemoglobin and VS have remained stable throughout stay. Her deconditioning has been followed by our therapy teams, they recommend SNF placement upon discharge; she is reviewing this with son and they plan to d/c home. Comorbidities include noninsulin dependent DM2, rate controlled atrial fibrillation (as an outpatient was anticoagulated on Apixaban), Essential HTN, and vulvar cancer, s/p multiple radiation treatments. She has been followed by our wound care center for treatment of chronic vulvar dermatitis/cellulitis (including hyperbaric oxygen therapy). We are currently managing her pain/fungal cellulitis with lidocaine gel + steroid ointment BID, moctezuma catheter, APAP + Oxycodone, 7 day course of oral Fluconazole. This morning, Adelia has more discomfort in her abdomen and rectum. She had a large incontinent melanotic stool this morning. Hgb stable at 10.3, normal BP and pulse. Exam Narrative: Exam Narrative: GEN: Alert and laying in bed HEENT: EOMIs bilaterally, no scleral icterus CV: Rate controlled atrial fibrillation R: LCTA bilaterally without concerning wheezing Ab: mild discomfort LLQ on palpation, no rebound or guarding : perineal erythema continues to improve, scattered ulcers are stable Ext: wwp, no concerning edema Skin: Scattered bruising, no jaundice Neuro: Nonfocal Psych: Appropriate Const: Vital Signs, click to edit/add: Vital Signs - 24 hr 07/12/23 16:05 07/12/23 16:05 07/12/23 20:25 Temperature 98.6 F 97.1 F L Pulse Rate [Right Pulse Oximeter] 74 72 Respiratory Rate 18 18 16 Blood Pressure [Le ft Arm] 153/88 H 158/75 H Blood Pressure [Ri ght Arm] Pulse Oximetry 100 100 99 Oxygen Delivery Ms thod Room Air Room Air Room Air 07/12/23 23:00 07/12/23 23:00 07/12/23 23:00 Temperature 97.4 F L Pulse Rate [Right Pulse Oximeter] 75 75 Respiratory Rate 16 16 16 Blood Pressure [Le ft Arm] Blood Pressure [Ri ght Arm] 152/88 H Pulse Oximetry 97 97 Oxygen Delivery Ms thod Room Air Room Air 07/13/23 03:00 07/13/23 07:00 07/13/23 07:00 Temperature 97.4 F L 97.6 F Pulse Rate [Right Pulse Oximeter] 73 74 Respiratory Rate 16 16 16 Blood Pressure [Le ft Arm] 154/74 H Blood Pressure [Ri ght Arm] 160/83 H Pulse Oximetry 94 99 99 Oxygen Delivery Ms thod Room Air Room Air Room Air 07/13/23 11:00 Temperature 97.8 F Pulse Rate [Right Pulse Oximeter] 78 Respiratory Rate 18 Blood Pressure [Le ft Arm] Blood Pressure [Ri ght Arm] 166/83 H Pulse Oximetry 91 Oxygen Delivery Ms thod Room Air Labs Labs: Laboratory Results - last 24 hr 07/13/23 05:53 WBC 4.97 RBC 3.88 L Hgb 10.3 L Hct 34.0 MCV 88 MCH 27 MCHC 30 L RDW Coeff of Robert 15.6 H Plt Count 390 Neut % (Auto) 73.8 H Lymph % (Auto) 13.3 L [place] % (Auto) 8.9 Eos % (Auto) 3.4 Baso % (Auto) 0.2 Neut # (Auto) 3.70 Lymph # (Auto) 0.70 L [place] # (Auto) 0.40 Eos # (Auto) 0.17 Baso # (Auto) 0.01 Abs Immat Gran (auto) 0.02 Imm/Tot Granulo (auto) 0.4 Sodium 137 Potassium 5.0 Chloride 103 Carbon Dioxide 29 Anion Gap 5 L BUN 22 Creatinine 1.2 Estimated Creat Clear 35.33 Estimated GFR 47 Glucose 112 Calcium 9.0
[2023-07-13] MEDS: LOPERAMIDE HCL 2 MG CAPSULE PO ×2 (13:48→21:11)
--- NOTE | 2023-07-13 14:03 | PC.NURSE ---
Shift Summary: Patient pleasant and cooperative. Up with 1 assist, walker and gait belt. Had x1 moderately sized incontinent bloody BM, updated, new orders placed. Patient stated most of her pain is from her rectum, managed with PRN oxycodone 2.5mg. Vitals following bloody BM remain stable, patient does not appear pale, no weakness expressed. Good appetite today. Skin care done to perineum and bottom this morning.
--- NOTE | 2023-07-13 15:45 | PC.SOCIAL ---
Discharge planning- Recieved a phone call from admissions at [facility] in [place] informing that they have openings and can accept referral for pt. Faxed referral to [phone]. Received a voicemail from Randi at [facility] at [phone] informing that the facility has obtained prior authorization and can accept pt for admission today. Received an e-mail from pt's son, Jose Wood, with concerns of the [facility] facility. Pt's son is requesting that pt not go to [facility] due to online reviews that he viewed last evening on the medicare website. Pt's son is concerned that pt will not get adequate care at the facility. Pt's son presents options that social work find another facility that is a higher rated facility, pt's son be encouraged to go tour [facility] and talk with therapy staff, or pt discharge to home with pt's son. Pt's son requests a phone call to discuss discharge plans. Phone call to pt's son to discuss options. Informed pt's son that the prior authorization has been completed and pt can go to [facility] today. Pt's son expresses that he does not want to accept the bed at [facility]. Pt's son explains some of the bad experiences his family has had at other SNF's and states he would like to take pt home. Informed pt's son that social work would assist with setting up home care for PT and OT if pt were to discharge home. Discussed medicare rights document and informed pt's son that pt can appeal her hospital discharge and this worker will provide the form with the appeal process. Pt's son will come into [facility] at 12:00 pm during his lunch break and will get the medicare rights form. Pt's son requests to speak with therapy at 12:00 pm to get printed exercises that he can work on with pt at home. Informed pt's son that this worker will contact PT and request that they provide exercise information. Pt's son will take plan to take pt home at 5:00 pm when he is done with work for the day. Provided update to MD and charge nurse. Phone call to Elder in PT and provided update. Elder will provide requested information. Phone call to Randi in admissions at [facility] to provide update that pt would not be admitting to their facility. Randi informs that if pt is in need of SNF within the next few days, pt can still admit since facility has the prior authorization. Informed Randi that this worker will provide information to staff and pt's family. Received another e-mail from pt's son expressing concern that pt called pt's son to provide medical update that she had a large BM with blood. Pt's son is concerned and states he would like to appeal discharge and find a new SNF facility. Phone call to pt's son to discuss e-mail. Informed pt that the appeal would be to appeal the hospital discharge if he is in disagreement of the decision to discharge pt today. Pt's son is concerned that pt has new medical issues and would like to discuss with MD. Provided update to MD, MD will call pt's son and discuss further. Met with pt's son in person and provided medicare rights form to appeal hospital discharge. Pt's son will talk with MD and make decision on whether he will appeal the discharge. Informed pt's son that [facility] is willing to take pt within the next few days if needed, since they already obtained prior authorization. Provided pt's son with contact information for [facility]. Per MD, pt had an abnormal scan and will be monitored another day. Discharge plan is to discharge pt to home tomorrow with home care for PT/OT in place. Per MD, pt's son will not be appealing pt's discharge. Provided update to MD that [facility] would still consider pt for admission since they already have prior auth in place, if plans were to change. Contacted the following Home Care Agencies to locate home care for pt. 1. [facility]- Phone call to [facility] and there are no openings. 2. [facility]- Phone call to [facility] care, transferred to [facility] as they service [facility]. Left voicemail with web worker requesting call back. Provided brief information that pt is from [facility] and needs PT/OT. 3. [facility]- Phone call to Vic fernandez at [phone]. Was informed by intake that they do not service [place] which is within [facility]. Will not accept referral. 4. [facility]- Phone call to [facility] at [phone]. There is no availability due to therapy staff being on [place]. 5. [facility] E-mail to Sindi Souza to inquire on home care availability. Sindi informs that they do not provide service to [facility]. 6. [facility]- Phone call to intake at [phone]. Left voicemail with web worker requesting call back. Provided brief information that pt is from [facility] and needs PT/OT. 7. [facility]- Phone call to intake at [phone]. They do not cover the [facility] area. 8. [facility]- Phone call to intake at [phone]. They do not cover the [facility] area. 9. [facility]- Home care does not cover the [facility] area. Social work will continue locate home care services for pt.
[2023-07-13] MEDS: INSULIN ASPART 100 UNIT/ML SUBCUT (21:10)
--- NOTE | 2023-07-13 22:49 | PC.NURSE ---
Elevated BP, otherwise VSS. RA. Rectal pain of 7-9, some relief w/ 2.5 mg oxy & scheduled tylenol. Refused hydrocortisone suppository. Decreased appetite, encouraged drinking. Barrett catheter in place, cath cares done- 200 cc dark yellow, cloudy urine. Incontinent loose BM x1. Up w/ 1A, walker, gaitbelt. Encouragement to reposition in bed, pt able to do so. No IV. Will continue to monitor, follow POC, and keep pt adn family updated. Daphnie Mcgraw RN
[2023-07-14 03:00] VITALS: BP 149/74; PULSE 75; RESP 18; TEMP 36.3; O2SAT 97
--- NOTE | 2023-07-14 06:22 | PC.NURSE ---
Shift note: Pain treated per eMAR and pt able to rest overnight. No other complains verbalized by pt.
[2023-07-14] MEDS: OXYCODONE 5 MG TABLET 2.5 MG PO ×3 (06:35→16:50)
[2023-07-14] MEDS: ACETAMINOPHEN 500 MG TABLET 1000 MG PO ×2 (06:36→11:45)
[2023-07-14 07:06] LABS: Basophils Absolute Auto 0.01 K/uL (0.00-0.30); Basophils Percent Auto 0.1 % (0.0-3.0); Eosinophils Absolute Auto 0.21 K/uL (0.00-0.50); Eosinophils Percent Auto 2.7 % (0.0-7.0); Hematocrit 33.5 % (33.0-51.0); Hemoglobin* 10.4 gm/dL (12.0-16.0); Immature Granulocytes Abs Auto 0.01 K/uL (0.00-0.30); Immature Granulocytes Pct Auto 0.1 %; Lymphocytes Percent Auto 7.9 % (20-44); Mean Corpuscular HGB Conc 31 gm/dL (32-36); Mean Corpuscular Hemoglobin 27 pg (26-34); Mean Corpuscular Volume 87 fL (80-100); Monocytes Percent Auto 7.7 % (0.0-11.0); Neutrophils Percent Auto 81.5 % (42.0-72.0); Platelet Count* 373 K/uL (140-440); RDW Coefficient of Variation % 15.6 % (11.5-15.5); Red Blood Count 3.86 m/uL (4.00-5.20); White Blood Count* 7.77 K/uL (4.50-11.00)
[2023-07-14 07:34] LABS: Albumin* 3.7 g/dL (3.3-5.0); Chloride* 103 mmol/L (96-114)
[2023-07-14 07:35] LABS: Potassium* 4.6 mmol/L (3.6-5.1); Sodium* 138 mmol/L (135-149)
[2023-07-14 07:37] LABS: Alanine Aminotransferase* 17 U/L (4-35); Alkaline Phosphatase* 158 U/L (40-150); Anion Gap 5 mEq/L (7-15); Aspartate Amino Transferase* 26 U/L (12-35); Bilirubin Total* 0.3 mg/dL (0.1-1.5); Blood Urea Nitrogen* 20 mg/dL (7-30); Carbon Dioxide* 30 mmol/L (20-32); Creatinine* 1.2 mg/dL (0.5-1.5); Est. Creatinine Clearance* 35.33; Estimated Glomerular Filt Rate 47 ml/min; Glucose* 117 mg/dL (60-115); Total Protein* 7.1 g/dL (6.0-8.3)
[2023-07-14 07:38] LABS: Calcium* 9.2 mg/dL (8.4-10.6)
[2023-07-14 07:43] LABS: Slide Review Reflex No
[2023-07-14 08:30] VITALS: BP 149/70; PULSE 86; RESP 18; TEMP 36.7; O2SAT 98
[2023-07-14] MEDS: LOSARTAN POTASSIUM 50 MG TABLET PO (09:49)
[2023-07-14] MEDS: LOPERAMIDE HCL 2 MG CAPSULE PO (09:49)
[2023-07-14] MEDS: METOPROLOL SUCCINATE (XL) 50 MG TAB PO (09:49)
[2023-07-14] MEDS: allopurinoL 100 MG TABLET PO (09:49)
[2023-07-14] MEDS: OMEPRAZOLE 20 MG CAPSULE DR PO (09:49)
--- NOTE | 2023-07-14 10:04 | PC.SOCIAL ---
Addendum entered by Ilene Calvillo DRY HOUSE ATTENDANT 07/14/23 15:19: Received call back from [facility] Confirming they are unable to provide services to pt at home. There is no home health care agency able to provide PT/OT to pt at home. Original Note: Discharge planning: Continued to attempt to find home health PT/OT for pt for discharge home today. Called [facility] customer services and was provided with the following list of [facility] contracted Home Health agencies within 20 miles of pt's home address. Called all of these agencies with the listed results. 1. [facility] [phone]; No staff available in her area. 2. [facility] - [phone]; contracted with [facility] but no agencies in [place]. 3. [facility] - [phone] ; do not serve her area. 4. [facility] - [phone]; do not serve her area. 5. [facility] [phone]; No OT and do not serve her area. 6. [facility] - Do not serve her area. 7. [facility] [phone]; not currently accepting new [facility] patients. 8. [facility] [phone]; Do not serve her area. 9. [facility] [phone]; Do not serve her area. 10. [facility] - Do not serve her area. 11. [facility] - [phone]; spoke with Viri who requested information be faxed. They generally do not serve that area, but she will double check to see if it is a possibility. Faxed requested face sheet and face -to-face orders to [facility] and awaiting decision. In the past two days, addiction social worker has called 20 Home Health Care agencies which includes all [email or web address] contracted agencies within 20 miles of patient home address. At this time, there are no home care agencies available to accept this referral. The only agency still considering is [facility]. hand bindery assembly worker to follow up with [facility]. to discuss lack of home care availability and discharge plan with son.
--- NOTE | 2023-07-14 10:07 | P.DS_ITS ---
DS: Providers Provider Date Seen: 07/14/23 Date of admission: 07/03/23 11:05 Primary care physician: Isidoro Dooley MD Admitting Clinician: Brooks Prescott MD Consults: OT, PT, Nutrition, Wound Care Attending Physician on discharge: Siena Bell MD Date of Discharge: 07/14/23 DS: Diagnosis Discharge Diagnosis (1) Proctitis: Status: Acute Problem details: - noted on 07/13/[address] - initiated steroid suppositories (07/13), continue Imodium for intermittent diarrhea (2) COVID-19: Status: Acute Problem details: - diagnosed on admission 07/02; given her high risk for complications, completed 3 day course of IV Remdesivir as COVID-specific therapy, didn't require O2 - therapies ordered given comorbidities/deconditioning risk and associated fatigue, SNF recommended but patient elected to go home with son upon discharge (3) Chronic pain: Status: Acute Problem details: - primarily 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 Blood sugars here have been fairly well controlled, held Metformin given diarrhea, will continue to hold upon discharge (5) Incontinence of bowel: Status: Acute Problem details: - new problem since admission, proctitis noted on 07/13/23 imaging - Imodium added 07/13/23, steroid suppositories also initiated. Holding Metformin (6) Atrial fibrillation: Status: Acute Problem details: - rate controlled on Metoprolol - remained stable during hospitalization - pt has not been able to tolerate warfarin in the past 2/2 bleeding, on Apixaban prior to admission 07/02/23 - holding anticoagulation during stay given GI bleed, will continue to hold upon discharge given risks/benefits (discussed with son who is in agreement) (7) Bright red blood per rectum: Status: Acute Problem details: - intermittent BRBPR for at least a year, increased frequency/volume since 06/30/23; ddx: radiation proctitis, infection, malignancy, benign perianal and colonic bleeding - VS and Hgb stable during stay - CT obtained 07/03, exhibited diverticulosis without diverticulitis, no acute abnormalities; repeat scan 07/13 c/w proctitis - colonoscopy recommended; given acute COVID infection and weakness, in addition to hemodynamic stability, plan to defer until outpatient appt - holding Metformin given diarrhea and good outpatient control of DM2 - intermittent bleeding during stay, hemoglobin and VS have remained stable - holding Apixaban given bleeding (son aware and in agreement given risks/benefits of anticoagulation for atrial fibrillation), continue to hold upon discharge (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 Completed 60 HBO treatments starting in January 2023 with eventual closure of wounds. - with COVID-19, increased weakness, increased urinary incontinence, skin at very high risk for breaking down again. - placed Moctezuma catheter for skin care on 07/02, will f/u with Urology as an outpatient. Continue with skin cares, nystatin cream. - pain management to include scheduled Tylenol, lidocaine patch low back, oxycodone prn for now which seems to be helping. - outpatient follow-up with Oncology for ongoing pain management. - 07/07: pt evaluated by Jen from [facility] [place]: treat with triamcinolone cream + lidocaine gel, apply BID. Zinc barrier cream to be applied in between these doses - outpatient wound care f/u, continue pain management for wound cares DS: Summary Hospital Course Hospital Course: Galilea was admitted to the hospital on 07/02 for hematochezia and weakness, incidentally diagnosed with COVID in the ER. CT on admission revealed diverticulosis without diverticulitis. During stay, patient had intermittent hematochezia, hemoglobin and VS remained stable throughout stay. Pain worsened on 07/13, repeat CT revealed proctitis and Anusol suppositories were initiated. Weakness/deconditioning improved during stay; followed by therapy teams who recommended SNF upon discharge. Patient and son elected to discharge home on 07/14/23. Comorbidities with findings noted in detail above, she will continue f/u with Wound Center for her chronic vulvar dermatitis/cellulitis (s/p radiation for vulvar cancer). She completed a course of Fluconazole for cellulitis/intertrigo; on discharge pain will be managed with lidocaine gel + steroid ointment BID, moctezuma catheter (placed on admission, will keep upon d/c), APAP + Oxycodone. Will see PCP next week in followup. Changes to outpatient medications: STOP Metformin STOP Eliquis START Anusol suppositories for proctitis (2-3 times/day for 7-10 days, can taper based on bloody stools/pain) CONTINUE Imodium and Oxycodone as needed Status at Discharge Functional status at discharge: uses cane/walker Overall status at discharge: patient is progressing back to baseline Time Spent with Patient Time attestation: Total time spent providing and/or coordinating discharge services: Time spent: Greater than 30 minutes Specific discharge activities: medication reconciliation, patient and family education, care coordination with multidisciplinary team Exam Narrative: Exam Narrative: GEN: Alert, sitting comfortably in bed HEENT: EOMIs bilaterally, no scleral icterus CV: Rate controlled atrial fibrillation, no concerning murmurs R: LCTA bilaterally without concerning wheezing, air movement adequate Ab: soft, no ttp, tolerates exam well : Vulvar cellulitis not formally examined today, was improved on exam yesterday Ext: wwp, no concerning edema Skin: Scattered bruising over extremities, no jaundice Neuro: No focal deficits Psych: Appropriate Const: Vital Signs, click to edit/add: Vital Signs - 24 hr 07/13/23 11:00 07/13/23 15:00 07/13/23 15:00 Temperature 97.8 F Pulse Rate [Right Pulse Oximeter] 78 93 Respiratory Rate 18 20 20 Blood Pressure [Le ft Arm] Blood Pressure [Ri ght Arm] 166/83 H Pulse Oximetry 91 99 Oxygen Delivery Me thod Room Air Room Air 07/13/23 17:31 07/13/23 19:41 07/13/23 23:00 Temperature 97.6 F 98.0 F Pulse Rate [Right Pulse Oximeter] 93 84 84 Respiratory Rate 20 24 24 Blood Pressure [Le ft Arm] 174/105 H 144/70 H Blood Pressure [Ri ght Arm] Pulse Oximetry 99 98 Oxygen Delivery Me thod Room Air 07/13/23 23:00 07/13/23 23:00 07/14/23 03:00 Temperature 97.3 F L Pulse Rate [Right Pulse Oximeter] 87 75 Respiratory Rate 20 20 18 Blood Pressure [Le ft Arm] Blood Pressure [Ri ght Arm] 149/74 H Pulse Oximetry 97 97 97 Oxygen Delivery Me thod Room Air Room Air Room Air DS: Data Data Completed and Pending Labs on day of discharge: Labs from last 24 hours 07/14/23 06:30 WBC 7.77 RBC 3.86 L Hgb 10.4 L Hct 33.5 MCV 87 MCH 27 MCHC 31 L RDW Coeff of Robert 15.6 H Plt Count 373 Neut % (Auto) 81.5 H Lymph % (Auto) 7.9 L Sebastian % (Auto) 7.7 Eos % (Auto) 2.7 Baso % (Auto) 0.1 Neut # (Auto) 6.30 Lymph # (Auto) 0.60 L Sebastian # (Auto) 0.60 Eos # (Auto) 0.21 Baso # (Auto) 0.01 Abs Immat Gran (auto) 0.01 Imm/Tot Granulo (auto) 0.1 Sodium 138 Potassium 4.6 Chloride 103 Carbon Dioxide 30 Anion Gap 5 L BUN 20 Creatinine 1.2 Estimated Creat Clear 35.33 Estimated GFR 47 Glucose 117 H Calcium 9.2 Total Bilirubin 0.3 AST 26 ALT 17 Alkaline Phosphatase 158 H Total Protein 7.1 Albumin 3.7 Discharge Plan Discharge Disposition: Home, Self-Care Date of Admission: 07/03/23 11:05 Attending Provider on Discharge: Siena Bell Consulting Providers: Jen Peña Primary Care Provider: Isidoro Dooley Condition: Improved Anticipated Discharge Date/Time: 07/12/23 07:30 Discharge Medications: New triamcinolone acetonide 0.1 % Cream 1 applic topical BID Qty: 453.6 0RF oxycodone 5 mg Tablet 2.5 mg PO Q4H PRN (Reason: pain) Qty: 20 0RF loperamide 2 mg Capsule 2 mg PO TID Qty: 60 0RF hydrocortisone acetate [Anucort-HC] 25 mg Suppository 25 mg MI TID 8 Days Qty: 24 0RF Continued allopurinol 100 mg tablet 100 mg PO DAILY omeprazole 20 mg capsule,delayed release(DR/EC) 20 mg PO DAILY albuterol sulfate 90 mcg/actuation HFA aerosol inhaler 1 - 2 puff INHALATION Q4H PRN (Reason: dyspnea) rosuvastatin 5 mg tablet 5 mg PO DAILY metoprolol succinate 50 mg tablet extended release 24 hr 50 mg PO BID valsartan 40 mg tablet 40 mg PO BID Qty: 60 2RF lidocaine HCl 2 % jelly in applicator 1 applic topical .2-4 TIMES DAILY PRN (Reason: pain) peg 3350-electrolytes [Golytely] 236-22.74-6.74 -5.86 gram recon soln 240 ml PO Q10M Qty: 4000 0RF Rx Instructions: until fecal effluent is clear Changed torsemide 10 mg tablet 10 mg PO DAILY PRNQty: 30 0RF Discontinued fluconazole 200 mg tablet 200 mg PO DAILY Eliquis 5 mg tablet 5 mg PO BID Discharge Orders: Discharge Order (Routine); Ordered 07/14/23 Ordered By: Siena Bell Patient Education: Loperamide (By mouth) (Imodium A-D, Imotil, Anti-Diarrheal, Diamode), Hydrocortisone (On the skin), Oxycodone, Rapid Release (By mouth), Rectal Bleeding (DC), COVID-19 and Chronic Health Conditions (DC) Additional Instructions: Changes to outpatient medications: STOP Metformin STOP Eliquis START Anusol suppositories for proctitis (2-3 times/day for 7-10 days, can taper based on bloody stools/pain) CONTINUE Imodium and Oxycodone as needed FOLLOWUP: Miah (PCP), Wound care, Urology vs Oncology for Catheter management, outpatient colonoscopy. Activity Level: Activity as Tolerated Activity Detail: Recommend home therapy exercises daily Discharge Diet: Diabetic Follow Up Appointments: Isidoro Dooley MD [Primary Care Provider] - 07/25/23 8:20 am () Forms: [facility] Info Instructions
[2023-07-14 11:00] VITALS: BP 147/82; PULSE 75; RESP 20; TEMP 36.6; O2SAT 100
[2023-07-14] MEDS: lidocaine HCL 2 % JELLY (TOP) STERILE 5 ML TOPICAL (11:46)
[2023-07-14] MEDS: TRIAMCINOLONE ACETONIDE CREAM 0.1 % 1 APPLIC TOPICAL (11:46)
[2023-07-14 15:45] VITALS: BP 147/80; PULSE 83; RESP 20; TEMP 36.4; O2SAT 98
--- NOTE | 2023-07-14 18:41 | PC.NURSE ---
Pt pleasant and thankful today to comic writer for care given while here. Pain controlled with Oxycodone per MAR, refused Hydrocortisone suppository, continued to educated on importance of new medication for healing inflamed rectum. Appetite has improved per pt, while pain has remained similar to previous days comic writer has cared for pt. DC instructions given verbally and in writing to pt and son whom she lives with. All questions answered. W/C to sons truck to return home @ 1750.
== END 2023-07-14 17:50 | disposition home or self-care (01) | DRG 393 ==
LOC: ED 21:53 → MEDSURG 21:58
PROVIDERS: Physician Assistant; Admitting Provider Internal Medicine; Emergency Provider Emergency Medicine; PCP Family Medicine; Visit Provider Family Medicine
DX: K62.7 Radiation proctitis (principal); U07.1 COVID-19; K62.5 Hemorrhage of anus and rectum; K52.1 Toxic gastroenteritis and colitis; I96 Gangrene, not elsewhere classified; L59.8 Other specified disorders of the skin and subcutaneous tissue related to radiation; Y84.2 Radiological procedure and radiotherapy as the cause of abnormal reaction of the patient, or of later complication, without mention of misadventure at the time of the procedure; B37.32 Chronic candidiasis of vulva and vagina; G31.84 Mild cognitive impairment of uncertain or unknown etiology; R15.9 Full incontinence of feces; R32 Unspecified urinary incontinence; R54 Age-related physical debility; G89.29 Other chronic pain; Z79.01 Long term (current) use of anticoagulants; K62.89 Other specified diseases of anus and rectum; N76.2 Acute vulvitis; N18.9 Chronic kidney disease, unspecified; I50.9 Heart failure, unspecified; K21.9 Gastro-esophageal reflux disease without esophagitis; G47.33 Obstructive sleep apnea (adult) (pediatric); J45.909 Unspecified asthma, uncomplicated; I48.91 Unspecified atrial fibrillation; E11.22 Type 2 diabetes mellitus with diabetic chronic kidney disease; T38.3X5A Adverse effect of insulin and oral hypoglycemic [antidiabetic] drugs, initial encounter; L57.8 Other skin changes due to chronic exposure to nonionizing radiation; I10 Essential (primary) hypertension; K57.30 Diverticulosis of large intestine without perforation or abscess without bleeding; Z85.44 Personal history of malignant neoplasm of other female genital organs; Z79.84 Long term (current) use of oral hypoglycemic drugs
CPT/HCPCS: 36415; 51702; 74176; 74177; 80048; 80053; 80076; 82803; 82962; 83605; 83735; 84100; 85018; 85025; 85027; 85610; 85730; 86140; 86850; 86900; 86901; 87493; 87631; 97110; 97116; 97162; 97165; 97530; 97535; 99284; A9270; G0378; J7030; J7050; Q9967

== ENCOUNTER 2023-07-26 08:02 | Outpatient (CLI) | payer OTHER, SELFPAY | END 2023-07-26 08:03 | disposition home or self-care (01) | PROVIDERS: PCP Family Medicine; Visit Provider Family Medicine | DX: L59.8 Other specified disorders of the skin and subcutaneous tissue related to radiation (principal); E08.628 Diabetes mellitus due to underlying condition with other skin complications; B37.32 Chronic candidiasis of vulva and vagina; R10.2 Pelvic and perineal pain; R32 Unspecified urinary incontinence; N76.3 Subacute and chronic vulvitis | CPT/HCPCS: G0463 ==

== ENCOUNTER 2023-08-05 15:34 | Inpatient (IN) | payer OTHER, SELFPAY ==
[2023-08-05] VITALS (12 sets, daily range): BP systolic 133–176; BP diastolic 76–109; PULSE 72–92; RESP 18–22; TEMP 36.6–36.7; O2SAT 93–99; BMI 26.6; BMI 27.4
--- NOTE | 2023-08-05 | CRLHL7_ITS ---
For Patients: As a result of the Century Cures Act, medical imaging exams and procedure reports are released immediately into your electronic medical record. You may view this report before your referring provider. If you have questions, please contact your health care provider. INDICATION: Fell. TECHNIQUE: PA chest. FINDINGS: A Port-A-Cath with the tip in the superior vena cava. Normal size cardiac silhouette. No pneumothorax or pleural effusion. IMPRESSION: No acute pathology. Dictated by Car Gaston MD @ 08/05/2023 5:12:00 PM (Electronically Signed)
--- NOTE | 2023-08-05 15:51 | ED.GENADULT ---
HPI - General Adult General Date Seen: 08/05/23 Chief complaint: Hip Injury/Pain Stated complaint: Fall Time Seen by Provider: 08/05/23 15:51 History of Present Illness HPI narrative: This is a 78-year-old female with a past medical history of[] atrial fibrillation who normally lives in her own home. Today she was walking toward the bathroom when she had a mechanical trip and fall. She landed on her left side. She had an injury to her left hip. She did not hit her head and had no loss of consciousness. Although she has AFib, unclear if she is on blood thinners. She was unable to ambulate. She was brought in by EMS. They report that she has a clear deformity with foreshortening and external rotation of her left lower extremity. EMS administered an IV. They gave her 100 mcg of fentanyl and 2 mg of Versed EN route. The patient is a limited historian, drowsy possibly from pain meds and benzos. Her son provides most history for her. 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 Apparently for the past year she has been battling chronic skin breakdown on her pelvis and in the intertriginous areas of her legs. She has been working with the wound clinic [facility] getting hyperbaric oxygen therapy in for the most part her wounds have healed up as of a couple of months ago. She apparently has chronic infections with fungus and is on chronic suppressive fluconazole. She also has a chronic indwelling Barrett. She also has paroxysmal AFib. She was hospitalized around with lower GI bleeding. She apparently spent 10 days in the hospital and ultimately was thought that the lower GI bleeding is probably related to radiation proctitis or colitis. The bleeding is now getting better since she is doing a regimen of steroid suppositories at home. She has had fairly normal, nonbloody stools, this entire week. She also has chronic pain in her pelvis because of the radiation. She is on chronic oxycodone 2.5 mg every 4 hours for that. She has a history of proximal AFib. She is not currently anticoagulated, but she had been on apixaban in the past. She was at home with her family today. She was walking, as she usually does, with her walker. Her son says she got her feet twisted and then fell over. He is not exactly sure why she had her left leg behind her right leg. She landed on her left side. Her son saw her fall but just could not catch her. She did not hit her head. No LOC. Since falling she has had left hip pain. She was not able to get upper bear weight. EMS was called and they administered fentanyl and Versed in route. Last dose of oxycodone was at about 10 30 or 11 this morning. She has pain in her left hip and proximal thigh. No other pain. Related Data Home Medications Medication Instructions Recorded Confirmed albuterol sulfate 90 mcg/actuation 1 - 2 puff inhalation Q4H PRN 03/02/23 07/03/23 aerosol inhaler dyspnea allopurinol 100 mg tablet 100 mg PO DAILY 03/02/23 08/05/23 metoprolol succinate 50 mg 50 mg PO BID 03/02/23 08/05/23 tablet,extended release 24 hr omeprazole 20 mg capsule,delayed 20 mg PO DAILY 03/02/23 08/05/23 release rosuvastatin 5 mg tablet 5 mg PO DAILY 03/02/23 08/05/23 lidocaine HCl 2 % mucosal jelly in 1 applic topical .2-4 TIMES DAILY 07/03/23 08/05/23 applicator PRN pain apixaban 5 mg tablet (Eliquis) 5 mg PO BID 08/05/23 08/05/23 blood sugar diagnostic (Accu-Chek 08/05/23 08/05/23 Guide test strips) blood-glucose meter (Accu-Chek 08/05/23 08/05/23 Guide Glucose Meter) Previous Rx's Medication Instructions Recorded valsartan 40 mg tablet 40 mg PO BID #60 tabs 03/08/23 peg 3350-electrolytes 236 240 ml PO Q10M #4,000 mL 07/05/23 gram-22.74 gram-6.74 gram-5.86 gram solution (Golytely) triamcinolone acetonide 0.1 % 1 applic topical BID #453.6 grams 07/11/23 topical cream hydrocortisone acetate 25 mg 25 mg AL TID 8 days #24 ea 07/14/23 rectal suppository (Anucort-HC) loperamide 2 mg capsule 2 mg PO TID #60 caps 07/14/23 oxycodone 5 mg tablet 2.5 mg (1/2 x 5 mg) PO Q4H PRN 07/14/23 pain #20 tabs torsemide 10 mg tablet 10 mg PO DAILY PRN #30 tabs 07/14/23 Allergies Allergy/AdvReac Type Severity Reaction Status Date / Time No Known Drug Allergies Allergy Verified 08/05/23 15:48 [facility] Medical History (Updated 08/05/23 @ 19:41 by Rajinder Valencia MD) Chronic pain ?G89.29 - Other chronic pain (ICD-10) Frail elderly ?R54 - Age-related physical debility (ICD-10) Incontinence of urine ?R32 - Unspecified urinary incontinence (ICD-10) Cognitive impairment ?R41.89 - Other symptoms and signs involving cognitive functions and awareness (ICD-10) Bright red blood per rectum ?K62.5 - Hemorrhage of anus and rectum (ICD-10) Cellulitis of perineum ?L03.315 - Cellulitis of perineum (ICD-10) Vulvar cancer ?C51.9 - Malignant neoplasm of vulva, unspecified (ICD-10) Type 2 diabetes mellitus ?E11.9 - Type 2 diabetes mellitus without complications (ICD-10) Atrial fibrillation ?I48.91 - Unspecified atrial fibrillation (ICD-10) Yeast infection involving the vagina and surrounding area ?B37.31 - Acute candidiasis of vulva and vagina (ICD-10) Incontinence of bowel ?R15.9 - Full incontinence of feces (ICD-10) Bacteremia ?R78.81 - Bacteremia (ICD-10) 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 - Other specified disorders of the skin and subcutaneous tissue related to radiation (ICD-10) ?Y84.2 - Radiological procedure and radiotherapy as the cause of abnormal reaction of the patient, or of later complication, without mention of misadventure at the time of the procedure (ICD-10) Chronic renal insufficiency ?N18.9 - Chronic kidney disease, unspecified (ICD-10) GERD (gastroesophageal reflux disease) ?K21.9 - Gastro-esophageal reflux disease without esophagitis (ICD-10) Obstructive sleep apnea ?G47.33 - Obstructive sleep apnea (adult) (pediatric) (ICD-10) Asthma ?J45.909 - Unspecified asthma, uncomplicated (ICD-10) Hypertension ?I10 - Essential (primary) hypertension (ICD-10) Cardiomyopathy ?I42.9 - Cardiomyopathy, unspecified (ICD-10) Congestive heart failure ?I50.9 - Heart failure, unspecified (ICD-10) Surgical History [place] teeth removed ?K08.409 - Partial loss of teeth, unspecified cause, unspecified class (ICD-10) History of tubal ligation ?Z98.51 - Tubal ligation status (ICD-10) Hx of total knee arthroplasty ?Z96.659 - Presence of unspecified artificial knee joint (ICD-10) History of bunionectomy ?Z98.890 - Other specified postprocedural states (ICD-10) Status post breast reduction ?Z98.890 - Other specified postprocedural states (ICD-10) Status post biopsy of uterine cervix ?Z98.890 - Other specified postprocedural states (ICD-10) Social History (Updated 08/05/23 @ 19:29 by Rajinder Valencia MD) Narrative: She lives with her son. Code status is DNR DNI. What is your current living situation?: I presently have a place to live Problems where you live: no known problems Problems where you live details: N/A In the past 12 months, utilities in danger of being shut off: no In past 12 months, lack of transportation kept you from medical appts, meetings, work, or getting things needed for daily living: no In the past 12 mos, have been you worried that your food would run out before you had money to buy more?: never true In the past 12 mos, the food you bought just didn't last and you didn't have money to buy more?: never true Highest level of school completed/degree received: high school graduate Smoking Status: Former smoker Do you use any of these nicotine containing products: None Second hand tobacco smoke exposure: No How often do you have a drink containing alcohol: never How often do you have six or more drinks on one occasion: Never AUDIT-C Alcohol total score: 0 Non-prescribed substance use: denies use Caffeine: Yes How often does anyone, including family, friends and others, physically hurt you: never How often does anyone, including family, friends and others, insult or talk down to you: never How often does anyone, including family, friends and others, threaten you with harm: never How often does anyone, including family, friends and others, scream or curse at you: never service: No Exam Narrative: Exam Narrative: Constitutional: Appears well-developed and well-nourished. Awake but somewhat drowsy. Polite and answer some questions but cannot recall answers to others. Son provides a lot of detailed history for her.. HENT: Head: Atraumatic. No depressed skull fracture, Raccoon Eyes, Chin's sign, or hemotympanum. Face normal. Nose: Nose normal. Mouth/Throat: Oral mucosa is clear and moist. no trismus. Pharynx normal. Tonsils symmetric. No tonsillar enlargement, erythema, or exudate. Eyes: Conjunctivae normal. EOM normal. Pupils equal, round, and reactive to light. No scleral icterus. Neck: Normal range of motion. Neck supple. No tracheal deviation present. No posterior midline tenderness. Cardiovascular: Normal rate, regular rhythm. No gallop. No friction rub. No murmur heard. Symmetric DP and PT artery pulses Pulmonary/Chest: Effort normal. No stridor. No respiratory distress. No wheezes. No rales. No rhonchi . No tenderness. Abdominal: Soft. Bowel sounds normal. No distension. No mass. No tenderness. No rebound. No guarding. Musculoskeletal: No T or L-spine tenderness. Marked tenderness over lateral hip. There is apparent external rotation and foreshortening of the left leg suspicious for hip fracture. No tenderness of the distal femur, knee, lower leg, ankle, foot. RUE: Normal range of motion. No tenderness. No deformity LUE: Normal range of motion. No tenderness. No deformity RLE: Normal range of motion. No edema. No tenderness. No deformity Lymph: No cervical adenopathy. Neurological: Awake but drowsy and oriented to person, place, and time. Normal strength in both upper and both lower extremities. Left lower extremity strength testing limited by hip pain. She does able to flex and extend bilaterally toes and plantar flex/dorsiflex both feet. She has chronic dropped the making both feet feel symmetrically numb. No new focal sensory deficit. CN II-VII intact. GCS eye subscore is 4. GCS verbal subscore is 5. GCS motor subscore is 6. Normal coordination Skin: Full feet are somewhat cool to the touch but both have palpable DP pulses and cap refill less than 2 seconds. Her son indicates that she has chronic poor circulation. Skin is warm and dry. No rash noted. No pallor. Normal capillary refill. Psychiatric: Normal mood. Normal affect. Const: Vital Signs, click to edit/add: Vital Signs - 24 hr 08/05/23 15:40 08/05/23 15:40 08/05/23 16:00 Temperature 97.9 F Pulse Rate 84 80 Pulse Rate [Left P ulse Oximeter] Pulse Rate [Pulse Oximeter] 81 Respiratory Rate 18 Blood Pressure Blood Pressure [Ri ght Arm] Blood Pressure [Ri ght Upper Arm] 148/86 H Pulse Oximetry 96 93 [facility] 08/05/23 16:01 08/05/23 16:25 08/05/23 16:30 Temperature Pulse Rate 79 78 76 Pulse Rate [Left P ulse Oximeter] Pulse Rate [Pulse Oximeter] Respiratory Rate Blood Pressure 150/86 H 133/76 Blood Pressure [Ri ght Arm] Blood Pressure [Ri ght Upper Arm] Pulse Oximetry 96 97 98 [facility] 08/05/23 16:31 08/05/23 17:00 08/05/23 17:01 Temperature Pulse Rate 76 72 74 Pulse Rate [Left P ulse Oximeter] Pulse Rate [Pulse Oximeter] Respiratory Rate Blood Pressure 140/83 H 150/109 H Blood Pressure [Ri ght Arm] Blood Pressure [Ri ght Upper Arm] Pulse Oximetry 94 97 97 [facility] 08/05/23 17:30 08/05/23 17:31 08/05/23 18:36 Temperature 98.0 F Pulse Rate 76 80 Pulse Rate [Left P ulse Oximeter] 92 Pulse Rate [Pulse Oximeter] Respiratory Rate 22 Blood Pressure 160/78 H Blood Pressure [Ri ght Arm] 176/105 H Blood Pressure [Ri ght Upper Arm] Pulse Oximetry 97 95 95 [facility] Course Vital Signs Vital signs: Initial Vital Signs Temperature 97.9 F 08/05/23 15:40 Temperature Source Temporal Artery Scan 08/05/23 15:40 Pulse Rate 84 08/05/23 15:40 Pulse Rhythm Regular 08/05/23 15:40 Pulse Strength 3+ Normal 08/05/23 15:40 Respiratory Rate 18 08/05/23 15:40 Blood Pressure 148/86 H 08/05/23 15:40 Blood Pressure Mean 106 H 08/05/23 15:40 Blood Pressure Position Semi-Fowlers 08/05/23 15:40 Pulse Oximetry 96 08/05/23 15:40 Oxygen Delivery Method Room Air 08/05/23 15:40 Vital Signs Temperature 97.9 F 08/05/23 15:40 Pulse Rate 84 08/05/23 15:40 Respiratory Rate 18 08/05/23 15:40 Blood Pressure 148/86 H 08/05/23 15:40 Pulse Oximetry 96 08/05/23 15:40 Oxygen Delivery Method Room Air 08/05/23 15:40 Temperature 98.0 F 08/05/23 18:36 Pulse Rate 92 08/05/23 18:36 Respiratory Rate 22 08/05/23 18:36 Blood Pressure 176/105 H 08/05/23 18:36 Pulse Oximetry 95 08/05/23 18:36 Oxygen Delivery Method Room Air 08/05/23 18:36 Medications Administered Medications: Generic Name Dose Route Start Last Admin Trade Name Freq PRN Reason Stop Dose Admin Hydromorphone HCl 0.5 mg 08/05/23 15:52 08/05/23 18:14 Hydromorphone 0.5 Mg/0.5 Ml Inj IVP 0.5 mg Q1H PRN Administration Pain Discontinued Medications Generic Name Dose Route Start Last Admin Trade Name Freq PRN Reason Stop Dose Admin Ondansetron HCl 4 mg 08/05/23 15:52 08/05/23 16:05 Ondansetron 2 Mg/Ml Inj IVP 08/05/23 15:53 4 mg ONCE ONE Administration Medical Decision Making MDM Narrative Medical decision making narrative: This is a pleasant 78-year-old female with a complex past medical history brought to the ER today by EMS for what was reported to be a ground level trip and fall with an injury to her left hip. 1. Trauma. She did fall from standing and injured her hip. Her son witnessed the fall and all parties agree she did not hit her head or lose consciousness. She does not have a headache. No neck pain. She has not have any injuries to her upper extremities, rib cage, back, or torso. She has isolated left hip and left proximal femur pain. X-rays of the left hip confirm a femoral neck fracture which correlates with the site of her pain and her clinical exam. She is neurovascularly intact in the left leg. Closed fracture Discussed with Orthopedics, SALLY Sheridan. 2. Fall. This was reported to be a mechanical trip and fall. No of syncope or seizure 3. 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 She has been following with the [facility] and receiving hyperbaric oxygen therapy the for that. My clinical exam today is limited by pain from the patient but her son, who is deeply involved in her care, confirms that almost all of her previous skin sores have healed safer very superficial skin breakdown on the intertriginous areas of her proximal medial thighs and her perineum. 4. She was recently hospitalized for lower GI bleeding. This was ultimately thought to be due to proctitis from radiation. She was discharged home with a hemoglobin of 10 on 07/14. She has been doing steroid suppositories since in the hospital and at home and her previous bleeding has now almost essentially resolved. Stools have been brown, formed, with only small tinges of blood this week. No significant rectal pain. She has no abdominal pain or tenderness. Initial CBC drawn here showed a markedly low hemoglobin of 4, which was discordant with the reported history and did not fit with the patient's clinical exam and blood pressure. Repeat CBC actually shows that her hemoglobin is 9, which would fit with the clinical picture. It is clear that they initial CBC was erroneous. I had lab deleted from the patient's record. She had chronically been on Eliquis for stroke prophylaxis with AFib. However this was discontinued during her recent hospitalization for GI bleeding and she has not been on it now in approximately a month. 5. She has a mild leukocytosis with white count of 11.6, likely due to stress reaction from her injury. 6. She has had an indwelling Barrett placed since her last hospitalization. It is draining yellow urine. No signs of hematuria. No new sediment or other symptoms to suggest UTI. No sign of obstruction or dislodgement during the fall. Will leave current Barrett catheter in place. 7. Labs show a new rising creatinine up from a baseline of around 1.2 up to 1.6. BUN also elevated. Suspect probably dehydration. She is are chronic torsemide. IV fluids ordered. Blood pressure stable. Discussed with ortho Fatimah ZAVALA who discussed with the ortho attending, Dr. Lorenzo. They plan to do operative repair of this patient's fracture tomorrow morning. Should be NPO after midnight. Accepted by hospitalist, Dr. Valencia. Lab Data Labs: Lab Results 08/05/23 08/05/23 08/05/23 Range/Units 16:05 16:36 16:50 WBC Cancelled 11.06 H Corrected WBC Cancelled RBC Cancelled 3.62 L Hgb Cancelled 9.3 L Hct Cancelled 30.9 L MCV Cancelled 85 MCH Cancelled 26 MCHC Cancelled 30 L RDW Coeff of Robert Cancelled 15.7 H Plt Count Cancelled 383 Neut % (Auto) Cancelled 88.5 H Lymph % (Auto) Cancelled 5.2 L [place] % (Auto) Cancelled 4.6 Eos % (Auto) Cancelled 1.1 Baso % (Auto) Cancelled 0.2 Neut # (Auto) Cancelled 9.80 H Lymph # (Auto) Cancelled 0.60 L [place] # (Auto) Cancelled 0.50 Eos # (Auto) Cancelled 0.10 Baso # (Auto) Cancelled 0.00 Abs Immat Gran (auto) Cancelled 0.00 Imm/Tot Granulo (auto) Cancelled 0.4 INR 0.95 (0.91-1.10) APTT 34 H (23-33) Seconds Sodium 138 (135-149) mmol/L Potassium 4.4 (3.6-5.1) mmol/L Chloride 105 (96-114) mmol/L Carbon Dioxide 22 (20-32) mmol/L Anion Gap 11 (7-15) mEq/L BUN 32 H (7-30) mg/dL Creatinine 1.6 H (0.5-1.5) mg/dL Estimated Creat Clear 26.50 Estimated GFR 33 ml/min Glucose 87 (60-115) mg/dL Lactate 0.8 (0.5-1.9) mmol/L Calcium 9.3 (8.4-10.6) mg/dL Blood Type A Negative Antibody Screen NEGATIVE Imaging Data xr left hip and pelvis: Attestation: I have reviewed the pertinent imaging results. My impression: Comminuted impacted left femoral neck fracture, at the base of the neck Radiologist's impression: IMPRESSION: No acute intracranial disease. Discharge Plan Discharge Clinical Impression: Closed fracture of neck of left femur Patient Disposition: Admitted As Observation
--- NOTE | 2023-08-05 15:52 | CRLHL7_ITS ---
For Patients: As a result of the Cures Act, medical imaging exams and procedure reports are released immediately into your electronic medical record. You may view this report before your referring provider. If you have questions, please contact your health care provider. INDICATION: Fall; left hip pain. TECHNIQUE: Three-view study pelvis and left hip. FINDINGS: Fracture through the base of the left femoral neck without any displacement. No other abnormalities are identified. Dictated by Car Gaston MD @ 08/05/2023 5:10:59 PM (Electronically Signed)
[2023-08-05] MEDS: ONDANSETRON 2 MG/ML inj 4 MG IVP (16:05)
[2023-08-05] MEDS: HYDROmorphone 0.5 mg/0.5 ml inj IVP ×3 (16:05→22:36)
[2023-08-05 16:27] LABS: Chloride* 105 mmol/L (96-114)
[2023-08-05 16:28] LABS: Potassium* 4.4 mmol/L (3.6-5.1); Sodium* 138 mmol/L (135-149)
[2023-08-05 16:30] LABS: Creatinine* 1.6 mg/dL (0.5-1.5); Estimated Glomerular Filt Rate 33 ml/min
[2023-08-05 16:31] LABS: Anion Gap 11 mEq/L (7-15); Blood Urea Nitrogen* 32 mg/dL (7-30); Calcium* 9.3 mg/dL (8.4-10.6); Carbon Dioxide* 22 mmol/L (20-32); Glucose* 87 mg/dL (60-115)
[2023-08-05 16:43] LABS: Basophils Percent Auto 0.2 % (0.0-3.0); Eosinophils Percent Auto 1.1 % (0.0-7.0); Hematocrit 30.9 % (33.0-51.0); Hemoglobin* 9.3 gm/dL (12.0-16.0); Immature Granulocytes Pct Auto 0.4 %; Lymphocytes Percent Auto 5.2 % (20-44); Mean Corpuscular HGB Conc 30 gm/dL (32-36); Mean Corpuscular Hemoglobin 26 pg (26-34); Mean Corpuscular Volume 85 fL (80-100); Monocytes Percent Auto 4.6 % (0.0-11.0); Neutrophils Percent Auto 88.5 % (42.0-72.0); Platelet Count* 383 K/uL (140-440); RDW Coefficient of Variation % 15.7 % (11.5-15.5); Red Blood Count 3.62 m/uL (4.00-5.20); White Blood Count* 11.06 K/uL (4.50-11.00)
[2023-08-05 16:49] LABS: Slide Review Reflex No
[2023-08-05 16:58] LABS: INR 0.95 (0.91-1.10); Prothrombin Time 13.3 Seconds
[2023-08-05 16:59] LABS: Partial Thromboplastin Time* 34 Seconds (23-33)
[2023-08-05 17:01] LABS: Lactate* 0.8 mmol/L (0.5-1.9)
--- NOTE | 2023-08-05 18:20 | ED.NURSE ---
Report given to JASON Eller in med/surg. All questions answered. Pt given 0.5mg IV Dilaudid prior to floor transfer due to pain in hip. Pt transferred to room 247 with son and daughter in law. All belongings with patient at time of discharge
--- NOTE | 2023-08-05 19:17 | PM.IMHP1 ---
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 She was hospitalized here for approximately the 1st 2 weeks of July this year. She was discharged home with her son. She has been walking with a walker and according to her son has been doing fairly well until tonight when she was walking to her bed and she got her feet tangled up and fell over. She did not hit her head or lose consciousness. She was not feeling ill prior to the fall. She denies any other injury, head injury, arm injury, back, abdominal or chest injury. When she was hospitalized at the end of June 2023 she was having rectal bleeding. She was also incidentally found to have a COVID infection at that time. She was quite weak and was felt to need standby assistance when she was walking with her walker. The rectal bleeding was thought secondary to proctitis from radiation treatment she had received a couple years ago for her vulvar cancer. She was on apixaban for stroke prophylaxis with AFib. After discussion of risks and benefits this was discontinued. She was started on Anusol HC suppositories and her rectal bleeding is much improved over the last 2 weeks. That radiation treatment also caused a radiation dermatitis in her perineum and perianal skin which has been very slowly healing. She has a Barrett catheter in place to reduce irritation from chronic moisture exposure from urinary incontinence. 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 She had radiation and chemotherapy for this. Has decided not to proceed with surgical treatment due to its proximity to the rectum. She has had follow-up subsequently with Oncology and there is no evidence of local or metastatic recurrence of her cancer. In reviewing images obtained in our hospital over the last year including a CT of the abdomen and pelvis 3 weeks ago there is no evidence of metastatic disease in her bones including her left femoral neck. Review of Systems Narrative: According to her son she has been generally managing well at home until her fall. Rectal bleeding is better. Perineal skin is better. Blood sugars are well controlled. She has had diarrhea while taking metformin and now some constipation while taking oxycodone 2.5 mg every 4 hours. [facility] Medical History (Updated 08/05/23 @ 19:41 by Rajinder Valencia MD) Chronic pain ?G89.29 - Other chronic pain (ICD-10) Frail elderly ?R54 - Age-related physical debility (ICD-10) Incontinence of urine ?R32 - Unspecified urinary incontinence (ICD-10) Cognitive impairment ?R41.89 - Other symptoms and signs involving cognitive functions and awareness (ICD-10) Bright red blood per rectum ?K62.5 - Hemorrhage of anus and rectum (ICD-10) Cellulitis of perineum ?L03.315 - Cellulitis of perineum (ICD-10) Vulvar cancer ?C51.9 - Malignant neoplasm of vulva, unspecified (ICD-10) Type 2 diabetes mellitus ?E11.9 - Type 2 diabetes mellitus without complications (ICD-10) Atrial fibrillation ?I48.91 - Unspecified atrial fibrillation (ICD-10) Yeast infection involving the vagina and surrounding area ?B37.31 - Acute candidiasis of vulva and vagina (ICD-10) Incontinence of bowel ?R15.9 - Full incontinence of feces (ICD-10) Bacteremia ?R78.81 - Bacteremia (ICD-10) 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 - Other specified disorders of the skin and subcutaneous tissue related to radiation (ICD-10) ?Y84.2 - Radiological procedure and radiotherapy as the cause of abnormal reaction of the patient, or of later complication, without mention of misadventure at the time of the procedure (ICD-10) Chronic renal insufficiency ?N18.9 - Chronic kidney disease, unspecified (ICD-10) GERD (gastroesophageal reflux disease) ?K21.9 - Gastro-esophageal reflux disease without esophagitis (ICD-10) Obstructive sleep apnea ?G47.33 - Obstructive sleep apnea (adult) (pediatric) (ICD-10) Asthma ?J45.909 - Unspecified asthma, uncomplicated (ICD-10) Hypertension ?I10 - Essential (primary) hypertension (ICD-10) Cardiomyopathy ?I42.9 - Cardiomyopathy, unspecified (ICD-10) Congestive heart failure ?I50.9 - Heart failure, unspecified (ICD-10) Surgical History [place] teeth removed ?K08.409 - Partial loss of teeth, unspecified cause, unspecified class (ICD-10) History of tubal ligation ?Z98.51 - Tubal ligation status (ICD-10) Hx of total knee arthroplasty ?Z96.659 - Presence of unspecified artificial knee joint (ICD-10) History of bunionectomy ?Z98.890 - Other specified postprocedural states (ICD-10) Status post breast reduction ?Z98.890 - Other specified postprocedural states (ICD-10) Status post biopsy of uterine cervix ?Z98.890 - Other specified postprocedural states (ICD-10) Social History (Updated 08/05/23 @ 19:29 by Rajinder Valencia MD) Narrative: She lives with her son. Code status is DNR DNI. What is your current living situation?: I presently have a place to live Problems where you live: no known problems Problems where you live details: N/A In the past 12 months, utilities in danger of being shut off: no In past 12 months, lack of transportation kept you from medical appts, meetings, work, or getting things needed for daily living: no In the past 12 mos, have been you worried that your food would run out before you had money to buy more?: never true In the past 12 mos, the food you bought just didn't last and you didn't have money to buy more?: never true Highest level of school completed/degree received: high school graduate Smoking Status: Former smoker Do you use any of these nicotine containing products: None Second hand tobacco smoke exposure: No How often do you have a drink containing alcohol: never How often do you have six or more drinks on one occasion: Never AUDIT-C Alcohol total score: 0 Non-prescribed substance use: denies use Caffeine: Yes How often does anyone, including family, friends and others, physically hurt you: never How often does anyone, including family, friends and others, insult or talk down to you: never How often does anyone, including family, friends and others, threaten you with harm: never How often does anyone, including family, friends and others, scream or curse at you: never service: No Meds Home Medications and Allergies Home Medications Medication Instructions Recorded Confirmed Type albuterol sulfate 90 mcg/actuation 1 - 2 puff inhalation Q4H PRN 03/02/23 07/03/23 History aerosol inhaler dyspnea allopurinol 100 mg tablet 100 mg PO DAILY 03/02/23 08/05/23 History metoprolol succinate 50 mg 50 mg PO BID 03/02/23 08/05/23 History tablet,extended release 24 hr omeprazole 20 mg capsule,delayed 20 mg PO DAILY 03/02/23 08/05/23 History release rosuvastatin 5 mg tablet 5 mg PO DAILY 03/02/23 08/05/23 History lidocaine HCl 2 % mucosal jelly in 1 applic topical .2-4 TIMES DAILY 07/03/23 08/05/23 History applicator PRN pain apixaban 5 mg tablet (Eliquis) 5 mg PO BID 08/05/23 08/05/23 History blood sugar diagnostic (Accu-Chek 08/05/23 08/05/23 History Guide test strips) blood-glucose meter (Accu-Chek 08/05/23 08/05/23 History Guide Glucose Meter) Allergies Allergy/AdvReac Type Severity Reaction Status Date / Time No Known Drug Allergies Allergy Verified 08/05/23 15:48 Exam Narrative: Exam Narrative: She is alert and oriented to being in the hospital. Unable to give much detail of recent events at home regarding her fall and the events prior to that and following that. Her son reports that she was walking from the dining room to her bedroom with her walker when he saw her struggle with getting her feet underneath her and then tip over. Head is without evidence of trauma. It is nontender. She has normal range of motion in her neck without discomfort. Palpation over her neck and spine are without discomfort. Eyes are normal. Pupils are equal round reactive to light. Extraocular movements are full. Oropharynx is normal. Neck is without jugular venous distension or mass. Respirations are clear to auscultation. Cardiovascular: S1, S2, relatively regular rhythm. No murmur gallop or rub. Abdomen: Bowel sounds are active. Abdomen is soft. She has mild suprapubic and left lower quadrant groin area tenderness. No mass. No peritonitis. External genitalia are relatively normal. She does have some visible erythema. Due to her hip fracture I was unable to examine her perianal area which has been the primary area of inflammatory skin changes. Feet are cool to touch but she has intact pedal pulses. Bilateral ankle dorsiflexion plantar flexion is normal. Const: Vital Signs, click to edit/add: Vital Signs - 24 hr 08/05/23 15:40 08/05/23 15:40 08/05/23 16:00 Temperature 97.9 F Pulse Rate 84 80 Pulse Rate [Left P ulse Oximeter] Pulse Rate [Pulse Oximeter] 81 Respiratory Rate 18 Blood Pressure Blood Pressure [Ri ght Arm] Blood Pressure [Ri ght Upper Arm] 148/86 H Pulse Oximetry 96 93 96 Oxygen Delivery [place] [facility] Room Air 08/05/23 16:01 08/05/23 16:25 08/05/23 16:30 Temperature Pulse Rate 79 78 76 Pulse Rate [Left P ulse Oximeter] Pulse Rate [Pulse Oximeter] Respiratory Rate Blood Pressure 150/86 H 133/76 Blood Pressure [Ri ght Arm] Blood Pressure [Ri ght Upper Arm] Pulse Oximetry 96 97 98 Oxygen Delivery [place] [facility] 08/05/23 16:31 08/05/23 17:00 08/05/23 17:01 Temperature Pulse Rate 76 72 74 Pulse Rate [Left P ulse Oximeter] Pulse Rate [Pulse Oximeter] Respiratory Rate Blood Pressure 140/83 H 150/109 H Blood Pressure [Ri ght Arm] Blood Pressure [Ri ght Upper Arm] Pulse Oximetry 94 97 [facility] 17:30 08/05/23 17:31 08/05/23 18:36 Temperature 98.0 F Pulse Rate 76 80 Pulse Rate [Left P ulse Oximeter] 92 Pulse Rate [Pulse Oximeter] Respiratory Rate 22 Blood Pressure 160/78 H Blood Pressure [Ri ght Arm] 176/105 H Blood Pressure [Ri ght Upper Arm] Pulse Oximetry 97 95 95 Oxygen Delivery [facility] Room Air Documenting provider has reviewed patient's vital signs: yes Hospitalist - H&P: Result Labs Labs: Short CBC 08/05/23 08/05/23 Range/Units 16:05 16:36 WBC Cancelled 11.06 H Hgb Cancelled 9.3 L Hct Cancelled 30.9 L Plt Count Cancelled 383 BMP 08/05/23 16:05 Sodium 138 Potassium 4.4 Chloride 105 Carbon Dioxide 22 BUN 32 H Creatinine 1.6 H Glucose 87 Calcium 9.3 ECG ECG interpretation date: 08/05/23 Interpretation: Electrocardiogram shows atrial fibrillation with a relatively regular rate and rhythm. No acute ST-T changes Imaging Chest x-ray: Radiologist's impression: Chest x-ray without acute abnormalities. Port-A-Cath noted. Left hip radiograph: Radiologist's impression: Left femoral neck fracture Assessment and Plan Assessment and plan (1) Closed fracture of neck of left femur: Problem comment: Surgery with Dr. Lorenzo tomorrow morning. Multiple serious medical problems are stable and optimized preoperatively. Anticipate postop delirium Status: Acute (2) MRSA (methicillin resistant staph aureus) culture positive: Problem comment: BENJAMÍN 03/03/2023. Retest Status: Acute (3) Hypertension: Problem comment: Monitor closely. Status: Acute (4) Vulvar cancer: Problem comment: Diagnosed August of 2021 with radiation and chemotherapy. No evidence of recurrence with routine oncology follow-up. Significant perineal radiation dermatitis and proctitis with bleeding Status: Acute (5) Cellulitis of perineum: Problem comment: Continue wound care Status: Acute (6) Bright red blood per rectum: Problem comment: Likely due to radiation proctitis. Much improved off apixaban. Follow clinically. Avoid constipation. Status: Acute (7) Chronic pain: Problem comment: - primarily vulvar pain 2/2 radiation necrosis, also notes some back pain At home she was been taking oxycodone 2.5 mg every 4 hours. Reassess postoperatively. Status: Acute (8) Frail elderly: Problem comment: Patient is functionally doing poorly due to multiple factors including pain and sedation from pain medication. Likely will need care home facility rehab Status: Acute (9) Incontinence of urine: Problem comment: - Barrett catheter currently in place, outpatient Urology f/u Status: Acute (10) Type 2 diabetes mellitus: Problem comment: - A1C 6.0. Blood sugars here have been fairly well controlled, held Metformin given diarrhea. Status: Acute (11) Cognitive impairment: Problem comment: - MOCA 15/30. Uncertain if this is baseline. Anticipate postop delirium Status: Acute (12) Atrial fibrillation: Problem comment: Rate controlled with metoprolol. Off apixaban due to bleeding. Status: Acute (13) Acute kidney injury: Problem comment: Creatinine is up today to 1.6 compared to baseline of 1.2. Reassess diuretic therapy after surgery Status: Acute Plan Patient is admitted to the hospital for management of hip fracture as well as management of other multiple chronic medical problems noted above Total time spent today is 80 minutes, 50 minutes in coordination of care discussing with patient family and other providers management of hip fracture, perianal dermatitis, frailty
[2023-08-05] MEDS: OXYCODONE 5 MG TABLET 2.5 MG PO (21:35)
[2023-08-05] MEDS: METOPROLOL SUCCINATE (XL) 50 MG TAB PO (21:35)
[2023-08-05] MEDS: LOPERAMIDE HCL 2 MG CAPSULE PO (21:36)
[2023-08-05] MEDS: LACTATED RINGERS 1000 ML 1,000 ML 100 ML IV (21:38)
[2023-08-05] MEDS: SODIUM CHLORIDE 0.9 % (FLUSH) 10 ML SYRINGE 5 ML IVF (21:48)
[2023-08-05] MEDS: TRIAMCINOLONE ACETONIDE CREAM 0.1 % 1 APPLIC TOPICAL (23:21)
[2023-08-06] VITALS (23 sets, daily range): BP systolic 107–144; BP diastolic 59–100; PULSE 9–102; RESP 12–22; TEMP 35.8–37.2; O2SAT 90–100
[2023-08-06] MEDS: OXYCODONE 5 MG TABLET 2.5 MG PO ×4 (02:14→23:52)
[2023-08-06 03:02] LABS: Appearance Urine Clear (Clear); Bilirubin Urine Negative (Negative); Blood Urine 2+ (Negative); Color Urine Yellow (Yellow); Glucose Urine Negative (Negative); Ketones Urine Negative (Negative); Leukocyte Esterase Urine 1+ (Negative); Nitrite Urine Negative (Negative); Protein Urine 2+ (Negative); Urobilinogen Urine 0.2 (0.2-1.0)
[2023-08-06 03:41] LABS: Bacteria Urine Few; Squamous Epithelial Cell Urine Few (None-Few); WBC Urine 25-50 (0-5)
--- NOTE | 2023-08-06 05:50 | PC.NURSE ---
End of shift [id number] ? Pt fatigued, oriented to person, place, and situation. Pt resistive to care related to pain, but cooperation increases with staff encouragement. Pt tolerating RA, NPO diet. Pt reported pain in hip and nicol area as 9/10. Medication given per MAR with pt behavior indicating relief. Barrett catheter in place upon arrival, removed and replaced per MD order. The catheter tip was intact on removal, and the new catheter balloon was filled with 10cc saline during placement. Noted to be patent and draining. Pt observed to sleep during shift, appears to be resting comfortably at end of shift. ?
[2023-08-06 06:30] LABS: Basophils Absolute Auto 0.02 K/uL (0.00-0.30); Basophils Percent Auto 0.2 % (0.0-3.0); Eosinophils Absolute Auto 0.21 K/uL (0.00-0.50); Eosinophils Percent Auto 2.2 % (0.0-7.0); Hemoglobin* 8.6 gm/dL (12.0-16.0); Immature Granulocytes Abs Auto 0.03 K/uL (0.00-0.30); Immature Granulocytes Pct Auto 0.3 %; Lymphocytes Percent Auto 5.6 % (20-44); Mean Corpuscular HGB Conc 31 gm/dL (32-36); Mean Corpuscular Hemoglobin 26 pg (26-34); Mean Corpuscular Volume 85 fL (80-100); Monocytes Percent Auto 7.8 % (0.0-11.0); Neutrophils Percent Auto 83.9 % (42.0-72.0); Platelet Count* 337 K/uL (140-440); RDW Coefficient of Variation % 15.5 % (11.5-15.5); Red Blood Count 3.31 m/uL (4.00-5.20); White Blood Count* 9.47 K/uL (4.50-11.00)
[2023-08-06 06:31] LABS: Slide Review Reflex No
[2023-08-06 06:42] LABS: Chloride* 106 mmol/L (96-114); Potassium* 4.6 mmol/L (3.6-5.1); Sodium* 134 mmol/L (135-149)
[2023-08-06 06:45] LABS: Anion Gap 6 mEq/L (7-15); Blood Urea Nitrogen* 31 mg/dL (7-30); Calcium* 8.7 mg/dL (8.4-10.6); Carbon Dioxide* 22 mmol/L (20-32); Creatinine* 1.3 mg/dL (0.5-1.5); Est. Creatinine Clearance* 32.61; Estimated Glomerular Filt Rate 42 ml/min; Glucose* 138 mg/dL (60-115)
[2023-08-06] MEDS: LACTATED RINGERS 1000 ML 1,000 ML 100 ML IV ×3 (06:46→19:07)
--- NOTE | 2023-08-06 08:05 | P.ORCN_ITS ---
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 She is not currently on any anticoagulation. She was admitted to the hospital yesterday afternoon/evening after a falling at home and landing on her left hip. Following the injury she had significant left hip pain and was unable to bear weight. She was transferred to the emergency department by EMS where x-rays confirmed a left hip femoral neck fracture. She denies any other injuries. There was no loss of consciousness. Prior to the injury, she was living with her son. She is a household ambulator, using a walker for assistance with ambulation. This morning, she complains of left hip pain which is adequately controlled. 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 She had radiation and chemotherapy for this. She has had follow-up subsequently with Oncology and there is no evidence of local or metastatic recurrence of her cancer. CT scan of the abdomen pelvis performed in early July was reviewed which showed no evidence of any pathological lesions or metastatic disease in the left hip. [facility] Medical History (Updated 08/05/23 @ 19:41 by Rajinder Valencia MD) Chronic pain ?G89.29 - Other chronic pain (ICD-10) Frail elderly ?R54 - Age-related physical debility (ICD-10) Incontinence of urine ?R32 - Unspecified urinary incontinence (ICD-10) Cognitive impairment ?R41.89 - Other symptoms and signs involving cognitive functions and awareness (ICD-10) Bright red blood per rectum ?K62.5 - Hemorrhage of anus and rectum (ICD-10) Cellulitis of perineum ?L03.315 - Cellulitis of perineum (ICD-10) Vulvar cancer ?C51.9 - Malignant neoplasm of vulva, unspecified (ICD-10) Type 2 diabetes mellitus ?E11.9 - Type 2 diabetes mellitus without complications (ICD-10) Atrial fibrillation ?I48.91 - Unspecified atrial fibrillation (ICD-10) Yeast infection involving the vagina and surrounding area ?B37.31 - Acute candidiasis of vulva and vagina (ICD-10) Incontinence of bowel ?R15.9 - Full incontinence of feces (ICD-10) Bacteremia ?R78.81 - Bacteremia (ICD-10) 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 - Other specified disorders of the skin and subcutaneous tissue related to radiation (ICD-10) ?Y84.2 - Radiological procedure and radiotherapy as the cause of abnormal reaction of the patient, or of later complication, without mention of misadventure at the time of the procedure (ICD-10) Chronic renal insufficiency ?N18.9 - Chronic kidney disease, unspecified (ICD-10) GERD (gastroesophageal reflux disease) ?K21.9 - Gastro-esophageal reflux disease without esophagitis (ICD-10) Obstructive sleep apnea ?G47.33 - Obstructive sleep apnea (adult) (pediatric) (ICD-10) Asthma ?J45.909 - Unspecified asthma, uncomplicated (ICD-10) Hypertension ?I10 - Essential (primary) hypertension (ICD-10) Cardiomyopathy ?I42.9 - Cardiomyopathy, unspecified (ICD-10) Congestive heart failure ?I50.9 - Heart failure, unspecified (ICD-10) Surgical History [place] teeth removed ?K08.409 - Partial loss of teeth, unspecified cause, unspecified class (ICD- 10) History of tubal ligation ?Z98.51 - Tubal ligation status (ICD-10) Hx of total knee arthroplasty ?Z96.659 - Presence of unspecified artificial knee joint (ICD-10) History of bunionectomy ?Z98.890 - Other specified postprocedural states (ICD-10) Status post breast reduction ?Z98.890 - Other specified postprocedural states (ICD-10) Status post biopsy of uterine cervix ?Z98.890 - Other specified postprocedural states (ICD-10) Social History (Updated 08/05/23 @ 19:29 by Rajinder Valencia MD) Narrative: She lives with her son. Code status is DNR DNI. What is your current living situation?: I presently have a place to live Problems where you live: no known problems Problems where you live details: N/A In the past 12 months, utilities in danger of being shut off: no In past 12 months, lack of transportation kept you from medical appts, meetings, work, or getting things needed for daily living: no In the past 12 mos, have been you worried that your food would run out before you had money to buy more?: never true In the past 12 mos, the food you bought just didn't last and you didn't have money to buy more?: never true Highest level of school completed/degree received: high school graduate Smoking Status: Former smoker Do you use any of these nicotine containing products: None Second hand tobacco smoke exposure: No How often do you have a drink containing alcohol: never How often do you have six or more drinks on one occasion: Never AUDIT-C Alcohol total score: 0 Non-prescribed substance use: denies use Caffeine: Yes How often does anyone, including family, friends and others, physically hurt you : never How often does anyone, including family, friends and others, insult or talk down to you: never How often does anyone, including family, friends and others, threaten you with harm: never How often does anyone, including family, friends and others, scream or curse at you: never service: No Meds Home Medications and Allergies Home Medications Medication Instructions Recorded Confirmed Type albuterol sulfate 90 mcg/actuation 1 - 2 puff inhalation Q4H PRN 03/02/23 08/06/23 History aerosol inhaler dyspnea allopurinol 100 mg tablet 100 mg PO DAILY 03/02/23 08/05/23 History metoprolol succinate 50 mg 50 mg PO BID 03/02/23 08/05/23 History tablet,extended release 24 hr omeprazole 20 mg capsule,delayed 20 mg PO DAILY 03/02/23 08/05/23 History release rosuvastatin 5 mg tablet 5 mg PO HS 03/02/23 08/06/23 History lidocaine HCl 2 % mucosal jelly in 1 applic topical QID PRN pain 07/03/23 08/06/23 History applicator apixaban 5 mg tablet (Eliquis) 5 mg PO BID 08/05/23 08/06/23 History betamethasone dipropionate 0.05 % 1 applic topical DAILY 08/06/23 08/06/23 History topical cream fluconazole 200 mg tablet 200 mg PO DAILY 08/06/23 08/06/23 History metoprolol succinate 25 mg 25 mg PO BID 08/06/23 08/06/23 History tablet,extended release 24 hr triamcinolone acetonide 0.1 % 1 applic topical BID PRN 08/06/23 08/06/23 History topical cream Allergies Allergy/AdvReac Type Severity Reaction Status Date / Time No Known Drug Allergies Allergy Verified 08/05/23 15:48 Ortho Exam Narrative Exam Narrative: General: Alert and oriented. Musculoskeletal: Left lower extremity was examined. Left leg was in a shortened and externally rotated position. Sensation was intact to light touch throughout the dorsal and plantar aspects of the foot. EHL, tibialis anterior, gastrocnemius/soleus were intact. Foot was warm and well perfused with 2+ DP pulse. Const Vital Signs, click to edit/add: Vital Signs - 24 hr 08/05/23 15:40 08/05/23 15:40 08/05/23 16:00 Temperature 97.9 F Pulse Rate 84 80 Pulse Rate [Left Pulse Oximeter] Pulse Rate [Pulse Oximeter] 81 Respiratory Rate 18 Blood Pressure Blood Pressure [Right Arm] Blood Pressure [Right Upper Arm] 148/86 H Pulse Oximetry 96 93 96 Oxygen Delivery Method Room Air 08/05/23 16:01 08/05/23 16:25 08/05/23 16:30 Temperature Pulse Rate 79 78 76 Pulse Rate [Left Pulse Oximeter] Pulse Rate [Pulse Oximeter] Respiratory Rate Blood Pressure 150/86 H 133/76 Blood Pressure [Right Arm] Blood Pressure [Right Upper Arm] Pulse Oximetry 96 97 98 Oxygen Delivery Method 08/05/23 16:31 08/05/23 17:00 08/05/23 17:01 Temperature Pulse Rate 76 72 74 Pulse Rate [Left Pulse Oximeter] Pulse Rate [Pulse Oximeter] Respiratory Rate Blood Pressure 140/83 H 150/109 H Blood Pressure [Right Arm] Blood Pressure [Right Upper Arm] Pulse Oximetry 94 97 97 Oxygen Delivery Method 08/05/23 17:30 08/05/23 17:31 08/05/23 18:36 Temperature 98.0 F Pulse Rate 76 80 Pulse Rate [Left Pulse Oximeter] 92 Pulse Rate [Pulse Oximeter] Respiratory Rate 22 Blood Pressure 160/78 H Blood Pressure [Right Arm] 176/105 H Blood Pressure [Right Upper Arm] Pulse Oximetry 97 95 95 Oxygen Delivery Method Room Air 08/05/23 18:36 08/05/23 23:00 08/06/23 02:56 Temperature 98.9 F Pulse Rate Pulse Rate [Left Pulse Oximeter] 88 Pulse Rate [Pulse Oximeter] Respiratory Rate 20 20 20 Blood Pressure Blood Pressure [Right Arm] 139/84 Blood Pressure [Right Upper Arm] Pulse Oximetry 99 99 97 Oxygen Delivery Method Room Air Room Air Room Air 08/06/23 07:00 Temperature 98.3 F Pulse Rate Pulse Rate [Left Pulse Oximeter] 102 H Pulse Rate [Pulse Oximeter] Respiratory Rate 22 Blood Pressure Blood Pressure [Right Arm] 138/100 H Blood Pressure [Right Upper Arm] Pulse Oximetry 95 Oxygen Delivery Method Room Air Results Labs Labs: Laboratory Results - last 48 hr 08/05/23 08/05/23 08/05/23 16:05 16:36 16:50 WBC Cancelled 11.06 H Corrected WBC Cancelled RBC Cancelled 3.62 L Hgb Cancelled 9.3 L Hct Cancelled 30.9 L MCV Cancelled 85 MCH Cancelled 26 MCHC Cancelled 30 L RDW Coeff of Robert Cancelled 15.7 H Plt Count Cancelled 383 Neut % (Auto) Cancelled 88.5 H Lymph % (Auto) Cancelled 5.2 L [place] % (Auto) Cancelled 4.6 Eos % (Auto) Cancelled 1.1 Baso % (Auto) Cancelled 0.2 Neut # (Auto) Cancelled 9.80 H Lymph # (Auto) Cancelled 0.60 L [place] # (Auto) Cancelled 0.50 Eos # (Auto) Cancelled 0.10 Baso # (Auto) Cancelled 0.00 Abs Immat Gran (auto) Cancelled 0.00 Imm/Tot Granulo (auto) Cancelled 0.4 INR 0.95 APTT 34 H Sodium 138 Potassium 4.4 Chloride 105 Carbon Dioxide 22 Anion Gap 11 BUN 32 H Creatinine 1.6 H Estimated Creat Clear 26.50 Estimated GFR 33 Glucose 87 Lactate 0.8 Calcium 9.3 Urine Color Urine Appearance Urine pH Ur Specific [place] Urine Protein Urine Glucose (UA) Urine Ketones Urine Blood Urine Nitrite Urine Bilirubin Urine Urobilinogen Ur Leukocyte Esterase Urine RBC Urine WBC Ur Squamous Epith Cells Urine Bacteria Blood Type A Negative Antibody Screen NEGATIVE 08/06/23 08/06/23 02:20 06:02 WBC 9.47 Corrected WBC RBC 3.31 L Hgb 8.6 L Hct 28.0 L MCV 85 MCH 26 MCHC 31 L RDW Coeff of Robert 15.5 Plt Count 337 Neut % (Auto) 83.9 H Lymph % (Auto) 5.6 L [place] % (Auto) 7.8 Eos % (Auto) 2.2 Baso % (Auto) 0.2 Neut # (Auto) 7.90 H Lymph # (Auto) 0.50 L [place] # (Auto) 0.70 Eos # (Auto) 0.21 Baso # (Auto) 0.02 Abs Immat Gran (auto) 0.03 Imm/Tot Granulo (auto) 0.3 INR APTT Sodium 134 L Potassium 4.6 Chloride 106 Carbon Dioxide 22 Anion Gap 6 L BUN 31 H Creatinine 1.3 Estimated Creat Clear 32.61 Estimated GFR 42 Glucose 138 H Lactate Calcium 8.7 Urine Color Yellow Urine Appearance Clear Urine pH 5.0 Ur Specific [place] 1.020 Urine Protein 2+ A Urine Glucose (UA) Negative Urine Ketones Negative Urine Blood 2+ A Urine Nitrite Negative Urine Bilirubin Negative Urine Urobilinogen 0.2 Ur Leukocyte Esterase 1+ A Urine RBC 5-10 A Urine WBC 25-50 A Ur Squamous Epith Cells Few Urine Bacteria Few A Blood Type Antibody Screen Diagnostic results Additional Comments: AP pelvis, AP left hip, and lateral left hip x-rays performed 08/05/2023 were reviewed. These demonstrate displaced fracture of the femoral neck. Assessment and Plan Assessment and plan (1) Closed fracture of neck of left femur: Problem comment: Surgery with Dr. Lorenzo tomorrow morning. Multiple serious medical problems are stable and optimized preoperatively. Anticipate postop delirium Status: Acute Total time spent: Total time spent is greater than 50% in coordination of care (as documented) at patient's floor/unit and/or counseling patient: (2) MRSA (methicillin resistant staph aureus) culture positive: Problem comment: BENJAMÍN 03/03/2023. Retest Status: Acute Total time spent: Total time spent is greater than 50% in coordination of care (as documented) at patient's floor/unit and/or counseling patient: (3) Hypertension: Problem comment: Monitor closely. Status: Acute Total time spent: Total time spent is greater than 50% in coordination of care (as documented) at patient's floor/unit and/or counseling patient: (4) Vulvar cancer: Problem comment: Diagnosed August of 2021 with radiation and chemotherapy. No evidence of recurrence with routine oncology follow-up. Significant perineal radiation dermatitis and proctitis with bleeding Status: Acute Total time spent: Total time spent is greater than 50% in coordination of care (as documented) at patient's floor/unit and/or counseling patient: (5) Cellulitis of perineum: Problem comment: Continue wound care Status: Acute Total time spent: Total time spent is greater than 50% in coordination of care (as documented) at patient's floor/unit and/or counseling patient: (6) Bright red blood per rectum: Problem comment: Likely due to radiation proctitis. Much improved off apixaban. Follow clinically. Avoid constipation. Status: Acute Total time spent: Total time spent is greater than 50% in coordination of care (as documented) at patient's floor/unit and/or counseling patient: (7) Chronic pain: Problem comment: - primarily vulvar pain 2/2 radiation necrosis, also notes some back pain At home she was been taking oxycodone 2.5 mg every 4 hours. Reassess postoperatively. Status: Acute Total time spent: Total time spent is greater than 50% in coordination of care (as documented) at patient's floor/unit and/or counseling patient: (8) Frail elderly: Problem comment: Patient is functionally doing poorly due to multiple factors including pain and sedation from pain medication. Likely will need prison facility rehab Status: Acute Total time spent: Total time spent is greater than 50% in coordination of care (as documented) at patient's floor/unit and/or counseling patient: (9) Incontinence of urine: Problem comment: - Barrett catheter currently in place, outpatient Urology f/u Status: Acute Total time spent: Total time spent is greater than 50% in coordination of care (as documented) at patient's floor/unit and/or counseling patient: (10) Type 2 diabetes mellitus: Problem comment: - A1C 6.0. Blood sugars here have been fairly well controlled, held Metformin given diarrhea. Status: Acute Total time spent: Total time spent is greater than 50% in coordination of care (as documented) at patient's floor/unit and/or counseling patient: (11) Cognitive impairment: Problem comment: - MOCA 15/30. Uncertain if this is baseline. Anticipate postop delirium Status: Acute Total time spent: Total time spent is greater than 50% in coordination of care (as documented) at patient's floor/unit and/or counseling patient: (12) Atrial fibrillation: Problem comment: Rate controlled with metoprolol. Off apixaban due to bleeding. Status: Acute Total time spent: Total time spent is greater than 50% in coordination of care (as documented) at patient's floor/unit and/or counseling patient: (13) Acute kidney injury: Problem comment: Creatinine is up today to 1.6 compared to baseline of 1.2. Reassess diuretic therapy after surgery Status: Acute Total time spent: Total time spent is greater than 50% in coordination of care (as documented) at patient's floor/unit and/or counseling patient: Urban Spaulding has unfortunately sustained a closed, displaced left femoral neck fracture. Risks and benefits of operative and non operative treatment were discussed with patient and her son. Recommendation was made for surgical intervention consisting of a left hip bipolar hemiarthroplasty. Risks of surgery to include but not limited to infection, neurovascular injury, hip d islocation, failure of procedure, deep vein thrombosis, pulmonary embolism, heart attack, stroke, and even were discussed and all questions were answered. After discussion, they were agreement with plan to proceed with surgery, and informed consent was provided. We will plan for surgery this morning. She is to remain NPO and on bed rest until surgery. Postoperatively she would be admitted to the hospitalist service for medical management until she is appropriate for discharge to a prison facility.
--- NOTE | 2023-08-06 08:17 | PM.ORPRC ---
Procedure Note Date of procedure: 08/06/23 Procedure: PREOPERATIVE DIAGNOSIS: 1. Closed, displaced, left femoral neck fracture POSTOPERATIVE DIAGNOSIS: 1. Closed, displaced, left femoral neck fracture PROCEDURE: 1. Left hip cemented bipolar hemiarthroplasty SURGEON: Louis Lorenzo MD. CARD GRINDER HELPER: Fatimah Bowens P.A.-C. - compliance assistant was critical for this case to aid in patient positioning, tissue retraction, limb manipulation/positioning, and wound closure. ANESTHESIA: Spinal anesthetic IMPLANTS: DePuy [place] femoral stem size 5 with standard offset; 10 mm stem centralizer; DePuy 28mm +1.5 femoral head; DePuy bipolar femoral head with 28 mm inner diameter and 50 mm outer diameter FINDINGS: Displaced transcervical femoral neck fracture EBL: 100 mL COMPLICATIONS: None evident INDICATIONS: The patient is a pleasant 78-year-old male who sustained a left hip injury after a ground level fall in her home yesterday. Upon admission to the emergency department, she was found to have a displaced left femoral neck fracture. Treatment options were discussed and recommendation was made for surgical intervention consisting of bipolar left hip hemiarthroplasty. Prior to surgery, risks and benefits of treatment were discussed with patient all questions answered and informed consent was obtained. DESCRIPTION OF PROCEDURE: Prior to surgery the operative hip was marked. The patient was brought to the operating room and spinal anesthesia was administered. After induction of anesthesia was undertaken, tranexamic acid and 2g IV Ancef were administered. Patient was then rotated into the right lateral decubitus position. An axillary roll was placed and all bony prominences were well padded. A surgical time-out was performed confirming patient identity, surgical site, and surgical procedure. The left hip and lower extremity extremity were prepped and draped in the appropriate sterile fashion using ChloraPrep. A posterior lateral incision was made centered over the posterior aspect of the greater trochanter. Incision was carried through subcutaneous tissues. The IT band and gluteus karen fascia were identified. IT band and gluteus karen fascia were then incised in line with the incision and Charnley retractor was placed. Gluteus medius was retracted anteriorly. Piriformis and short external rotators were identified. Piriformis was tagged with a #1 Ethibond stitch and was released off its bony insertion. The short external rotators and capsule were also released off the femur an L-shaped capsulotomy was performed. These tissues were also tagged with a #1 Ethibond stitch. Once the capsulotomy was completed, a femoral neck osteotomy was then performed approximately 1 cm proximal to the lesser trochanter. The femoral head was then removed with a corkscrew device and all bony fragments were removed from the acetabulum. Femoral head measured 48 mm in diameter. We then trialed with the 48 mm 50 mm head and had better fit with the 50 mm head. We then turned our attention back to the proximal femur. A [employer] cutter osteotome was used to enter the proximal femur. A canal finer was then used to find the center of the canal. A lateralizing Reamer was used, and the canal was reamed up to the appropriate size. We then broached sequentially to a size 5 broach, and trialed with the 28 mm +1.5 femoral head and 50 mm outer diameter head. Excellent stability with full range of motion, and good soft tissue tension was confirmed. The hip was then dislocated, and the trial components were removed. The distal cement restrictor was then placed. The canal was copiously irrigated and dried. Cement was then pressurized into the canal. A size 5 standard offset [place] stem was then inserted into the canal in the appropriate anteversion. We removed excess cement and allowed the cement time to cure. Once the cement had cured, we dried the trunnion and impacted the formal 28 mm +1.5 femoral head and 50 mm bipolar femoral head. The hip was then reduced , and we check stability 1 more time. With these components in place, we had appropriate soft tissue tension, good leg length, and excellent stability. The hip was then irrigated copious amounts of normal saline. The piriformis, external rotators were repaired through bone tunnels into the greater trochanter using #2 FiberWire sutures. The posterior capsule was also closed with #2 FiberWire. The IT band was closed with #1 Ethibond [id number] interrupted sutures followed by running Stratafix stitch. Subcutaneous tissues were closed with 2-0 Vicryl inverted interrupted stitches followed by a running Stratafix stitch and Exofin surgical glue. Mepilex dressing was applied, and an abduction pillow was placed between the patient's legs. Patient was then transferred in the supine position. Patient was then transferred to the recovery room in stable condition. Postoperative AP pelvis and lateral hip x-rays revealed good position of the bipolar hip component in equal leg lengths. PLAN: 1. Patient will be readmitted to the hospitalist service for postoperative medical management. 2. Weight bearing: Weightbearing as tolerated 3. Posterior hip precautions to operative hip. Abduction pillow to remain in place while patient is in bed. 4. Postoperative antibiotics: Ancef x2 doses postoperatively per protocol 5. Pain control: Oral and IV pain medications. 6. PT/OT consults for ambulation assistance/mobility education 7. DVT prophylaxis: Continue mechanical SCDs while in the hospital. -Eliquis 2.5 mg p.o. b.i.d. for 35 days. 8. Follow up in Orthopedic Clinic in 1-2 weeks
[2023-08-06] MEDS: CEFAZOLIN 1 GM inj IVP (08:25)
[2023-08-06] MEDS: TRANEXAMIC ACID 100 MG/ML INJ 1000 MG IV (08:30)
--- NOTE | 2023-08-06 09:55 | P.NB_ITS ---
Nerve Block Nerve Block Time Seen by Provider: 08:20 Date Seen: 08/06/23 Type of block requested by surgeon for post-operative analgesia: MONTRELL/LFCN Side: left Time out performed: Yes Verification of patient name: Yes Verification of date of : Yes Site marking: site marked Name of person performing procedure: Jaden Braun Continuous monitoring Was continuous monitoring of O2 sat, B/P, playground monitor, recorded every 15 minutes?: Yes Procedure Checklist: sterile prep, needles and gloves Ultrasound guided. Images saved: Yes Medications given in 5ml increments after negative aspiration: Ropivicaine %: 0.5 mL: 30 Needle gauge: 21 Decadron (mg): 10 Precedex (mcg): 25 Patient tolerated procedure well: Yes Additional comments: Injected in 5ml increments after negative aspiration. Block Charges Block Charge (with Pro Fee): Other Periph Nerve Block Use of Ultrasound Machine for Block: Yes- US Guidance/pain block
--- NOTE | 2023-08-06 09:56 | P.ANES_ITS ---
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
--- NOTE | 2023-08-06 09:56 | REH.OT ---
Orders received for OT eval and treat. Patient having surgery this am and will be evaluated by OT on 08/07/23.
--- NOTE | 2023-08-06 10:52 | CRLHL7_ITS ---
For Patients: As a result of the Cures Act, medical imaging exams and procedure reports are released immediately into your electronic medical record. You may view this report before your referring provider. If you have questions, please contact your health care provider. Indication: s/p left hip hemiarthroplasty Technique: AP hip centered pelvis and lateral view left hip Findings/Impression: Hardware from a left bipolar arthroplasty is in satisfactory position. Bone alignment is normal. No sign of acute fracture. Postop changes are within normal limits. Dictated by Griffin Joe MD @ 08/07/2023 8:20:23 AM (Electronically Signed)
[2023-08-06] MEDS: fentaNYL 100 MCG/2 ML inj 50 MCG IVP (11:20)
--- NOTE | 2023-08-06 12:17 | P.IMPN_ITS ---
Progress Note: A&P Assessment and plan (1) Closed fracture of neck of left femur: Problem details: - Status post posterior approach left hip hemiarthroplasty by Dr. Lorenzo this morning. Anticipate postop delirium. Will need frequent repositioning as patient has a recent history of cellulitis of the perineum and is at risk for further skin breakdown. She also has a history of bright red blood per rectum for which she was recently taken off of therapeutic Eliquis for atrial fibrillation. I discussed with Dr. Lorenzo and think we could do a trial of renally dosed Eliquis for VTE prevention in the postop period. If she has rectal bleeding, then Eliquis should be stopped immediately. Status: Acute (2) Acute kidney injury: Problem details: - 2/3 Creatinine is up today to 1.6 compared to baseline of 1.2. Reassess diuretic therapy after surgery - 2/ creatinine is back down to 1.3 today. Recheck in the morning Status: Acute (3) Vulvar cancer: Problem details: Diagnosed August of 2021 with radiation and chemotherapy. No evidence of recurrence with routine oncology follow-up. 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 Much improved off apixaban. Follow clinically. Avoid constipation. Trial of Eliquis for DVT prophylaxis, monitor for rectal bleeding. Status: Chronic (5) Atrial fibrillation: Problem details: Rate controlled with metoprolol. Off apixaban due to bleeding. Status: Acute (6) Type 2 diabetes mellitus: Problem details: - A1C 6.0. Blood sugars here have been fairly well controlled, not on Metformin to prevent diarrhea. Status: Chronic (7) Cognitive impairment: Problem details: - MOCA . Anticipate postop delirium Status: Chronic (8) MRSA (methicillin resistant staph aureus) culture positive: Problem details: BENJAMÍN 03/03/2023. 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 Reassess postoperatively. 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 Likely will need care home facility rehab Status: Chronic (11) Incontinence of urine: Problem details: - Barrett catheter currently in place, outpatient Urology f/u Status: Chronic (12) Cellulitis of perineum: Problem details: Continue wound care Status: Chronic (13) Hypertension: Problem details: Continue home medication. Monitor closely. Status: Chronic Subjective Time Seen by Provider: 12:18 Date Seen: 08/06/23 Interval history: Galilea is doing well post op. She is hungry. Pain is tolerable. When I asked her how she fell, she said she did not know. Exam Narrative: Exam Narrative: General: No acute distress. Awake, alert, oriented. No pallor. No jaundice. Pinpoint pupils. Cardiovascular: Regular rate and rhythm. No murmurs, gallops, or rubs. Respiratory: Clear to auscultation bilaterally. No wheezes or crackles. Abdomen: Bowel sounds present. Soft, nondistended, nontender. Extremities: Left hip bandage is clean, dry, and intact. No pedal edema. Const: Vital Signs, click to edit/add: Vital Signs - 24 hr 08/05/23 15:40 08/05/23 15:40 08/05/23 16:00 Temperature 97.9 F Pulse Rate 84 80 Pulse Rate [Left P ulse Oximeter] Pulse Rate [Pulse Oximeter] 81 Respiratory Rate 18 Blood Pressure Blood Pressure [Ri ght Arm] Blood Pressure [Ri ght Upper Arm] 148/86 H Pulse Oximetry 96 93 96 Oxygen Delivery Me thod Room Air Oxygen Flow Rate 08/05/23 16:01 08/05/23 16:25 08/05/23 16:30 Temperature Pulse Rate 79 78 76 Pulse Rate [Left P ulse Oximeter] Pulse Rate [Pulse Oximeter] Respiratory Rate Blood Pressure 150/86 H 133/76 Blood Pressure [Ri ght Arm] Blood Pressure [Ri ght Upper Arm] Pulse Oximetry 96 97 98 Oxygen Delivery Me thod Oxygen Flow Rate 08/05/23 16:31 08/05/23 17:00 08/05/23 17:01 Temperature Pulse Rate 76 72 74 Pulse Rate [Left P ulse Oximeter] Pulse Rate [Pulse Oximeter] Respiratory Rate Blood Pressure 140/83 H 150/109 H Blood Pressure [Ri ght Arm] Blood Pressure [Ri ght Upper Arm] Pulse Oximetry 94 97 97 Oxygen Delivery Me thod Oxygen Flow Rate 08/05/23 17:30 08/05/23 17:31 08/05/23 18:36 Temperature 98.0 F Pulse Rate 76 80 Pulse Rate [Left P ulse Oximeter] 92 Pulse Rate [Pulse Oximeter] Respiratory Rate 22 Blood Pressure 160/78 H Blood Pressure [Ri ght Arm] 176/105 H Blood Pressure [Ri ght Upper Arm] Pulse Oximetry 97 95 95 Oxygen Delivery Me thod Room Air Oxygen Flow Rate 08/05/23 18:36 08/05/23 23:00 08/06/23 02:56 Temperature 98.9 F Pulse Rate Pulse Rate [Left P ulse Oximeter] 88 Pulse Rate [Pulse Oximeter] Respiratory Rate 20 20 20 Blood Pressure Blood Pressure [Ri ght Arm] 139/84 Blood Pressure [Ri ght Upper Arm] Pulse Oximetry 99 99 97 Oxygen Delivery Me thod Room Air Room Air Room Air Oxygen Flow Rate 08/06/23 07:00 08/06/23 11:00 08/06/23 11:05 Temperature 98.3 F 97 F L Pulse Rate 77 77 Pulse Rate [Left P ulse Oximeter] 102 H Pulse Rate [Pulse Oximeter] Respiratory Rate 22 12 12 Blood Pressure 123/65 126/68 Blood Pressure [Ri ght Arm] 138/100 H Blood Pressure [Ri ght Upper Arm] Pulse Oximetry 95 95 95 Oxygen Delivery Me thod Room Air Nasal Cannula Nasal Cannula Oxygen Flow Rate 3 3 08/06/23 11:10 08/06/23 11:15 08/06/23 11:20 Temperature Pulse Rate 73 75 76 Pulse Rate [Left P ulse Oximeter] Pulse Rate [Pulse Oximeter] Respiratory Rate 12 12 12 Blood Pressure 133/77 127/70 132/78 Blood Pressure [Ri ght Arm] Blood Pressure [Ri ght Upper Arm] Pulse Oximetry 94 94 97 Oxygen Delivery Me thod Nasal Cannula Nasal Cannula Nasal Cannula Oxygen Flow Rate 3 3 3 08/06/23 11:25 08/06/23 11:30 Temperature 97 F L Pulse Rate 67 70 Pulse Rate [Left P ulse Oximeter] Pulse Rate [Pulse Oximeter] Respiratory Rate 12 12 Blood Pressure 142/73 H 144/86 H Blood Pressure [Ri ght Arm] Blood Pressure [Ri ght Upper Arm] Pulse Oximetry 100 96 Oxygen Delivery Me thod Nasal Cannula Nasal Cannula Oxygen Flow Rate 3 3 Labs Labs: Laboratory Results - last 24 hr 08/05/23 08/05/23 08/05/23 16:05 16:36 16:50 WBC Cancelled 11.06 H Corrected WBC Cancelled RBC Cancelled 3.62 L Hgb Cancelled 9.3 L Hct Cancelled 30.9 L MCV Cancelled 85 MCH Cancelled 26 MCHC Cancelled 30 L RDW Coeff of Robert Cancelled 15.7 H Plt Count Cancelled 383 Neut % (Auto) Cancelled 88.5 H Lymph % (Auto) Cancelled 5.2 L [place] % (Auto) Cancelled 4.6 Eos % (Auto) Cancelled 1.1 Baso % (Auto) Cancelled 0.2 Neut # (Auto) Cancelled 9.80 H Lymph # (Auto) Cancelled 0.60 L [place] # (Auto) Cancelled 0.50 Eos # (Auto) Cancelled 0.10 Baso # (Auto) Cancelled 0.00 Abs Immat Gran (auto) Cancelled 0.00 Imm/Tot Granulo (auto) Cancelled 0.4 INR 0.95 APTT 34 H Sodium 138 Potassium 4.4 Chloride 105 Carbon Dioxide 22 Anion Gap 11 BUN 32 H Creatinine 1.6 H Estimated Creat Clear 26.50 Estimated GFR 33 Glucose 87 Lactate 0.8 Calcium 9.3 Urine Color Urine Appearance Urine pH Ur Specific [place] Urine Protein Urine Glucose (UA) Urine Ketones Urine Blood Urine Nitrite Urine Bilirubin Urine Urobilinogen Ur Leukocyte Esterase Urine RBC Urine WBC Ur Squamous Epith Cells Urine Bacteria Blood Type A Negative Antibody Screen NEGATIVE 08/06/23 08/06/23 02:20 06:02 WBC 9.47 Corrected WBC RBC 3.31 L Hgb 8.6 L Hct 28.0 L MCV 85 MCH 26 MCHC 31 L RDW Coeff of Robert 15.5 Plt Count 337 Neut % (Auto) 83.9 H Lymph % (Auto) 5.6 L [place] % (Auto) 7.8 Eos % (Auto) 2.2 Baso % (Auto) 0.2 Neut # (Auto) 7.90 H Lymph # (Auto) 0.50 L [place] # (Auto) 0.70 Eos # (Auto) 0.21 Baso # (Auto) 0.02 Abs Immat Gran (auto) 0.03 Imm/Tot Granulo (auto) 0.3 INR APTT Sodium 134 L Potassium 4.6 Chloride 106 Carbon Dioxide 22 Anion Gap 6 L BUN 31 H Creatinine 1.3 Estimated Creat Clear 32.61 Estimated GFR 42 Glucose 138 H Lactate Calcium 8.7 Urine Color Yellow Urine Appearance Clear Urine pH 5.0 Ur Specific [place] 1.020 Urine Protein 2+ A Urine Glucose (UA) Negative Urine Ketones Negative Urine Blood 2+ A Urine Nitrite Negative Urine Bilirubin Negative Urine Urobilinogen 0.2 Ur Leukocyte Esterase 1+ A Urine RBC 5-10 A Urine WBC 25-50 A Ur Squamous Epith Cells Few Urine Bacteria Few A Blood Type Antibody Screen
[2023-08-06] MEDS: METOPROLOL SUCCINATE (XL) 50 MG TAB PO ×2 (13:03→19:54)
[2023-08-06] MEDS: OMEPRAZOLE 20 MG CAPSULE DR PO (13:03)
--- NOTE | 2023-08-06 15:12 | PC.NURSE ---
Patient alert and oriented. Able to communicate needs. Surgical site dressing clean dry and intact. Reports minimal pain. Vital signs stable. Barrett catheter intact and draining.
[2023-08-06] MEDS: CEFAZOLIN 1 GM in 0.9 % SODIUM CHLORIDE Mini-bag 100 ML IVPB ×2 (15:25→23:52)
[2023-08-06] MEDS: ACETAMINOPHEN 500 MG TABLET 1000 MG PO (19:06)
--- NOTE | 2023-08-06 19:41 | PC.NURSE ---
End of Shift: Patient pleasant and cooperative. Dressing to left hip C/D/I. CMS intact. Abductor pillow in place. Rating pain 7/10 and PRN Oxycodone and Tylenol given x1. Tolerating regular diet with no nausea. Barrett patent. Frequent turn and reposition. Sat at bedside with 2 assist.
[2023-08-06] MEDS: SODIUM CHLORIDE 0.9 % (FLUSH) 10 ML SYRINGE 5 ML IVF (19:55)
[2023-08-06] MEDS: TRIAMCINOLONE ACETONIDE CREAM 0.1 % 1 APPLIC TOPICAL (19:55)
[2023-08-07 03:00] VITALS: BP 155/86; PULSE 78; RESP 20; TEMP 36.4; O2SAT 95
[2023-08-07] MEDS: ACETAMINOPHEN 500 MG TABLET 1000 MG PO ×3 (03:30→23:37)
[2023-08-07] MEDS: OXYCODONE 5 MG TABLET 2.5 MG PO ×4 (03:31→21:00)
[2023-08-07] MEDS: LACTATED RINGERS 1000 ML 1,000 ML 100 ML IV ×2 (05:53→15:28)
--- NOTE | 2023-08-07 06:07 | PC.NURSE ---
End of shift [id number] ? Pt fatigued, oriented to person, place, and situation. Pt tolerating RA, regular diet. Pt reported pain in hip 02/09. Medication given per AUG with pt behavior indicating relief. L pedal pulse present, dressing CDI. Barrett catheter noted to be patent and draining. Pt observed to sleep during shift, appears to be resting comfortably at end of shift. ?
[2023-08-07 06:20] LABS: Mean Corpuscular HGB Conc 31 gm/dL (32-36); Mean Corpuscular Hemoglobin 26 pg (26-34); Mean Corpuscular Volume 84 fL (80-100); Platelet Count* 306 K/uL (140-440); White Blood Count* 11.28 K/uL (4.50-11.00)
[2023-08-07 06:22] LABS: Slide Review Reflex No
[2023-08-07 07:00] VITALS: BP 170/80; PULSE 66; RESP 18; TEMP 36.8; O2SAT 98
[2023-08-07] MEDS: OMEPRAZOLE 20 MG CAPSULE DR PO (08:51)
[2023-08-07] MEDS: APIXABAN 5 MG TABLET 2.5 MG PO (08:51)
[2023-08-07] MEDS: allopurinoL 100 MG TABLET PO (08:52)
[2023-08-07] MEDS: METOPROLOL SUCCINATE (XL) 50 MG TAB PO ×2 (08:52→21:00)
[2023-08-07] MEDS: ROSUVASTATIN CALCIUM 10 MG TABLET 5 MG PO (08:52)
[2023-08-07] MEDS: SODIUM CHLORIDE 0.9 % (FLUSH) 10 ML SYRINGE 5 ML IVF (08:57)
[2023-08-07] MEDS: TRIAMCINOLONE ACETONIDE CREAM 0.1 % 1 APPLIC TOPICAL ×2 (08:58→21:01)
--- NOTE | 2023-08-07 09:54 | PM.ORPN ---
Subjective Subjective Time Seen by Provider: 09:30 Date Seen: 08/07/23 Principal diagnosis: Day 1 s/p left bipolar hemiarthroplasty Interval history: Chelly is resting comfortably in her bed. Son, Jose, is not present during this visit. No acute concerns. Pain is well managed with scheduled pain medications and icing PRN. Patient has had a bowel movement postoperatively. No chest pain, SOB, fever. Patient was seen by physical therapy this morning; able to stand with a walker for brief periods of time with moderate left hip pain. Ortho Exam Narrative Exam Narrative: Incision/Dressing: Dressing appears clean and dry. No drainage present. Mepilex intact. Left hip does not appear swelling. Left hip is supple with no obvious erythema, fluctuance or excessive warmth. No ecchymosis or erythematous streaking. Warmth around the wound is appropriate. Ice is being utilized as needed. CMS: Intact distally with 2+ Dorsalis pedis and Posterior Tibial pulses. 5/5 motor strength dorsal and plantar flexion. Confirmed sensation distally. Calf: Bilateral calves are supple, with no swelling, pain, tenderness, erythema, discoloration or coolness to the touch. Constitutional: Patient is alert and oriented x3. Patient is in no acute distress and converses without labored breathing. Patient is able to make decisions and demonstrates good insight. Patient is pleasant and cooperative. Affect is full range and appropriate for the circumstances. Const Vital Signs, click to edit/add: Vital Signs - 24 hr 08/06/23 11:00 08/06/23 11:05 08/06/23 11:10 Temperature 97 F L Pulse Rate 77 77 73 Pulse Rate [Left Dorsalis Pedis] Pulse Rate [Left Pulse Oximeter] Respiratory Rate 12 12 12 Blood Pressure 123/65 126/68 133/77 Blood Pressure [Right Arm] Pulse Oximetry 95 95 94 Oxygen Delivery Method Nasal Cannula Nasal Cannula Nasal Cannula Oxygen Flow Rate 3 3 3 08/06/23 11:15 08/06/23 11:20 08/06/23 11:25 Temperature Pulse Rate 75 76 67 Pulse Rate [Left Dorsalis Pedis] Pulse Rate [Left Pulse Oximeter] Respiratory Rate 12 12 12 Blood Pressure 127/70 132/78 142/73 H Blood Pressure [Right Arm] Pulse Oximetry 94 97 100 Oxygen Delivery Method Nasal Cannula Nasal Cannula Nasal Cannula Oxygen Flow Rate 3 3 3 08/06/23 11:30 02/04/24 11:45 08/06/23 11:45 Temperature 97 F L 96.5 F L Pulse Rate 70 85 Pulse Rate [Left Dorsalis Pedis] Pulse Rate [Left Pulse Oximeter] Respiratory Rate 12 16 Blood Pressure 144/86 H Blood Pressure [Right Arm] 125/66 Pulse Oximetry 96 Oxygen Delivery Method Nasal Cannula Nasal Cannula Nasal Cannula Oxygen Flow Rate 3 1 1 08/06/23 12:00 08/06/23 12:15 08/06/23 12:30 Temperature 96.7 F L 97.4 F L 97.5 F L Pulse Rate Pulse Rate [Left Dorsalis Pedis] Pulse Rate [Left Pulse Oximeter] 73 74 83 Respiratory Rate 16 18 18 Blood Pressure Blood Pressure [Right Arm] 132/68 131/59 L 107/95 H Pulse Oximetry 93 100 98 Oxygen Delivery Method Nasal Cannula Nasal Cannula Nasal Cannula Oxygen Flow Rate 1 1 1 08/06/23 12:45 08/06/23 13:00 08/06/23 13:30 Temperature 97.2 F L 97.1 F L 97.2 F L Pulse Rate Pulse Rate [Left Dorsalis Pedis] Pulse Rate [Left Pulse Oximeter] 83 83 75 Respiratory Rate 16 16 16 Blood Pressure Blood Pressure [Right Arm] 122/63 125/72 135/84 Pulse Oximetry 98 98 90 Oxygen Delivery Method Nasal Cannula Nasal Cannula Nasal Cannula Oxygen Flow Rate 1 1 1 08/06/23 14:00 08/06/23 15:00 08/06/23 15:00 Temperature 97.2 F L 97.9 F Pulse Rate Pulse Rate [Left Dorsalis Pedis] Pulse Rate [Left Pulse Oximeter] 79 88 87 Respiratory Rate 18 18 16 Blood Pressure Blood Pressure [Right Arm] 121/59 L 127/65 Pulse Oximetry 95 93 Oxygen Delivery Method Nasal Cannula Room Air Oxygen Flow Rate 1 08/06/23 15:00 08/06/23 16:00 08/06/23 17:00 Temperature 98.1 F Pulse Rate Pulse Rate [Left Dorsalis Pedis] Pulse Rate [Left Pulse Oximeter] 89 88 Respiratory Rate 18 16 16 Blood Pressure Blood Pressure [Right Arm] 135/78 143/92 H Pulse Oximetry 95 96 96 Oxygen Delivery Method Room Air Room Air Room Air Oxygen Flow Rate 08/06/23 17:59 08/06/23 19:00 08/06/23 23:00 Temperature 98.0 F 97.7 F Pulse Rate Pulse Rate [Left Dorsalis Pedis] 9 L Pulse Rate [Left Pulse Oximeter] 80 95 Respiratory Rate 16 20 20 Blood Pressure Blood Pressure [Right Arm] 117/73 131/71 Pulse Oximetry 97 94 94 Oxygen Delivery Method Room Air Room Air Room Air Oxygen Flow Rate 08/07/23 03:00 08/07/23 07:00 08/07/23 07:00 Temperature 97.5 F L Pulse Rate Pulse Rate [Left Dorsalis Pedis] Pulse Rate [Left Pulse Oximeter] 78 66 Respiratory Rate 20 18 18 Blood Pressure Blood Pressure [Right Arm] 155/86 H Pulse Oximetry 95 98 Oxygen Delivery Method Room Air Room Air Oxygen Flow Rate 08/07/23 07:00 Temperature 98.3 F Pulse Rate Pulse Rate [Left Dorsalis Pedis] Pulse Rate [Left Pulse Oximeter] 66 Respiratory Rate 18 Blood Pressure Blood Pressure [Right Arm] 170/80 H Pulse Oximetry 98 Oxygen Delivery Method Room Air Oxygen Flow Rate Assessment and Plan Assessment and plan (1) Status post-operative repair of closed fracture of left hip: Problem details: Day 1 s/p left bipolar hemiarthroplasty Status: Acute Plan - Mepilex dressing is waterproof. May shower. Dressing will be removed at first post-op visit with [facility]. Remove dressing sooner if becomes saturated. - Patient is able to weightbear as tolerated. Use walker for assistance. - Posterior hip precautions to operative hip. Abduction pillow to remain in place while patient is in bed. - Postoperative antibiotics: Ancef x2 doses postoperatively per protocol - For pain management, recommend rest, ice, elevation, acetaminophen and/or Oxycodone PRN. - PT/OT consults for ambulation assistance/mobility education - For DVT prophylaxis: continue mechanical SCDs while in the hospital and Eliquis 2.5 mg p.o. b.i.d. for 35 days. Also encourage frequent ambulation and ankle pumps when sedentary. - Social consult for discharge planning. - Follow up with [facility] in 1-2 weeks. Call Orthopedics with any questions or concerns [phone].
--- NOTE | 2023-08-07 10:46 | PC.SOCIAL ---
Discharge planning: Called son, Jose, regarding d/c plans. Son stated he is at work and unable to talk at this time and will call back when he has time to discuss discharge plans. Pt has [employer] insurance. Contacted the following facilities regarding bed availability for short term rehab without providing HIPAA protected information: 1. [facility] - left message awaiting call back. 2. [facility] - left message awaiting call back. 3. [facility]- left message awaiting call back. 4. [facility] - has available beds and can look at referral if sent. 5. [facility] and [facility] - no availability. 6. [facility]- Left message and awaiting call back. pack worker to follow up as needed.
[2023-08-07 10:53] VITALS: BP 148/72; PULSE 79; RESP 18; TEMP 36.8; O2SAT 99
--- NOTE | 2023-08-07 14:03 | P.IMPN_ITS ---
Progress Note: A&P Assessment and plan (1) Closed fracture of neck of left femur: Problem details: - Status post posterior approach left hip hemiarthroplasty by Dr. Lorenzo this morning. Anticipate postop delirium. Will need frequent repositioning as patient has a recent history of cellulitis of the perineum and is at risk for further skin breakdown. - VTE prophylaxis with mechanical prophylaxis only due to GI bleeding. Stop apixaban. Status: Acute (2) Acute kidney injury: Problem details: - 2/3 Creatinine is up today to 1.6 compared to baseline of 1.2. Reassess diuretic therapy after surgery - / creatinine is back down to 1.3 today. Status: Resolved (3) Vulvar cancer: Problem details: Diagnosed August of 2021 with radiation and chemotherapy. No evidence of recurrence with routine oncology follow-up. 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 Did have some bleeding today, but no external source identified. No open sores. 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 Much improved off apixaban. Follow clinically. Avoid constipation. Bleeding today with Hgb down to 8 from 8.6 yesterday. Stop all anticoagulation. Due to the timing this morning, I do not think the apixaban caused bleeding, but she should not be on it with active bleeding, so I am stopping it. Status: Chronic (5) Atrial fibrillation: Problem details: Rate controlled with metoprolol. Off apixaban due to bleeding. Status: Acute (6) Type 2 diabetes mellitus: Problem details: - A1C 6.0. Blood sugars here have been fairly well controlled, not on Metformin to prevent diarrhea. Status: Chronic (7) Cognitive impairment: Problem details: - MOCA . Anticipate postop delirium Status: Chronic (8) MRSA (methicillin resistant staph aureus) culture positive: Problem details: BENJAMÍN 03/03/2023. 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 Likely will need detention facility rehab Status: Chronic (11) Incontinence of urine: Problem details: - Barrett catheter currently in place, outpatient Urology f/u Status: Chronic (12) Cellulitis of perineum: Problem details: This appears completely resolved. Status: Resolved (13) Hypertension: Problem details: Continue home medication. Monitor closely. Status: Chronic Subjective Time Seen by Provider: 10:15 Date Seen: 08/07/23 Interval history: Galilea participated in therapies today. She says shes doing better than before surgery, but does have some pain in her hip. Staff reported that she had about a cup of BRBPR not long after taking the first dose of apixaban this morning. Exam Narrative: Exam Narrative: General: No acute distress. Awake, alert, oriented. No pallor. No jaundice. Cardiovascular: Regular rate and rhythm. No murmurs, gallops, or rubs. Respiratory: Clear to auscultation bilaterally. No wheezes or crackles. Abdomen: Bowel sounds present. Soft, nondistended, nontender. Genitourinary: Lymphedema and mild erythema without induration or appreciable warmth. No open sores. Extremities: Left hip bandage is clean, dry, and intact. No pedal edema. Const: Vital Signs, click to edit/add: Vital Signs - 24 hr 08/06/23 15:00 08/06/23 15:00 08/06/23 15:00 Temperature 97.9 F Pulse Rate [Left D orsalis Pedis] Pulse Rate [Left P ulse Oximeter] 88 87 Respiratory Rate 18 16 18 Blood Pressure [Ri t Arm] 127/65 Pulse Oximetry 93 95 Oxygen Delivery Me thod Room Air Room Air Oxygen Flow Rate 08/06/23 16:00 08/06/23 17:00 08/06/23 17:59 Temperature 98.1 F 98.0 F Pulse Rate [Left D orsalis Pedis] Pulse Rate [Left P ulse Oximeter] 89 88 80 Respiratory Rate 16 16 16 Blood Pressure [Ri ght Arm] 135/78 143/92 H 117/73 Pulse Oximetry 96 96 97 Oxygen Delivery Me thod Room Air Room Air Room Air Oxygen Flow Rate 08/06/23 19:00 08/06/23 23:00 08/07/23 03:00 Temperature 97.7 F 97.5 F L Pulse Rate [Left D orsalis Pedis] 9 L Pulse Rate [Left P ulse Oximeter] 95 78 Respiratory Rate 20 20 20 Blood Pressure [Ri ght Arm] 131/71 155/86 H Pulse Oximetry 94 94 95 Oxygen Delivery Me thod Room Air Room Air Room Air Oxygen Flow Rate 08/07/23 07:00 08/07/23 07:00 08/07/23 07:00 Temperature 98.3 F Pulse Rate [Left D orsalis Pedis] Pulse Rate [Left P ulse Oximeter] 66 66 Respiratory Rate 18 18 18 Blood Pressure [Ri ght Arm] 170/80 H Pulse Oximetry 98 98 Oxygen Delivery Me thod Room Air Room Air Oxygen Flow Rate 08/07/23 10:53 Temperature 98.3 F Pulse Rate [Left D orsalis Pedis] Pulse Rate [Left P ulse Oximeter] 79 Respiratory Rate 18 [facility] 148/72 H Pulse Oximetry 99 Oxygen Delivery Me thod Room Air Oxygen Flow Rate 1 Labs Labs: Laboratory Results - last 24 hr 08/07/23 06:10 WBC 11.28 H RBC 3.10 L Hgb 8.0 L Hct 26.0 L MCV 84 MCH 26 MCHC 31 L Plt Count 306
[2023-08-07 15:00] VITALS: BP 183/81; PULSE 80; PULSE 84; RESP 18; TEMP 36.6; O2SAT 99
--- NOTE | 2023-08-07 15:08 | P.IMCN_ITS ---
Date of Consult Consult date: 08/07/23 Requesting Physician: Hospitalist Primary Care Provider: Isidoro Dooley MD Consult Narrative Narrative: Chelly Wood is a 78 year old female known to to Wound Service is being seen today at the request of the hospitalist team for chronic wound to vaginal region. 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 Last seen in the [facility] 07/26/23. Wound improved since that time. Patient is not a reliable historian and often gives conflicting HPI. Patient is currently hospitalized s/p repair of a left hip fracture. Review of Systems Status of ROS: Reports: 6 or more systems reviewed and unremarkable except as noted in History and below [facility] Medical History (Updated 08/09/23 @ 11:25 by Randi Sheets PA-C) Chronic pain ?G89.29 - Other chronic pain (ICD-10) Frail elderly ?R54 - Age-related physical debility (ICD-10) Incontinence of urine ?R32 - Unspecified urinary incontinence (ICD-10) Cognitive impairment ?R41.89 - Other symptoms and signs involving cognitive functions and awareness (ICD-10) Bright red blood per rectum ?K62.5 - Hemorrhage of anus and rectum (ICD-10) Cellulitis of perineum ?L03.315 - Cellulitis of perineum (ICD-10) Vulvar cancer ?C51.9 - Malignant neoplasm of vulva, unspecified (ICD-10) Type 2 diabetes mellitus ?E11.9 - Type 2 diabetes mellitus without complications (ICD-10) Atrial fibrillation ?I48.91 - Unspecified atrial fibrillation (ICD-10) Yeast infection involving the vagina and surrounding area ?B37.31 - Acute candidiasis of vulva and vagina (ICD-10) Incontinence of bowel ?R15.9 - Full incontinence of feces (ICD-10) Bacteremia ?R78.81 - Bacteremia (ICD-10) 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 - Other specified disorders of the skin and subcutaneous tissue re lated to radiation (ICD-10) ?Y84.2 - Radiological procedure and radiotherapy as the cause of abnormal reaction of the patient, or of later complication, without mention of misadventure at the time of the procedure (ICD-10) Chronic renal insufficiency ?N18.9 - Chronic kidney disease, unspecified (ICD-10) GERD (gastroesophageal reflux disease) ?K21.9 - Gastro-esophageal reflux disease without esophagitis (ICD-10) Obstructive sleep apnea ?G47.33 - Obstructive sleep apnea (adult) (pediatric) (ICD-10) Asthma ?J45.909 - Unspecified asthma, uncomplicated (ICD-10) Hypertension ?I10 - Essential (primary) hypertension (ICD-10) Cardiomyopathy ?I42.9 - Cardiomyopathy, unspecified (ICD-10) Congestive heart failure ?I50.9 - Heart failure, unspecified (ICD-10) Surgical History (Updated 08/07/23 @ 10:04 by Fatimah Bowens PA-C) [place] teeth removed ?K08.409 - Partial loss of teeth, unspecified cause, unspecified class (ICD- 10) History of tubal ligation ?Z98.51 - Tubal ligation status (ICD-10) Hx of total knee arthroplasty ?Z96.659 - Presence of unspecified artificial knee joint (ICD-10) History of bunionectomy ?Z98.890 - Other specified postprocedural states (ICD-10) Status post breast reduction ?Z98.890 - Other specified postprocedural states (ICD-10) Status post biopsy of uterine cervix ?Z98.890 - Other specified postprocedural states (ICD-10) Social History (Updated 08/05/23 @ 19:29 by Rajinder Valencia MD) Narrative: She lives with her son. Code status is DNR DNI. What is your current living situation?: I presently have a place to live Problems where you live: no known problems Problems where you live details: N/A In the past 12 months, utilities in danger of being shut off: no In past 12 months, lack of transportation kept you from medical appts, meetings, work, or getting things needed for daily living: no In the past 12 mos, have been you worried that your food would run out before you had money to buy more?: never true In the past 12 mos, the food you bought just didn't last and you didn't have money to buy more?: never true Highest level of school completed/degree received: high school graduate Smoking Status: Former smoker Do you use any of these nicotine containing products: None Second hand tobacco smoke exposure: No How often do you have a drink containing alcohol: never How often do you have six or more drinks on one occasion: Never AUDIT-C Alcohol total score: 0 Non-prescribed substance use: denies use Caffeine: Yes How often does anyone, including family, friends and others, physically hurt you : never How often does anyone, including family, friends and others, insult or talk down to you: never How often does anyone, including family, friends and others, threaten you with harm: never How often does anyone, including family, friends and others, scream or curse at you: never service: No Meds Home Medications and Allergies Home Medications Medication Instructions Recorded Confirmed Type albuterol sulfate 90 mcg/actuation 1 - 2 puff inhalation Q4H PRN 03/02/2310/24 History aerosol inhaler dyspnea allopurinol 100 mg tablet 100 mg PO DAILY 03/02/23 08/05/23 History metoprolol succinate 50 mg 50 mg PO BID 03/02/23 08/05/23 History tablet,extended release 24 hr omeprazole 20 mg capsule,delayed 20 mg PO DAILY 03/02/23 08/05/23 History release rosuvastatin 5 mg tablet 5 mg PO HS 03/02/23 08/06/23 History lidocaine HCl 2 % mucosal jelly in 1 applic topical QID PRN pain 07/03/23 08/06/23 History applicator betamethasone dipropionate 0.05 % 1 applic topical DAILY PRN 08/06/23 08/06/23 History topical cream fluconazole 200 mg tablet 200 mg PO DAILY 08/06/23 08/06/23 History metoprolol succinate 25 mg 25 mg PO BID 08/06/23 08/06/23 History tablet,extended release 24 hr triamcinolone acetonide 0.1 % 1 applic topical BID PRN 08/06/23 08/06/23 History topical cream Allergies Allergy/AdvReac Type Severity Reaction Status Date / Time No Known Drug Allergies Allergy Verified 08/05/23 15:48 Exam Narrative: Exam Narrative: General: NAD, alert. laying comfortably in bed. Pulmonary: unlabored breathing, symmetrical rise. abd: soft, non-tender Chronic groin wound: limited exam d/t left hip fracture, unable to visual buttock. nicol area with chronic edema, no open lesion visualized. tender, baseline. No erythema, or concerns for cellulitis. Psych: makes good eye contact. Const: Vital Signs, click to edit/add: Vital Signs - 24 hr 08/06/23 16:00 08/06/23 17:00 08/06/23 17:59 Temperature 98.1 F 98.0 F Pulse Rate [Left D orsalis Pedis] Pulse Rate [Left P ulse Oximeter] 89 88 80 Respiratory Rate 16 16 16 Blood Pressure [Ri ght Arm] 135/78 143/92 H 117/73 Pulse Oximetry 96 96 97 Oxygen Delivery Me thod Room Air Room Air Room Air Oxygen Flow Rate 08/06/23 19:00 08/06/23 23:00 08/07/23 03:00 Temperature 97.7 F 97.5 F L Pulse Rate [Left D orsalis Pedis] 9 L Pulse Rate [Left P ulse Oximeter] 95 78 Respiratory Rate 20 20 20 Blood Pressure [Ri ght Arm] 131/71 155/86 H Pulse Oximetry 94 94 95 Oxygen Delivery Me thod Room Air Room Air Room Air Oxygen Flow Rate 08/07/23 07:00 08/07/23 07:00 08/07/23 07:00 Temperature 98.3 F Pulse Rate [Left D orsalis Pedis] Pulse Rate [Left P ulse Oximeter] 66 66 Respiratory Rate 18 18 18 Blood Pressure [Ri ght Arm] 170/80 H Pulse Oximetry 98 98 Oxygen Delivery Me thod Room Air Room Air Oxygen Flow Rate 08/07/23 10:53 Temperature 98.3 F Pulse Rate [Left D orsalis Pedis] Pulse Rate [Left P ulse Oximeter] 79 Respiratory Rate 18 Blood Pressure [Ri ght Arm] 148/72 H Pulse Oximetry 99 Oxygen Delivery Me thod Room Air Oxygen Flow Rate 1 Documenting provider has reviewed patient's vital signs: yes Labs Labs: Short CBC 08/07/23 Range/Units 06:10 WBC 11.28 H (4.50-11.00) K/uL Hgb 8.0 L (12.0-16.0) gm/dL Hct 26.0 L (33.0-51.0) % Plt Count 306 (140-440) K/uL Assessment and Plan Assessment and plan (1) Other specified disorders of the skin and subcutaneous tissue related to radiation: Status: Acute (2) Chronic candidiasis of vulva and vagina: Status: Acute (3) Incontinence of urine: Problem comment: Barrett catheter currently in place given history of chronic skin breakdown wounds. Will need outpatient Urology f/u Status: Chronic Plan Wound care orders: Wound improved. cleanse nicol area. Mix pea size amount of triamcinolone with zinc barrier paste and apply to the perineum, BID and PRN. --Reposition following unit policy. 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
[2023-08-07 18:48] VITALS: BP 159/66; PULSE 83; RESP 18; TEMP 36.6; O2SAT 98
[2023-08-07 23:00] VITALS: BP 168/77; PULSE 82; RESP 18; TEMP 36.8; O2SAT 97; O2SAT 98
[2023-08-08] VITALS (7 sets, daily range): BP systolic 126–196; BP diastolic 54–93; PULSE 78–97; RESP 18–20; TEMP 36.1–37.5; O2SAT 93–100
[2023-08-08] MEDS: OXYCODONE 5 MG TABLET 2.5 MG PO ×4 (01:03→20:15)
[2023-08-08] MEDS: LACTATED RINGERS 1000 ML 1,000 ML 100 ML IV ×2 (01:21→11:22)
[2023-08-08] MEDS: HYDROmorphone 0.5 mg/0.5 ml inj IVP (04:35)
[2023-08-08] MEDS: SODIUM CHLORIDE 0.9 % (FLUSH) 10 ML SYRINGE 5 ML IVF ×2 (04:36→08:51)
--- NOTE | 2023-08-08 06:25 | PC.NURSE ---
-: T&R.?A x 1 pivot to BSC, tolerated fair. Small formed BM, red blood in stool. Small amount blood noted on brief as well. C/o pain 7-04/11, see eMAR.?Abductor pillow in place. Barrett patent and draining.?Active ice to hip. Dressing CDI.
[2023-08-08 06:50] LABS: Basophils Percent Auto 0.1 % (0.0-3.0); Eosinophils Percent Auto 0.4 % (0.0-7.0); Hemoglobin* 8.1 gm/dL (12.0-16.0); Immature Granulocytes Pct Auto 0.2 %; Lymphocytes Percent Auto 5.4 % (20-44); Mean Corpuscular HGB Conc 31 gm/dL (32-36); Mean Corpuscular Hemoglobin 27 pg (26-34); Mean Corpuscular Volume 86 fL (80-100); Monocytes Percent Auto 6.1 % (0.0-11.0); Neutrophils Percent Auto 87.8 % (42.0-72.0); Platelet Count* 310 K/uL (140-440); RDW Coefficient of Variation % 15.7 % (11.5-15.5); Red Blood Count 3.04 m/uL (4.00-5.20); White Blood Count* 12.08 K/uL (4.50-11.00)
[2023-08-08 07:07] LABS: Chloride* 104 mmol/L (96-114); Potassium* 4.8 mmol/L (3.6-5.1); Sodium* 139 mmol/L (135-149)
[2023-08-08 07:09] LABS: Creatinine* 0.9 mg/dL (0.5-1.5); Est. Creatinine Clearance* 42.39; Estimated Glomerular Filt Rate 66 ml/min
[2023-08-08 07:10] LABS: Anion Gap 7 mEq/L (7-15); Blood Urea Nitrogen* 23 mg/dL (7-30); Calcium* 8.9 mg/dL (8.4-10.6); Carbon Dioxide* 28 mmol/L (20-32); Glucose* 105 mg/dL (60-115); Slide Review Reflex No
[2023-08-08] MEDS: OMEPRAZOLE 20 MG CAPSULE DR PO (08:49)
[2023-08-08] MEDS: ACETAMINOPHEN 500 MG TABLET 1000 MG PO (08:49)
[2023-08-08] MEDS: allopurinoL 100 MG TABLET PO (08:49)
[2023-08-08] MEDS: METOPROLOL SUCCINATE (XL) 50 MG TAB PO ×2 (08:49→20:16)
[2023-08-08] MEDS: ROSUVASTATIN CALCIUM 10 MG TABLET 5 MG PO (08:56)
[2023-08-08] MEDS: TRIAMCINOLONE ACETONIDE CREAM 0.1 % 1 APPLIC TOPICAL ×2 (08:57→20:17)
--- NOTE | 2023-08-08 11:29 | PM.IMPN1 ---
Progress Note: A&P Assessment and plan (1) Closed fracture of neck of left femur: Problem details: - Status post posterior approach left hip hemiarthroplasty by Dr. Lorenzo this morning. Anticipate postop delirium. Will need frequent repositioning as patient has a recent history of cellulitis of the perineum and is at risk for further skin breakdown. - VTE prophylaxis with mechanical prophylaxis only due to GI bleeding. Had only one dose of apixaban, on 2/5 am. Status: Acute (2) Acute kidney injury: Problem details: - 2/3 Creatinine is up today to 1.6 compared to baseline of 1.2. Reassess diuretic therapy after surgery - 2/ creatinine is back down to 1.3 today. - 2/5 Cr 0.9 Status: Resolved (3) Vulvar cancer: Problem details: Diagnosed August of 2021 with radiation and chemotherapy. No evidence of recurrence with routine oncology follow-up. 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 Did have some bleeding today, but no external source identified. No open sores. 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 Much improved off apixaban. Follow clinically. Avoid constipation. - 2/5 Bleeding today with Hgb down to 8 from 8.6 yesterday. Stop all anticoagulation. Due to the timing this morning, I do not think the apixaban caused bleeding, but she should not be on it with active bleeding, so I am stopping it. - 2/6 some bleeding yet, but not as much as yesterday. Hgb stable at 8.1 Recheck in the morning. Status: Chronic (5) Atrial fibrillation: Problem details: Rate controlled with metoprolol. Off apixaban due to bleeding. Status: Acute (6) Type 2 diabetes mellitus: Problem details: - A1C 6.0. Not on Metformin to prevent diarrhea. Morning blood glucose on labs have been within goal. Continue diet control. Status: Chronic (7) Cognitive impairment: Problem details: - MOCA . Anticipate postop delirium Status: Chronic (8) MRSA (methicillin resistant staph aureus) culture positive: Problem details: BENJAMÍN 03/03/2023. 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 Likely will need usp facility rehab Status: Chronic (11) Incontinence of urine: Problem details: - Barrett catheter currently in place, outpatient Urology f/u Status: Chronic (12) Cellulitis of perineum: Problem details: This appears completely resolved. Status: Resolved (13) Hypertension: Problem details: Continue home medication. Monitor closely. Status: Chronic Subjective Time Seen by Provider: 08:50 Date Seen: 08/08/23 Interval history: Galilea feels good today. She just had a sponge bath and OT. Nurse reports Galilea has had several small, soft, bloody BMs. Galilea denies lightheadedness or SOB. Exam Narrative: Exam Narrative: General: No acute distress. Awake, alert, oriented. No pallor. No jaundice. Cardiovascular: Regular rate and rhythm. No murmurs, gallops, or rubs. Respiratory: Clear to auscultation bilaterally. No wheezes or crackles. Extremities: Left hip bandage is clean, dry, and intact. No pedal edema. Const: Vital Signs, click to edit/add: Vital Signs - 24 hr 08/07/23 15:00 08/07/23 15:00 08/07/23 15:00 Temperature 97.9 F Pulse Rate [Left P ulse Oximeter] 84 80 Respiratory Rate 18 18 18 Blood Pressure [Ri ght Arm] 183/81 H Pulse Oximetry 99 99 Oxygen Delivery Me thod Room Air Room Air Oxygen Flow Rate 1 08/07/23 18:48 08/07/23 23:00 08/07/23 23:00 Temperature 97.9 F 98.2 F Pulse Rate [Left P ulse Oximeter] 83 82 Respiratory Rate 18 18 18 Blood Pressure [Ri ght Arm] 159/66 H 168/77 H Pulse Oximetry 98 98 97 Oxygen Delivery Me thod Room Air Room Air Room Air Oxygen Flow Rate 08/07/23 23:00 08/08/23 02:56 08/08/23 07:00 Temperature 98.1 F Pulse Rate [Left P ulse Oximeter] 78 97 Respiratory Rate 18 20 20 Blood Pressure [Ri ght Arm] 172/90 H Pulse Oximetry 98 Oxygen Delivery Me thod Room Air Oxygen Flow Rate 08/08/23 07:00 08/08/23 07:00 Temperature 98.1 F Pulse Rate [Left P ulse Oximeter] 97 Respiratory Rate 20 20 Blood Pressure [Ri ght Arm] 196/89 H Pulse Oximetry 100 100 Oxygen Delivery Me thod Room Air Room Air Oxygen Flow Rate Labs Labs: Laboratory Results - last 24 hr 08/08/23 05:50 WBC 12.08 H RBC 3.04 L Hgb 8.1 L Hct 26.0 L MCV 86 MCH 27 MCHC 31 L RDW Coeff of Robert 15.7 H Plt Count 310 Neut % (Auto) 87.8 H Lymph % (Auto) 5.4 L Ashley % (Auto) 6.1 Eos % (Auto) 0.4 Baso % (Auto) 0.1 Neut # (Auto) 10.60 H Lymph # (Auto) 0.70 L Ashley # (Auto) 0.70 Eos # (Auto) 0.00 Baso # (Auto) 0.00 Abs Immat Gran (auto) 0.00 Imm/Tot Granulo (auto) 0.2 Sodium 139 Potassium 4.8 Chloride 104 Carbon Dioxide 28 Anion Gap 7 BUN 23 Creatinine 0.9 Estimated Creat Clear 42.39 Estimated GFR 66 Glucose 105 Calcium 8.9
--- NOTE | 2023-08-08 15:35 | PC.SOCIAL ---
Addendum entered by DARREN ZhangW 08/08/23 17:03: Received an e-mail from Tc Mccarty at [facility]. They can accept pt for admission for tomorrow, pending prior authorization from pt's [employer] insurance. Phone call to pt's son, Jose Wood, to provide update. Pt's son would like to accept bed. Pt's son will transport upon discharge and asks what is the latest time [facility] can accept for admission. Sent an e-mail to Tc at [facility] and asked about later admission times. Provided update to charge nurse. Addendum entered by Arabella Mason, [facility] 08/08/23 16:17: Discharge planning: gas plant worker heard back from [facility] and they provided this nephrology social worker with the correct fax number. gas plant worker faxed the referral to #[phone]. Social work to follow-up as needed. Original Note: Discharge planning: gas plant worker confirmed with the provider on staff that the pt will be ready for discharge tomorrow. gas plant worker spoke to the pt's son, Jose, who stated he was fine with this nephrology social worker looking for SNF's near [place] [facility]. Pt's son said he did not want his mother to go to [facility] or [facility] due to previous experiences there that did not go well. gas plant worker contacted the following [facility] contracted facilities: 1. [facility] #[phone]= faxed referral to #[phone]. 2. [facility] #[phone]= they have openings, faxed referral to #[phone]. 3. [facility] #[phone]= they have openings, faxed referral to #[phone]. 4. [facility] #[phone]= secure emailed referral. 5. [facility] #[phone]= they have openings, but gave a landline as a fax number, called them back and left a message for clarification on correct fax number. 6. [facility] [place] #[phone]= they do not have beds this week. Social work to follow-up as needed.
--- NOTE | 2023-08-08 23:06 | PC.NURSE ---
Patient awake and vitally stable during the shift. Patient ambulating with Ax1, GB/Walker. Patient able to ambulate and move with encouragement. Patient agreed to sit up in chair for lunch and then back to bed. Wound care completed. Chronic moctezuma in place. Pain reported, PRN medications administered when asked. Nursing to continue to monitor and prepare for possible discharge to SNF tomorrow.
[2023-08-09] MEDS: OXYCODONE 5 MG TABLET 2.5 MG PO ×3 (02:54→16:24)
[2023-08-09 02:59] VITALS: BP 155/83; PULSE 98; RESP 20; TEMP 36.8; O2SAT 95
--- NOTE | 2023-08-09 05:47 | PC.NURSE ---
[id number]: Patient cooperative with cares. Active ice to op site. Dressing to L. hip C/D/I. Abduction pillow in place. PRN Oxy for pain. Denies N/V. Anticipated D/C today.
[2023-08-09 06:46] LABS: Basophils Percent Auto 0.2 % (0.0-3.0); Eosinophils Percent Auto 1.7 % (0.0-7.0); Hematocrit 25.5 % (33.0-51.0); Immature Granulocytes Pct Auto 0.2 %; Lymphocytes Percent Auto 5.9 % (20-44); Mean Corpuscular HGB Conc 31 gm/dL (32-36); Mean Corpuscular Hemoglobin 26 pg (26-34); Mean Corpuscular Volume 84 fL (80-100); Monocytes Percent Auto 4.7 % (0.0-11.0); Neutrophils Percent Auto 87.3 % (42.0-72.0); Platelet Count* 326 K/uL (140-440); RDW Coefficient of Variation % 15.8 % (11.5-15.5); Red Blood Count 3.03 m/uL (4.00-5.20); White Blood Count* 11.62 K/uL (4.50-11.00)
[2023-08-09 07:05] LABS: Hemoglobin* 7.9 gm/dL (12.0-16.0); Slide Review Reflex No
[2023-08-09 07:18] VITALS: RESP 18; O2SAT 95
[2023-08-09 07:39] VITALS: BP 166/87; PULSE 94; RESP 18; TEMP 36.7; O2SAT 95
[2023-08-09] MEDS: METOPROLOL SUCCINATE (XL) 50 MG TAB PO (08:54)
[2023-08-09] MEDS: allopurinoL 100 MG TABLET PO (08:54)
[2023-08-09] MEDS: OMEPRAZOLE 20 MG CAPSULE DR PO (08:54)
[2023-08-09] MEDS: ROSUVASTATIN CALCIUM 10 MG TABLET 5 MG PO (08:55)
[2023-08-09] MEDS: SODIUM CHLORIDE 0.9 % (FLUSH) 10 ML SYRINGE 5 ML IVF (08:55)
[2023-08-09] MEDS: ONDANSETRON 2 MG/ML inj 4 MG IVP ×2 (10:11→16:24)
[2023-08-09] MEDS: TRIAMCINOLONE ACETONIDE CREAM 0.1 % 1 APPLIC TOPICAL (10:17)
[2023-08-09 11:00] VITALS: BP 147/86; PULSE 98; RESP 18; TEMP 36.8; O2SAT 98
--- NOTE | 2023-08-09 11:14 | P.DS_ITS ---
DS: Providers Provider Date Seen: 08/09/23 Date of admission: 08/05/23 19:02 Primary care physician: Isidoro Dooley MD Admitting Clinician: Rajinder Valencia MD Consults: 08/06/23 10:52 Consult to Occupational Therapy [CONS] Routine Comment: Reason(s) for OT Consult:: Evaluate and Treat Any Restrictions?:: See Comment Comment: evaluate and treat Consult to Physical Therapy [CONS] Routine Comment: Reason(s) for PT Consult:: Evaluate and Treat Any Restrictions?:: Wt Bearing as Tolerated Consult to Band Head Saw Operator [CONS] Routine Comment: Reason for Consult:: Discharge Planning Needs 08/07/23 07:32 Consult to Wound Care [CONS] Routine Comment: Consulting Provider: Elisabet Malcolm Attending Physician on discharge: Randi Sheets [facility], [facility] [place] Hospitalist Date of Discharge: 08/09/23 DS: Diagnosis Discharge Diagnosis (1) Closed fracture of neck of left femur: Status: Acute Problem details: Status post posterior approach left hip hemiarthroplasty by Dr. Lorenzo. VTE prophylaxis with mechanical prophylaxis only initiated due to history of GI bleeding. Had only one dose of apixaban, on 2/5 am. Discharged on mechanical prophylaxis as well, SCDs, compression stockings, frequent ambulation, ankle pumps. (2) Acute kidney injury: Status: Resolved Problem details: Resolved. 1.6 on admission, 0.9 prior to discharge. (3) Vulvar cancer: Status: Chronic Problem details: Diagnosed August of 2021 with radiation and chemotherapy. No evidence of recurrence with routine oncology follow-up. 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 Few episodes of bleeding. No open sores. (4) Bright red blood per rectum: Status: Chronic Problem details: Likely due to radiation proctitis. Thought not likely due to apixaban but noted to be improved off apixaban. Avoid constipation. Hemoglobins trended. (5) Atrial fibrillation: Status: Acute Problem details: Rate controlled with metoprolol. Off apixaban due to bleeding. (6) Type 2 diabetes mellitus: Status: Chronic Problem details: - A1C 6.0. Not on Metformin to prevent diarrhea. Continued on diabetic diet. (7) Cognitive impairment: Status: Chronic Problem details: - MOCA (8) MRSA (methicillin resistant staph aureus) culture positive: Status: Chronic Problem details: Positive BENJAMÍN 03/03/2023. 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 Additional chronic back pain. (10) Incontinence of urine: Status: Chronic Problem details: Barrett catheter currently in place given history of chronic skin breakdown wounds. Will need outpatient Urology f/u (11) Cellulitis of perineum: Status: Resolved Problem details: This appears completely resolved. Indwelling Barrett catheter in place. (12) Hypertension: Status: Chronic Problem details: Continued on home medications DS: Summary Hospital Course Hospital Course: [age] year old female past medical history significant for ESBL, vulvar cancer, chronic candidiasis of vulva, perineum cellulitis, hypertension, GI bleed, urinary incontinence, diabetes mellitus, MRSA was admitted to the medical floor for after a fall at home sustaining a left femoral neck fracture. Course of care and details as noted above. Patient is s/p left bipolar hemiarthroplasty with postop anemia. Hemoglobin on discharge is 7.9. Given history of GI bleed while on anticoagulation, apixaban has been held. She will need close following of her hemoglobin. Goal >7 asymptomatic. Discharged to SNF for post op rehab. She will need outpatient follow-up with Orthopedic surgery. She has an indwelling Barrett in place postoperatively and given urinary incontinence to prevent further skin breakdown. Need outpatient follow-up with Urology. Remainder of chronic medical comorbidities were monitored and managed with home medications. Status at Discharge Functional status at discharge: uses cane/walker Overall status at discharge: patient is not back to baseline Time Spent with Patient Time attestation: Total time spent providing and/or coordinating discharge services: Time spent: Greater than 30 minutes Exam Narrative: Exam Narrative: PHYSICAL EXAM General: Pleasant, conversant, NAD Cardiovascular: RRR Pulmonary: No dyspnea Neurological: Alert, answering questions appropriately Skin: Warm, dry. Const: Vital Signs, click to edit/add: Vital Signs - 24 hr 08/08/23 15:00 08/08/23 15:00 08/08/23 15:00 Temperature 98.2 F Pulse Rate [Left D orsalis Pedis] Pulse Rate [Left P ulse Oximeter] 90 90 Respiratory Rate 18 18 18 Blood Pressure [Ri ght Arm] 126/54 L Pulse Oximetry 97 97 Oxygen Delivery Me thod Room Air Room Air 08/08/23 19:00 08/08/23 23:00 08/08/23 23:49 Temperature 99.5 F 99.1 F Pulse Rate [Left D orsalis Pedis] Pulse Rate [Left P ulse Oximeter] 94 94 Respiratory Rate 18 20 20 Blood Pressure [Ri ght Arm] 159/88 H 171/93 H Pulse Oximetry 100 93 93 Oxygen Delivery Al thod Room Air Room Air Room Air 08/09/23 02:59 08/09/23 07:18 08/09/23 07:39 Temperature 98.2 F 98.1 F Pulse Rate [Left D orsalis Pedis] 98 94 Pulse Rate [Left P ulse Oximeter] Respiratory Rate 20 18 18 Blood Pressure [Ri ght Arm] 155/83 H 166/87 H Pulse Oximetry 95 95 95 Oxygen Delivery Al thod Room Air Room Air Room Air DS: Data Data Completed and Pending Completed studies during hospitalization: Procedures Drainage of Bladder with Drainage Device, Via Natural or Artificial Opening (07/03/23) Introduction of Remdesivir Anti-infective into Peripheral Vein, Percutaneous Approach, [employer] (07/03/23) Labs on day of discharge: Labs from last 24 hours 08/09/23 05:47 WBC 11.62 H RBC 3.03 L Hgb 7.9 L* Hct 25.5 L MCV 84 MCH 26 MCHC 31 L RDW Coeff of Robert 15.8 H Plt Count 326 Neut % (Auto) 87.3 H Lymph % (Auto) 5.9 L [place] % (Auto) 4.7 Eos % (Auto) 1.7 Baso % (Auto) 0.2 Neut # (Auto) 10.10 H Lymph # (Auto) 0.70 L [place] # (Auto) 0.50 Eos # (Auto) 0.20 Baso # (Auto) 0.00 Abs Immat Gran (auto) 0.00 Imm/Tot Granulo (auto) 0.2 Preliminary micro results at discharge 08/05/23 16:56 Blood Culture - Preliminary Blood NO GROWTH AFTER 72 HOURS 08/05/23 16:50 Blood Culture - Preliminary Blood NO GROWTH AFTER 72 HOURS Discharge Plan Discharge Disposition: [facility] Date of Admission: 08/05/23 19:02 Attending Provider on Discharge: Randi Sheets Consulting Providers: Elisabet Malcolm; [place] Lorenzo Fatimah Bowens Primary Care Provider: Isidoro Dooley Condition: Stable Anticipated Discharge Date/Time: 08/09/23 10:30 Discharge Medications: New triamcinolone acetonide 0.1 % Cream 1 applic topical BID Qty: 30 0RF acetaminophen 500 mg capsule 1,000 mg PO Q6H PRN (Reason: pain) Qty: 90 0RF Continued allopurinol 100 mg tablet 100 mg PO DAILY omeprazole 20 mg capsule,delayed release(DR/EC) 20 mg PO DAILY albuterol sulfate 90 mcg/actuation HFA aerosol inhaler 1 - 2 puff INHALATION Q4H PRN (Reason: dyspnea) rosuvastatin 5 mg tablet 5 mg PO HS metoprolol succinate 50 mg tablet extended release 24 hr 50 mg PO BID Patient Comments: total dose 75mg bid lidocaine HCl 2 % jelly in applicator 1 applic topical QID PRN (Reason: pain) oxycodone 5 mg Tablet 2.5 mg PO Q4H PRN (Reason: pain) Qty: 20 0RF hydrocortisone acetate [Anucort-HC] 25 mg Suppository 25 mg [place] TID 8 Days Qty: 24 0RF fluconazole 200 mg tablet 200 mg PO DAILY metoprolol succinate 25 mg tablet extended release 24 hr 25 mg PO BID Patient Comments: total dose 75 mg bid betamethasone dipropionate 0.05 % cream 1 applic topical DAILY PRN triamcinolone acetonide 0.1 % Cream 1 applic topical BID PRN Changed loperamide 2 mg Capsule 2 mg PO TID PRN (Reason: diarrhea) Qty: 60 0RF Discontinued Eliquis 5 mg tablet 5 mg PO BID Hold Instructions: rectal bleeding Discharge Orders: Discharge Order (Routine); Ordered 08/09/23 Ordered By: Randi Sheets Additional Instructions: Post operative anemia (which can occur with hip surgeries) with h/o chronic anticoagulation use for atrial fibrillation, and GI bleed. Apixiban has been held. Has had episodes of bright red blood per rectum, vulvar bleeding (chronic) without worsening. Continue to monitor. Recheck hemoglobin 08/10/23. Goal >7 without symptoms. Indwelling catheter in place postoperatively in setting of urinary incontinence to prevent further skin breakdown. Will need outpatient follow-up with Urology. Per Orthopedic Surgery: S/p left bipolar hemiarthroplasty Plan - Mepilex dressing is waterproof. May shower. Dressing will be removed at first outpatient post-op visit with [facility]. Remove dressing sooner if becomes saturated. - Patient is able to weightbear as tolerated. Use walker for assistance. - Posterior hip precautions to operative hip. Abduction pillow to remain in place while patient is in bed. - For pain management, recommend rest, ice, elevation, acetaminophen and/or Oxycodone PRN. - PT/OT consults for ambulation assistance/mobility education - For DVT prophylaxis: mechanical SCDs. Encourage frequent ambulation and ankle pumps when sedentary. Anticoagulation has been discontinued secondary to increased bleeding and h/o bleed - Follow up with [facility] in [facility] in 1-2 weeks MECHANICAL VTE PROPHYLAXIS, COMPRESSION STOCKINGS, SCDS, FREQUENT AMBULATION, ANKLE PUMPS. Activity Level: Weight Bearing as Tolerated and Use Walker Activity Detail: s/p left bipolar hemiarthroplasty - Patient is able to weightbear as tolerated. Use walker for assistance. - PT/OT consults for ambulation assistance/mobility education Discharge Diet: Diabetic Follow Up Appointments: [facility] [Provider Group] - 08/16/23 (Indwelling catheter for urinary incontinence, chronic skin breakdown/wounds) Fatimah Bowens PA-C [Physician Information Architect] - Isidoro Dooley MD [Primary Care Provider] - 08/15/23 2:30 pm ([facility] for follow-up. Anemia post operatively) Forms: [facility] Info Instructions Wound Care: Mepilex dressing is waterproof. May shower. Dressing will be removed at first outpatient post-op visit with [facility]. Remove dressing sooner if becomes saturated. Admit to: SNF Discharge Potential: Fair Length of Stay: <30 days Can use facility standing orders?: Yes Code Status: DNR/DNI TEDs: Bilateral Knee Rehab Potential: Fair Therapy: Physical Therapy and Occupational Therapy Therapy Orders: Evaluate and Treat Oxygen: No Urinary Catheter: Yes Lab Orders: Check hemoglobin on 08/10/2023 Orders are good >30 days: No Signature: Randi Sheets [facility], [facility] [place] Hospitalist
--- NOTE | 2023-08-09 11:26 | PC.SOCIAL ---
Addendum entered by RACHEL Zhang 08/09/23 13:27: Discharge orders were secure e-mailed to Tc Mccarty at [facility] at 1:25 pm. Original Note: Discharge planning- Received a phone call from Tc at [facility] informing that prior authorization has been received by pt's insurance to admit. [facility] can take pt today. Phone call to pt's son to provide update. Pt's son will transport and will be here at 5:00 pm for discharge. Confirmed [facility] can admit until 7:00 pm today. Pt's son would like pt in a private room and will pay the private room fee of $60. Provided update to Tc at [facility]. Provided update to charge nurse and MD. Completed preadmission screening. Confirmation #[id number]. Provided a copy of PAS to Tc at [facility]. Social work will follow up as needed.
[2023-08-09 15:30] VITALS: BP 135/85; PULSE 102; RESP 16; TEMP 37.1; O2SAT 95
[2023-08-09] MEDS: ACETAMINOPHEN 500 MG TABLET 1000 MG PO (16:24)
== END 2023-08-09 17:00 | DRG 522 ==
LOC: ED 17:33 → MEDSURG 18:23
PROVIDERS: Family Medicine; Orthopaedic Surgery; Admitting Provider Family Medicine; Emergency Provider Emergency Medicine; PCP Family Medicine; Visit Provider Family Medicine
PROC: 0SRS0J9 Replacement of Left Hip Joint, Femoral Surface with Synthetic Substitute, Cemented, Open Approach (ICD-10-PCS; principal; 2023-08-06 08:00)
DX: S72.092A Other fracture of head and neck of left femur, initial encounter for closed fracture (principal); N17.9 Acute kidney failure, unspecified; K62.5 Hemorrhage of anus and rectum; L03.315 Cellulitis of perineum; B37.31 Acute candidiasis of vulva and vagina; K62.7 Radiation proctitis; L59.8 Other specified disorders of the skin and subcutaneous tissue related to radiation; Y84.2 Radiological procedure and radiotherapy as the cause of abnormal reaction of the patient, or of later complication, without mention of misadventure at the time of the procedure; R32 Unspecified urinary incontinence; E11.9 Type 2 diabetes mellitus without complications; G31.84 Mild cognitive impairment of uncertain or unknown etiology; C51.9 Malignant neoplasm of vulva, unspecified; I48.91 Unspecified atrial fibrillation; G89.29 Other chronic pain; G47.33 Obstructive sleep apnea (adult) (pediatric); I10 Essential (primary) hypertension; W01.0XXA Fall on same level from slipping, tripping and stumbling without subsequent striking against object, initial encounter; Z91.81 History of falling; Y92.009 Unspecified place in unspecified non-institutional (private) residence as the place of occurrence of the external cause; Z86.14 Personal history of Methicillin resistant Staphylococcus aureus infection; G89.18 Other acute postprocedural pain
CPT/HCPCS: 01214; 36415; 51701; 64450; 71045; 73501; 73502; 76942; 80048; 81003; 81015; 82270; 83605; 85025; 85027; 85610; 85730; 86850; 86900; 86901; 87040; 87081; 87086; 87186; 93005; 97110; 97116; 97162; 97165; 97530; 97535; 99100; 99284; 99285; A9270; C1776; J0690; J1170; J2250; J2405; J2704; J3010; J3490; J7120